=== PATIENT | male | born 1935 | race Caucasian/White ===

== ENCOUNTER 2023-04-12 15:53 | Inpatient (IN) ==
[2023-04-12] MEDS ORDERED: ASPIRIN CHEW 324 MG PO STA (16:15)
[2023-04-12 16:52] LABS: Base Excess VBG -1.4 mEq/L; HCO3 VBG 26 mmol/L; Oxygen Saturation VBG < 60.0 %; PCO2 VBG 54 mmHg (38-50); PO2 VBG < 20 mmHg; pH VBG 7.29 (7.36-7.41)
--- NOTE | 2023-04-12 17:19 | Emergency Department Note ---
History of Present Illness General Chief Complaint: Weakness Time Seen by Provider: 04/12/23 16:04 History of Present Illness Provider Complaint: shortness of breath Onset (ago): day(s) (5) Severity: moderate Consistency/Duration: + progressively worsening Relieved By: + oxygen Exacerbated By: + lying flat Context: + occurred during exertion Associated symptoms: + orthopnea and + chest congestion; no chest pain, no pain with inspiration, no cough, no wheezing, no lower extremity pain, no paresthesias, no hemoptysis or no abdominal pain Treatment prior to arrival: oxygen Home Medications Medication Instructions Recorded Confirmed Type aspirin 325 mg tablet,delayed 325 mg PO DAILY 04/12/23 04/12/23 History release atorvastatin 80 mg tablet 80 mg PO QPM 04/12/23 04/12/23 History metoprolol tartrate 50 mg tablet 50 mg PO BID 04/12/23 04/12/23 History mirtazapine 15 mg tablet 7.5 - 15 mg PO HS 04/12/23 04/12/23 History tamsulosin 0.4 mg capsule 0.8 mg PO HS 04/12/23 04/12/23 History torsemide 20 mg tablet 20 mg PO DIRECTED 04/12/23 04/12/23 History Allergies Allergy/AdvReac Type Severity Reaction Status Date / Time No Known Allergies Allergy Verified 04/12/23 17:03 Past Med/Surg History Medical History No pertinent family history HLD (hyperlipidemia) HTN (hypertension) Surgical History No pertinent past surgical history Social History Smoking Status: Never smoker Preferred Language: Frisian Feels Safe at Home: Yes Physical Exam 2 Vital Signs: Vital Signs - 24 hr 04/12/23 15:38 04/12/23 16:10 04/12/23 16:15 Temperature 36.4 C L Temperature Source Oral Pulse Rate 62 65 Pulse Rate [Apical ] Pulse Rhythm Regular Regular Pulse Strength Normal Respiratory Rate 26 H 22 Respiratory Effort / Characteristics Non-Labored Respiratory Depth Normal Respiratory Patter n Regular Blood Pressure 108/70 Blood Pressure [Ri ght Arm] Blood Pressure Mariajose n 82 Blood Pressure Mariajose n [Right Arm] Blood Pressure Pos ition Lying Blood Pressure Pos ition [Right Arm] Pulse Oximetry 95 95 95 Oxygen Delivery Me thod Nasal Cannula Oxymask Nasal Cannula Oxygen Flow Rate 4 4 4 Sepsis Recent Feve r Within 48 Hours No Sepsis New/Unexpla ined Change in Men cecilia Status No Sepsis Action Take n by Nursing No Action Required 04/12/23 16:20 04/12/23 20:40 Temperature Temperature Source Pulse Rate Pulse Rate [Apical ] 64 Pulse Rhythm Pulse Strength Respiratory Rate 18 Respiratory Effort / Characteristics Accessory Muscle U se Non-Labored Sponta neous Respiratory Depth Normal Normal Respiratory Patter n Regular Regular Blood Pressure Blood Pressure [Ri ght Arm] 115/76 Blood Pressure Mariajose n Blood Pressure Mariajose n [Right Arm] 89 Blood Pressure Pos ition Blood Pressure Pos ition [Right Arm] Lying Pulse Oximetry 97 Oxygen Delivery Me thod Nasal Cannula Room Air Oxygen Flow Rate 4 Sepsis Recent Feve r Within 48 Hours Sepsis New/Unexpla ined Change in Men cecilia Status Sepsis Action Take n by Nursing Physical Exam: Physical Exam GENERAL: oriented to person, place, and time. appears well-developed and well- nourished. HENT: Exam performed. - Head: Normocephalic and atraumatic. EYES: Conjunctivae and EOM are normal. Right eye exhibits no discharge. Left eye exhibits no discharge. No scleral icterus. NECK: Normal range of motion. Neck supple. No JVD present. CV: Normal rate, irregular rhythm, normal heart sounds and intact distal pulses. 2+ pitting edema of the bilateral lower extremities. Palpable radial pulses bue. PULM/CHEST: Rales bilaterally. ABD: The abdomen is soft. There is no tenderness. NEURO: Motor and sensation grossly intact. SKIN: Skin is warm and dry. He is not diaphoretic. PSYCH: normal mood and affect. Behavior is normal. Judgment and thought content normal. Course Course 1604: The patient was evaluated in room A10. A complete history and physical exam was performed Cardiac monitoring: An order was placed for continuous cardiac monitoring. The monitor shows a rate of 70 with atrial fibrilation rhythm interpreted by me patient was found to be hypoxic on room air and placed on supplemental oxygen via nasal cannula which improved his oxygen saturation. Patient and family reported no history of atrial fibrillation. 1732: Vital signs stable on supplemental oxygen. Labs showed a potassium of 6.3 creatinine 1.34 glucose 157 high-sensitivity troponin 24.9 BNP 338. Patient will be treated with calcium gluconate 1 g, 10 units insulin 1 amp D50, and Lasix 40 mg. Chest x-ray does show cardiomegaly with mild cephalization. 2023: Vital signs stable on supplemental oxygen via nasal cannula. D-dimer proBNP and troponin elevated. CT of the chest negative for PE. Discussed case with Dr. Smith [facility] hospitalist will admit the patient. We discussed anticoagulation options and after discussion we both decided start the patient on heparin given his elevated [id number] score and new onset A-fib. Administered Medications Heparin Sodium/Dextrose (Heparin Sodium/Dextrose) 25,000 units in 500 mls @ 19 mls/hr IV .Q24H RICHY; Protocol Stop: 05/12/23 20:44 Last Admin: 04/12/23 20:59 Dose: 950 units/hr, 19 mls/hr Documented By: ED Co-signed By: NRKaylie Discontinued Medications Aspirin (Aspirin Chew 324 Mg) 324 mg PO NOW STA Stop: 04/12/23 16:16 Last Admin: 04/12/23 16:27 Dose: 324 mg Documented By: MICHELLE Dextrose (Dextrose 50% 50 Ml Syringe) 50 ml IV NOW STA Stop: 04/12/23 17:31 Last Admin: 04/12/23 17:55 Dose: 50 ml Documented By: EMPERATRIZ Furosemide (Furosemide 40 Mg/4 Ml Vial) 40 mg IV ONE STA Stop: 04/12/23 17:31 Last Admin: 04/12/23 17:55 Dose: 40 mg Documented By: EMPERATRIZ Heparin Sodium (Porcine) (Heparin Sod (Porcine) 1000 Unit/Ml) 4,000 units IV NOW ONE Stop: 04/12/23 21:01 Last Admin: 04/12/23 20:59 Dose: 4,000 units Documented By: ED Co-signed By: CRISPIN Heparin Sodium/Dextrose (Heparin Iv Adult Wt-Based Low-Dose With Bolus Protocol) 1 each IV NOW STA; Protocol Stop: 04/12/23 20:23 Last Admin: 04/12/23 20:59 Dose: Not Given Documented By: ED Calcium Gluconate 1,000 mg/ (Sodium Chloride) 60 mls @ 240 mls/hr IV NOW ONE Stop: 04/12/23 17:44 Last Infusion: 04/12/23 18:23 Dose: Infused Documented By: Admin: 04/12/23 17:55 Dose: 240 mls/hr Documented By: EMPERATRIZ Insulin Human Regular 10 units (/ Syringe) 9.9 mls @ 3 mls/sec IV ONE STA Stop: 04/12/23 17:31 Last Admin: 04/12/23 17:56 Dose: 3 mls/sec Documented By: EMPERATRIZ Co-signed By: BRIJESH Ioversol (Optiray 320 125ml) 118 ml IV ONCE ONE Stop: 04/12/23 19:29 Last Admin: 04/12/23 19:29 Dose: 118 ml Documented By: MAGDALENE Medical Decision Making Laboratory Data Attestation: I reviewed the patient's lab results. 04/12/23 16:38 04/12/23 16:32 Lab Results 04/12/23 04/12/23 04/12/23 Range/Units 16:32 16:38 16:49 WBC Cancelled 7.49 RBC Cancelled 4.56 L Hgb Cancelled 14.0 Hct Cancelled 43.8 MCV Cancelled 96.1 MCH Cancelled 30.7 MCHC Cancelled 32.0 RDW Std Deviation Cancelled 54.8 H RDW Coeff of Fernando Cancelled 15.6 H Plt Count Cancelled 96 L MPV Cancelled 12.2 Immature Gran % (Auto) Cancelled 0.4 Neut % (Auto) Cancelled 80.8 Lymph % (Auto) Cancelled 10.1 [place] % (Auto) Cancelled 7.1 Eos % (Auto) Cancelled 1.2 Baso % (Auto) Cancelled 0.4 Neut # (Auto) Cancelled 6.05 Lymph # (Auto) Cancelled 0.76 L [place] # (Auto) Cancelled 0.53 Eos # (Auto) Cancelled 0.09 Baso # (Auto) Cancelled 0.03 Immature Gran # (Auto) Cancelled 0.03 Absolute Nucleated RBC Cancelled Nucleated RBC % (auto) Cancelled Neutrophils % (Manual) Cancelled Band Neutrophils % Cancelled Lymphocytes % (Manual) Cancelled Prolymphocyte % Cancelled Reactive Lymphs % (Man) Cancelled Monocytes % (Manual) Cancelled Eosinophils % (Manual) Cancelled Basophils % (Manual) Cancelled Metamyelocytes % (Man) Cancelled Myelocytes % (Man) Cancelled Promyelocytes % (Man) Cancelled Blast Cells % (Manual) Cancelled Plasma Cell % (Manual) Cancelled Other Cells % Cancelled Nucleated RBC % Cancelled Neutrophils # (Manual) Cancelled Band Neutrophils # Cancelled Total Absolute Neuts Cancelled Lymphocytes # (Manual) Cancelled Prolymphocyte # Cancelled Reactive Lymphs # Cancelled Total Abs Lymphocytes Cancelled Monocytes # (Manual) Cancelled Eosinophils # (Manual) Cancelled Basophils # (Manual) Cancelled Metamyelocytes # (Man) Cancelled Myelocytes # (Manual) Cancelled Promyelocytes # (Man) Cancelled Blast Cells # (Man) Cancelled Plasma Cell # (Manual) Cancelled Other Cells # Cancelled Nucleated RBCs # (Man) Cancelled Hypersegmented Neuts Cancelled Hyposegmented Neuts Cancelled Hypogranular Neuts Cancelled Large Granular Lymphs Cancelled # Lrg Granular Lymphs Cancelled Hairy Cells Cancelled Smudge Cells Cancelled Toxic Granulation Cancelled Toxic Vacuolation Cancelled Dohle Bodies Cancelled Ruby Rods Cancelled Platelet Estimate Cancelled Decreased L Hypogranular Platelets Cancelled Giant Platelets Cancelled Platelet Satelliting Cancelled RBC Morphology Cancelled Polychromasia Cancelled Hypochromasia Cancelled Poikilocytosis Cancelled Basophilic Stippling Cancelled Anisocytosis Cancelled Microcytosis Cancelled Macrocytosis Cancelled Spherocytes Cancelled Pappenheimer Bodies Cancelled Sickle Cells Cancelled Target Cells Cancelled Tear Drop Cells Cancelled Ovalocytes Cancelled Stomatocytes Cancelled Oneill-Oil Trough Bodies Cancelled Echinocytes Cancelled Acanthocytes (Spur) Cancelled Rouleaux Cancelled RBC Agglutinates Cancelled Schistocytes Cancelled Sezary Cell Cancelled PT 12.7 H (9.0-12.0) Seconds INR 1.2 H (0.9-1.1) APTT 24.1 (21.0-31.0) Seconds PTT Ratio 0.9 D-Dimer 940 H* (0-500) ug/L FEU VBG pH 7.29 L (7.36-7.41) VBG pCO2 54 H (38-50) mmHg VBG pO2 < 20 mmHg VBG HCO3 26 mmol/L VBG O2 Saturation < 60.0 % VBG Base Excess -1.4 mEq/L Sodium 136 (136-145) mmol/L Potassium 6.3 H* (3.5-5.1) mmol/L Chloride 106 (98-107) mmol/L Carbon Dioxide 25 (21-32) mmol/L Anion Gap 5 (3-11) BUN 26 H (6-23) mg/dl Creatinine 1.34 (0.6-1.4) mg/dl Est Cr Clr Drug Dosing 42.3 ml/min Est GFR ( Amer) 54.1 ml/min Est GFR (Non-Af Amer) 46.6 ml/min BUN/Creatinine Ratio 19.4 (10-20) Glucose 157 H (70-99(Fasting)) mg/dl POC Glucose (70-99) mg/dl Calcium 8.4 L (8.6-10.3) mg/dl Magnesium 2.3 (1.7-2.4) mg/dl Troponin I High Sens 24.9 H (0-20) pg/ml B-Natriuretic Peptide 338 H (0-100) pg/ml Lipase 30 (11-82) U/L SARS-CoV-2 (PCR) NEGATIVE (Negative) Influenza Type A (PCR) Negative (Neg) Influenza Type B (PCR) Negative (Neg) RSV (RT-PCR) Negative (Neg) Blood Parasites ID Cancelled 04/12/23 04/12/23 04/12/23 Range/Units 18:34 18:55 19:37 WBC RBC Hgb Hct MCV MCH MCHC RDW Std Deviation RDW Coeff of Fernando Plt Count MPV Immature Gran % (Auto) Neut % (Auto) Lymph % (Auto) [place] % (Auto) Eos % (Auto) Baso % (Auto) Neut # (Auto) Lymph # (Auto) [place] # (Auto) Eos # (Auto) Baso # (Auto) Immature Gran # (Auto) Absolute Nucleated RBC Nucleated RBC % (auto) Neutrophils % (Manual) Band Neutrophils % Lymphocytes % (Manual) Prolymphocyte % Reactive Lymphs % (Man) Monocytes % (Manual) Eosinophils % (Manual) Basophils % (Manual) Metamyelocytes % (Man) Myelocytes % (Man) Promyelocytes % (Man) Blast Cells % (Manual) Plasma Cell % (Manual) Other Cells % Nucleated RBC % Neutrophils # (Manual) Band Neutrophils # Total Absolute Neuts Lymphocytes # (Manual) Prolymphocyte # Reactive Lymphs # Total Abs Lymphocytes Monocytes # (Manual) Eosinophils # (Manual) Basophils # (Manual) Metamyelocytes # (Man) Myelocytes # (Manual) Promyelocytes # (Man) Blast Cells # (Man) Plasma Cell # (Manual) Other Cells # Nucleated RBCs # (Man) Hypersegmented Neuts Hyposegmented Neuts Hypogranular Neuts Large Granular Lymphs # Lrg Granular Lymphs Hairy Cells Smudge Cells Toxic Granulation Toxic Vacuolation Dohle Bodies Ruby Rods Platelet Estimate Hypogranular Platelets Giant Platelets Platelet Satelliting RBC Morphology Polychromasia Hypochromasia Poikilocytosis Basophilic Stippling Anisocytosis Microcytosis Macrocytosis Spherocytes Pappenheimer Bodies Sickle Cells Target Cells Tear Drop Cells Ovalocytes Stomatocytes Oneill-Oil Trough Bodies Echinocytes Acanthocytes (Spur) Rouleaux RBC Agglutinates Schistocytes Sezary Cell PT (9.0-12.0) Seconds INR (0.9-1.1) APTT (21.0-31.0) Seconds PTT Ratio D-Dimer (0-500) ug/L FEU VBG pH (7.36-7.41) VBG pCO2 (38-50) mmHg VBG pO2 mmHg VBG HCO3 mmol/L VBG O2 Saturation % VBG Base Excess mEq/L Sodium (136-145) mmol/L Potassium (3.5-5.1) mmol/L Chloride (98-107) mmol/L Carbon Dioxide (21-32) mmol/L Anion Gap (3-11) BUN (6-23) mg/dl Creatinine (0.6-1.4) mg/dl Est Cr Clr Drug Dosing ml/min Est GFR ( Amer) ml/min Est GFR (Non-Af Amer) ml/min BUN/Creatinine Ratio (10-20) Glucose (70-99(Fasting)) mg/dl POC Glucose 132 H 91 (70-99) mg/dl Calcium (8.6-10.3) mg/dl Magnesium (1.7-2.4) mg/dl Troponin I High Sens 27.0 H (0-20) pg/ml B-Natriuretic Peptide (0-100) pg/ml Lipase (11-82) U/L SARS-CoV-2 (PCR) (Negative) Influenza Type A (PCR) (Neg) Influenza Type B (PCR) (Neg) RSV (RT-PCR) (Neg) Blood Parasites ID Imaging Data Attestation: I personally reviewed and interpreted this imaging study as follows: My Impression: Chest x-ray: Cardiomegaly with mild cephalization Radiologist's Impression: Chest X-Ray 04/12/23 16:15 SINGLE VIEW CHEST CLINICAL HISTORY: Atypical chest pain FINDINGS: 2 AP, portable, upright chest radiographs are obtained. No prior studies are available for comparison at the time of dictation. The examination is degraded by portable technique and patient rotation. The heart is enlarged noting atherosclerotic calcification of the thoracic aorta. The pulmonary vasculature is noncongested. Nonspecific interstitial thickening is likely chronic. There is mild bibasilar scarring/atelectasis. No airspace consolidation or large pleural effusion is identified. No pneumothorax is seen. The skeletal structures are osteopenic. The bony thorax is grossly intact. Degenerative change is noted in the shoulders and spine. IMPRESSION: Cardiomegaly with no acute cardiopulmonary abnormality identified. ACT 112: Negative or not required by law. Electronically signed by: Toby Vega M.D. 04/12/2023 5:26 PM Chest CTA 04/12/23 17:46 Exam(s): CTA CHEST IV Amt: 118 cc opti 320 EXAM: CT Angiography Chest With Intravenous Contrast CLINICAL HISTORY: Reason for exam: ro PE. TECHNIQUE: Axial computed tomographic angiography images of the chest with intravenous contrast. CTDI is 47.14 mGy and DLP is 963.99 mGy-cm. Automated exposure control was utilized for the study. A dose lowering technique was utilized adhering to the principles of ALARA. MIP reconstructed images were created and reviewed. COMPARISON: No relevant prior studies available. FINDINGS: Pulmonary arteries: Unremarkable. No acute pulmonary embolism. Aorta: Atherosclerotic changes of the aorta. No thoracic aortic aneurysm. Lungs: Unremarkable. No mass. No consolidation. Pleural space: Unremarkable. No focal infiltrate, pleural effusion, or pneumothorax. Heart: Cardiomegaly. No significant pericardial effusion. No evidence of RV dysfunction. Bones/joints: Degenerative changes of the spine. No acute fracture. No dislocation. Soft tissues: Unremarkable. Lymph nodes: Unremarkable. No enlarged lymph nodes. Intraperitoneal space: Hepatic steatosis. Mild perihepatic ascites. IMPRESSION: 1. No acute pulmonary embolism. 2. No focal infiltrate, pleural effusion, or pneumothorax. Electronically signed by: Lance Kaiser MD 04/12/23 19:52 PM ECG Data Attestation: I personally reviewed and interpreted this ECG as follows: Interpretation: Atrial fibrillation with a rate of 68. QRS [address] elevation or ST depression. [facility] Narrative 1604: The patient was evaluated in room A10. A complete history and physical exam was performed Cardiac monitoring: An order was placed for continuous cardiac monitoring. The monitor shows a rate of 70 with atrial fibrilation rhythm interpreted by me patient was found to be hypoxic on room air and placed on supplemental oxygen via nasal cannula which improved his oxygen saturation. Patient and family reported no history of atrial fibrillation. 173: Vital signs stable on supplemental oxygen. Labs showed a potassium of 6.3 creatinine 1.34 glucose 157 high-sensitivity troponin 24.9 BNP 338. Patient will be treated with calcium gluconate 1 g, 10 units insulin 1 amp D50, and Lasix 40 mg. Chest x-ray does show cardiomegaly with mild cephalization. 2023: Vital signs stable on supplemental oxygen via nasal cannula. D-dimer proBNP and troponin elevated. CT of the chest negative for PE. Discussed case with Dr. Smith [facility] hospitalist will admit the patient. We discussed anticoagulation options and after discussion we both decided start the patient on heparin given his elevated [id number] score and new onset A-fib. Impression & Plan Hypoxia, CHF exacerbation, Hyperkalemia, A-fib Critical Care Time Critical Care Time: Yes Total Critical Care Time: 89 I have personally spent greater than 89 minutes of critical care time in the direct management of this patient. This includes bedside care, interpretation of diagnostic studies, and testing, discussion with consultants, patient, and family members, and other required patient management activities. This 89 minutes is in excess of all separately billable procedures. Discharge Plan Visit Data Chief Complaint: Weakness ED Provider: Jovan Herrera Discharge Problem: Hypoxia, CHF exacerbation, Hyperkalemia, A-fib Patient Disposition: Admitted As Inpatient Forms Stand Alone Forms: [facility] Prescriptions Prescriptions: No Action atorvastatin 80 mg tablet 80 mg PO QPM torsemide 20 mg Tablet 20 mg PO DIRECTED Rx Instructions: 40 MG BID FOR 5 DAYS, THEN REDUCE TO [address] COOPER'S OFFICE. aspirin 325 mg Tablet,Delayed Release (Dr/Ec) 325 mg PO DAILY tamsulosin 0.4 mg capsule 0.8 mg PO HS metoprolol tartrate 50 mg tablet 50 mg PO BID mirtazapine 15 mg tablet 7.5 - 15 mg PO HS Referrals Referrals: PCP,NO [Primary Care Provider] - Discharge Problem: CHF exacerbation Qualifiers: Heart failure type: unspecified Qualified Code(s): I50.9 - Heart failure, unspecified A-fib Qualifiers: Atrial fibrillation type: unspecified Qualified Code(s): I48.91 - Unspecified atrial fibrillation
[2023-04-12 17:25] LABS: Troponin I High Sensitivity 24.9 pg/ml (0-20)
--- NOTE | 2023-04-12 17:27 | XRay Report ---
SINGLE VIEW CHEST CLINICAL HISTORY: Atypical chest pain FINDINGS: 2 AP, portable, upright chest radiographs are obtained. No prior studies are available for comparison at the time of dictation. The examination is degraded by portable technique and patient ro tation. The heart is enlarged noting atherosclerotic calcification of the thoracic aorta. The pulmon chu vasculature is noncongested. Nonspecific interstitial thickening is likely chronic. There is mild bibasilar scarring/atelectasis. No airspace consolidation or large pleural effusion is identified. N o pneumothorax is seen. The skeletal structures are osteopenic. The bony thorax is grossly intact. De generative change is noted in the shoulders and spine. IMPRESSION: Cardiomegaly with no acute cardiopulmonary abnormality identified. ACT 112: Negative or not required by law. Electronically signed by: Toby Vega M.D. 04/12/2023 5:26 PM
[2023-04-12 17:29] LABS: BUN Creatinine Ratio 19.4 (10-20); Calcium 8.4 mg/dl (8.6-10.3); Creatinine Clr Calc Pharmacy 42.3 ml/min; Est GFR (African American) 54.1 ml/min; Est GFR (Non-African American) 46.6 ml/min; Magnesium 2.3 mg/dl (1.7-2.4); Potassium 6.3 mmol/L (3.5-5.1)
[2023-04-12] MEDS ORDERED: CALCIUM GLUCONATE 10% 1,000 MG in SODIUM CHLOR 0.9% MINI-B 50 ML IV ONE (17:30)
[2023-04-12] MEDS ORDERED: DEXTROSE 50% 50 ML SYRINGE IV STA (17:30)
[2023-04-12] MEDS ORDERED: STAT IV/IM STA (17:30)
[2023-04-12] MEDS ORDERED: FUROSEMIDE 40 MG/4 ML VIAL IV STA (17:30)
[2023-04-12] MEDS ORDERED: INSULIN HUMAN REGULAR PER UNIT 10 UNITS in SYRINGE 9.9 ML IV STA (17:30)
[2023-04-12 17:32] LABS: INR 1.2 (0.9-1.1); Partial Thromboplastin Ratio 0.9; Partial Thromboplastin Time 24.1 Seconds (21.0-31.0); Prothrombin Time 12.7 Seconds (9.0-12.0)
[2023-04-12 17:48] LABS: D Dimer 940 ug/L FEU (0-500)
[2023-04-12 18:09] LABS: Basophils # (auto) 0.03 K/uL (0.00-0.20); Basophils % (auto) 0.4 %; Eosinophils # (auto) 0.09 K/uL (0.00-0.50); Eosinophils % (auto) 1.2 %; Hematocrit (blood only) 43.8 % (42.0-52.0); Immature Granulocytes # (auto) 0.03 K/uL (0.01-0.20); Immature Granulocytes % (auto) 0.4 %; Lymphocytes # (auto) 0.76 K/uL (1.20-3.40); Lymphocytes % (auto) 10.1 %; Mean Corpuscular Hemoglobin 30.7 pg (25.0-34.0); Mean Corpuscular Volume 96.1 fL (80.0-100.0); Mean Platelet Volume 12.2 fL (9.4-12.4); Monocytes # (auto) 0.53 K/uL (0.11-0.59); Monocytes % (auto) 7.1 %; Neutrophils # (auto) 6.05 K/uL (1.40-6.50); Neutrophils % (auto) 80.8 %; Platelet Count 96 K/uL (130-400); Platelet Estimate Decreased (Normal); RDW Coefficient of Variation 15.6 % (11.5-14.5); RDW Standard Deviation 54.8 fL (36.4-46.3); Red Blood Count 4.56 M/uL (4.70-6.10); White Blood Count 7.49 K/ul (4.8-10.8)
[2023-04-12] MEDS ORDERED: OPTIRAY 320 125ml IV ONE (19:28)
[2023-04-12 19:44] LABS: Influenza A virus by PCR Negative (Neg); Influenza B virus by PCR Negative (Neg); RSV by PCR Negative (Neg); SARS CoV2 RNA(COVID-19) Ceph NEGATIVE (Negative)
--- NOTE | 2023-04-12 19:53 | CT Scan Report ---
Exam(s): CTA CHEST IV Amt: 118 cc opti 320 EXAM: CT Angiography Chest With Intravenous Contrast CLINICAL HISTORY: Reason for exam: ro PE. TECHNIQUE: Axial computed tomographic angiography images of the chest with intravenous contrast. CTDI is 47.14 mGy and DLP is 963.99 mGy-cm. Automated exposure control was utilized for the study. A dose lowering technique was utilized adhering to the principles of ALARA. MIP reconstructed images were created and reviewed. COMPARISON: No relevant prior studies available. FINDINGS: Pulmonary arteries: Unremarkable. No acute pulmonary embolism. Aorta: Atherosclerotic changes of the aorta. No thoracic aortic aneurysm. Lungs: Unremarkable. No mass. No consolidation. Pleural space: Unremarkable. No focal infiltrate, pleural effusion, or pneumothorax. Heart: Cardiomegaly. No significant pericardial effusion. No evidence of RV dysfunction. Bones/joints: Degenerative changes of the spine. No acute fracture. No dislocation. Soft tissues: Unremarkable. Lymph nodes: Unremarkable. No enlarged lymph nodes. Intraperitoneal space: Hepatic steatosis. Mild perihepatic ascites. IMPRESSION: 1. No acute pulmonary embolism. 2. No focal infiltrate, pleural effusion, or pneumothorax. Electronically signed by: Lance Kaiser MD 04/12/23 19:52 PM
[2023-04-12] MEDS ORDERED: Heparin IV Adult Wt-Based Standard w/ INITIAL Bolus Protocol IV STA (20:22)
[2023-04-12] MEDS ORDERED: Heparin IV Adult Wt-Based Low-Dose w/ INITIAL Bolus Protocol IV STA (20:22)
[2023-04-12] MEDS ORDERED: HEPARIN SOD (PORCINE) 1000 UNIT/ML IV ONE ×2 (20:38→21:00)
--- NOTE | 2023-04-12 20:38 | History & Physical Report ---
Date of Service April 12, 2023 Assessment & Plan (1) A-fib: Plan: -Admit to med/tele -Currently rate controlled, hemodynamically stable, stable on RA, and asymptomatic at rest -Noted to be in afib today in the ED, no apparent previous history -Unsure of the exact etiology at this time, patient was hyperkalemic on arrival with mag WNL -He notes multiple episodes of lightheadedness/dizziness over the past 2 months, unsure if this is related to his afib at this time -Will obtain TSH and TTE for further evaluation -BNP is elevated at 338, no previous result to compare to, patient has LE edema but is otherwise euvolemic -Patient's [id number] score is 5, giving him a 7.2% stroke risk per year -HAS-BLED score is 4, making him high risk for bleeding -Discussed the risks and benefits of starting or holding anticoagulation, the patient does not have a frequent fall history and would like to proceed with anticoagulation -Started on a heparin drip in the ED, will continue for now -Heparin drip for DVT PPX -HH diet with 2gm sodium restriction -AM CBC, CMP, Mag, PT/INR/aPTT (2) Hyperkalemia: Plan: -Noted to be 6.3 in the ED -Mag is WNL -Unsure of the exact etiology at this time -Patient is not taking a potassium supplement, he does eat bananas frequently -Unsure of his baseline Cr as we do not have previous labs in our system -I am concerned that his kidneys did not respond to the torsemide he took earlier today, will need to monitor closely for progression to VERONICA or renal failure -S/P calcium gluconate, insulin, and lasix in the ED -Repeat potassium level is in process, will follow -Continue to monitor on tele, monitor am renal function and electrolytes (3) PRINCE (dyspnea on exertion): Plan: -Patient has been experiencing progressive PRINCE with his normal activities over the past few months -No previous hx of cardiac disease but does have concerning family hx -TTE and cardiology consult have been placed, unsure if he would be a good candidate for hearth cath prior to discharge -CXR and CTA of the chest are negative for pulmonary sources, he is not volume overloaded other than his BL LE's -If the patient would need to undergo heart cath would need to ensure his renal function is stable -Currently stable on RA, continue to monitor on tele -Will continue to monitor high sen trop overnight (4) Thrombocytopenia: Plan: -Platelets at 96 today -No signs of active bleeding -Unsure of exact etiology at this time but he has multiple possible etiologies including multiple recent tick bites, hx of hepatitis, alcohol use -Will obtain LFT's, tick borne workup, and US of the liver for further evaluation -Monitor for bleed and am CMP (5) Swelling of both lower extremities: Plan: -Unclear etiology at this time -Patient is not overloaded on the rest of his exam -Differential includes CHF, venous stasis, renal failure, and liver disease -Obtaining LFT's, UA with protein/Cr ratio, TTE (6) TIA (transient ischemic attack): Plan: -Patient reports he is on 325 mg of Aspirin daily for this, seems like an odd dose -We do not have previous records -For now will reduce his dose to 81 mg daily (7) HTN (hypertension): Plan: -Stable -Can continue metoprolol (8) HLD (hyperlipidemia): Plan: -Continue statin Plan The patient was discussed with Dr. Smith at the time of the admission History of Present Illness Chief Complaint: Weakness, SOB Primary Care Provider: NO PCP Stephen is an 88 year old male with a PMH significant for HTN, Hyperlipidemia, TIA in 2019, previous hepatitis infection approximately 50 yrs ago (states he was treated at [facility]) who presented to the [facility] ED on 04/12 with complaints of generalized weakness and SOB. In the ED he was noted to be be h emodynamically stable. It appears that he was placed on 4L NC on arrival but without documented hypoxia. Labs were significant for a platelet count of 96, lymphocyte count of 0.76, INR of 1.2, D-dimer of 940, potassium of 6.3, initial high sen trop of 24 of 2 hour repeat of 27, BNP of 338 (no previous value to compare to), and covid 19/influenza/RSV negative. Chest xray was read as "Cardiomegaly with no acute cardiopulmonary abnormality identified.". CTA of the chest with PE protocol was read as "1. No acute pulmonary embolism. 2. No focal infiltrate, pleural effusion, or pneumothorax.". ECG today shows new onset atrial fibrillation. Prior to admission the patient was given 1gm IV calcium gluconate, 40 mg IV lasix, 10 units IV inuslin, 324 mg Aspirin, and was started on a heparin drip. At the time of the exam the patient was lying in bed in no acute distress, currently stable on RA. He states that he went to see his PCP this am as he has been having progressive PRINCE and LE swelling over the past few months. His PCP prescribed him torsemide at the end of the appointment. He took two tabs, approximately one hour later the patient states he had a dizzy spell where he felt very weak and diaphoretic. He denies the room spinning but states that he felt as though he could have passed out. He denies other neurologic symptoms, chest pain, heart palpitations, or SOB during this episode. He tells me that this is not the first time he has had a "spell" like this. He has had this occur approximately 4 other times over the past 2-3 months. Each episode occurs with activity. When asked if the torsemide made him urinate large amounts he states, "actually, no. I have not been urinating much over the past 2-3 days". He denies a hx of cardiac disease, DM, or CHF. When asked, he states that he has been getting significant SOB/PRINCE with his normal household activities such as going up his basement steps. It is getting to the point where he has to stop and take a rest with even his normal activities. His two uncles of OH's at the ages of 50 and 60, he does not believe that his father had heart disease. He denies a history of tobacco abuse and states that he drinks beer twice a week when he plays pool at the local bar. He currently feels well while resting in his bed. I noticed that he was prescribed a month long course of prednisone last month. He states his PCP put him on it for low energy and arthritis. He denies being told in the past that he has a hx of afib but was told in the past that he did not have a normal heart rhythm. He has had multiple tick bites in the past 2 years and has been treat at local hospitals when one is found. 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 Regarding his elevated potassium today; I asked if he was given a potassium supplement with his new prescription of torsemide. He states that he was not given one but was told by his PCP recently to decrease the number of bananas he eats daily. He was eating approximately 2-3 bananas before cutting back 2 months ago. He states he was hospitalized at [facility] for that episode. We discussed code status, he wishes to be a DNR/DNI and for his children to make medical decisions for him if he cannot make them himself. Please refer to Dr. Smith's attestation for any changes to the treatment plan Allergies Allergy/AdvReac Type Severity Reaction Status Date / Time No Known Allergies Allergy Verified 04/12/23 17:03 Home Medications Medication Instructions Recorded Confirmed Type aspirin 325 mg tablet,delayed 325 mg PO DAILY 04/12/23 04/12/23 History release atorvastatin 80 mg tablet 80 mg PO QPM 04/12/23 04/12/23 History metoprolol tartrate 50 mg tablet 50 mg PO BID 04/12/23 04/12/23 History mirtazapine 15 mg tablet 7.5 - 15 mg PO HS 04/12/23 04/12/23 History tamsulosin 0.4 mg capsule 0.8 mg PO HS 04/12/23 04/12/23 History torsemide 20 mg tablet 20 mg PO DIRECTED 04/12/23 04/12/23 History Past Med/Surg History Medical History No pertinent family history HLD (hyperlipidemia) HTN (hypertension) Surgical History No pertinent past surgical history Social History Smoking Status: Never smoker Preferred Language: Thai Feels Safe at Home: Yes Physical Exam Physical Exam: Physical Exam: General: In no acute distress, stated age, well-nourished, good hygiene HEENT: Normocephalic, atraumatic, no scleral icterus, pupils around round, symmetrical, and reactive to light, moist mucus membranes, trachea midline, no thyromegaly Chest/Pulm: No respiratory distress, symmetrical chest expansion, clear breath sounds throughout Cardiac: irregular rate and rhythm, no murmurs noted Abdomen: Negative for ascites and bruising, normoactive bowel sounds, soft, non-tender to palpation throughout Musculoskeletal: Symmetrical and without signs of acute trauma, upper and lower extremities with full ROM, no atrophy, spasticity, or flaccidity Extremities: Radial, dorsalis pedis, and posterior tibial pulses are intact and symmetrical, 2+ pitting noted in the BL LE's Skin: Warm, dry, no rashes , lesions, or scars noted Neuro: Alert and oriented to person, place, month, year, and president, no focal defects, no tremors noted Psych: No acute distress, calm and cooperative during the exam Results & Data Results & Data Vital Signs (Past 12 Hours) Vital Signs Temp Pulse Resp BP Pulse Ox O2 Del Method O2 Flow Rate 04/12/23 16:20 Nasal Cannula 4 04/12/23 16:15 65 22 95 Nasal Cannula 4 04/12/23 16:10 36.4 C L 62 26 H 108/70 95 Oxymask 4 04/12/23 15:38 95 Nasal Cannula 4 Laboratory Results Abnormal lab results 04/12/23 04/12/23 04/12/23 Range/Units 16:32 16:38 18:34 RBC 4.56 L (4.70-6.10) M/uL RDW Std Deviation 54.8 H (36.4-46.3) fL RDW Coeff of Fernando 15.6 H (11.5-14.5) % Plt Count 96 L (130-400) K/uL Lymph # (Auto) 0.76 L (1.20-3.40) K/uL Platelet Estimate Decreased L (Normal) PT 12.7 H (9.0-12.0) Seconds INR 1.2 H (0.9-1.1) D-Dimer 940 H* (0-500) ug/L FEU VBG pH 7.29 L (7.36-7.41) VBG pCO2 54 H (38-50) mmHg Potassium 6.3 H* (3.5-5.1) mmol/L BUN 26 H (6-23) mg/dl Glucose 157 H (70-99(Fasting)) mg/dl POC Glucose 132 H (70-99) mg/dl Calcium 8.4 L (8.6-10.3) mg/dl Troponin I High Sens 24.9 H (0-20) pg/ml B-Natriuretic Peptide 338 H (0-100) pg/ml 04/12/23 Range/Units 18:55 RBC (4.70-6.10) M/uL RDW Std Deviation (36.4-46.3) fL RDW Coeff of Fernando (11.5-14.5) % Plt Count (130-400) K/uL Lymph # (Auto) (1.20-3.40) K/uL Platelet Estimate (Normal) PT (9.0-12.0) Seconds INR (0.9-1.1) D-Dimer (0-500) ug/L FEU VBG pH (7.36-7.41) VBG pCO2 (38-50) mmHg Potassium (3.5-5.1) mmol/L BUN (6-23) mg/dl Glucose (70-99(Fasting)) mg/dl POC Glucose (70-99) mg/dl Calcium (8.6-10.3) mg/dl Troponin I High Sens 27.0 H (0-20) pg/ml B-Natriuretic Peptide (0-100) pg/ml Diagnostic Findings Chest X-Ray 04/12/23 16:15 SINGLE VIEW CHEST CLINICAL HISTORY: Atypical chest pain FINDINGS: 2 AP, portable, upright chest radiographs are obtained. No prior studies are available for comparison at the time of dictation. The examination is degraded by portable technique and patient rotation. The heart is enlarged noting atherosclerotic calcification of the thoracic aorta. The pulmonary vasculature is noncongested. Nonspecific interstitial thickening is likely chronic. There is mild bibasilar scarring/atelectasis. No airspace consolidation or large pleural effusion is identified. No pneumothorax is seen. The skeletal structures are osteopenic. The bony thorax is grossly intact. Degenerative change is noted in the shoulders and spine. IMPRESSION: Cardiomegaly with no acute cardiopulmonary abnormality identified. ACT 112: Negative or not required by law. Electronically signed by: Toby Vega M.D. 04/12/2023 5:26 PM Chest CTA 04/12/23 17:46 Exam(s): CTA CHEST IV Amt: 118 cc opti 320 EXAM: CT Angiography Chest With Intravenous Contrast CLINICAL HISTORY: Reason for exam: ro PE. TECHNIQUE: Axial computed tomographic angiography images of the chest with intravenous contrast. CTDI is 47.14 mGy and DLP is 963.99 mGy-cm. Automated exposure control was utilized for the study. A dose lowering technique was utilized adhering to the principles of ALARA. MIP reconstructed images were created and reviewed. COMPARISON: No relevant prior studies available. FINDINGS: Pulmonary arteries: Unremarkable. No acute pulmonary embolism. Aorta: Atherosclerotic changes of the aorta. No thoracic aortic aneurysm. Lungs: Unremarkable. No mass. No consolidation. Pleural space: Unremarkable. No focal infiltrate, pleural effusion, or pneumothorax. Heart: Cardiomegaly. No significant pericardial effusion. No evidence of RV dysfunction. Bones/joints: Degenerative changes of the spine. No acute fracture. No dislocation. Soft tissues: Unremarkable. Lymph nodes: Unremarkable. No enlarged lymph nodes. Intraperitoneal space: Hepatic steatosis. Mild perihepatic ascites. IMPRESSION: 1. No acute pulmonary embolism. 2. No focal infiltrate, pleural effusion, or pneumothorax. Electronically signed by: Lance Kaiser MD 04/12/23 19:52 PM ECG Additional Comments: Atrial fibrillation Left axis deviation Low voltage QRS Incomplete right bundle branch block Inferior infarct , age undetermined Cannot rule out Anterior infarct , age undetermined Abnormal ECG When compared with ECG of 29-MAY-1997 09:59, Atrial fibrillation has replaced Sinus rhythm Minimal criteria for Anterior infarct are now Present ... Code Status & VTE Plan Code Status DNR/DNI VTE Prophylaxis Plan VTE Prophylaxis will be ordered: Yes Supervising Physician Co-Signing Physician Notes Patient seen and examined, chart reviewed, case discussed with DARELL Mendiola and I agree with the assessment and plan as above. In brief, patient is an 88yo male presenting with worsening shortness of breath, weakness and edema, episode of dizzy spell/near syncope and diaphoresis prior to arrival. Found to be in AF, no known prior history of such. In the ER he is afebrile, HD stable, saturating 95% on room air currently Skin - intact, no rash HEENT - mild JVD on left, s/p right CEA, MMM, Neck supple Heart - +S1/S2, irregularly irregular, no m/r/g Lungs - faint crackles in bilateral bases, no rhonchi or wheezes Abd - soft, NT?ND Ext - warm, well perfused, 2+ pitting edema to the knees bilaterally, no calf tenderness Labs and images reviewed BUN=26, Cr=1.34 Trop=27, XDD=928 Assessment/Plan Shortness of breath, weakness, fatigue, new atrial fibrillation -Check TSH, electrolytes -Heparin gtt for new onset AF -Check 2D echo -Check UA and quantify protein if present -Remainder as above PG Care Time/CCT Total # of Minutes Spent Total Time Spent with Patient: Total time spent is greater than 50% in coordination of care (as documented) at patient's floor/unit and/or counseling patient: [place] [address] INT INP/OBS CARE 3/75MIN Patient Type New Medical Decision Making High Complexity Diagnoses A-fib I48.91 Atrial fibrillation type: unspecified Hyperkalemia E87.5 PRINCE (dyspnea on exertion) R06.09 Thrombocytopenia D69.6 Swelling of both lower extremities M79.89 TIA (transient ischemic attack) G45.9 HTN (hypertension) I10 HLD (hyperlipidemia) E78.5 (1) A-fib Atrial fibrillation type: unspecified Qualified Code(s): I48.91 - Unspecified atrial fibrillation
[2023-04-12] MEDS: HEPARIN SODIUM/DEXTROSE 25,000 UNITS/500 ML BAG IV SCH (20:59)
[2023-04-12 21:40] LABS: Base Excess VBG -0.7 mEq/L; HCO3 VBG 27 mmol/L; Oxygen Saturation VBG < 60.0 %; PCO2 VBG 56 mmHg (38-50); PO2 VBG < 20 mmHg; pH VBG 7.29 (7.36-7.41)
[2023-04-12 22:14] LABS: Albumin Level 3.9 gm/dl (3.4-5.0); Bilirubin Direct 0.3 mg/dl (0-0.2); Bilirubin,Total 1.1 mg/dl (0.2-1.0); Magnesium 2.3 mg/dl (1.7-2.4); Potassium 5.3 mmol/L (3.5-5.1)
[2023-04-12 22:20] LABS: Phosphorus 5.2 mg/dl (2.5-4.9); Total Protein 6.4 gm/dl (6.0-8.3)
[2023-04-12 22:33] LABS: Thyroid Stimulating Hormone 2.808 uIu/ml (0.300-4.500)
[2023-04-12] MEDS ORDERED: ATORVASTATIN 40 MG TAB PO SCH (22:58)
[2023-04-12 23:03] LABS: Lyme Ab IgG w/WB Rflx Negative (Negative); Lyme Ab IgM w/WB Rflx Negative (Negative)
[2023-04-13] MEDS: METOPROLOL TARTRATE 50 MG TAB PO SCH ×3 (01:15→20:27)
[2023-04-13] MEDS: MIRTAZAPINE TAB 15 MG TAB PO PRN ×2 (01:16→20:28)
[2023-04-13] MEDS: TAMSULOSIN HCL 0.4 MG CAP PO SCH ×2 (01:16→20:28)
[2023-04-13 03:37] LABS: Basophils # (auto) 0.03 K/uL (0.00-0.20); Basophils % (auto) 0.4 %; Eosinophils # (auto) 0.08 K/uL (0.00-0.50); Hematocrit (blood only) 41.4 % (42.0-52.0); Hemoglobin 13.5 g/dl (14.0-18.0); Immature Granulocytes # (auto) 0.04 K/uL (0.01-0.20); Immature Granulocytes % (auto) 0.5 %; Lymphocytes # (auto) 1.38 K/uL (1.20-3.40); Lymphocytes % (auto) 16.5 %; Mean Corpuscular Hemoglobin 30.7 pg (25.0-34.0); Mean Corpuscular Hgb Conc 32.6 g/dL (32.0-36.0); Mean Corpuscular Volume 94.1 fL (80.0-100.0); Mean Platelet Volume 12.1 fL (9.4-12.4); Monocytes # (auto) 0.81 K/uL (0.11-0.59); Monocytes % (auto) 9.7 %; Neutrophils # (auto) 6.02 K/uL (1.40-6.50); Neutrophils % (auto) 71.9 %; Platelet Count 86 K/uL (130-400); RDW Coefficient of Variation 15.5 % (11.5-14.5); RDW Standard Deviation 53.6 fL (36.4-46.3); White Blood Count 8.36 K/ul (4.8-10.8)
[2023-04-13 03:51] LABS: Albumin Globulin Ratio 1.5 (0.9-2); Albumin Level 3.7 gm/dl (3.4-5.0); BUN Creatinine Ratio 22.3 (10-20); Bilirubin,Total 1.2 mg/dl (0.2-1.0); Calcium 8.6 mg/dl (8.6-10.3); Creatinine Clr Calc Pharmacy 38.3 ml/min; Est GFR (African American) 47.9 ml/min; Est GFR (Non-African American) 41.4 ml/min; Globulin 2.4 gm/dl (2.5-4.0); Magnesium 2.2 mg/dl (1.7-2.4); Potassium 5.3 mmol/L (3.5-5.1); Total Protein 6.1 gm/dl (6.0-8.3)
[2023-04-13 04:15] LABS: INR 1.3 (0.9-1.1); Partial Thromboplastin Ratio 2.2; Prothrombin Time 13.7 Seconds (9.0-12.0)
[2023-04-13 04:29] LABS: Partial Thromboplastin Time 61.8 Seconds (21.0-31.0)
--- OUTSIDE RECORDS SUMMARY | 2023-04-13 06:44 | External Medical Summary | Continuity of Care Document ---
Author Name ÁNGELA WARE Address [address] [place] [address] Phone [phone] [facility] Address [address] [place] [address] Phone [phone] Problems Active Problems Provider Date Chest pain Ángela Ware PA-C Onset: 0 09/26/2017 Dyspnea Ángela Ware PA-C Onset: 0 09/26/2017 Generalized abdominal pain DAPHNE Bauer Onset: 09/26/2017 Carotid artery occlusion Ángela Ware PA-C Onset: 09/26/2017 Acute duodenal ulcer without hemorrhage, without perforation AND without obstruction Ángela Ware PA-C Onset: 09/26/2017 Active or passive immunization Ángela Ware PA-C Onset: 10/18/2017 Essential hypertension Ángela Ware PA-C O nset: 12/20/2017 Chronic obstructive lung disease Ángela mckeon PA-C Onset: 12/20/2017 Mixed hyperlipidemia Ángela Ware PA-C Ons et: 12/20/2017 Insomnia Ángela Ware PA-C Onset: 0 12/20/2017 Carotid endarterectomy Onset: Note: Document: 06/28/18 - D ischarge Summary Cellulitis of left lower limb Ángela Ware PA-C Onset: 06/12/2019 Social History Type Date Description Comments Sex Unknown Tobacco Use Reviewed: 10/28/22 Never Smoked Cigarette s Tobacco Use Reviewed: 10/28/22 Never Smoked Cigars Tobacco Use Reviewed: 10/28/22 Never Smoked A Pipe Smoking Status Reviewed: 03/03/23 Never Smoked A Pipe Smokeless Tobacco 10/28/2022 Never Used Smokeless To bacco ETOH Use Denies alcohol use Recreational Drug Use Denies Drug Use Allergies and adverse reactions Description No Known Drug Allergies Medications Active Medications SIG Qnty Indications Order ing Provider Date Duloxetine [id number] Caps DR Part 1 by mouth every day x 30 days then D/C 30caps Merly Waddell MD 03/03/2023 - 04/02/2023 Tdfmihynvf57zs Tablets One tablet daily x 30 days then half tablet daily x 30 days 45tabs Merly Waddell MD 03/03/2023 Sgtmgapuixt78ex Tablets Take 1/2-1 Tablet By Mouth Daily AT Bedtime 90tabs Merly Waddell MD 07/29/2021 Atorvastatin Qroqprp31os Tablets Take 1 Tablet By Mouth Every Evening 90tabs Kavon Landa MD 02/23/2020 Vitamin B-12 5,000 mcg Tab SL Dissolve 1 Tablet Under The Tongue By Mouth Every Day 90units Kavon Landa MD 09/06/2019 Azelastine HCL (Nasal)137mcg/[place] Solution use 2 squirts each nostril twice a day 90ml J30.1 Rene Arredondo JR, MD 06/21/2019 Breo Lrcymmb952-62lyg/Inh Aerosol One inhalation daily J44.9 Rene Arredondo JR, MD 05/31/2018 Tamsulosin HCL0.4mg Capsules Take 2 Capsules By Mouth Daily AT Bedtime 180caps Rene Arredondo JR, MD 07/26/2017 Oajtxgz492ig Tablets 1 by mouth every day 30tabs Rene Arredondo JR, MD Multi For HimTablets one per day, formula does not include vitamin K OTC Rene Arredondo JR, MD Immunizations CPT Code Status Date Vaccine Lot # [id number] Given 03/03/2023 Influenza Vaccine High Do se 0.5ML Age 65 & > [id number] 40397 Given 03/15/2022 Moderna Sars-Co v-2 (Covid-19) Vaccine, BiValent Booster 12y+ [id number] 25184 Given 03/09/2022 Influenza Virus Vaccine, Quadrivalent (Cciiv4), Derived From Cell [id number] 55559 Given 10/26/2021 Moderna Covid-1 9 Vaccine 50mcg Booster-EMR Doc Only [id number] 12622 Given 04/16/2021 Pfizer Sars-Cov -2 (Cov-19) vacc 30mcg/0.3ML 12Y+ EMR Doc Only 55894 Given 03/09/2021 Influenza Vaccine High Do se 0.5ML Age 65 & > [id number] 84103 Given 07/18/2020 Moderna Sars-Co v-2 (Cov-19) vacc,100 mcg/ 0.5 mL 12Y+EMR Doc Only 41973 Given 06/13/2020 Moderna Sars-Co v-2 (Cov-19) vacc,100 mcg/ 0.5 mL 12Y+EMR Doc Only U-FLU Given 02/18/2019 Influenza,Unspecified 31579 Given 02/18/2019 Influenza Virus Vaccine, Quadrivalent (Cciiv4), Derived From 4 Given 10/22/2018 Pneumococcal Vaccine/Pneu movax 23 [id number] 82787 Given 10/18/2017 Pneumococcal Conjugate-Pr evnar 13 [id number] 25869 Given 03/27/2017 Influenza Virus Vaccine, Quadrivalent, Im Use [id number] Refused 05/31/2022 Shingrix 96620 Refused 07/06/2018 Tdap (Tetanus, diphtheria & acel. pertussis) Adacel or Boostrix Vital Signs Date Vital Result Comment 03/03/2023 9:32am BP Systolic 120 mmHg BP Diastolic 70 mmHg Body Temperature 97.3 F Heart Rate 86 /min Weight 205.44 lb Weight 93.186 kg Height 71 inches 5'11" BMI (Body Mass Index) 28.6 kg/m2 O2 % BldC Oximetry 98 % [place] Body Weight 172 lb 10/28/2022 9:22am BP Systolic 122 mmHg BP Diastolic 82 mmHg Body Temperature 97.5 F Heart Rate 92 /min Weight 202.00 lb Weight 91.627 kg Height 71 inches 5'11" BMI (Body Mass Index) 28.2 kg/m2 O2 % BldC Oximetry 99 % [place] Body Weight 172 lb Results Test Acquired Date Facility Test Result H/L Range N [place]te Pathology Report 03/03/[address] [facility] [place] [address] [phone] Report Type DNR Normal Clinical Information D49.2 Normal Pathologist (SEE NOTE) Normal 1 Report Notes DNR Normal A Clinical Impression DNR Normal A Source NOSE A Procedure DNR Normal A Gross Description (SEE NOTE) 2 A Micro Description (SEE NOTE) 3 A Diagnosis (SEE NOTE) 4 A Comment DNR Normal Laboratory test finding 03/03/[address] [place] [address] [phone] Enhanced PDF Report [id number] SEE IMAGE CBC W/Diff 02/24/2023 [facility]. [address] [place] [address] [phone] WBC 5.4 10^3/M3 3.1-9 .2 RBC 4.27 10^6/M3 4.00-5.80 HGB 13.3 GR/DL 12.5-17.5 HCT 39.6 % 37.5-52.5 MCV 92.7 CUMICR 82.6-95.8 MCH 31.1 PICOGR 27.9-32.9 MCHC 33.6 % 32.6-35.4 RDW 15.4 % High 11.4-14.6 PLT 149 10^3/M3 140-350 MPV 9.1 CUMICR 7.0-10.6 %Neut 51.8 % 40.0-75.0 %Lymph 34.4 % 17.0-45.0 %[place] 9.0 % 1.0-11.0 %Eos 4.1 % 0.0-6.0 %Baso 0.7 % 0.0-2.0 #Neut 2.8 10^3/M3 1.5-8.0 #Lymph 1.9 10^3/M3 0.8-3.2 #[place] 0.5 10^3/M3 0.0-0.8 #Eos 0.2 10^3/m3 0.0-0.4 #Baso 0.0 10^3/m3 0.0-0.2 Comp. Met 02/24/2023 [facility]. [address] [place] [address] [phone] Glucose 83 mg/dL 70-110 BUN 15 mg/dL 6-25 Creatinine 1.1 mg/dL 0.7-1.3 Sodium 140 mEq/L 135-145 Potassium 5.0 mEq/L 3.5-5.0 Chloride 103 mEq/L 95-107 Co-2 26 mEq/L 24-31 Alk Phos 183 IU/L High 43-122 Alt(SGPT) 33 IU/L 10-40 Ast(Sgot) 29 IU/L 3-42 T.Bilirubin 1.0 mg/dL 0.1-1.3 Calcium 9.0 mg/dL 8.5-10.6 Tot.Protein 6.5 g/dL 5.8-8.0 Albumin 4.0 g/dL 3.0-5.2 Globulin 2.5 g/dL 2.0-3.4 GFR 67 ML/MIN/1.73SQM >60 Lipid 02/24/2023 [facility]. [address] [place] [address] [phone] Cholesterol 87 mg/dL 0-200 5 Triglyceride 100 mg/dL 0-150 6 HDLD 24 mg/dL See Comment 7 Measured LDL 50 mg/dL 0-130 8 Calc VLDL 20.0 mg/dL See Comment 9 Chol/HDL 3.6 RATIO See Comment 10 Non-HDL 63 mg/dL See Comment 11 Laboratory test finding 02/24/2023 [facility]. [address] [place], [place] [id number] [phone] TSH 3.49 uIU/mL 0.50-6.00 Psa2 4.2 ng/mL Critical high 0.0-4.0 Hba1c 02/24/2023 [facility]. [address] [place], [place] [id number] [phone] A1c 5.80 % 4.70-6.50 12 Laboratory test finding 02/24/2023 [facility]. [address] [place] [address] [phone] Vitd-25Oh 42 ng/mL 30-100 VB12 725 pg/mL 230-1050 Urinalysis,Cult If Indicated 02/24/2023 [facility]. [address] [place], [place] [id number] [phone] RFLX Culture NO Urinalysis 02/24/2023 [facility]. [address] [place], [place] [id number] [phone] Color LIGHT-YEL LOW Appearance CLEAR Clear Spec.Grav. 1.010 1.005-1.025 Leukocytes TRACE Abnormal Negative Nitrite NEGATIVE Negative PH 6.5 6.0-7.5 Protein NEGATIVE Negative Urine Glucose NEGATIVE Negative Ketone NEGATIVE Negative Urobilinogen NORMAL E.U./DL Normal Bilirubin NEGATIVE Negative Blood NEGATIVE Negative WBC-U NONE SEEN /HPF 0-5/HPF RBC-U 0-2 /HPF 0-5/HPF Bacteria TRACE None Seen Squamous NONE SEEN /HPF 0-5/HPF 1 Viral MD Renan, Sue rd Certified in Dermatology and Dermatopathology (electronic signature) 2 Received in 10% buff ered formalin is a shave biopsy of skin measuring 2O0C5xp. The specimen is trisected and entirely submitted in one cassette. Gross exam(s) performed at: [facility] [address] [address] [employer] Spinning [employer] Operator: SAVITA MONTIEL MD 3 There is a neoplasm within the dermis composed of basaloid cells with relatively uniform hyperchromatic nuclei and scanty cytoplasm. The basaloid cells are arranged in lobules with peripheral palisading. 4 BASAL CELL CARCINOMA , NODULAR TYPE Note: The lesion extends to the base of the specimen. 5 CHOLESTEROL Less than 200mg/dl Low risk 201-239 mg/dl Borderline risk Equal to or greater 240mg/dl High risk 6 TRIGLYCERIDES Less than 150mg/dl Normal 150-199mg/dl Borderline 200-499mg/dl High Greater than 500mg/dl Very High 7 HDL <40mg/dl Elevated Risk 41-59mg/dl Risk >=60mg/dl Least Risk 8 LDL <100mg/dl Optimal 100-129mg/dl Near Optimal 130-159mg/dl Borderline High 160-189mg/dl High >=190 Very High 9 VLDL Less than 30mg/dl Normal 10 CHOL/HDL <4.0 Optimal 4.0-5.0 Borderline >6.0 High Risk 11 NON-HDL 30mg/dl higher than LDL Target 12 MEAN GLUCOSE IN mg/d L/A1c% POOR CONTROL FAIR CONTROL GOOD CONTROL EXCELLENT CONTROL 360-14 210-9 180-8 120-6 330-13 150-7 90-5 300-12 270-11 240-10 Procedures Date Code Description Status 03/03/2023 G0008 Influenza Admin Completed 03/03/2023 35510 [facility] Malig Lesion .6-1CM F bette/Ear/Eyelid/Nose/Lip Completed 02/24/2023 26208 Venipuncture Routine Complet ed 10/28/2022 1101F PT SCR Future Fall Risk, No Fall Or 1 W/Out Injury Completed 09/27/2007 [id number] Colonoscopy Completed Medical Devices Description No Information Available Encounters Type Date Location Provider Dx Diagnosis Office Visit 03/03/2023 9:45a Nicole Ware PA-C I10 Essential (primary) hypertension E78.2 Mixed hyperlipidemia J44.9 Chronic obstructive pulmonary disease, unspecified F33.1 Major depressive dis order, recurrent, moderate 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, soft tissue, and skin Z23 Encounter for immuni zation Office Visit 10/28/2022 9:30a Nicole balderrama PA-C Z00.01 Encounter for general adult medical exam w abnormal findings I10 Essential (primary) hypertension E78.2 Mixed hyperlipidemia J44.9 Chronic obstructive pulmonary disease, unspecified F33.1 Major depressive dis order, recurrent, moderate R06.02 Shortness of breath Assessments Date Code Description Provider 03/03/2023 I10 Essential (primary) hypertthomas Ware PA-C 03/03/2023 E78.2 Mixed hyperlipidemia Ángela Ware PA-C 03/03/2023 J44.9 Chronic obstruct magy pulmonary disease, unspecified Ángela Ware PA-C 03/03/2023 F33.1 Major depressive disorder, recurrent, moderate Ángela Ware PA-C 03/03/2023 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, soft tissue, and skin Ángela Ware PA-C 03/03/2023 Z23 Encounter for immunization Arlin Ware PA-C 02/24/2023 I10 Essential (primary) delta Waddell MD 02/24/2023 I10 Essential (primary) hypertthomas Martinez 02/24/2023 E78.2 Mixed hyperlipidemia Merly Waddell MD 02/24/2023 E78.2 Mixed hyperlipidemia Lab - [place] 02/24/2023 N40.1 Benign prostatic hyperplasia with lower urinary tract symptoms Merly Waddell MD 02/24/2023 N40.1 Benign prostatic hyperplasia with lower urinary tract symptoms Lab - [place] 02/24/2023 R73.01 Impaired fasting glucose Xochitl Waddell MD 02/24/2023 R73.01 Impaired fasting glucose Lab - [place] 02/24/2023 E55.9 Vitamin D deficiency, unspec ified Merly Waddell MD 02/24/2023 E55.9 Vitamin D deficiency, unspec ified Lab - [place] 02/24/2023 D51.9 Vitamin B12 deficiency anemi a, unspecified Merly Waddell MD 02/24/2023 D51.9 Vitamin B12 deficiency anemi a, unspecified Lab - [place] 02/24/2023 N39.0 Urinary tract infection, sit e not specified Merly Waddell MD 02/24/2023 N39.0 Urinary tract infection, sit e not specified Lab - [place] 10/28/2022 Z00.01 Encounter for [facility] adult medical examination with abnormal findings Ángela Ware PA-C 10/28/2022 I10 Essential (primary) hyperten darby Ángela Ware PA-C 10/28/2022 E78.2 Mixed hyperlipidemia Ángela Ware PA-C 10/28/2022 J44.9 Chronic obstruct magy pulmonary disease, unspecified Ángela Ware PA-C 10/28/2022 F33.1 Major depressive disorder, recurrent, moderate Ángela Ware PA-C 10/28/2022 R06.02 Shortness of breath Ángela Ware PA-C Plan of Treatment Future Appointment(s):* 06/27/2023 8:30 am - [place] * 07/04/2023 8:15 am - Ángela Ware PA-C at [place] 03/03/2023 - Ángela Ware PA-C* I10 Essential (primary) hypertension* Comments:* Controlling without medication Low sodium diet BP stable * Recommendations:* Low-salt diet. Exercise. * E78.2 Mixed hyperlipidemia* Comments:* Continue current medication. Lab results discussed at length Aware of the improvement ofcholesterol values * Recommendations:* Low-fat, low-cholesterol diet. Exercise. * J44.9 Chronic obstructive pulmonary disease, unspecified* Comments:* Continue current medication. Cough and deep breathe Continue inhaler * F33.1 Major depressive disorder, recurrent, moderate* Comments:* Agreeable to taper off Cymbalta Patient's mood was much better on a lower dose and off of this altogether * D49.2 Neoplasm of unspecified behavior of bone, soft tissue, and skin* Comments:* Keep area clean and dry Further recommendations pending pathology report * Z23 Encounter for immunization * All* New Medication:* Duloxetine HCL 30 mg - 1 by mouth every day x 30 days then D/C * Prednisone 10 mg - One tablet daily x 30 days then half tablet daily x 30 days * Follow up:* Follow up 4 months Labs one week prior Functional Status Description No Information Available Mental Status Description No Information Available Referrals Description No Information Available
--- OUTSIDE RECORDS SUMMARY | 2023-04-13 06:44 | External Medical Summary | Continuity of Care Document ---
Author Name THOMAS WARE Address [address] [place] [address] Phone [phone] [facility] Address [address] [place] [address] Phone [phone] Problems Active Problems Provider Date Chest pain Thomas Ware PA-C Onset: 0 09/26/2017 Dyspnea Thomas Ware PA-C Onset: 0 09/26/2017 Generalized abdominal pain DAPHNE Bauer Onset: 09/26/2017 Carotid artery occlusion Thomas Ware PA-C Onset: 09/26/2017 Acute duodenal ulcer without hemorrhage, without perforation AND without obstruction Thomas Ware PA-C Onset: 09/26/2017 Active or passive immunization Thomas Ware PA-C Onset: 10/18/2017 Essential hypertension Thomas Ware PA-C O nset: 12/20/2017 Chronic obstructive lung disease Thomas mckeon PA-C Onset: 12/20/2017 Mixed hyperlipidemia Thomas Ware PA-C Ons et: 12/20/2017 Insomnia Thomas Ware PA-C Onset: 0 12/20/2017 Carotid endarterectomy Onset: Note: Document: 06/28/18 - D ischarge Summary Cellulitis of left lower limb Thomas Ware PA-C Onset: 06/12/2019 Social History Type [...] Qnty Indications Order ing Provider Date Duloxetine [id number] Caps DR Part 1 by mouth every day x 30 days then D/C 30caps Merly Waddell MD 03/03/2023 - 04/02/2023 Buhwbbphez84nq Tablets One tablet daily x 30 days then half tablet daily x 30 days 45tabs Merly Waddell MD 03/03/2023 Oaidedbjhtb86gu Tablets Take 1/2-1 Tablet By Mouth Daily AT Bedtime 90tabs Merly Waddell MD 07/29/2021 Atorvastatin Kycorpr44sd Tablets Take 1 Tablet By Mouth Every Evening 90tabs Kavon Landa MD 02/23/2020 Vitamin B-12 5,000 mcg Tab SL Dissolve 1 Tablet Under The Tongue By Mouth Every Day 90units Kavon Landa MD 09/06/2019 Azelastine HCL (Nasal)137mcg/[place] Solution use 2 squirts each nostril twice a day 90ml J30.1 Rene Arredondo JR, MD 06/21/2019 Breo Eiekwar102-45bjq/Inh Aerosol One inhalation daily J44.9 Rene Arredondo JR, MD 05/31/2018 Tamsulosin HCL0.4mg Capsules Take 2 Capsules By Mouth Daily AT Bedtime 180caps Rene Arredondo JR, MD 07/26/2017 Kyryfdl213ki Tablets 1 by mouth every day 30tabs Rene Arredondo JR, MD Multi For HimTablets one per day, formula does not include vitamin K OTC Rene Arredondo JR, MD Immunizations CPT Code Status Date Vaccine Lot # [id number] Given 03/03/2023 Influenza Vaccine High Do se 0.5ML Age 65 & > [id number] 53165 Given 03/15/2022 Moderna Sars-Co v-2 (Covid-19) Vaccine, BiValent Booster 12y+ [id number] 65149 Given 03/09/2022 Influenza Virus Vaccine, Quadrivalent (Cciiv4), Derived From Cell [id number] 70617 Given 10/26/2021 Moderna Covid-1 9 Vaccine 50mcg Booster-EMR Doc Only [id number] 96813 Given 04/16/2021 Pfizer Sars-Cov -2 (Cov-19) vacc 30mcg/0.3ML 12Y+ EMR Doc Only 24895 Given 03/09/2021 Influenza Vaccine High Do se 0.5ML Age 65 & > [id number] 22955 Given 07/18/2020 Moderna Sars-Co v-2 (Cov-19) vacc,100 mcg/ 0.5 mL 12Y+EMR Doc Only 31940 Given 06/13/2020 Moderna Sars-Co v-2 (Cov-19) vacc,100 mcg/ 0.5 mL 12Y+EMR Doc Only U-[id number] Given 02/18/2019 Influenza,Unspecified 68844 Given 02/18/2019 Influenza Virus Vaccine, Quadrivalent (Cciiv4), Derived From 7 Given 10/22/2018 Pneumococcal Vaccine/Pneu movax 23 [id number] 92737 Given 10/18/2017 Pneumococcal Conjugate-Pr evnar 13 [id number] 31046 Given 03/27/2017 Influenza Virus Vaccine, Quadrivalent, Im Use 68385 Refused 05/31/2022 Shingrix 02434 Refused 07/06/2018 Tdap (Tetanus, diphtheria & acel. pertussis) Adacel or Boostrix Vital Signs Date Vital Result Comment 03/03/2023 9:32am BP Systolic 120 mmHg BP Diastolic 70 mmHg Body Temperature 97.3 F Heart Rate 86 /min Weight 205.44 lb Weight 93.186 kg Height 71 inches 5'11" BMI (Body Mass Index) 28.6 kg/m2 O2 % BldC Oximetry 98 % [place] Body Weight 172 lb 10/28/2022 9:22am BP Systolic 122 mmHg BP Diastolic 82 mmHg Body Temperature 97.5 F Heart Rate 92 /min Weight 202.00 lb Weight 91.627 kg Height 71 inches 5'11" BMI (Body Mass Index) 28.2 kg/m2 O2 % BldC Oximetry 99 % [place] Body Weight 172 lb Results Test Acquired Date Facility Test Result H/L Range N ote Laboratory test finding 03/03/2023 [facility] [place] [address] Pathology Report <pending> CBC W/Diff 02/24/2023 [facility]. [address] [place], [place] [id number] WBC 5.4 10^3/M3 3.1-9.2 RBC 4.27 10^6/M3 4.00-5.80 HGB 13.3 GR/DL 12.5-17.5 HCT 39.6 % 37.5-52.5 MCV 92.7 CUMICR 82.6-95.8 MCH 31.1 PICOGR 27.9-32.9 MCHC 33.6 % 32.6-35.4 RDW 15.4 % High 11.4-14.6 PLT 149 10^3/M3 140-350 MPV 9.1 CUMICR 7.0-10.6 %Neut 51.8 % 40.0-75.0 %Lymph 34.4 % 17.0-45.0 %[place] 9.0 % 1.0-11.0 %Eos 4.1 % 0.0-6.0 %Baso 0.7 % 0.0-2.0 #Neut 2.8 10^3/M3 1.5-8.0 #Lymph 1.9 10^3/M3 0.8-3.2 #[place] 0.5 10^3/M3 0.0-0.8 #Eos 0.2 10^3/m3 0.0-0.4 #Baso 0.0 10^3/m3 0.0-0.2 Comp. Met 02/24/2023 [facility]. [address] [place], [place] [address] [phone] Glucose 83 mg/dL 70-110 BUN 15 mg/dL [...] 2.0-3.4 GFR 67 ML/MIN/1.73SQM >60 Lipid 02/24/2023 [facility]. [address] [place] [address] [phone] Cholesterol 87 mg/dL 0-200 1 Triglyceride 100 mg/dL 0-150 2 HDLD 24 mg/dL See Comment 3 Measured LDL 50 mg/dL 0-130 4 Calc VLDL 20.0 mg/dL See Comment 5 Chol/HDL 3.6 RATIO See Comment 6 Non-HDL 63 mg/dL See Comment 7 Laboratory test finding 02/24/2023 [facility]. [address] [place] [address] [phone] TSH 3.49 uIU/mL 0.50-6.00 Psa2 4.2 ng/mL Critical high 0.0-4.0 Hba1c 02/24/2023 [facility]. [address] [place], [place] [address] [phone] A1c 5.80 % 4.70-6.50 8 Laboratory test finding 02/24/2023 [facility]. [address] [place], [place] [address] [phone] Vitd-25Oh 42 ng/mL 30-100 VB12 725 pg/mL 230-1050 Urinalysis,Cult If Indicated 02/24/2023 [facility]. [address] [place], [place] [address] [phone] RFLX Culture NO Urinalysis 02/24/2023 [facility]. [address] [place], [place] [address] [phone] Color LIGHT-YEL LOW Appearance CLEAR Clear Spec.Grav. 1.010 1.005-1.025 Leukocytes TRACE Abnormal Negative Nitrite NEGATIVE Negative PH 6.5 6.0-7.5 Protein NEGATIVE Negative Urine Glucose NEGATIVE Negative Ketone NEGATIVE Negative Urobilinogen NORMAL E.U./DL Normal Bilirubin NEGATIVE Negative Blood NEGATIVE Negative WBC-U NONE SEEN /HPF 0-5/HPF RBC-U 0-2 /HPF 0-5/HPF Bacteria TRACE None Seen Squamous NONE SEEN /HPF 0-5/HPF 1 CHOLESTEROL Less than 200mg/dl Low risk 201-239 mg/dl Borderline risk Equal to or greater 240mg/dl High risk 2 TRIGLYCERIDES Less than 150mg/dl Normal 150-199mg/dl Borderline 200-499mg/dl High Greater than 500mg/dl Very High 3 HDL <40mg/dl Elevated Risk 41-59mg/dl Risk >=60mg/dl Least Risk 4 LDL <100mg/dl Optimal 100-129mg/dl Near Optimal 130-159mg/dl Borderline High 160-189mg/dl High >=190 Very High 5 VLDL Less than 30mg/dl Normal 6 CHOL/HDL <4.0 Optimal 4.0-5.0 Borderline >6.0 High Risk 7 NON-HDL 30mg/dl higher than LDL Target 8 MEAN GLUCOSE IN mg/d L/A1c% POOR CONTROL FAIR CONTROL GOOD CONTROL EXCELLENT CONTROL 360-14 210-9 180-8 120-6 330-13 150-7 90-5 300-12 270-11 240-10 Procedures Date Code Description Status 03/03/2023 G0008 Influenza Admin Completed 03/03/2023 47577 Excise Malig Lesion .6-1CM F bette/Ear/Eyelid/Nose/Lip Completed 02/24/2023 55311 Venipuncture Routine Complet ed 10/28/2022 1101F PT SCR Future Fall Risk, No Fall Or 1 W/Out Injury Completed 09/27/2007 [id number] Colonoscopy Completed Medical Devices Description No Information Available Encounters Type Date Location Provider Dx Diagnosis Office Visit 03/03/2023 9:45a Nicole Ware PA-C I10 Essential (primary) hypertension E78.2 Mixed hyperlipidemia J44.9 Chronic obstructive pulmonary disease, unspecified F33.1 Major depressive dis order, recurrent, moderate 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, soft tissue, and skin Office Visit 10/28/2022 9:30a Nicole balderrama PA-C Z00.01 Encounter for general adult medical exam w abnormal findings I10 Essential (primary) hypertension E78.2 Mixed hyperlipidemia J44.9 Chronic obstructive pulmonary disease, unspecified F33.1 Major depressive dis order, recurrent, moderate R06.02 Shortness of breath Assessments Date Code Description Provider 03/03/2023 I10 Essential (primary) hyperten darby Thomas Ware PA-C 03/03/2023 E78.2 Mixed hyperlipidemia Thomas Ware PA-C 03/03/2023 J44.9 Chronic obstruct magy pulmonary disease, unspecified Thomas Ware PA-C 03/03/2023 F33.1 Major depressive disorder, recurrent, moderate Thomas Ware PA-C 03/03/2023 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, soft tissue, and skin Thomas Ware PA-C 02/24/2023 I10 Essential (primary) hyperten darby Merly Waddell MD 02/24/2023 I10 Essential (primary) hyperten darby Lab - [place] 02/24/2023 E78.2 Mixed hyperlipidemia Merly Waddell MD 02/24/2023 E78.2 Mixed hyperlipidemia Lab - [place] 02/24/2023 N40.1 Benign prostatic hyperplasia with lower urinary tract symptoms Merly Waddell MD 02/24/2023 N40.1 Benign prostatic hyperplasia with lower urinary tract symptoms Lab - [place] 02/24/2023 R73.01 Impaired fasting glucose Xochitl Waddell MD 02/24/2023 R73.01 Impaired fasting glucose Lab - [place] 02/24/2023 E55.9 Vitamin D deficiency, unspec ified Merly Waddell MD 02/24/2023 E55.9 Vitamin D deficiency, unspec ified Lab - [place] 02/24/2023 D51.9 Vitamin B12 deficiency anemi a, unspecified Merly Waddell MD 02/24/2023 D51.9 Vitamin B12 deficiency anemi a, unspecified Lab - [place] 02/24/2023 N39.0 Urinary tract infection, sit e not specified Merly Waddell MD 02/24/2023 N39.0 Urinary tract infection, sit e not specified Lab - [place] 10/28/2022 Z00.01 Encounter for [facility] adult medical examination with abnormal findings Thomas Ware PA-C 10/28/2022 I10 Essential (primary) hyperten darby Thomas Ware PA-C 10/28/2022 E78.2 Mixed hyperlipidemia Thomas Ware PA-C 10/28/2022 J44.9 Chronic obstruct magy pulmonary disease, unspecified Thomas Ware PA-C 10/28/2022 F33.1 Major depressive disorder, recurrent, moderate Thomas Ware PA-C 10/28/2022 R06.02 Shortness of breath Thomas Ware PA-C Plan of Treatment Future Appointment(s):* 06/27/2023 8:30 am - [place] * 07/04/2023 8:15 am - Thomas Ware PA-C at [place] 03/03/2023 - Thomas Ware PA-C* I10 Essential (primary) hypertension* Comments:* [...] dry Further recommendations pending pathology report * All* New Medication:* Duloxetine HCL 30 [...]
--- OUTSIDE RECORDS SUMMARY | 2023-04-13 06:44 | External Medical Summary | Continuity of Care Document ---
Author Name THOMAS WARE Address [address] [place] [address] Phone [phone] [facility] Address [address] [place] [address] Phone [phone] Problems Active Problems Provider Date Chest pain [...] SIG Qnty Indications Order ing Provider Date Alqvluslt20zl Tablets 2 by mouth every day for fluid x 5 days then once daily 90tabs Merly Waddell MD 04/12/2023 Metoprolol Wkoentev53qy Tablets 1 by mouth twice a day 180tabs Merly Waddell MD 04/12/2023 Shdqbcjqjcd78pl Tablets Take 1/2-1 Tablet By Mouth Daily AT Bedtime 90tabs Merly Waddell MD 07/29/2021 Atorvastatin Qxpeaxh74bl Tablets Take 1 Tablet By Mouth Every Evening 90tabs Kavon Landa MD 02/23/2020 Vitamin B-12 5,000 mcg Tab SL Dissolve 1 Tablet Under The Tongue By Mouth Every Day 90units Kavon Landa MD 09/06/2019 Azelastine HCL (Nasal)137mcg/[place] Solution use 2 squirts each nostril twice a day 90ml J30.1 Rene Arredondo JR, MD 06/21/2019 Breo Bxlkfcz925-85tbk/Inh Aerosol One inhalation daily J44.9 Rene Arredondo JR, MD 05/31/2018 Tamsulosin HCL0.4mg Capsules Take 2 Capsules By Mouth Daily AT Bedtime 180caps Rene Arredondo JR, MD 07/26/2017 Huwrlrn022yk Tablets 1 by mouth every day 30tabs Rene Arredondo JR, MD Multi For HimTablets one per day, formula does not include vitamin K OTC Rene Arredondo JR, MD History Medications Duloxetine [id number] Caps DR Part 1 by mouth every day x 30 days then D/C 30caps Merly Waddell MD 03/03/2023 - 04/02/2023 Eyohogaxhm24pv Tablets One tablet daily x 30 days then half tablet daily x 30 days 45tabs Merly Waddell MD 03/03/2023 - 04/12/2023 Immunizations CPT Code Status Date Vaccine Lot # [id number] Given 03/03/2023 Influenza Vaccine High Do se 0.5ML Age 65 & > [id number] 95676 Given 03/15/2022 Moderna Sars-Co v-2 (Covid-19) Vaccine, BiValent Booster 12y+ [id number] 25566 Given 03/09/2022 Influenza Virus Vaccine, Quadrivalent (Cciiv4), Derived From Cell [id number] 43125 Given 10/26/2021 Moderna Covid-1 9 Vaccine 50mcg Booster-EMR Doc Only [id number] 49388 Given 04/16/2021 Pfizer Sars-Cov -2 (Cov-19) vacc 30mcg/0.3ML 12Y+ EMR Doc Only 73710 Given 03/09/2021 Influenza Vaccine High Do se 0.5ML Age 65 & > [id number] 10846 Given 07/18/2020 Moderna Sars-Co v-2 (Cov-19) vacc,100 mcg/ 0.5 mL 12Y+EMR Doc Only 55356 Given 06/13/2020 Moderna Sars-Co v-2 (Cov-19) vacc,100 mcg/ 0.5 mL 12Y+EMR Doc Only U-[id number] Given 02/18/2019 Influenza,Unspecified 09406 Given 02/18/2019 Influenza Virus Vaccine, Quadrivalent (Cciiv4), Derived From 9 Given 10/22/2018 Pneumococcal Vaccine/Pneu movax 23 [id number] 64917 Given 10/18/2017 Pneumococcal Conjugate-Pr evnar 13 [id number] 64606 Given 03/27/2017 Influenza Virus Vaccine, Quadrivalent, Im Use 93331 Refused 05/31/2022 Shingrix 60837 Refused 07/06/2018 Tdap (Tetanus, diphtheria & acel. pertussis) Adacel or Boostrix Vital Signs Date Vital Result Comment 04/12/2023 10:34am BP Systolic 134 mmHg BP Diastolic 78 mmHg Body Temperature 97.8 F Heart Rate 102 /min Respiratory Rate 24 /min Weight 216.00 lb Weight 97.978 kg 03/03/2023 9:32am BP Systolic 120 mmHg BP Diastolic 70 mmHg Body Temperature 97.3 F Heart Rate 86 /min Weight 205.44 lb Weight 93.186 kg Height 71 inches 5'11" BMI (Body Mass Index) 28.6 kg/m2 O2 % BldC Oximetry 98 % [place] Body Weight 172 lb Results Test Acquired Date Facility Test Result H/L Range N ote Laboratory test finding 04/12/2023 [facility]. [address] [place] [address] [phone] BNP <pending> Pathology Report 03/03/[address] [place] [id number] [phone] Report Type DNR Normal Clinical Information D49.2 Normal Pathologist (SEE NOTE) Normal 1 Report Notes DNR Normal A Clinical Impression DNR Normal A Source NOSE A Procedure DNR Normal A Gross Description (SEE NOTE) 2 A Micro Description (SEE NOTE) 3 A Diagnosis (SEE NOTE) 4 A Comment DNR Normal Laboratory test finding 03/03/[address] [place] [address] [phone] Enhanced PDF Report [id number] SEE IMAGE CBC W/Diff 02/24/2023 [facility]. [address] [place] [address] [phone] WBC 5.4 10^3/M3 3.1-9 .2 RBC 4.27 10^6/M3 4.00-5.80 HGB 13.3 GR/DL 12.5-17.5 HCT 39.6 % 37.5-52.5 MCV 92.7 CUMICR 82.6-95.8 MCH 31.1 PICOGR 27.9-32.9 MCHC 33.6 % 32.6-35.4 RDW 15.4 % High 11.4-14.6 PLT 149 10^3/M3 140-350 MPV 9.1 CUMICR 7.0-10.6 %Neut 51.8 % 40.0-75.0 %Lymph 34.4 % 17.0-45.0 %Jack 9.0 % 1.0-11.0 %Eos 4.1 % 0.0-6.0 %Baso 0.7 % 0.0-2.0 #Neut 2.8 10^3/M3 1.5-8.0 #Lymph 1.9 10^3/M3 0.8-3.2 #Jack 0.5 10^3/M3 0.0-0.8 #Eos 0.2 10^3/m3 0.0-0.4 #Baso 0.0 10^3/m3 0.0-0.2 Comp. Met 02/24/2023 [facility]. [address] [place] [address] [phone] Glucose 83 mg/dL 70-110 BUN 15 mg/dL [...] 2.0-3.4 GFR 67 ML/MIN/1.73SQM >60 Lipid 02/24/2023 [facility]. [address] [place], [place] [id number] [phone] Cholesterol 87 mg/dL 0-200 5 Triglyceride 100 mg/dL 0-150 6 HDLD 24 mg/dL See Comment 7 Measured LDL 50 mg/dL 0-130 8 Calc VLDL 20.0 mg/dL See Comment 9 Chol/HDL 3.6 RATIO See Comment 10 Non-HDL 63 mg/dL See Comment 11 Laboratory test finding 02/24/2023 [facility] [address] [place] [address] [phone] TSH 3.49 uIU/mL 0.50-6.00 Psa2 4.2 ng/mL Critical high 0.0-4.0 Hba1c 02/24/2023 [facility]. [address] [place] [address] [phone] A1c 5.80 % 4.70-6.50 12 Laboratory test finding 02/24/2023 [facility] [address] [place] [address] [phone] Vitd-25Oh 42 ng/mL 30-100 VB12 725 pg/mL 230-1050 Urinalysis,Cult If Indicated 02/24/2023 [facility]. [address] [place], [place] [id number] [phone] RFLX Culture NO Urinalysis 02/24/2023 [facility]. [address] [place] [address] [phone] Color LIGHT-YEL LOW Appearance CLEAR Clear Spec.Grav. 1.010 1.005-1.025 Leukocytes TRACE Abnormal Negative Nitrite NEGATIVE Negative PH 6.5 6.0-7.5 Protein NEGATIVE Negative Urine Glucose NEGATIVE Negative Ketone NEGATIVE Negative Urobilinogen NORMAL E.U./DL Normal Bilirubin NEGATIVE Negative Blood NEGATIVE Negative WBC-U NONE SEEN /HPF 0-5/HPF RBC-U 0-2 /HPF 0-5/HPF Bacteria TRACE None Seen Squamous NONE SEEN /HPF 0-5/HPF 1 Jed Urrutia MD, Sue rd Certified in Dermatology and Dermatopathology (electronic signature) 2 Received in 10% buff ered formalin is a shave biopsy of skin measuring 5S6C1zv. The specimen is trisected and entirely submitted in one cassette. Gross exam(s) performed at: [facility] [address] [address] Full Stack Java Developer: SAVITA MONTIEL MD 3 There is a [...] 270-11 240-10 Procedures Date Code Description Status 04/12/2023 52369 Electrocardiogram Complete C ompleted 04/12/2023 41052 Venipuncture Routine Complet ed 03/03/2023 G0008 Influenza Admin Completed 03/03/2023 70783 Excise Malig Lesion .6-1CM F bette/Ear/Eyelid/Nose/Lip Completed 02/24/2023 24987 Venipuncture Routine Complet ed 10/28/2022 1101F PT SCR Future Fall Risk, No Fall Or 1 W/Out Injury Completed 09/27/2007 [id number] Colonoscopy Completed Medical Devices Description No Information Available Encounters Type Date Location Provider Dx Diagnosis Office Visit 04/12/2023 10:00a Nicole Ware PA-C I10 Essential (primary) hypertension I50.21 Acute systolic (carola estive) heart failure Office Visit 03/03/2023 9:45a Nicole balderrama PA-C I10 Essential (primary) hypertension E78.2 Mixed [...] of breath Assessments Date Code Description Provider 04/12/2023 I10 Essential (primary) hyperten darby Ware PA-C 04/12/2023 I50.21 Acute systolic (congestive) heart failure Thomas Ware PA-C 03/03/2023 I10 Essential (primary) hyperten darby Ware PA-C 03/03/2023 E78.2 Mixed hyperlipidemia Thomas Ware PA-C 03/03/2023 J44.9 Chronic obstruct magy pulmonary disease, unspecified Thomas Ware PA-C 03/03/2023 F33.1 Major depressive disorder, recurrent, moderate Thomas Ware PA-C 03/03/2023 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, soft tissue, and skin Thomas Ware PA-C 03/03/2023 Z23 Encounter for immunization Arlin Ware PA-C 02/24/2023 I10 Essential (primary) hyperten darby Merly Waddell MD 02/24/2023 I10 Essential (primary) hyperten darby Lab - [place] 02/24/2023 E78.2 Mixed hyperlipidemia Merly Waddell MD 02/24/2023 E78.2 Mixed hyperlipidemia Lab - [place] 02/24/2023 N40.1 Benign prostatic hyperplasia with lower urinary tract symptoms Merly Waddell MD 02/24/2023 N40.1 Benign prostatic hyperplasia with lower urinary tract symptoms Lab - [place] 02/24/2023 R73.01 Impaired fasting glucose Xochitl Waddell MD 02/24/2023 R73.01 Impaired fasting glucose Lab - [place] 02/24/2023 E55.9 Vitamin D deficiency, unspec ified Merly Waddell MD 02/24/2023 E55.9 Vitamin D deficiency, unspec ified Lab - [place] 02/24/2023 D51.9 Vitamin B12 deficiency anemi a, unspecified Merly Waddell MD 02/24/2023 D51.9 Vitamin B12 deficiency anemi a, unspecified Lab - [place] 02/24/2023 N39.0 Urinary tract infection, sit e not specified Merly Waddell MD 02/24/2023 N39.0 Urinary tract infection, sit e not specified Lab - [place] 10/28/2022 Z00.01 Encounter for [facility] adult medical examination with abnormal findings Thomas Ware PA-C 10/28/2022 I10 Essential (primary) hyperten darby Thomas Ware PA-C 10/28/2022 E78.2 Mixed hyperlipidemia Thomas Ware PA-C 10/28/2022 J44.9 Chronic obstruct magy pulmonary disease, unspecified Thomas Ware PA-C 10/28/2022 F33.1 Major depressive disorder, recurrent, moderate Thomas Ware PA-C 10/28/2022 R06.02 Shortness of breath Thomas Ware PA-C Plan of Treatment Future Appointment(s):* 04/18/2023 10:00 am - Thomas Ware PA-C at [place] * 06/27/2023 8:30 am - [facility] [place] * 07/04/2023 8:15 am - Thomas Ware PA-C at [place] 04/12/2023 - Thomas Ware PA-C* I10 Essential (primary) hypertension* Comments:* Add metoprolol on due to concern for congestive heart failure Low- sodium diet Patient verbalizes understanding of care plan / instructions. * I50.21 Acute systolic (congestive) heart failure* Comments:* Start diuretic as advised Refuses any evaluation at the hospital EKG results discussed with patient 45 minutes spent with patient answering questions and agreeable to a plan * All* New Medication:* Torsemide 20 mg - 2 by mouth every day for fluid x 5 days then once daily * Metoprolol Tartrate 50 mg - 1 by mouth twice a day Functional Status Description No Information Available Mental Status Description No Information Available Referrals Description No Information Available
--- OUTSIDE RECORDS SUMMARY | 2023-04-13 06:44 | External Medical Summary | Continuity of Care Document ---
Author Name THOMAS WARE Address [address] [place] [address] Phone [phone] [facility] Address [address] [place] [address] Phone [phone] Problems Active Problems Provider Date Chest pain [...] SIG Qnty Indications Order ing Provider Date Hbxezngny49vz Tablets 2 by mouth every day for fluid x 5 days then once daily 90tabs Merly Waddell MD 04/12/2023 Metoprolol Qjptfnzd94zy Tablets 1 by mouth twice a day 180tabs Merly Waddell MD 04/12/2023 Dbwvvufavgu61aa Tablets Take 1/2-1 Tablet By Mouth Daily AT Bedtime 90tabs Merly Waddell MD 07/29/2021 Atorvastatin Hjhxgto03qr Tablets Take 1 Tablet By Mouth Every Evening 90tabs Kavon Landa MD 02/23/2020 Vitamin B-12 5,000 mcg Tab SL Dissolve 1 Tablet Under The Tongue By Mouth Every Day 90units Kavon Landa MD 09/06/2019 Azelastine HCL (Nasal)137mcg/[place] Solution use 2 squirts each nostril twice a day 90ml J30.1 Rene Arredondo JR, MD 06/21/2019 Breo Goayhti841-80vxu/Inh Aerosol One inhalation daily J44.9 Rene Arredondo JR, MD 05/31/2018 Tamsulosin HCL0.4mg Capsules Take 2 Capsules By Mouth Daily AT Bedtime 180caps Rene Arredondo JR, MD 07/26/2017 Veubgul695ia Tablets 1 by mouth every day 30tabs Rene Arredondo JR, MD Multi For HimTablets one per day, formula does not include vitamin K OTC Rene Arredondo JR, MD History Medications Duloxetine SCQ79wf Caps DR Part 1 by mouth every day x 30 days then D/C 30caps Merly Waddell MD 03/03/2023 - 04/02/2023 Ttkknypnns29sv Tablets One tablet daily x 30 days then half tablet daily x 30 days 45tabs Merly Waddell MD 03/03/2023 - 04/12/2023 Immunizations CPT Code Status Date Vaccine Lot # [id number] Given 03/03/2023 Influenza Vaccine High Do se 0.5ML Age 65 & > [id number] 93599 Given 03/15/2022 Moderna Sars-Co v-2 (Covid-19) Vaccine, BiValent Booster 12y+ [id number] 93153 Given 03/09/2022 Influenza Virus Vaccine, Quadrivalent (Cciiv4), Derived From Cell [id number] 63827 Given 10/26/2021 Moderna Covid-1 9 Vaccine 50mcg Booster-EMR Doc Only [id number] 62784 Given 04/16/2021 Pfizer Sars-Cov -2 (Cov-19) vacc 30mcg/0.3ML 12Y+ EMR Doc Only 67292 Given 03/09/2021 Influenza Vaccine High Do se 0.5ML Age 65 & > [id number] 18551 Given 07/18/2020 Moderna Sars-Co v-2 (Cov-19) vacc,100 mcg/ 0.5 mL 12Y+EMR Doc Only 19269 Given 06/13/2020 Moderna Sars-Co v-2 (Cov-19) vacc,100 mcg/ 0.5 mL 12Y+EMR Doc Only [id number] Given 02/18/2019 Influenza,Unspecified 82694 Given 02/18/2019 Influenza Virus Vaccine, Quadrivalent (Cciiv4), Derived From 3 Given 10/22/2018 Pneumococcal Vaccine/Pneu movax 23 [id number] 29156 Given 10/18/2017 Pneumococcal Conjugate-Pr evnar 13 [id number] 33912 Given 03/27/2017 Influenza Virus Vaccine, Quadrivalent, Im Use 65520 Refused 05/31/2022 Shingrix 03748 Refused 07/06/2018 Tdap (Tetanus, diphtheria & acel. [...] kg/m2 O2 % BldC Oximetry 98 % [place] Body Weight 172 lb Results Test Acquired Date Facility Test Result H/L Range N ote Laboratory test finding 04/12/2023 [facility]. [address] [place] [address] [phone] BNP <pending> Pathology Report 03/03/[address] [employer] [place] [id number] [phone] Report Type DNR Normal Clinical Information D49.2 Normal Pathologist (SEE NOTE) Normal 1 Report Notes DNR Normal A Clinical Impression DNR Normal A Source NOSE A Procedure DNR Normal A Gross Description (SEE NOTE) 2 A Micro Description (SEE NOTE) 3 A Diagnosis (SEE NOTE) 4 A Comment DNR Normal Laboratory test finding 03/03/[address] [employer] [place] [address] [phone] Enhanced PDF Report [id number] SEE IMAGE CBC W/Diff 02/24/2023 [facility]. [address] [place] [address] [phone] WBC 5.4 10^3/M3 3.1-9 .2 RBC 4.27 10^6/M3 4.00-5.80 HGB 13.3 GR/DL 12.5-17.5 HCT 39.6 % 37.5-52.5 MCV 92.7 CUMICR 82.6-95.8 MCH 31.1 PICOGR 27.9-32.9 MCHC 33.6 % 32.6-35.4 RDW 15.4 % High 11.4-14.6 PLT 149 10^3/M3 140-350 MPV 9.1 CUMICR 7.0-10.6 %Neut 51.8 % 40.0-75.0 %Lymph 34.4 % 17.0-45.0 %[place] 9.0 % 1.0-11.0 %Eos 4.1 % 0.0-6.0 %Baso 0.7 % 0.0-2.0 #Neut 2.8 10^3/M3 1.5-8.0 #Lymph 1.9 10^3/M3 0.8-3.2 #[place] 0.5 10^3/M3 0.0-0.8 #Eos 0.2 10^3/m3 0.0-0.4 #Baso 0.0 10^3/m3 0.0-0.2 Comp. Met 02/24/2023 [facility]. [address] [place] [address] [phone] Glucose 83 mg/dL 70-110 BUN 15 mg/dL [...] 2.0-3.4 GFR 67 ML/MIN/1.73SQM >60 Lipid 02/24/2023 [facility]. [address] [place], [place] [id number] [phone] Cholesterol 87 mg/dL 0-200 5 Triglyceride 100 mg/dL 0-150 6 HDLD 24 mg/dL See Comment 7 Measured LDL 50 mg/dL 0-130 8 Calc VLDL 20.0 mg/dL See Comment 9 Chol/HDL 3.6 RATIO See Comment 10 Non-HDL 63 mg/dL See Comment 11 Laboratory test finding 02/24/2023 [facility]. [address] [place] [address] [phone] TSH 3.49 uIU/mL 0.50-6.00 Psa2 4.2 ng/mL Critical high 0.0-4.0 Hba1c 02/24/2023 [facility]. [address] [place] [address] [phone] A1c 5.80 % 4.70-6.50 12 Laboratory test finding 02/24/2023 [facility]. [address] [place] [address] [phone] Vitd-25Oh 42 ng/mL 30-100 VB12 725 pg/mL 230-1050 Urinalysis,Cult If Indicated 02/24/2023 [facility]. [address] [place], [place] [address] [phone] RFLX Culture NO Urinalysis 02/24/2023 [facility]. [address] [place] [address] [phone] Color LIGHT-YEL LOW Appearance CLEAR Clear Spec.Grav. [...] is a shave biopsy of skin measuring 8P0I9ah. The specimen is trisected and entirely submitted in one cassette. Gross exam(s) performed at: [facility] [address] [address] [place]rier Take Off Tender: SAVITA MONTIEL MD 3 There is a [...] 240-10 Procedures Date Code Description Status 04/12/2023 11369 Electrocardiogram Complete C ompleted 04/12/2023 45866 Venipuncture Routine Complet ed 03/03/2023 G0008 Influenza Admin Completed 03/03/2023 54612 Excise Malig Lesion .6-1CM F bette/Ear/Eyelid/Nose/Lip Completed 02/24/2023 27008 Venipuncture Routine Complet ed 10/28/2022 1101F PT SCR Future Fall Risk, No Fall Or 1 W/Out Injury Completed 09/27/2007 [id number] Colonoscopy Completed Medical Devices Description No Information [...] I10 Essential (primary) hyperten darby Lab - [place] 02/24/2023 E78.2 Mixed hyperlipidemia Merly Waddell MD 02/24/2023 E78.2 Mixed hyperlipidemia Lab - [place] 02/24/2023 N40.1 Benign prostatic hyperplasia with lower urinary tract symptoms Merly Waddell MD 02/24/2023 N40.1 Benign prostatic hyperplasia with lower urinary tract symptoms Lab - [place] 02/24/2023 R73.01 Impaired fasting glucose Xochitl Waddell MD 02/24/2023 R73.01 Impaired fasting glucose Lab - [place] 02/24/2023 E55.9 Vitamin D deficiency, unspec ified Merly Waddell MD 02/24/2023 E55.9 Vitamin D deficiency, unspec ified Lab - [place] 02/24/2023 D51.9 Vitamin B12 deficiency anemi a, unspecified Merly Waddell MD 02/24/2023 D51.9 Vitamin B12 deficiency anemi a, unspecified Lab - [place] 02/24/2023 N39.0 Urinary tract infection, sit e not specified Merly Waddell MD 02/24/2023 N39.0 Urinary tract infection, sit e not specified Lab - [place] 10/28/2022 Z00.01 Encounter for [facility] adult medical examination with abnormal findings [...] 10:00 am - Thomas Ware PA-C at [place] * 06/27/2023 8:30 am - [facility] - [place] [facility] [place] * 07/04/2023 8:15 am - Thomas Ware PA-C at [place] 04/12/2023 - Thomas Ware PA-C* I10 Essential [...]
--- OUTSIDE RECORDS SUMMARY | 2023-04-13 06:44 | External Medical Summary | Continuity of Care Document ---
Author Name THOMAS WARE Address [address] [place] [address] Phone [phone] [facility] Address [address] [place] [address] Phone [phone] Problems Active Problems Provider Date Chest pain [...] SIG Qnty Indications Order ing Provider Date Xkemwnkfd96bp Tablets 2 by mouth every day for fluid x 5 days then once daily 90tabs Merly Waddell MD 04/12/2023 Metoprolol Egbcfpbr23jp Tablets 1 by mouth twice a day 180tabs Merly Waddell MD 04/12/2023 Cktbaneigde45ah Tablets Take 1/2-1 Tablet By Mouth Daily AT Bedtime 90tabs Merly Waddell MD 07/29/2021 Atorvastatin Tvmccrh48zl Tablets Take 1 Tablet By Mouth Every Evening 90tabs Kavon Landa MD 02/23/2020 Vitamin B-12 5,000 mcg Tab SL Dissolve 1 Tablet Under The Tongue By Mouth Every Day 90units Kavon Landa MD 09/06/2019 Azelastine HCL (Nasal)137mcg/[place] Solution use 2 squirts each nostril twice a day 90ml J30.1 Rene Arredondo JR, MD 06/21/2019 Breo Ibjszhl690-58hpc/Inh Aerosol One inhalation daily J44.9 Rene Arredondo JR, MD 05/31/2018 Tamsulosin HCL0.4mg Capsules Take 2 Capsules By Mouth Daily AT Bedtime 180caps Rene Arredondo JR, MD 07/26/2017 Ajvzvum538gy Tablets 1 by mouth every day 30tabs Rene Arredondo JR, MD Multi For HimTablets one per day, formula does not include vitamin K OTC Rene Arredondo JR, MD History Medications Duloxetine SXD11vr Caps DR Part 1 by mouth every day x 30 days then D/C 30caps Merly Waddell MD 03/03/2023 - 04/02/2023 Vvsjdnsnsh17my Tablets One tablet daily x 30 days then half tablet daily x 30 days 45tabs Merly Waddell MD 03/03/2023 - 04/12/2023 Immunizations CPT Code Status Date Vaccine Lot # [id number] Given 03/03/2023 Influenza Vaccine High Do se 0.5ML Age 65 & > [id number] 50032 Given 03/15/2022 Moderna Sars-Co v-2 (Covid-19) Vaccine, BiValent Booster 12y+ [id number] 87788 Given 03/09/2022 Influenza Virus Vaccine, Quadrivalent (Cciiv4), Derived From Cell [id number] 06213 Given 10/26/2021 Moderna Covid-1 9 Vaccine 50mcg Booster-EMR Doc Only [id number] 73033 Given 04/16/2021 Pfizer Sars-Cov -2 (Cov-19) vacc 30mcg/0.3ML 12Y+ EMR Doc Only 46878 Given 03/09/2021 Influenza Vaccine High Do se 0.5ML Age 65 & > [id number] 89621 Given 07/18/2020 Moderna Sars-Co v-2 (Cov-19) vacc,100 mcg/ 0.5 mL 12Y+EMR Doc Only 07637 Given 06/13/2020 Moderna Sars-Co v-2 (Cov-19) vacc,100 mcg/ 0.5 mL 12Y+EMR Doc Only U-FLU Given 02/18/2019 Influenza,Unspecified 92297 Given 02/18/2019 Influenza Virus Vaccine, Quadrivalent (Cciiv4), Derived From 9 Given 10/22/2018 Pneumococcal Vaccine/Pneu movax 23 [id number] 49007 Given 10/18/2017 Pneumococcal Conjugate-Pr evnar 13 [id number] 79283 Given 03/27/2017 Influenza Virus Vaccine, Quadrivalent, Im Use 19267 Refused 05/31/2022 Shingrix 03729 Refused 07/06/2018 Tdap (Tetanus, diphtheria & acel. [...] kg/m2 O2 % BldC Oximetry 98 % [place] Body Weight 172 lb Results Test Acquired Date Facility Test Result H/L Range N ote Laboratory test finding 04/12/2023 [facility] [address] [place] [address] [phone] BNP <pending> Pathology Report 03/03/[address] [facility] [place] [id number] [phone] Report Type DNR Normal Clinical Information D49.2 Normal Pathologist (SEE NOTE) Normal 1 Report Notes DNR Normal A Clinical Impression DNR Normal A Source NOSE A Procedure DNR Normal A Gross Description (SEE NOTE) 2 A Micro Description (SEE NOTE) 3 A Diagnosis (SEE NOTE) 4 A Comment DNR Normal Laboratory test finding 03/03/[address] [facility] [place] [address] [phone] Enhanced PDF Report [id number] SEE IMAGE CBC W/Diff 02/24/2023 [facility] [address] [place] [address] [phone] WBC 5.4 10^3/M3 3.1-9 .2 RBC 4.27 10^6/M3 4.00-5.80 HGB 13.3 GR/DL 12.5-17.5 HCT 39.6 % 37.5-52.5 MCV 92.7 CUMICR 82.6-95.8 MCH 31.1 PICOGR 27.9-32.9 MCHC 33.6 % 32.6-35.4 RDW 15.4 % High 11.4-14.6 PLT 149 10^3/M3 140-350 MPV 9.1 CUMICR 7.0-10.6 %Neut 51.8 % 40.0-75.0 %Lymph 34.4 % 17.0-45.0 %[place] 9.0 % 1.0-11.0 %Eos 4.1 % 0.0-6.0 %Baso 0.7 % 0.0-2.0 #Neut 2.8 10^3/M3 1.5-8.0 #Lymph 1.9 10^3/M3 0.8-3.2 #[place] 0.5 10^3/M3 0.0-0.8 #Eos 0.2 10^3/m3 0.0-0.4 #Baso 0.0 10^3/m3 0.0-0.2 Comp. Met 02/24/2023 [facility] [address] [place] [address] [phone] Glucose 83 mg/dL 70-110 BUN 15 mg/dL [...] 2.0-3.4 GFR 67 ML/MIN/1.73SQM >60 Lipid 02/24/2023 [facility] [address] [place], [place] [address] [phone] Cholesterol 87 mg/dL 0-200 5 Triglyceride 100 mg/dL 0-150 6 HDLD 24 mg/dL See Comment 7 Measured LDL 50 mg/dL 0-130 8 Calc VLDL 20.0 mg/dL See Comment 9 Chol/HDL 3.6 RATIO See Comment 10 Non-HDL 63 mg/dL See Comment 11 Laboratory test finding 02/24/2023 [facility] [address] [place] [address] [phone] TSH 3.49 uIU/mL 0.50-6.00 Psa2 4.2 ng/mL Critical high 0.0-4.0 Hba1c 02/24/2023 [facility] [address] [place] [address] [phone] A1c 5.80 % 4.70-6.50 12 Laboratory test finding 02/24/2023 [facility] [address] [place] [address] [phone] Vitd-25Oh 42 ng/mL 30-100 VB12 725 pg/mL 230-1050 Urinalysis,Cult If Indicated 02/24/2023 [facility] [address] [place], [place] [id number] [phone] RFLX Culture NO Urinalysis 02/24/2023 [facility] [address] [place] [address] [phone] Color LIGHT-YEL LOW Appearance CLEAR Clear Spec.Grav. [...] is a shave biopsy of skin measuring [id number]. The specimen is trisected and entirely submitted in one cassette. Gross exam(s) performed at: [facility] [address] [address] Adult Literacy Teacher: SAVITA MONTIEL MD 3 There is a [...] 240-10 Procedures Date Code Description Status 04/12/2023 75155 Electrocardiogram Complete C ompleted 04/12/2023 84626 Venipuncture Routine Complet ed 03/03/2023 G0008 Influenza Admin Completed 03/03/2023 30546 Excise Malig Lesion .6-1CM F bette/Ear/Eyelid/Nose/Lip Completed 02/24/2023 37593 Venipuncture Routine Complet ed 10/28/2022 1101F PT SCR Future Fall Risk, No Fall Or 1 W/Out Injury Completed 09/27/2007 [id number] Colonoscopy Completed Medical Devices Description No Information [...] I10 Essential (primary) hyperten darby [facility] - [place] 02/24/2023 E78.2 Mixed hyperlipidemia Merly Waddell MD 02/24/2023 E78.2 Mixed hyperlipidemia Lab - [place] 02/24/2023 N40.1 Benign prostatic hyperplasia with lower urinary tract symptoms Merly Waddell MD 02/24/2023 N40.1 Benign prostatic hyperplasia with lower urinary tract symptoms Lab - [place] 02/24/2023 R73.01 Impaired fasting glucose Xochitl Waddell MD 02/24/2023 R73.01 Impaired fasting glucose Lab - [place] 02/24/2023 E55.9 Vitamin D deficiency, unspec ified Merly Waddell MD 02/24/2023 E55.9 Vitamin D deficiency, unspec ified Lab - [place] 02/24/2023 D51.9 Vitamin B12 deficiency anemi a, unspecified Merly Waddell MD 02/24/2023 D51.9 Vitamin B12 deficiency anemi a, unspecified Lab - [place] 02/24/2023 N39.0 Urinary tract infection, sit e not specified Merly Waddell MD 02/24/2023 N39.0 Urinary tract infection, sit e not specified Lab - [place] 10/28/2022 Z00.01 Encounter for [facility] adult medical examination with abnormal findings [...] 10:00 am - Thomas Ware PA-C at [place] * 06/27/2023 8:30 am - [facility] - [place] [facility] [place] * 07/04/2023 8:15 am - Thomas Ware PA-C at [place] 04/12/2023 - Thomas Ware PA-C* I10 Essential [...]
--- OUTSIDE RECORDS SUMMARY | 2023-04-13 06:44 | External Medical Summary | Continuity of Care Document ---
Author Name THOMAS WARE Address [address] [place] [address] Phone [phone] [facility] Address [address] [place] [address] Phone [phone] Problems Active Problems Provider Date Chest pain [...] SIG Qnty Indications Order ing Provider Date Zwbognysu23ui Tablets 2 by mouth every day for fluid x 5 days then once daily 90tabs Merly Wadedll MD 04/12/2023 Metoprolol Gotexkwo38ct Tablets 1 by mouth twice a day 180tabs Merly Waddell MD 04/12/2023 Qlszhfrhdba61ja Tablets Take 1/2-1 Tablet By Mouth Daily AT Bedtime 90tabs Merly Waddell MD 07/29/2021 Atorvastatin Irqmsiu56sp Tablets Take 1 Tablet By Mouth Every Evening 90tabs Kavon Landa MD 02/23/2020 Vitamin B-12 5,000 mcg Tab SL Dissolve 1 Tablet Under The Tongue By Mouth Every Day 90units Kavon Landa MD 09/06/2019 Azelastine HCL (Nasal)137mcg/[place] Solution use 2 squirts each nostril twice a day 90ml J30.1 Rnee Arredondo JR, MD 06/21/2019 Breo Xvblxns533-17nyt/Inh Aerosol One inhalation daily J44.9 Rene Arredondo JR, MD 05/31/2018 Tamsulosin HCL0.4mg Capsules Take 2 Capsules By Mouth Daily AT Bedtime 180caps Rene Arredondo JR, MD 07/26/2017 Ilbfbhq049jl Tablets 1 by mouth every day 30tabs Rene Arredondo JR, MD Multi For HimTablets one per day, formula does not include vitamin K OTC Rene Arredondo JR, MD History Medications Duloxetine CZF28bq Caps DR Part 1 by mouth every day x 30 days then D/C 30caps Merly Waddell MD 03/03/2023 - 04/02/2023 Gijngiptmx61tw Tablets One tablet daily x 30 days then half tablet daily x 30 days 45tabs Merly Waddell MD 03/03/2023 - 04/12/2023 Immunizations CPT Code Status Date Vaccine Lot # [id number] Given 03/03/2023 Influenza Vaccine High Do se 0.5ML Age 65 & > [id number] 49519 Given 03/15/2022 Moderna Sars-Co v-2 (Covid-19) Vaccine, BiValent Booster 12y+ [id number] 65002 Given 03/09/2022 Influenza Virus Vaccine, Quadrivalent (Cciiv4), Derived From Cell [id number] 07866 Given 10/26/2021 Moderna Covid-1 9 Vaccine 50mcg Booster-EMR Doc Only [id number] 88543 Given 04/16/2021 Pfizer Sars-Cov -2 (Cov-19) vacc 30mcg/0.3ML 12Y+ EMR Doc Only 55324 Given 03/09/2021 Influenza Vaccine High Do se 0.5ML Age 65 & > [id number] 93143 Given 07/18/2020 Moderna Sars-Co v-2 (Cov-19) vacc,100 mcg/ 0.5 mL 12Y+EMR Doc Only 53728 Given 06/13/2020 Moderna Sars-Co v-2 (Cov-19) vacc,100 mcg/ 0.5 mL 12Y+EMR Doc Only U-FLU Given 02/18/2019 Influenza,Unspecified 07356 Given 02/18/2019 Influenza Virus Vaccine, Quadrivalent (Cciiv4), Derived From 8 Given 10/22/2018 Pneumococcal Vaccine/Pneu movax 23 [id number] 66882 Given 10/18/2017 Pneumococcal Conjugate-Pr evnar 13 [id number] 50238 Given 03/27/2017 Influenza Virus Vaccine, Quadrivalent, [place] Use 38171 Refused 05/31/2022 Shingrix 48479 Refused 07/06/2018 Tdap (Tetanus, diphtheria & acel. [...] kg/m2 O2 % BldC Oximetry 98 % [place] Weight 172 lb Results Test Acquired Date Facility Test Result H/L Range N ote Laboratory test finding 04/12/2023 [facility]. [address] [place] [address] [phone] BNP <pending> Pathology Report 03/03/[address] [place] [id number] [phone] Report Type DNR Normal Clinical Information D49.2 Normal Pathologist (SEE NOTE) Normal 1 Report Notes DNR Normal A Clinical Impression DNR Normal A Source NOSE A Procedure DNR Normal A Gross Description (SEE NOTE) 2 A Micro Description (SEE NOTE) 3 A Diagnosis (SEE NOTE) 4 A Comment DNR Normal Laboratory test finding 03/03/[address] [place] [address] [phone] Enhanced PDF Report [id number] SEE IMAGE CBC W/Diff 02/24/2023 [facility]. [address] [place] [address] [phone] WBC 5.4 10^3/M3 3.1-9 .2 RBC 4.27 10^6/M3 4.00-5.80 HGB 13.3 GR/DL 12.5-17.5 HCT 39.6 % 37.5-52.5 MCV 92.7 CUMICR 82.6-95.8 MCH 31.1 PICOGR 27.9-32.9 MCHC 33.6 % 32.6-35.4 RDW 15.4 % High 11.4-14.6 PLT 149 10^3/M3 140-350 MPV 9.1 CUMICR 7.0-10.6 %Neut 51.8 % 40.0-75.0 %Lymph 34.4 % 17.0-45.0 %[place] 9.0 % 1.0-11.0 %Eos 4.1 % 0.0-6.0 %Baso 0.7 % 0.0-2.0 #Neut 2.8 10^3/M3 1.5-8.0 #Lymph 1.9 10^3/M3 0.8-3.2 #[place] 0.5 10^3/M3 0.0-0.8 #Eos 0.2 10^3/m3 0.0-0.4 #Baso 0.0 10^3/m3 0.0-0.2 Comp. Met 02/24/2023 [facility]. [address] [place] [address] [phone] Glucose 83 mg/dL 70-110 BUN 15 mg/dL [...] 2.0-3.4 GFR 67 ML/MIN/1.73SQM >60 Lipid 02/24/2023 [facility]. [address] [place], [place] [address]89 [phone] Cholesterol 87 mg/dL 0-200 5 Triglyceride 100 mg/dL 0-150 6 HDLD 24 mg/dL See Comment 7 Measured LDL 50 mg/dL 0-130 8 Calc VLDL 20.0 mg/dL See Comment 9 Chol/HDL 3.6 RATIO See Comment 10 Non-HDL 63 mg/dL See Comment 11 Laboratory test finding 02/24/2023 [facility] [address] [place] [address] [phone] TSH 3.49 uIU/mL 0.50-6.00 Psa2 4.2 ng/mL Critical high 0.0-4.0 Hba1c 02/24/2023 [facility]. [address] [place] [address] [phone] A1c 5.80 % 4.70-6.50 12 Laboratory test finding 02/24/2023 [facility] [address] [place] [address] [phone] Vitd-25Oh 42 ng/mL 30-100 VB12 725 pg/mL 230-1050 Urinalysis,Cult If Indicated 02/24/2023 [facility]. [address] [place], [place] [address] [phone] RFLX Culture NO Urinalysis 02/24/2023 [facility]. [address] [place] [address] [phone] Color LIGHT-YEL LOW Appearance CLEAR Clear Spec.Grav. [...] is a shave biopsy of skin measuring [id number]. The specimen is trisected and entirely submitted in one cassette. Gross exam(s) performed at: [facility] [address] [address] [place] Measurer: SAVITA MONTIEL MD 3 There is a [...] 240-10 Procedures Date Code Description Status 04/12/2023 91483 Electrocardiogram Complete C ompleted 04/12/2023 38458 Venipuncture Routine Complet ed 03/03/2023 G0008 Influenza Admin Completed 03/03/2023 06485 Excise Malig Lesion .6-1CM F bette/Ear/Eyelid/Nose/Lip Completed 02/24/2023 64184 Venipuncture Routine Complet ed 10/28/2022 1101F PT SCR Future Fall Risk, No Fall Or 1 W/Out Injury Completed 09/27/2007 [id number] Colonoscopy Completed Medical Devices Description No Information [...] I10 Essential (primary) hyperten darby [facility] - [place] 02/24/2023 E78.2 Mixed hyperlipidemia Merly Waddell MD 02/24/2023 E78.2 Mixed hyperlipidemia Lab - [place] 02/24/2023 N40.1 Benign prostatic hyperplasia with lower urinary tract symptoms Merly Waddell MD 02/24/2023 N40.1 Benign prostatic hyperplasia with lower urinary tract symptoms Lab - [place] 02/24/2023 R73.01 Impaired fasting glucose Xochitl Waddell MD 02/24/2023 R73.01 Impaired fasting glucose Lab - [place] 02/24/2023 E55.9 Vitamin D deficiency, unspec ified Merly Waddell MD 02/24/2023 E55.9 Vitamin D deficiency, unspec ified Lab - [place] 02/24/2023 D51.9 Vitamin B12 deficiency anemi a, unspecified Merly Waddell MD 02/24/2023 D51.9 Vitamin B12 deficiency anemi a, unspecified Lab - [place] 02/24/2023 N39.0 Urinary tract infection, sit e not specified Merly Waddell MD 02/24/2023 N39.0 Urinary tract infection, sit e not specified Lab - [place] 10/28/[address]00[address] [facility] adult medical examination with abnormal findings Thomas Ware PA-C 10/28/2022 I10 Essential (primary) hyperten darby Thomas Ware PA-C 10/28/2022 E78.2 Mixed hyperlipidemia Thomas Ware PA-C 10/28/2022 J44.9 Chronic obstruct magy pulmonary disease, unspecified Thomas Ware PA-C 10/28/2022 F33.1 Major depressive disorder, recurrent, moderate Thomas Ware PA-C 10/28/2022 R06.02 Shortness of breath Thomsa Ware PA-C Plan of Treatment Future Appointment(s):* 04/18/2023 10:00 am - Thomas Ware PA-C at [place] * 06/27/2023 8:30 am - [facility] [place] [facility] [place] * 07/04/2023 8:15 am - Thomas Ware PA-C at [place] 04/12/2023 - Thomas Ware PA-C* I10 Essential [...]
--- OUTSIDE RECORDS SUMMARY | 2023-04-13 06:44 | External Medical Summary | Continuity of Care Document ---
Author Name THOMAS WARE Address [address] [place] [address] Phone [phone] [facility] Address [address] [place] [address] Phone [phone] Problems Active Problems Provider Date Chest pain [...] Qnty Indications Order ing Provider Date Duloxetine JHR38vk Caps DR Part 1 by mouth every day x 30 days then D/C 30caps Merly Waddell MD 03/03/2023 - 04/02/2023 Qbyltbkuia83th Tablets One tablet daily x 30 days then half tablet daily x 30 days 45tabs Merly Waddell MD 03/03/2023 Wngkszuzgid90lo Tablets Take 1/2-1 Tablet By Mouth Daily AT Bedtime 90tabs Merly Waddell MD 07/29/2021 Atorvastatin Aockjzn71hj Tablets Take 1 Tablet By Mouth Every Evening 90tabs Kavon Landa MD 02/23/2020 Vitamin B-12 5,000 mcg Tab SL Dissolve 1 Tablet Under The Tongue By Mouth Every Day 90units Kavon Landa MD 09/06/2019 Azelastine HCL (Nasal)137mcg/[place] Solution use 2 squirts each nostril twice a day 90ml J30.1 Rene Arredondo JR, MD 06/21/2019 Breo Rfdrzfm334-10css/Inh Aerosol One inhalation daily J44.9 Rene Arredondo JR, MD 05/31/2018 Tamsulosin HCL0.4mg Capsules Take 2 Capsules By Mouth Daily AT Bedtime 180caps Rene Arredondo JR, MD 07/26/2017 Vmhkoid860za Tablets 1 by mouth every day 30tabs Rene Arredondo JR, MD Multi For HimTablets one per day, formula does not include vitamin K OTC Rene Arredondo JR, MD Immunizations CPT Code Status Date Vaccine Lot # [id number] Given 03/03/2023 Influenza Vaccine High Do se 0.5ML Age 65 & > [id number] 35520 Given 03/15/2022 Moderna Sars-Co v-2 (Covid-19) Vaccine, BiValent Booster 12y+ [id number] 71986 Given 03/09/2022 Influenza Virus Vaccine, Quadrivalent (Cciiv4), Derived From Cell [id number] 07918 Given 10/26/2021 Moderna Covid-1 9 Vaccine 50mcg Booster-EMR Doc Only [id number] 24006 Given 04/16/2021 Pfizer Sars-Cov -2 (Cov-19) vacc 30mcg/0.3ML 12Y+ EMR Doc Only 85251 Given 03/09/2021 Influenza Vaccine High Do se 0.5ML Age 65 & > [id number] 46286 Given 07/18/2020 Moderna Sars-Co v-2 (Cov-19) vacc,100 mcg/ 0.5 mL 12Y+EMR Doc Only 88607 Given 06/13/2020 Moderna Sars-Co v-2 (Cov-19) vacc,100 mcg/ 0.5 mL 12Y+EMR Doc Only U-FLU Given 02/18/2019 Influenza,Unspecified 36084 Given 02/18/2019 Influenza Virus Vaccine, Quadrivalent (Cciiv4), Derived From 7 Given 10/22/2018 Pneumococcal Vaccine/Pneu movax 23 [id number] 98503 Given 10/18/2017 Pneumococcal Conjugate-Pr evnar 13 [id number] 90967 Given 03/27/2017 Influenza Virus Vaccine, Quadrivalent, Im Use 60209 Refused 05/31/2022 Shingrix 06810 Refused 07/06/2018 Tdap (Tetanus, diphtheria & acel. pertussis) Adacel or Boostrix Vital Signs Date Vital Result Comment 03/03/2023 9:32am BP Systolic 120 mmHg BP Diastolic 70 mmHg Body Temperature 97.3 F Heart Rate 86 /min Weight 205.44 lb Weight 93.186 kg Height 71 inches 5'11" BMI (Body Mass Index) 28.6 kg/m2 O2 % BldC Oximetry 98 % [place] Body Weight 172 lb 10/28/2022 9:22am BP Systolic 122 mmHg BP Diastolic 82 mmHg Body Temperature 97.5 F Heart Rate 92 /min Weight 202.00 lb Weight 91.627 kg Height 71 inches 5'11" BMI (Body Mass Index) 28.2 kg/m2 O2 % BldC Oximetry 99 % [place] Body Weight 172 lb Results Test Acquired Date Facility Test Result H/L Range N ote Laboratory test finding 03/03/2023 [facility] [place] [address] [phone] Pathology Report <pending> CBC W/Diff 02/24/2023 [facility]. [address] [place], [place] [address] WBC 5.4 10^3/M3 3.1-9.2 RBC 4.27 10^6/M3 4.00-5.80 HGB 13.3 GR/DL 12.5-17.5 HCT 39.6 % 37.5-52.5 MCV 92.7 CUMICR 82.6-95.8 MCH 31.1 PICOGR 27.9-32.9 MCHC 33.6 % 32.6-35.4 RDW 15.4 % High 11.4-14.6 PLT 149 10^3/M3 140-350 MPV 9.1 CUMICR 7.0-10.6 %Neut 51.8 % 40.0-75.0 %Lymph 34.4 % 17.0-45.0 %[place] 9.0 % 1.0-11.0 %Eos 4.1 % 0.0-6.0 %Baso 0.7 % 0.0-2.0 #Neut 2.8 10^3/M3 1.5-8.0 #Lymph 1.9 10^3/M3 0.8-3.2 #[place] 0.5 10^3/M3 0.0-0.8 #Eos 0.2 10^3/m3 0.0-0.4 #Baso 0.0 10^3/m3 0.0-0.2 Comp. Met 02/24/2023 [facility]. [address] [place], [place] 1[address] [phone] Glucose 83 mg/dL 70-110 BUN 15 mg/dL [...] 2.0-3.4 GFR 67 ML/MIN/1.73SQM >60 Lipid 02/24/2023 [facility] [address] [place] [address] [phone] Cholesterol 87 mg/dL 0-200 1 Triglyceride 100 mg/dL 0-150 2 HDLD 24 mg/dL See Comment 3 Measured LDL 50 mg/dL 0-130 4 Calc VLDL 20.0 mg/dL See Comment 5 Chol/HDL 3.6 RATIO See Comment 6 Non-HDL 63 mg/dL See Comment 7 Laboratory test finding 02/24/2023 [facility] [address] [place] [address] [phone] TSH 3.49 uIU/mL 0.50-6.00 Psa2 4.2 ng/mL Critical high 0.0-4.0 Hba1c 02/24/2023 [facility] [address] [place], [place] [address] [phone] A1c 5.80 % 4.70-6.50 8 Laboratory test finding 02/24/2023 [facility] [address] [place], [place] [address] [phone] Vitd-25Oh 42 ng/mL 30-100 VB12 725 pg/mL 230-1050 Urinalysis,Cult If Indicated 02/24/2023 [facility]. [address] [place], [place] 49[address] [phone] RFLX Culture NO Urinalysis 02/24/2023 [facility]. [address] [place], [place] 19636[address] [phone] Color LIGHT-YEL LOW Appearance CLEAR Clear Spec.Grav. [...] Status 03/03/2023 G0008 Influenza Admin Completed 03/03/2023 60381 Excise Malig Lesion .6-1CM F bette/Ear/Eyelid/Nose/Lip Completed 02/24/2023 26693 Venipuncture Routine Complet ed 10/28/2022 1101F PT SCR Future Fall Risk, No Fall Or 1 W/Out Injury Completed 09/27/2007 [id number] Colonoscopy Completed Medical Devices Description No Information [...] Arlin Ware PA-C 02/24/2023 I10 Essential (primary) hypertthomas Waddell MD 02/24/2023 I10 Essential (primary) hyperten [facility]by [facility] - [place] 02/24/2023 E78.2 Mixed hyperlipidemia Merly Waddell MD 02/24/2023 E78.2 Mixed hyperlipidemia Lab - [place] 02/24/2023 N40.1 Benign prostatic hyperplasia with lower urinary tract symptoms Merly Waddell MD 02/24/2023 N40.1 Benign prostatic hyperplasia with lower urinary tract symptoms Lab - [place] 02/24/2023 R73.01 Impaired fasting glucose Xochitl Waddell MD 02/24/2023 R73.01 Impaired fasting glucose Lab - [place] 02/24/2023 E55.9 Vitamin D deficiency, unspec ified Merly Waddell MD 02/24/2023 E55.9 Vitamin D deficiency, unspec ified Lab - [place] 02/24/2023 D51.9 Vitamin B12 deficiency anemi a, unspecified Merly Waddell MD 02/24/2023 D51.9 Vitamin B12 deficiency anemi a, unspecified Lab - [place] 02/24/2023 N39.0 Urinary tract infection, sit e not specified Merly Waddell MD 02/24/2023 N39.0 Urinary tract infection, sit e not specified Lab - [place] 10/28/2022 Z00.01 [facility] Thomas [...] Appointment(s):* 06/27/2023 8:30 am - [facility] [place] [facility] [place] * 07/04/2023 8:15 am - Thomas Ware PA-C at [place] 03/03/2023 - Thomas Ware PA-C* I10 Essential [...]
--- OUTSIDE RECORDS SUMMARY | 2023-04-13 06:45 | External Medical Summary | Continuity of Care Document ---
Author Name THOMAS WARE Address [address] [place] [address] Phone [phone] [facility] Address [address] [place] [address] Phone [phone] Problems Active Problems Provider Date Chest pain [...] Never Smoked A Pipe Smoking Status Reviewed: 10/28/22 Never Smoked A Pipe Smokeless Tobacco 10/28/2022 Never Used Smokeless To bacco ETOH Use Denies alcohol use Recreational Drug Use Denies Drug Use Allergies and adverse reactions Description No Known Drug Allergies Medications Active Medications SIG Qnty Indications Order ing Provider Date Cbsvxenzeoh31ob Tablets Take 1/2-1 Tablet By Mouth Daily AT Bedtime 90tabs Merly Waddell MD 07/29/[id number] Part Take 1 Capsule By Mouth Every Day 90caps Kavon Landa MD 11/03/2020 Atorvastatin Uvssqrc57fo Tablets Take 1 Tablet By Mouth Every Evening 90tabs Kavon Landa MD 02/23/2020 Vitamin B-12 5,000 mcg Tab SL Dissolve 1 Tablet Under The Tongue By Mouth Every Day 90units Kavon Landa MD 09/06/2019 Azelastine HCL (Nasal)137mcg/Canjilon Solution use 2 squirts each nostril twice a day 90ml J30.1 Rene Arredondo JR, MD 06/21/2019 Breo Xamaigw701-86ojm/Inh Aerosol One inhalation daily J44.9 Rene Arredondo JR, MD 05/31/2018 Tamsulosin HCL0.4mg Capsules Take 2 Capsules By Mouth Daily AT Bedtime 180caps Rene Arredondo JR, MD 07/26/2017 Kpliwiv314uq Tablets 1 by mouth every day 30tabs Rene Arredondo JR, MD Multi For HimTablets one per day, formula does not include vitamin K OTC Rene Arredondo JR, MD History Medications Qxygjgxwgx07pn Tablets two tablets x 10 days then one tablet daily x 10 days 30tabs J44.9 Merly Waddell MD 08/30/2022 - 10/28/2022 Immunizations CPT Code Status Date Vaccine Lot # [id number] Given 03/15/2022 Moderna Sars-Co v-2 (Covid-19) Vaccine, BiValent Booster [id number] 09684 Given 03/09/2022 Influenza Virus Vaccine, Quadrivalent (Cciiv4), Derived From Cell [id number] 90334 Given 10/26/2021 Moderna Covid-19 Vaccine 50mcg Booster [id number] 85759 Given 04/16/2021 Pfizer Sars-Cov -2 (Covid-19) vaccine, 30mcg/0.3ML 12Y+ 07178 Given 03/09/2021 Influenza Vaccine High Do se 0.5ML [id number] 87654 Given 07/18/2020 Moderna Sars-Co v-2 (Covid-19) vaccine, 100 mcg/ 0.5 mL 12Y+ 93128 Given 06/13/2020 Moderna Sars-Co v-2 (Covid-19) vaccine, 100 mcg/ 0.5 mL 12Y+ U-FLU Given 02/18/2019 Influenza,Unspecified 86909 Given 02/18/2019 Influenza Virus Vaccine, Quadrivalent (Cciiv4), Derived From 2 Given 10/22/2018 Pneumococcal Vaccine/Pneu movax 23 [id number] 33080 Given 10/18/2017 Pneumococcal Conjugate-Pr evnar 13 [id number] 94905 Given 03/27/2017 Influenza Virus Vaccine, Quadrivalent, Im Use [id number] Refused 05/31/2022 Shingrix [id number] Refused 07/06/2018 Tdap (Tetanus, diphtheria & acel. pertussis) Adacel or Boostrix Vital Signs Date Vital Result Comment 10/28/2022 9:22am BP Systolic 122 mmHg BP Diastolic 82 mmHg Body Temperature 97.5 F Heart Rate 92 /min Weight 202.00 lb Weight 91.627 kg Height 71 inches 5'11" BMI (Body Mass Index) 28.2 kg/m2 O2 % BldC Oximetry 99 % [place] Body Weight 172 lb 08/30/2022 9:15am BP Systolic 110 mmHg BP Diastolic 60 mmHg Body Temperature 97.6 F Heart Rate 85 /min Respiratory Rate 16 /min Weight 206.25 lb Weight 93.555 kg Height 71 inches 5'11" BMI (Body Mass Index) 28.8 kg/m2 [place] Body Weight 172 lb Results Test Acquired Date Facility Test Result H/L Range N ote CBC W/Diff 08/23/2022 [facility] [address] [place] [address] [phone] WBC 5.9 10 3.1-9.2 RBC 4.41 10 4.00-5.80 HGB 13.6 GR/DL 12.5-17.5 HCT 41.9 % 37.5-52.5 MCV 94.8 CUMICR 82.6-95.8 MCH 30.8 PICOGR 27.9-32.9 MCHC 32.5 % Low 32.6-35.4 RDW 14.5 % 11.4-14.6 PLT 187 10 140-350 MPV 8.8 CUMICR 7.0-10.6 %Neut 52.2 % 40.0-75.0 %Lymph 33.7 % 17.0-45.0 %[place] 10.5 % 1.0-11.0 %Eos 3.0 % 0.0-6.0 %Baso 0.6 % 0.0-2.0 #Neut 3.1 10 1.5-8.0 #Lymph 2.0 10 0.8-3.2 #[place] 0.6 10 0.0-0.8 #Eos 0.2 10 0.0-0.4 #Baso 0.0 10 0.0-0.2 Comp. Met 08/23/2022 [facility] [address] [place] [address] [phone] Glucose 82 mg/dL 70-110 BUN 21 mg/dL 6-25 Creatinine 1.1 mg/dL 0.7-1.3 Sodium 142 mEq/L 135-145 Potassium 5.9 mEq/L High 3.5-5.0 Chloride 105 mEq/L 95-107 Co-2 29 mEq/L 24-31 Alk Phos 132 IU/L High 43-122 Alt(SGPT) 33 IU/L 10-40 Ast(Sgot) 30 IU/L 3-42 T.Bilirubin 0.9 mg/dL 0.1-1.3 Calcium 9.1 mg/dL 8.5-10.6 Tot.Protein 6.7 g/dL 5.8-8.0 Albumin 3.8 g/dL 3.0-5.2 Globulin 2.9 g/dL 2.0-3.4 GFR 67 >60 Lipid 08/23/2022 [facility] [address] [place] [address] [phone] Cholesterol 95 mg/dL 0-200 1 Triglyceride 106 mg/dL 0-150 2 HDLD 27 mg/dL See Comment 3 Measured LDL 60 mg/dL 0-130 4 Calc VLDL 21.2 mg/dL See Comment 5 Chol/HDL 3.5 RATIO See Comment 6 Non-HDL 68 mg/dL See Comment 7 Laboratory test finding 08/23/2022 [facility] [address] [place] [address] [phone] TSH 1.76 uIU/mL 0.50-6.00 Psa2 3.1 ng/mL 0.0-4.0 Hba1c 08/23/2022 [facility] [address] [place], [place] [id number] [phone] A1c 5.70 % 4.70-6.50 8 Laboratory test finding 08/23/2022 [facility] [address] [place] [address] [phone] Vitd-25Oh 24 ng/mL Low 30-100 VB12 >1500 pg/mL High 230-1050 9 Urinalysis,Cult If Indicated 08/23/2022 [facility] [address] [place], [place] [id number] [phone] RFLX Culture NO Urinalysis 08/23/2022 [facility] [address] [place] [address] [phone] Color LIGHT-YEL LOW Appearance CLEAR Clear Spec.Grav. 1.017 1.005-1.025 Leukocytes NEGATIVE Negative Nitrite NEGATIVE Negative PH 7.0 6.0-7.5 Protein NEGATIVE Negative Urine Glucose NEGATIVE Negative Ketone NEGATIVE Negative Urobilinogen 2.0 E.U./DL Abnormal Normal Bilirubin NEGATIVE Negative Blood NEGATIVE Negative WBC-U 3-5 /HPF 0-5/HPF RBC-U 3-5 /HPF 0-5/HPF Bacteria NONE SEEN None Seen Squamous 0-2 /HPF 0-5/HPF 1 CHOLESTEROL Less than 200mg/dl [...] 120-6 330-13 150-7 90-5 300-12 270-11 240-10 9 B12 COMMENT SERUM B12 LEVELS >1500 MG/DL ARE NOT DILUTED AND REANALYZED. ELEVATED B12 LEVELS ARE NOT CONSIDERED TOXIC. Procedures Date Code Description Status 10/28/2022 1101F PT SCR Future Fall Risk, No Fall Or 1 W/Out Injury Completed 08/23/2022 07458 Venipuncture Routine Complet ed 09/27/2007 [id number] Colonoscopy Completed Medical Devices Description No Information Available Encounters Type Date Location Provider Dx Diagnosis Office Visit 10/28/2022 9:30a Nicole Ware PA-C Z00.01 Encounter for general adult medical exam w abnormal findings I10 Essential (primary) hypertension E78.2 Mixed hyperlipidemia J44.9 Chronic obstructive pulmonary disease, unspecified F33.1 Major depressive dis order, recurrent, moderate R06.02 Shortness of breath Office Visit 08/30/2022 9:15a Nicole balderrama PA-C I10 Essential (primary) hypertension E78.2 Mixed hyperlipidemia J44.9 Chronic obstructive pulmonary disease, unspecified F33.1 Major depressive dis order, recurrent, moderate Office Visit 05/31/2022 9:00a Nicole balderrama PA-C I10 Essential (primary) hypertension E78.2 Mixed hyperlipidemia J44.9 Chronic obstructive pulmonary disease, unspecified F33.1 Major depressive dis order, recurrent, moderate Assessments Date Code Description Provider 10/28/2022 Z00.01 Encounter for ge neral adult medical examination with abnormal findings Thomas Ware PA-C 10/28/2022 I10 Essential (primary) hyperten darby Thomas Ware PA-C 10/28/2022 E78.2 Mixed hyperlipidemia Thomas Ware PA-C 10/28/2022 J44.9 Chronic obstruct magy pulmonary disease, unspecified Thomas Del Real Chaz, PA-C 10/28/2022 F33.1 Major depressive disorder, recurrent, moderate Thomas Del Real Chaz, PA-C 10/28/2022 R06.02 Shortness of breath Thomas Reed Chaz, PA-C 08/30/2022 I10 Essential (primary) hyperten darby Del Real Chaz, PA-C 08/30/2022 E78.2 Mixed hyperlipidemia Thomas Del Real Chaz, PA-C 08/30/2022 J44.9 Chronic obstruct magy pulmonary disease, unspecified Thomas Del Real Chaz, PA-C 08/30/2022 F33.1 Major depressive disorder, recurrent, moderate Thomas Del Real Chaz, PA-C 08/23/2022 I10 Essential (primary) hyperten darby Merly Waddell MD 08/23/2022 I10 Essential (primary) hyperten darby [facility] [place] 08/23/2022 E78.2 Mixed hyperlipidemia Merly Waddell MD 08/23/2022 E78.2 Mixed hyperlipidemia Lab [place] 08/23/2022 N40.1 Benign prostatic hyperplasia with lower urinary tract symptoms Merly Waddell MD 08/23/2022 N40.1 Benign prostatic hyperplasia with lower urinary tract symptoms Lab - [place] 08/23/2022 R73.01 Impaired fasting glucose Xochitl Waddell MD 08/23/2022 R73.01 Impaired fasting glucose Lab - [place] 08/23/2022 E55.9 Vitamin D deficiency, unspec ified Merly Waddell MD 08/23/2022 E55.9 Vitamin D deficiency, unspec ified Lab - [place] 08/23/2022 D51.9 Vitamin B12 deficiency anemi a, unspecified Merly Waddell MD 08/23/2022 D51.9 Vitamin B12 deficiency anemi a, unspecified Lab - [place] 08/23/2022 N39.0 Urinary tract infection, sit e not specified Merly Waddell MD 08/23/2022 N39.0 Urinary tract infection, sit e not specified Lab - [place] 05/31/2022 I10 Essential (primary) hyperten darby Thomas Ware PA-C 05/31/2022 E78.2 Mixed hyperlipidemia Thomas Ware PA-C 05/31/2022 J44.9 Chronic obstruct magy pulmonary disease, unspecified Thomas Ware PA-C 05/31/2022 F33.1 Major depressive disorder, recurrent, moderate Thomas Ware PA-C Plan of Treatment Future Appointment(s):* 02/24/2023 9:00 am - [facility] [place] * 03/03/2023 9:30 am - Thomas Ware PA-C at [place] 10/28/2022 - Thomas Ware PA-C* Z00.01 Encounter for general adult medical examination with abnormal findings* Comments:* Up-to-date with screening recommendations Up-to-date with vaccinations Patient verbalizesunderstanding of care plan / instructions. * I10 Essential (primary) hypertension* New Labs:* CBC W/Diff, Scheduled: 02/10/23 * Comp. Met, Scheduled: 02/10/23 * Lipid, Scheduled: 02/10/23 * TSH, Scheduled: 02/10/23 * Psa2, Scheduled: 02/10/23 * Comments:* Continue current medication. Low sodium diet BP stable * Recommendations:* Low-salt diet. Exercise. Continue medication as directed. * E78.2 Mixed hyperlipidemia* New Labs:* CBC W/Diff, Scheduled: 02/10/23 * Comp. Met, Scheduled: 02/10/23 * Lipid, Scheduled: 02/10/23 * TSH, Scheduled: 02/10/23 * Psa2, Scheduled: 02/10/23 * Comments:* Continue current medication. Further recommendations pending Lexiscan Repeat lab work prior to next office visit * J44.9 Chronic obstructive pulmonary disease, unspecified* Comments:* Continue current medication. Cough and deep breathe Continue inhaler * F33.1 Major depressive disorder, recurrent, moderate* Comments:* Continue current medication. Stress relieving exercises Symptoms stable at the present time * R06.02 Shortness of breath* New Orders:* Lexiscan Stress Test, Ordered: 10/28/22 * Comments:* Limit Activity and exertion until test completed Avoid eating within 2 hours of bedtime * Follow up:* Follow up 4 months Labs one week prior Please schedule Lexiscan JS as soon as possible Functional Status Description No Information Available Mental Status Description No Information Available Referrals Description No Information Available
--- OUTSIDE RECORDS SUMMARY | 2023-04-13 06:45 | External Medical Summary | Continuity of Care Document ---
Author Name THOMAS WARE Address [address] [place] [address] Phone [phone] [facility] Address [address] [place] [address] Phone [phone] Problems Active Problems Provider Date Chest pain [...] SIG Qnty Indications Order ing Provider Date Czylhxtuzjv93bm Tablets Take 1/2-1 Tablet By Mouth Daily AT Bedtime 90tabs Merly Waddell MD 07/29/[address] Part Take 1 Capsule By Mouth Every Day 90caps Kavon Landa MD 11/03/2020 Atorvastatin Gaivoqo49ce Tablets Take 1 Tablet By Mouth Every Evening 90tabs Kavon Landa MD 02/23/2020 Vitamin B-12 5,000 mcg Tab SL Dissolve 1 Tablet Under The Tongue By Mouth Every Day 90units Kavon Landa MD 09/06/2019 Azelastine HCL (Nasal)137mcg/[place] Solution use 2 squirts each nostril twice a day 90ml J30.1 Rene Arredondo JR, MD 06/21/2019 Breo Gozurea658-28fzt/Inh Aerosol One inhalation daily J44.9 Rene Arredondo JR, MD 05/31/2018 Tamsulosin HCL0.4mg Capsules Take 2 Capsules By Mouth Daily AT Bedtime 180caps Rene Arredondo JR, MD 07/26/2017 Moiluvp243yz Tablets 1 by mouth every day 30tabs Rene Arredondo JR, MD Multi For HimTablets one per day, formula does not include vitamin K OTC Rene Arredondo JR, MD History Medications Txgfkokvus36kh Tablets two tablets x 10 days then one tablet daily x 10 days 30tabs J44.9 Merly Waddell MD 08/30/2022 - 10/28/2022 Immunizations CPT Code Status Date Vaccine Lot # [id number] Given 03/15/2022 Moderna Sars-Co v-2 (Covid-19) Vaccine, BiValent Booster 12y+ [id number] 09581 Given 03/09/2022 Influenza Virus Vaccine, Quadrivalent (Cciiv4), Derived From Cell [id number] 17215 Given 10/26/2021 Moderna Covid-19 Vaccine 50mcg Booster [id number] 95824 Given 04/16/2021 Pfizer Sars-Cov -2 (Covid-19) vaccine, 30mcg/0.3ML 12Y+ 81423 Given 03/09/2021 Influenza Vaccine High Do se 0.5ML [id number] 27632 Given 07/18/2020 Moderna Sars-Co v-2 (Covid-19) vaccine, 100 mcg/ 0.5 mL 12Y+ 42556 Given 06/13/2020 Moderna Sars-Co v-2 (Covid-19) vaccine, 100 mcg/ 0.5 mL 12Y+ U-FLU Given 02/18/2019 Influenza,Unspecified 49389 Given 02/18/2019 Influenza Virus Vaccine, Quadrivalent (Cciiv4), Derived From 0 Given 10/22/2018 Pneumococcal Vaccine/Pneu movax 23 [id number] 01557 Given 10/18/2017 Pneumococcal Conjugate-Pr evnar 13 [id number] 89767 Given 03/27/2017 Influenza Virus Vaccine, Quadrivalent, Im Use [id number] Refused 05/31/2022 Shingrix [id number] Refused 07/06/2018 Tdap (Tetanus, diphtheria & acel. pertussis) Adacel or Boostrix Vital Signs Date Vital Result Comment 10/28/2022 9:22am BP Systolic 122 mmHg BP Diastolic 82 mmHg Body Temperature 97.5 F Heart Rate 92 /min Weight 202.00 lb Weight 91.627 kg Height 71 inches 5'11" BMI (Body Mass Index) 28.2 kg/m2 O2 % BldC Oximetry 99 % [place] Body Weight 172 lb 08/30/2022 9:15am BP Systolic 110 mmHg BP Diastolic 60 mmHg Body Temperature 97.6 F Heart Rate 85 /min Respiratory Rate 16 /min Weight 206.25 lb Weight 93.555 kg Height 71 inches 5'11" BMI (Body Mass Index) 28.8 kg/m2 [place] Body Weight 172 lb Results Test Acquired Date Facility Test Result H/L Range N ote CBC W/Diff 08/23/2022 [facility] [address] [place] [address] [phone] WBC 5.9 10 3.1-9.2 RBC 4.41 10 4.00-5.80 HGB 13.6 GR/DL 12.5-17.5 HCT 41.9 % 37.5-52.5 MCV 94.8 CUMICR 82.6-95.8 MCH 30.8 PICOGR 27.9-32.9 MCHC 32.5 % Low 32.6-35.4 RDW 14.5 % 11.4-14.6 PLT 187 10 140-350 MPV 8.8 CUMICR 7.0-10.6 %Neut 52.2 % 40.0-75.0 %Lymph 33.7 % 17.0-45.0 %[place] 10.5 % 1.0-11.0 %Eos 3.0 % 0.0-6.0 %Baso 0.6 % 0.0-2.0 #Neut 3.1 10 1.5-8.0 #Lymph 2.0 10 0.8-3.2 #[place] 0.6 10 0.0-0.8 #Eos 0.2 10 0.0-0.4 #Baso 0.0 10 0.0-0.2 Comp. Met 08/23/2022 [facility] [address] [place] [address] [phone] Glucose 82 mg/dL 70-110 BUN 21 mg/dL [...] g/dL 2.0-3.4 GFR 67 >60 Lipid 08/23/2022 [facility] [address] [place] [address] [phone] Cholesterol 95 mg/dL 0-200 1 Triglyceride 106 mg/dL 0-150 2 HDLD 27 mg/dL See Comment 3 Measured LDL 60 mg/dL 0-130 4 Calc VLDL 21.2 mg/dL See Comment 5 Chol/HDL 3.5 RATIO See Comment 6 Non-HDL 68 mg/dL See Comment 7 Laboratory test finding 08/23/2022 [facility] [address] [place] [address] [phone] TSH 1.76 uIU/mL 0.50-6.00 Psa2 3.1 ng/mL 0.0-4.0 Hba1c 08/23/2022 [facility] [address] [place], [place] [address] [phone] A1c 5.70 % 4.70-6.50 8 Laboratory test finding 08/23/2022 [facility] [address] [place] [address] [phone] Vitd-25Oh 24 ng/mL Low 30-100 VB12 >1500 pg/mL High 230-1050 9 Urinalysis,Cult If Indicated 08/23/2022 [facility] [address] [place], [place] [address] [phone] RFLX Culture NO Urinalysis 08/23/2022 [facility] [address] [place] [address] [phone] Color LIGHT-YEL LOW Appearance CLEAR Clear Spec.Grav. [...] Fall Or 1 W/Out Injury Completed 08/23/2022 33763 Venipuncture Routine Complet ed 09/27/2007 [id number] Colonoscopy Completed Medical Devices Description No Information [...] I10 Essential (primary) hyperten darby Lab - [place] 08/23/2022 E78.2 Mixed hyperlipidemia Merly Waddell MD 08/23/2022 E78.2 Mixed hyperlipidemia Lab - [place] 08/23/2022 N40.1 Benign prostatic hyperplasia with lower urinary tract symptoms Merly Waddell MD 08/23/2022 N40.1 Benign prostatic hyperplasia with lower urinary tract symptoms Lab - [place] 08/23/2022 R73.01 Impaired fasting glucose Xochilt Waddell MD 08/23/2022 R73.01 Impaired fasting glucose Lab - [place] 08/23/2022 E55.9 Vitamin D deficiency, unspec ified Merly Waddell MD 08/23/2022 E55.9 Vitamin D deficiency, unspec ified Lab - [place] 08/23/2022 D51.9 Vitamin B12 deficiency anemi a, unspecified Merly Waddell MD 08/23/2022 D51.9 Vitamin B12 deficiency anemi a, unspecified Lab - [place] 08/23/2022 N39.0 Urinary tract infection, sit e not specified Merly Waddell MD 08/23/2022 N39.0 Urinary tract infection, sit e not specified Lab - [place] 05/31/2022 I10 Essential (primary) hyperten darby Thomas Ware PA-C 05/31/2022 E78.2 Mixed hyperlipidemia Thomas Ware PA-C 05/31/2022 J44.9 Chronic obstruct magy pulmonary disease, unspecified Thomas Ware PA-C 05/31/2022 F33.1 Major depressive disorder, recurrent, moderate Thomas Ware PA-C Plan of Treatment Future Appointment(s):* 02/24/2023 9:00 am - [facility] [place] * 03/03/2023 9:30 am - Thomas Ware PA-C at [place] 10/28/2022 - Thomas Ware PA-C* Z00.01 Encounter [...]
--- OUTSIDE RECORDS SUMMARY | 2023-04-13 06:45 | External Medical Summary | Continuity of Care Document ---
Author Name Lab - [place] Address [address] [place] [address] Phone [phone] [facility] er, Address [address] [place] [address] Phone [phone] Problems Active Problems Provider Date Chest pain [...] SIG Qnty Indications Order ing Provider Date Alxwgvxcwnh10au Tablets Take 1/2-1 Tablet By Mouth Daily AT Bedtime 90tabs Merly Waddell MD 07/29/[address] Part Take 1 Capsule By Mouth Every Day 90caps Kavon Landa MD 11/03/2020 Atorvastatin Dapkotv31ms Tablets Take 1 Tablet By Mouth Every Evening 90tabs Kavon Landa MD 02/23/2020 Vitamin B-12 5,000 mcg Tab SL Dissolve 1 Tablet Under The Tongue By Mouth Every Day 90units Kavon Landa MD 09/06/2019 Azelastine HCL (Nasal)137mcg/[place] Solution use 2 squirts each nostril twice a day 90ml J30.1 Rene Arredondo JR, MD 06/21/2019 Breo Arwsfyl216-00lqj/Inh Aerosol One inhalation daily J44.9 Rene Arredondo JR, MD 05/31/2018 Tamsulosin HCL0.4mg Capsules Take 2 Capsules By Mouth Daily AT Bedtime 180caps Rene Arredondo JR, MD 07/26/2017 Dxrvojh040vz Tablets 1 by mouth every day 30tabs Rene Arredondo JR, MD Multi For HimTablets one per day, formula does not include vitamin K OTC Rene Arredondo JR, MD History Medications Hxkhpxmqsw39pu Tablets two tablets x 10 days then one tablet daily x 10 days 30tabs J44.9 Merly Waddell MD 08/30/2022 - 10/28/2022 Immunizations CPT Code Status Date Vaccine Lot # [id number] Given 03/15/2022 Moderna Sars-Co v-2 (Covid-19) Vaccine, BiValent Booster 12y+ [id number] 85256 Given 03/09/2022 Influenza Virus Vaccine, Quadrivalent (Cciiv4), Derived From Cell [id number] 17342 Given 10/26/2021 Moderna Covid-1 9 Vaccine 50mcg Booster-EMR Doc Only [id number] 39586 Given 04/16/2021 Pfizer Sars-Cov -2 (Cov-19) vacc 30mcg/0.3ML 12Y+ EMR Doc Only 95122 Given 03/09/2021 Influenza Vaccine High Do se 0.5ML Age 65 & > [id number] 67307 Given 07/18/2020 Moderna Sars-Co v-2 (Cov-19) vacc,100 mcg/ 0.5 mL 12Y+EMR Doc Only 80646 Given 06/13/2020 Moderna Sars-Co v-2 (Cov-19) vacc,100 mcg/ 0.5 mL 12Y+EMR Doc Only U-FLU Given 02/18/2019 Influenza,Unspecified 73238 Given 02/18/2019 Influenza Virus Vaccine, Quadrivalent (Cciiv4), Derived From 8 Given 10/22/2018 Pneumococcal Vaccine/Pneu movax 23 [id number] 27722 Given 10/18/2017 Pneumococcal Conjugate-Pr evnar 13 [id number] 83062 Given 03/27/2017 Influenza Virus Vaccine, Quadrivalent, Im Use 72429 Refused 05/31/2022 Shingrix [id number] Refused 07/06/2018 Tdap (Tetanus, diphtheria & acel. pertussis) Adacel or Boostrix Vital Signs Date Vital Result Comment 10/28/2022 9:22am BP Systolic 122 mmHg BP Diastolic 82 mmHg Body Temperature 97.5 F Heart Rate 92 /min Weight 202.00 lb Weight 91.627 kg Height 71 inches 5'11" BMI (Body Mass Index) 28.2 kg/m2 O2 % BldC Oximetry 99 % [place] Body Weight 172 lb 08/30/2022 9:15am BP Systolic 110 mmHg BP Diastolic 60 mmHg Body Temperature 97.6 F Heart Rate 85 /min Respiratory Rate 16 /min Weight 206.25 lb Weight 93.555 kg Height 71 inches 5'11" BMI (Body Mass Index) 28.8 kg/m2 [place] Body Weight 172 lb Results Test Acquired Date Facility Test Result H/L Range N ote CBC W/Diff 02/24/2023 [facility] [place] [address] [phone] WBC 5.4 10^3/M3 3.1-9.2 RBC 4.27 10^6/M3 4.00-5.80 HGB 13.3 GR/DL 12.5-17.5 HCT 39.6 % 37.5-52.5 MCV 92.7 CUMICR 82.6-95.8 MCH 31.1 PICOGR 27.9-32.9 MCHC 33.6 % 32.6-35.4 RDW 15.4 % High 11.4-14.6 PLT 149 10^3/M3 140-350 MPV 9.1 CUMICR 7.0-10.6 %Neut 51.8 % 40.0-75.0 %Lymph 34.4 % 17.0-45.0 %[place] 9.0 % 1.0-11.0 %Eos 4.1 % 0.0-6.0 %Baso 0.7 % 0.0-2.0 #Neut 2.8 10^3/M3 1.5-8.0 #Lymph 1.9 10^3/M3 0.8-3.2 #[place] 0.5 10^3/M3 0.0-0.8 #Eos 0.2 10^3/m3 0.0-0.4 #[place] 0.0 10^3/m3 0.0-0.2 Comp. Met 02/24/2023 [facility] [place] [address] [phone] Glucose 83 mg/dL 70-110 BUN 15 mg/dL [...] 2.0-3.4 GFR 67 ML/MIN/1.73SQM >60 Lipid 02/24/2023 [facility] [address] [place] [address] [phone] Cholesterol 87 mg/dL 0-200 1 Triglyceride 100 mg/dL 0-150 2 HDLD 24 mg/dL See Comment 3 Measured LDL 50 mg/dL 0-130 4 Calc VLDL 20.0 mg/dL See Comment 5 Chol/HDL 3.6 RATIO See Comment 6 Non-HDL 63 mg/dL See Comment 7 Laboratory test finding 02/24/2023 [facility] [address] [place] [address] [phone] TSH 3.49 uIU/mL 0.50-6.00 Psa2 4.2 ng/mL Critical high 0.0-4.0 Hba1c 02/24/2023 [facility] [address] [place] [address] [phone] A1c 5.80 % 4.70-6.50 8 Laboratory test finding 02/24/2023 [facility] [address] [place] [address] [phone] Vitd-25Oh 42 ng/mL 30-100 VB12 725 pg/mL 230-1050 Urinalysis,Cult If Indicated 02/24/2023 [facility] [address] [place], [place] [address] [phone] RFLX Culture NO Urinalysis 02/24/2023 [facility] [address] [place], [place] [id number] [phone] Color LIGHT-YEL LOW Appearance CLEAR Clear Spec.Grav. [...] 270-11 240-10 Procedures Date Code Description Status 02/24/2023 28578 Venipuncture Routine Complet ed 10/28/2022 1101F PT SCR Future Fall Risk, No Fall Or 1 W/Out Injury Completed 09/27/2007 [id number] Colonoscopy Completed Medical Devices Description No Information [...] recurrent, moderate Assessments Date Code Description Provider 02/24/2023 I10 Essential (primary) hyperten darby [facility] - [place] 02/24/2023 E78.2 Mixed hyperlipidemia Lab [place] 02/24/2023 N40.1 Benign prostatic hyperplasia with lower urinary tract symptoms [facility] - [place] 02/24/2023 R73.01 Impaired fasting glucose [facility] - [place] 02/24/2023 E55.9 Vitamin D deficiency, unspec ified [facility] - [place] 02/24/2023 D51.9 Vitamin B12 deficiency anemi a, unspecified [facility] - [place] 02/24/2023 N39.0 Urinary tract infection, sit e not specified [facility] [place] 10/28/2022 Z00.01 [facility] findings Thomas Ware PA-C 10/28/2022 I10 Essential (primary) hyperten dar[place] Thomas JUANI WrightC 10/28/2022 E78.2 Mixed hyperlipidemia JUANI BauerC 10/28/2022 J44.9 Chronic obstruct magy pulmonary disease, unspecified JUANI BauerC 10/28/2022 F33.1 Major depressive disorder, recurrent, moderate JUANI BauerC 10/28/2022 R06.02 Shortness of breath JUANI BarnesC 08/30/2022 I10 Essential (primary) hyperten darby JUANI BauerC 08/30/2022 E78.2 Mixed hyperlipidemia JUANI BauerC 08/30/2022 J44.9 Chronic obstruct magy pulmonary disease, unspecified JUANI BauerC 08/30/2022 F33.1 Major depressive disorder, recurrent, moderate Thomas Ware PA-C Plan of Treatment Future Appointment(s):* 03/03/2023 9:45 am - Thomas Ware PA-C at [place] 10/28/2022 - Thomas Ware PA-C* Z00.01 Encounter for general adult medical examination with abnormal findings* Comments:* Up-to-date with screening recommendations Up-to-date with vaccinations Patient verbalizesunderstanding of care plan / instructions. * I10 Essential (primary) hypertension* Comments:* Continue current medication. Low sodium diet BP stable * Recommendations:* Low-salt diet. Exercise. Continue medication as directed. * E78.2 Mixed hyperlipidemia* Comments:* Continue current medication. Further recommendations pending Lexiscan Repeat lab work prior to next office visit * J44.9 Chronic obstructive pulmonary disease, unspecified* Comments:* Continue current medication. Cough and deep breathe Continue inhaler * F33.1 Major depressive disorder, recurrent, moderate* Comments:* Continue current medication. Stress relieving exercises Symptoms stable at the present time * R06.02 Shortness of breath* Comments:* Limit Activity and exertion until test completed Avoid eating within 2 hours of bedtime * Follow up:* Follow up 4 months Labs one week prior Please schedule Lexiscan [facility] as soon as possible Functional Status Description No Information Available Mental Status Description No Information Available Referrals Description No Information Available
--- OUTSIDE RECORDS SUMMARY | 2023-04-13 06:45 | External Medical Summary | Continuity of Care Document ---
Author Name Lab - [place] Address [address] [place] [address] Phone [phone] [facility] er, Address [address] [place] [address] Phone [phone] Problems Active Problems Provider Date Chest pain Thomas Ware PA-C Onset: 0 09/26/2017 Dyspnea Thomas aWre PA-C Onset: 0 09/26/2017 Generalized abdominal pain [...] SIG Qnty Indications Order ing Provider Date Bfztqzyekrp47tj Tablets Take 1/2-1 Tablet By Mouth Daily AT Bedtime 90tabs Merly Waddell MD 07/29/[address] Part Take 1 Capsule By Mouth Every Day 90caps Kavon Landa MD 11/03/2020 Atorvastatin Ipytaaj32zy Tablets Take 1 Tablet By Mouth Every Evening 90tabs Kavon Landa MD 02/23/2020 Vitamin B-12 5,000 mcg Tab SL Dissolve 1 Tablet Under The Tongue By Mouth Every Day 90units Kavon Landa MD 09/06/2019 Azelastine HCL (Nasal)137mcg/[place] Solution use 2 squirts each nostril twice a day 90ml J30.1 Rene Arredondo JR, MD 06/21/2019 Breo Bblqpxh261-91pff/Inh Aerosol One inhalation daily J44.9 Rene Arredondo JR, MD 05/31/2018 Tamsulosin HCL0.4mg Capsules Take 2 Capsules By Mouth Daily AT Bedtime 180caps Rene Arredondo JR, MD 07/26/2017 Swiklfo385kp Tablets 1 by mouth every day 30tabs Rene Arredondo JR, MD Multi For HimTablets one per day, formula does not include vitamin K OTC Rene Arredondo JR, MD History Medications Jqjjzkrvav74se Tablets two tablets x 10 days then one tablet daily x 10 days 30tabs J44.9 Merly Waddell MD 08/30/2022 - 10/28/2022 Immunizations CPT Code Status Date Vaccine Lot # 77567 Given 03/15/2022 Moderna Sars-Co v-2 (Covid-19) Vaccine, BiValent Booster 12y+ [id number] 13005 Given 03/09/2022 Influenza Virus Vaccine, Quadrivalent (Cciiv4), Derived From Cell [id number] 92201 Given 10/26/2021 Moderna Covid-1 9 Vaccine 50mcg Booster-EMR Doc Only [id number] 12265 Given 04/16/2021 Pfizer Sars-Cov -2 (Cov-19) vacc 30mcg/0.3ML 12Y+ EMR Doc Only 79641 Given 03/09/2021 Influenza Vaccine High Do se 0.5ML Age 65 & > [id number] 26725 Given 07/18/2020 Moderna Sars-Co v-2 (Cov-19) vacc,100 mcg/ 0.5 mL 12Y+EMR Doc Only 75364 Given 06/13/2020 Moderna Sars-Co v-2 (Cov-19) vacc,100 mcg/ 0.5 mL 12Y+EMR Doc Only U-FLU Given 02/18/2019 Influenza,Unspecified 52014 Given 02/18/2019 Influenza Virus Vaccine, Quadrivalent (Cciiv4), Derived From 9 Given 10/22/2018 Pneumococcal Vaccine/Pneu movax 23 [id number] 51001 Given 10/18/2017 Pneumococcal Conjugate-Pr evnar 13 [id number] 95945 Given 03/27/2017 Influenza Virus Vaccine, Quadrivalent, Im Use 06286 Refused 05/31/2022 Shingrix 44920 Refused 07/06/2018 Tdap (Tetanus, diphtheria & acel. pertussis) Adacel or Boostrix Vital Signs Date Vital Result Comment 10/28/2022 9:22am BP Systolic 122 mmHg BP Diastolic 82 mmHg Body Temperature 97.5 F Heart Rate 92 /min Weight 202.00 lb Weight 91.627 kg Height 71 inches 5'11" BMI (Body Mass Index) 28.2 kg/m2 O2 % BldC Oximetry 99 % [place] Body Weight 172 lb 08/30/2022 9:15am BP Systolic 110 mmHg BP Diastolic 60 mmHg Body Temperature 97.6 F Heart Rate 85 /min Respiratory Rate 16 /min Weight 206.25 lb Weight 93.555 kg Height 71 inches 5'11" BMI (Body Mass Index) 28.8 kg/m2 [place] Body Weight 172 lb Results Test Acquired Date Facility Test Result H/L Range N ote CBC W/Diff 02/24/2023 [facility] Lab. [address] [place] [address] [phone] WBC 5.4 10^3/M3 3.1-9.2 RBC 4.27 10^6/M3 4.00-5.80 HGB 13.3 GR/DL 12.5-17.5 HCT 39.6 % 37.5-52.5 MCV 92.7 CUMICR 82.6-95.8 MCH 31.1 PICOGR 27.9-32.9 MCHC 33.6 % 32.6-35.4 RDW 15.4 % High 11.4-14.6 PLT 149 10^3/M3 140-350 MPV 9.1 CUMICR 7.0-10.6 %Neut 51.8 % 40.0-75.0 %Lymph 34.4 % 17.0-45.0 %[place] 9.0 % 1.0-11.0 %Eos 4.1 % 0.0-6.0 %Baso 0.7 % 0.0-2.0 #Neut 2.8 10^3/M3 1.5-8.0 #Lymph 1.9 10^3/M3 0.8-3.2 #[place] 0.5 10^3/M3 0.0-0.8 #Eos 0.2 10^3/m3 0.0-0.4 #[place]o 0.0 10^3/m3 0.0-0.2 Comp. Met 02/24/2023 [facility] Lab. [address] [place] [address] [phone] Glucose 83 mg/dL 70-110 BUN 15 mg/dL [...] 2.0-3.4 GFR 67 ML/MIN/1.73SQM >60 Lipid 02/24/2023 [facility]. [address] [place] [address] [phone] Cholesterol 87 mg/dL 0-200 1 Triglyceride 100 mg/dL 0-150 2 HDLD 24 mg/dL See Comment 3 Measured LDL 50 mg/dL 0-130 4 Calc VLDL 20.0 mg/dL See Comment 5 Chol/HDL 3.6 RATIO See Comment 6 Non-HDL 63 mg/dL See Comment 7 Laboratory test finding 02/24/2023 [facility]. [address] [place] [address] [phone] TSH 3.49 uIU/mL 0.50-6.00 Psa2 4.2 ng/mL Critical high 0.0-4.0 Hba1c 02/24/2023 [facility] Lab. [address] [place] [address] [phone] A1c 5.80 % 4.70-6.50 8 Laboratory test finding 02/24/2023 [facility] Lab. [address] [place] [address] [phone] Vitd-25Oh 42 ng/mL 30-100 VB12 725 pg/mL 230-1050 Urinalysis,Cult If Indicated 02/24/2023 [facility] Lab. [address] [place], [place] [address] [phone] RFLX Culture NO Urinalysis 02/24/2023 [facility] Lab. [address] [place], [place] [address] [phone] Color LIGHT-YEL LOW Appearance CLEAR Clear Spec.Grav. [...] 240-10 Procedures Date Code Description Status 02/24/2023 43975 Venipuncture Routine Complet ed 10/28/2022 1101F PT SCR Future Fall Risk, No Fall Or 1 W/Out Injury Completed 09/27/2007 [id number] Colonoscopy Completed Medical Devices Description No Information [...] Provider 02/24/2023 I10 Essential (primary) hyperten darby Merly Waddell MD 02/24/2023 I10 Essential (primary) hyperten darby Lab - [place] 02/24/2023 E78.2 Mixed hyperlipidemia Merly Waddell MD 02/24/2023 E78.2 Mixed hyperlipidemia Lab - [place] 02/24/2023 N40.1 Benign prostatic hyperplasia with lower urinary tract symptoms Merly Waddell MD 02/24/2023 N40.1 Benign prostatic hyperplasia with lower urinary tract symptoms Lab - [place] 02/24/2023 R73.01 Impaired fasting glucose Xochitl Waddell MD 02/24/2023 R73.01 Impaired fasting glucose Lab - [place] 02/24/2023 E55.9 Vitamin D deficiency, unspec ified Merly Waddell MD 02/24/2023 E55.9 Vitamin D deficiency, unspec ified Lab - [place] 02/24/2023 D51.9 Vitamin B12 deficiency anemi a, unspecified Merly Waddell MD 02/24/2023 D51.9 Vitamin B12 deficiency anemi a, unspecified Lab - [place] 02/24/2023 N39.0 Urinary tract infection, sit e not specified Merly Waddell MD 02/24/2023 N39.0 Urinary tract infection, sit e not specified Lab - [place] 10/28/2022 Z00.[address] [facility] adult medical examination with abnormal findings Thomas Ware PA-C 10/28/2022 I10 Essential (primary) hyperten [place] Thomas Ware PA-C 10/28/2022 E78.2 Mixed hyperlipidemia Thomas Ware PA-C 10/28/2022 J44.9 Chronic obstruct magy pulmonary disease, unspecified Thomas Ware PA-C 10/28/2022 F33.1 Major depressive disorder, recurrent, moderate Thomas Ware PA-C 10/28/2022 R06.02 Shortness of breath Thomas Ware PA-C 08/30/2022 I10 Essential (primary) hyperten darby Thomas Ware PA-C 08/30/2022 E78.2 Mixed hyperlipidemia Thomas Ware PA-C 08/30/2022 J44.9 Chronic obstruct magy pulmonary disease, unspecified Thomas Ware PA-C 08/30/2022 F33.1 Major depressive disorder, recurrent, moderate Thomas Ware PA-C Plan of Treatment Future Appointment(s):* 03/03/2023 9:45 am - Thomas Ware PA-C at [place] 10/28/2022 - Thomas Ware PA-C* Z00.01 Encounter [...]
--- OUTSIDE RECORDS SUMMARY | 2023-04-13 06:45 | External Medical Summary | Continuity of Care Document ---
Author Name [place] Address [address] [place] [address] Phone [phone] [facility] Address [address] [place] [address] Phone [phone] Problems Active Problems Provider Date Chest pain [...] Qnty Indications Order ing Provider Date Duloxetine UKX34yt Caps DR Part 1 by mouth every day x 30 days then D/C 30caps Merly Waddell MD 03/03/2023 - 04/02/2023 Lqbbkholaf68it Tablets One tablet daily x 30 days then half tablet daily x 30 days 45tabs Merly Waddell MD 03/03/2023 Ecwskggwvsk69iu Tablets Take 1/2-1 Tablet By Mouth Daily AT Bedtime 90tabs Merly Waddell MD 07/29/2021 Atorvastatin Nxcanxi21fl Tablets Take 1 Tablet By Mouth Every Evening 90tabs Kavon Landa MD 02/23/2020 Vitamin B-12 5,000 mcg Tab SL Dissolve 1 Tablet Under The Tongue By Mouth Every Day 90units Kavon Landa MD 09/06/2019 Azelastine HCL (Nasal)137mcg/[place] Solution use 2 squirts each nostril twice a day 90ml J30.1 Rene Arredondo JR, MD 06/21/2019 Breo Slkmdje226-93tdt/Inh Aerosol One inhalation daily J44.9 Rene Arredondo JR, MD 05/31/2018 Tamsulosin HCL0.4mg Capsules Take 2 Capsules By Mouth Daily AT Bedtime 180caps Rene Arredondo JR, MD 07/26/2017 Zvftimd685ck Tablets 1 by mouth every day 30tabs Rene Arredondo JR, MD Multi For HimTablets one per day, formula does not include vitamin K OTC Rene Arredondo JR, MD Immunizations CPT Code Status Date Vaccine Lot # [id number] Given 03/15/2022 Moderna Sars-Co v-2 (Covid-19) Vaccine, BiValent Booster 12y+ [id number] 98300 Given 03/09/2022 Influenza Virus Vaccine, Quadrivalent (Cciiv4), Derived From Cell [id number] 57416 Given 10/26/2021 Moderna Covid-1 9 Vaccine 50mcg Booster-EMR Doc Only [id number] 17036 Given 04/16/2021 Pfizer Sars-Cov -2 (Cov-19) vacc 30mcg/0.3ML 12Y+ EMR Doc Only 83722 Given 03/09/2021 Influenza Vaccine High Do se 0.5ML Age 65 & > [id number] 88092 Given 07/18/2020 Moderna Sars-Co v-2 (Cov-19) vacc,100 mcg/ 0.5 mL 12Y+EMR Doc Only 85221 Given 06/13/2020 Moderna Sars-Co v-2 (Cov-19) vacc,100 mcg/ 0.5 mL 12Y+EMR Doc Only U-FLU Given 02/18/2019 Influenza,Unspecified 69179 Given 02/18/2019 Influenza Virus Vaccine, Quadrivalent (Cciiv4), Derived From 3 Given 10/22/2018 Pneumococcal Vaccine/Pneu movax 23 [id number] 44638 Given 10/18/2017 Pneumococcal Conjugate-Pr evnar 13 [id number] 09505 Given 03/27/2017 Influenza Virus Vaccine, Quadrivalent, Im Use 47501 Refused 05/31/2022 Shingrix [id number] Refused 07/06/2018 Tdap (Tetanus, diphtheria & acel. pertussis) Adacel or Boostrix Vital Signs Date Vital Result Comment 03/03/2023 9:32am BP Systolic 120 mmHg BP Diastolic 70 mmHg Body Temperature 97.3 F Heart Rate 86 /min Weight 205.44 lb Weight 93.186 kg Height 71 inches 5'11" BMI (Body Mass Index) 28.6 kg/m2 O2 % BldC Oximetry 98 % [place] Body Weight 172 lb 10/28/2022 9:22am BP Systolic 122 mmHg BP Diastolic 82 mmHg Body Temperature 97.5 F Heart Rate 92 /min Weight 202.00 lb Weight 91.627 kg Height 71 inches 5'11" BMI (Body Mass Index) 28.2 kg/m2 O2 % BldC Oximetry 99 % [place] Body Weight 172 lb Results Test Acquired Date Facility Test Result H/L Range N ote Laboratory test finding 03/03/2023 [facility] [place] [address] Pathology Report <pending> CBC W/Diff 02/24/2023 [facility] Lab. [address] [place] [address] WBC 5.4 10^3/M3 3.1-9.2 RBC 4.27 10^6/M3 4.00-5.80 HGB 13.3 GR/DL 12.5-17.5 HCT 39.6 % 37.5-52.5 MCV 92.7 CUMICR 82.6-95.8 MCH 31.1 PICOGR 27.9-32.9 MCHC 33.6 % 32.6-35.4 RDW 15.4 % High 11.4-14.6 PLT 149 10^3/M3 140-350 MPV 9.1 CUMICR 7.0-10.6 %Neut 51.8 % 40.0-75.0 %Lymph 34.4 % 17.0-45.0 %[place] 9.0 % 1.0-11.0 %Eos 4.1 % 0.0-6.0 %Bas[place] 0.7 % 0.0-2.0 #Neut 2.8 10^3/M3 1.5-8.0 #Lymph 1.9 10^3/M3 0.8-3.2 #[place] 0.5 10^3/M3 0.0-0.8 #Eos 0.2 10^3/m3 0.0-0.4 #[place] 0.0 10^3/m3 0.0-0.2 Comp. Met 02/24/2023 [facility]. [address] [place], [place] [address] [phone] Glucose 83 mg/dL 70-110 BUN 15 mg/dL [...] 2.0-3.4 GFR 67 ML/MIN/1.73SQM >60 Lipid 02/24/2023 [facility]. [address] [place] [address] [phone] Cholesterol 87 mg/dL 0-200 1 Triglyceride 100 mg/dL 0-150 2 HDLD 24 mg/dL See Comment 3 Measured LDL 50 mg/dL 0-130 4 Calc VLDL 20.0 mg/dL See Comment 5 Chol/HDL 3.6 RATIO See Comment 6 Non-HDL 63 mg/dL See Comment 7 Laboratory test finding 02/24/2023 [facility]. [address] [place] [address] [phone] TSH 3.49 uIU/mL 0.50-6.00 Psa2 4.2 ng/mL Critical high 0.0-4.0 Hba1c 02/24/2023 [facility]. [address] [place] [address] [phone] A1c 5.80 % 4.70-6.50 8 Laboratory test finding 02/24/2023 [facility]. [address] [place] [address] [phone] Vitd-25Oh 42 ng/mL 30-100 VB12 725 pg/mL 230-1050 Urinalysis,Cult If Indicated 02/24/2023 [facility]. [address] [place], [place] [address] [phone] RFLX Culture NO Urinalysis 02/24/2023 [facility]. [address] [place], [place] [address] [phone] Color LIGHT-YEL LOW Appearance CLEAR Clear Spec.Grav. [...] 240-10 Procedures Date Code Description Status 03/03/2023 61000 [facility] Malig Lesion .6-1CM F bette/Ear/Eyelid/Nose/Lip Completed 02/24/2023 13601 Venipuncture Routine Complet ed 10/28/2022 1101F PT SCR Future Fall Risk, No Fall Or 1 W/Out Injury Completed 09/27/2007 [id number] Colonoscopy Completed Medical Devices Description No Information [...] I10 Essential (primary) hyperten darby Lab - [place] 02/24/2023 E78.2 Mixed hyperlipidemia Merly Waddell MD 02/24/2023 E78.2 Mixed hyperlipidemia Lab - [place] 02/24/2023 N40.1 Benign prostatic hyperplasia with lower urinary tract symptoms Merly Waddell MD 02/24/2023 N40.1 Benign prostatic hyperplasia with lower urinary tract symptoms Lab - [place] 02/24/2023 R73.01 Impaired fasting glucose Xochitl Waddell MD 02/24/2023 R73.01 Impaired fasting glucose Lab - [place] 02/24/2023 E55.9 Vitamin D deficiency, unspec ified Merly Waddell MD 02/24/2023 E55.9 Vitamin D deficiency, unspec ified Lab - [place] 02/24/2023 D51.9 Vitamin B12 deficiency anemi a, unspecified Merly Waddell MD 02/24/2023 D51.9 Vitamin B12 deficiency anemi a, unspecified Lab - [place] 02/24/2023 N39.0 Urinary tract infection, sit e not specified Merly Waddell MD 02/24/2023 N39.0 Urinary tract infection, sit e not specified Lab - [place] 10/28/2022 Z00.01 Encounter for [facility] adult medical examination with abnormal findings Thomas [...] Appointment(s):* 06/27/2023 8:30 am - [facility] [place] * 07/04/2023 8:15 am - Thomas Ware PA-C at [place] 03/03/2023 - Thomas Ware PA-C* I10 Essential [...]
--- OUTSIDE RECORDS SUMMARY | 2023-04-13 06:45 | External Medical Summary | Continuity of Care Document ---
Author Name THOMAS WARE Address [address] [place] [address] Phone [phone] [facility] Address [address] [place] [address] Phone [phone] Problems Active Problems Provider Date Chest pain [...] SIG Qnty Indications Order ing Provider Date Frpeqywylfo52nj Tablets Take 1/2-1 Tablet By Mouth Daily AT Bedtime 90tabs Merly Waddell MD 07/29/[id number] Part Take 1 Capsule By Mouth Every Day 90caps Kavon Landa MD 11/03/2020 Atorvastatin Xacvydh66dz Tablets Take 1 Tablet By Mouth Every Evening 90tabs Kavon Landa MD 02/23/2020 Vitamin B-12 5,000 mcg Tab SL Dissolve 1 Tablet Under The Tongue By Mouth Every Day 90units Kavon Landa MD 09/06/2019 Azelastine HCL (Nasal)137mcg/[place] Solution use 2 squirts each nostril twice a day 90ml J30.1 Rene Arredondo JR, MD 06/21/2019 Breo Blfhiln739-03pvy/Inh Aerosol One inhalation daily J44.9 Rene Arredondo JR, MD 05/31/2018 Tamsulosin HCL0.4mg Capsules Take 2 Capsules By Mouth Daily AT Bedtime 180caps Rene Arredondo JR, MD 07/26/2017 Ntgsrnv427ig Tablets 1 by mouth every day 30tabs Rene Arredondo JR, MD Multi For HimTablets one per day, formula does not include vitamin K OTC Rene Arredondo JR, MD History Medications Yamjyasnga38az Tablets two tablets x 10 days then one tablet daily x 10 days 30tabs J44.9 Merly Waddell MD 08/30/2022 - 10/28/2022 Immunizations CPT Code Status Date Vaccine Lot # [id number] Given 03/15/2022 Moderna Sars-Co v-2 (Covid-19) Vaccine, BiValent Booster 12y+ [id number] 86621 Given 03/09/2022 Influenza Virus Vaccine, Quadrivalent (Cciiv4), Derived From Cell [id number] 88145 Given 10/26/2021 Moderna Covid-19 Vaccine 50mcg Booster [id number] 68210 Given 04/16/2021 Pfizer Sars-Cov -2 (Covid-19) vaccine, 30mcg/0.3ML 12Y+ 88639 Given 03/09/2021 Influenza Vaccine High Do se 0.5ML [id number] 79674 Given 07/18/2020 Moderna Sars-Co v-2 (Covid-19) vaccine, 100 mcg/ 0.5 mL 12Y+ 40557 Given 06/13/2020 Moderna Sars-Co v-2 (Covid-19) vaccine, 100 mcg/ 0.5 mL 12Y+ U-FLU Given 02/18/2019 Influenza,Unspecified 65300 Given 02/18/2019 Influenza Virus Vaccine, Quadrivalent (Cciiv4), Derived From 0 Given 10/22/2018 Pneumococcal Vaccine/Pneu movax 23 [id number] 38892 Given 10/18/2017 Pneumococcal Conjugate-Pr evnar 13 [id number] 62051 Given 03/27/2017 Influenza Virus Vaccine, Quadrivalent, Im Use 15826 Refused 05/31/2022 Shingrix 57675 Refused 07/06/2018 Tdap (Tetanus, diphtheria & acel. pertussis) Adacel or Boostrix Vital Signs Date Vital Result Comment 10/28/2022 9:22am BP Systolic 122 mmHg BP Diastolic 82 mmHg Body Temperature 97.5 F Heart Rate 92 /min Weight 202.00 lb Weight 91.627 kg Height 71 inches 5'11" BMI (Body Mass Index) 28.2 kg/m2 O2 % BldC Oximetry 99 % [place] Body Weight 172 lb 08/30/2022 9:15am BP Systolic 110 mmHg BP Diastolic 60 mmHg Body Temperature 97.6 F Heart Rate 85 /min Respiratory Rate 16 /min Weight 206.25 lb Weight 93.555 kg Height 71 inches 5'11" BMI (Body Mass Index) 28.8 kg/m2 [place] Body Weight 172 lb Results Test Acquired Date Facility Test Result H/L Range N ote CBC W/Diff 08/23/2022 [facility] [address] [place] [address] [phone] WBC 5.9 10 3.1-9.2 RBC 4.41 10 4.00-5.80 HGB 13.6 GR/DL 12.5-17.5 HCT 41.9 % 37.5-52.5 MCV 94.8 CUMICR 82.6-95.8 MCH 30.8 PICOGR 27.9-32.9 MCHC 32.5 % Low 32.6-35.4 RDW 14.5 % 11.4-14.6 PLT 187 10 140-350 MPV 8.8 CUMICR 7.0-10.6 %Neut 52.2 % 40.0-75.0 %Lymph 33.7 % 17.0-45.0 %[place] 10.5 % 1.0-11.0 %Eos 3.0 % 0.0-6.0 %Baso 0.6 % 0.0-2.0 #Neut 3.1 10 1.5-8.0 #Lymph 2.0 10 0.8-3.2 #[place] 0.6 10 0.0-0.8 #Eos 0.2 10 0.0-0.4 #Baso 0.0 10 0.0-0.2 Comp. Met 08/23/2022 [facility] [address] [place] [address] [phone] Glucose 82 mg/dL 70-110 BUN 21 mg/dL [...] g/dL 2.0-3.4 GFR 67 >60 Lipid 08/23/2022 [facility] [address] [place] [address] [phone] Cholesterol 95 mg/dL 0-200 1 Triglyceride 106 mg/dL 0-150 2 HDLD 27 mg/dL See Comment 3 Measured LDL 60 mg/dL 0-130 4 Calc VLDL 21.2 mg/dL See Comment 5 Chol/HDL 3.5 RATIO See Comment 6 Non-HDL 68 mg/dL See Comment 7 Laboratory test finding 08/23/2022 [facility] [address] [place] [address] [phone] TSH 1.76 uIU/mL 0.50-6.00 Psa2 3.1 ng/mL 0.0-4.0 Hba1c 08/23/2022 [facility] [address] [place], [place] [address] [phone] A1c 5.70 % 4.70-6.50 8 Laboratory test finding 08/23/2022 [facility] [address] [place] [address] [phone] Vitd-25Oh 24 ng/mL Low 30-100 VB12 >1500 pg/mL High 230-1050 9 Urinalysis,Cult If Indicated 08/23/2022 [facility] [address] [place], [place] [id number] [phone] RFLX Culture NO Urinalysis 08/23/2022 [facility] [address] [place] [address] [phone] Color LIGHT-YEL LOW Appearance CLEAR Clear Spec.Grav. [...] Fall Or 1 W/Out Injury Completed 08/23/2022 62610 Venipuncture Routine Complet ed 09/27/2007 [id number] Colonoscopy Completed Medical Devices Description No Information [...] I10 Essential (primary) hyperten darby Lab - [place] 08/23/2022 E78.2 Mixed hyperlipidemia Merly Waddell MD 08/23/2022 E78.2 Mixed hyperlipidemia Lab - [place] 08/23/2022 N40.1 Benign prostatic hyperplasia with lower urinary tract symptoms Merly Waddell MD 08/23/2022 N40.1 Benign prostatic hyperplasia with lower urinary tract symptoms Lab - [place] 08/23/2022 R73.01 Impaired fasting glucose Xochitl Waddell MD 08/23/2022 R73.01 Impaired fasting glucose Lab - [place] 08/23/2022 E55.9 Vitamin D deficiency, unspec ified Merly Waddell MD 08/23/2022 E55.9 Vitamin D deficiency, unspec ified Lab - [place] 08/23/2022 D51.9 Vitamin B12 deficiency anemi a, unspecified Merly Waddell MD 08/23/2022 D51.9 Vitamin B12 deficiency anemi a, unspecified Lab - [place] 08/23/2022 N39.0 Urinary tract infection, sit e not specified Merly Waddell MD 08/23/2022 N39.0 Urinary tract infection, sit e not specified Lab - [place] 05/31/2022 I10 Essential (primary) hyperten darby Thomas Ware PA-C 05/31/2022 E78.2 Mixed hyperlipidemia Thomas Ware PA-C 05/31/2022 J44.9 Chronic obstruct magy pulmonary disease, unspecified Thomas Ware PA-C 05/31/2022 F33.1 Major depressive disorder, recurrent, moderate Thomas Ware PA-C Plan of Treatment Future Appointment(s):* 02/24/2023 9:00 am - [facility] [place] * 03/03/2023 9:30 am - Thomas Ware PA-C at [place] 10/28/2022 - Thomas Ware PA-C* Z00.01 Encounter [...]
--- OUTSIDE RECORDS SUMMARY | 2023-04-13 06:45 | External Medical Summary | Continuity of Care Document ---
Author Name [facility] [place] Address [address] [place] [address] Phone [phone] [facility] er, Address [address] [place] [address] Phone [phone] Problems Active Problems Provider Date Chest pain [...] SIG Qnty Indications Order ing Provider Date Fuqagududtb41rl Tablets Take 1/2-1 Tablet By Mouth Daily AT Bedtime 90tabs Merly Waddell MD 07/29/[address] Part Take 1 Capsule By Mouth Every Day 90caps Kavon Landa MD 11/03/2020 Atorvastatin Haovaln61em Tablets Take 1 Tablet By Mouth Every Evening 90tabs Kavon Landa MD 02/23/2020 Vitamin B-12 5,000 mcg Tab SL Dissolve 1 Tablet Under The Tongue By Mouth Every Day 90units Kavon Landa MD 09/06/2019 Azelastine HCL (Nasal)137mcg/[place] Solution use 2 squirts each nostril twice a day 90ml J30.1 Rene Arredondo JR, MD 06/21/2019 Breo Nzvmvbw805-78mbs/Inh Aerosol One inhalation daily J44.9 Rene Arredondo JR, MD 05/31/2018 Tamsulosin HCL0.4mg Capsules Take 2 Capsules By Mouth Daily AT Bedtime 180caps Rene Arredondo JR, MD 07/26/2017 Umoqwmp548rz Tablets 1 by mouth every day 30tabs Rene Arredondo JR, MD Multi For HimTablets one per day, formula does not include vitamin K OTC Rene Arredondo JR, MD History Medications Ntwhadatfj99at Tablets two tablets x 10 days then one tablet daily x 10 days 30tabs J44.9 Merly Waddell MD 08/30/2022 - 10/28/2022 Immunizations CPT Code Status Date Vaccine Lot # [id number] Given 03/15/2022 Moderna Sars-Co v-2 (Covid-19) Vaccine, BiValent Booster 12y+ [id number] 67732 Given 03/09/2022 Influenza Virus Vaccine, Quadrivalent (Cciiv4), Derived From Cell [id number] 92704 Given 10/26/2021 Moderna Covid-1 9 Vaccine 50mcg Booster-EMR Doc Only [id number] 08953 Given 04/16/2021 Pfizer Sars-Cov -2 (Cov-19) vacc 30mcg/0.3ML 12Y+ EMR Doc Only 87132 Given 03/09/2021 Influenza Vaccine High Do se 0.5ML Age 65 & > [id number] 95881 Given 07/18/2020 Moderna Sars-Co v-2 (Cov-19) vacc,100 mcg/ 0.5 mL 12Y+EMR Doc Only 94901 Given 06/13/2020 Moderna Sars-Co v-2 (Cov-19) vacc,100 mcg/ 0.5 mL 12Y+EMR Doc Only U-FLU Given 02/18/2019 Influenza,Unspecified 03599 Given 02/18/2019 Influenza Virus Vaccine, Quadrivalent (Cciiv4), Derived From 1 Given 10/22/2018 Pneumococcal Vaccine/Pneu movax 23 [id number] 38272 Given 10/18/2017 Pneumococcal Conjugate-Pr evnar 13 [id number] 58745 Given 03/27/2017 Influenza Virus Vaccine, Quadrivalent, Im Use 42953 Refused 05/31/2022 Shingrix 81182 Refused 07/06/2018 Tdap (Tetanus, diphtheria & acel. pertussis) Adacel or Boostrix Vital Signs Date Vital Result Comment 10/28/2022 9:22am BP Systolic 122 mmHg BP Diastolic 82 mmHg Body Temperature 97.5 F Heart Rate 92 /min Weight 202.00 lb Weight 91.627 kg Height 71 inches 5'11" BMI (Body Mass Index) 28.2 kg/m2 O2 % BldC Oximetry 99 % [place] Body Weight 172 lb 08/30/2022 9:15am BP Systolic 110 mmHg BP Diastolic 60 mmHg Body Temperature 97.6 F Heart Rate 85 /min Respiratory Rate 16 /min Weight 206.25 lb Weight 93.555 kg Height 71 inches 5'11" BMI (Body Mass Index) 28.8 kg/m2 [place] Body Weight 172 lb Results Test Acquired Date Facility Test Result H/L Range N ote Laboratory test finding 02/24/2023 [facility]. [address] [place] [address] [phone] TSH <pending> Psa2 <pending> Laboratory test finding 02/24/2023 [facility]. [address] [place] [address] [phone] Vitd-25Oh <pending> VB12 <pending> Procedures Date Code Description Status 02/24/2023 76870 Venipuncture Routine Complet ed 10/28/2022 1101F PT SCR Future Fall Risk, No Fall Or 1 W/Out Injury Completed 09/27/2007 [id number] Colonoscopy Completed Medical Devices Description No Information [...] I10 Essential (primary) hyperten darby Lab - [place] 02/24/2023 E78.2 Mixed hyperlipidemia Lab - [place] 02/24/2023 N40.1 Benign prostatic hyperplasia with lower urinary tract symptoms Lab - [place] 02/24/2023 R73.01 Impaired fasting glucose Lab - [place] 02/24/2023 E55.9 Vitamin D deficiency, unspec ified Lab - [place] 02/24/2023 D51.9 Vitamin B12 deficiency anemi a, unspecified Lab - [place] 02/24/2023 N39.0 Urinary tract infection, sit e not specified Lab - [place] 10/28/2022 Z00.01 Encounter for ge neral adult [...] 9:45 am - Thomas Ware PA-C at [place] 10/28/2022 - Thomas Ware PA-C* Z00.01 Encounter [...]
--- OUTSIDE RECORDS SUMMARY | 2023-04-13 06:45 | External Medical Summary | Continuity of Care Document ---
Author Name Lab - [place] Address [address] [place] [address] Phone [phone] [facility] er, Address [address] [place] [address] Phone [phone] Problems Active Problems Provider Date Chest pain [...] SIG Qnty Indications Order ing Provider Date Cbvijkchgdu43nc Tablets Take 1/2-1 Tablet By Mouth Daily AT Bedtime 90tabs Merly Waddell MD 07/29/[address] Part Take 1 Capsule By Mouth Every Day 90caps Kavon Landa MD 11/03/2020 Atorvastatin Zfuowcl81eq Tablets Take 1 Tablet By Mouth Every Evening 90tabs Kavon Landa MD 02/23/2020 Vitamin B-12 5,000 mcg Tab SL Dissolve 1 Tablet Under The Tongue By Mouth Every Day 90units Kavon Landa MD 09/06/2019 Azelastine HCL (Nasal)137mcg/[place] Solution use 2 squirts each nostril twice a day 90ml J30.1 Rene Arredondo JR, MD 06/21/2019 Breo Timugse142-64rvd/Inh Aerosol One inhalation daily J44.9 Rene Arredondo JR, MD 05/31/2018 Tamsulosin HCL0.4mg Capsules Take 2 Capsules By Mouth Daily AT Bedtime 180caps Rene Arredondo JR, MD 07/26/2017 Fdavsqj708xw Tablets 1 by mouth every day 30tabs Rene Arredondo JR, MD Multi For HimTablets one per day, formula does not include vitamin K OTC Rene Arredondo JR, MD History Medications Xyvsrhswva92mf Tablets two tablets x 10 days then one tablet daily x 10 days 30tabs J44.9 Merly Waddell MD 08/30/2022 - 10/28/2022 Immunizations CPT Code Status Date Vaccine Lot # 62746 Given 03/15/2022 Moderna Sars-Co v-2 (Covid-19) Vaccine, BiValent Booster 12y+ [id number] 09980 Given 03/09/2022 Influenza Virus Vaccine, Quadrivalent (Cciiv4), Derived From Cell [id number] 77875 Given 10/26/2021 Moderna Covid-1 9 Vaccine 50mcg Booster-EMR Doc Only [id number] 48499 Given 04/16/2021 Pfizer Sars-Cov -2 (Cov-19) vacc 30mcg/0.3ML 12Y+ EMR Doc Only 81764 Given 03/09/2021 Influenza Vaccine High Do se 0.5ML Age 65 & > [id number] 25671 Given 07/18/2020 Moderna Sars-Co v-2 (Cov-19) vacc,100 mcg/ 0.5 mL 12Y+EMR Doc Only 38790 Given 06/13/2020 Moderna Sars-Co v-2 (Cov-19) vacc,100 mcg/ 0.5 mL 12Y+EMR Doc Only U-FLU Given 02/18/2019 Influenza,Unspecified 55559 Given 02/18/2019 Influenza Virus Vaccine, Quadrivalent (Cciiv4), Derived From 4 Given 10/22/2018 Pneumococcal Vaccine/Pneu movax 23 [id number] 73266 Given 10/18/2017 Pneumococcal Conjugate-Pr evnar 13 [id number] 28430 Given 03/27/2017 Influenza Virus Vaccine, Quadrivalent, [place] Use 46318 Refused 05/31/2022 Shingrix 80051 Refused 07/06/2018 Tdap (Tetanus, diphtheria & acel. pertussis) Adacel or Boostrix Vital Signs Date Vital Result Comment 10/28/2022 9:22am BP Systolic 122 mmHg BP Diastolic 82 mmHg Body Temperature 97.5 F Heart Rate 92 /min Weight 202.00 lb Weight 91.627 kg Height 71 inches 5'11" BMI (Body Mass Index) 28.2 kg/m2 O2 % BldC Oximetry 99 % [place] Body Weight 172 lb 08/30/2022 9:15am BP Systolic 110 mmHg BP Diastolic 60 mmHg Body Temperature 97.6 F Heart Rate 85 /min Respiratory Rate 16 /min Weight 206.25 lb Weight 93.555 kg Height 71 inches 5'11" BMI (Body Mass Index) 28.8 kg/m2 [place] Body Weight 172 lb Results Test Acquired Date Facility Test Result H/L Range N ote Laboratory test finding 02/24/2023 [facility]. [address] [place] [address] [phone] TSH <pending> Psa2 <pending> Laboratory test finding 02/24/2023 [facility]. [address] [place] [address] [phone] Vitd-25Oh <pending> VB12 <pending> Procedures Date Code Description Status 02/24/2023 23460 Venipuncture Routine Complet ed 10/28/2022 1101F PT SCR Future Fall Risk, No Fall Or 1 W/Out Injury Completed 09/27/2007 [id number] Colonoscopy Completed Medical Devices Description No Information [...] I10 Essential (primary) hyperten darby Lab - [place] 02/24/2023 E78.2 Mixed hyperlipidemia Lab - [place] 02/24/2023 N40.1 Benign prostatic hyperplasia with lower urinary tract symptoms Lab - [place] 02/24/2023 R73.01 Impaired fasting glucose Lab - [place] 02/24/2023 E55.9 Vitamin D deficiency, unspec ified Lab - [place] 02/24/2023 D51.9 Vitamin B12 deficiency anemi a, unspecified Lab - [place] 02/24/2023 N39.0 Urinary tract infection, sit e not specified Lab - [place] 10/28/2022 Z00.01 Encounter for ge neral adult [...] 9:45 am - Thomas Ware PA-C at [place] 10/28/2022 - Thomas Ware PA-C* Z00.01 Encounter [...]
--- OUTSIDE RECORDS SUMMARY | 2023-04-13 06:45 | External Medical Summary | Continuity of Care Document ---
Author Name Lab - [place] Address [address] [place] [address] Phone [phone] [facility] er, Address [address] [place] [address] Phone [phone] Problems Active Problems Provider Date Chest pain [...] SIG Qnty Indications Order ing Provider Date Vlgvchvhded83ki Tablets Take 1/2-1 Tablet By Mouth Daily AT Bedtime 90tabs Merly Waddell MD 07/29/[address] Part Take 1 Capsule By Mouth Every Day 90caps Kavon Landa MD 11/03/2020 Atorvastatin Aijzvlh25lr Tablets Take 1 Tablet By Mouth Every Evening 90tabs Kavon Landa MD 02/23/2020 Vitamin B-12 5,000 mcg Tab SL Dissolve 1 Tablet Under The Tongue By Mouth Every Day 90units Kavon Landa MD 09/06/2019 Azelastine HCL (Nasal)137mcg/[place] Solution use 2 squirts each nostril twice a day 90ml J30.1 Rene Arredondo JR, MD 06/21/2019 Breo Kpkkiny520-90nkx/Inh Aerosol One inhalation daily J44.9 Rene Arredondo JR, MD 05/31/2018 Tamsulosin HCL0.4mg Capsules Take 2 Capsules By Mouth Daily AT Bedtime 180caps Rene Arredondo JR, MD 07/26/2017 Abqfhvx761cp Tablets 1 by mouth every day 30tabs Rene Arredondo JR, MD Multi For HimTablets one per day, formula does not include vitamin K OTC Rene Arredondo JR, MD History Medications Tbwswddnst10ls Tablets two tablets x 10 days then one tablet daily x 10 days 30tabs J44.9 Merly Waddell MD 08/30/2022 - 10/28/2022 Immunizations CPT Code Status Date Vaccine Lot # [id number] Given 03/15/2022 Moderna Sars-Co v-2 (Covid-19) Vaccine, BiValent Booster 12y+ [id number] 01092 Given 03/09/2022 Influenza Virus Vaccine, Quadrivalent (Cciiv4), Derived From Cell [id number] 95885 Given 10/26/2021 Moderna Covid-1 9 Vaccine 50mcg Booster-EMR Doc Only [id number] 82161 Given 04/16/2021 Pfizer Sars-Cov -2 (Cov-19) vacc 30mcg/0.3ML 12Y+ EMR Doc Only 36413 Given 03/09/2021 Influenza Vaccine High Do se 0.5ML Age 65 & > [id number] 88993 Given 07/18/2020 Moderna Sars-Co v-2 (Cov-19) vacc,100 mcg/ 0.5 mL 12Y+EMR Doc Only 58099 Given 06/13/2020 Moderna Sars-Co v-2 (Cov-19) vacc,100 mcg/ 0.5 mL 12Y+EMR Doc Only U-FLU Given 02/18/2019 Influenza,Unspecified 83835 Given 02/18/2019 Influenza Virus Vaccine, Quadrivalent (Cciiv4), Derived From 6 Given 10/22/2018 Pneumococcal Vaccine/Pneu movax 23 [id number] 09850 Given 10/18/2017 Pneumococcal Conjugate-Pr evnar 13 [id number] 11581 Given 03/27/2017 Influenza Virus Vaccine, Quadrivalent, [place] Use 48223 Refused 05/31/2022 Shingrix 43653 Refused 07/06/2018 Tdap (Tetanus, diphtheria & acel. pertussis) Adacel or Boostrix Vital Signs Date Vital Result Comment 10/28/2022 9:22am BP Systolic 122 mmHg BP Diastolic 82 mmHg Body Temperature 97.5 F Heart Rate 92 /min Weight 202.00 lb Weight 91.627 kg Height 71 inches 5'11" BMI (Body Mass Index) 28.2 kg/m2 O2 % BldC Oximetry 99 % [place] Body Weight 172 lb 08/30/2022 9:15am BP Systolic 110 mmHg BP Diastolic 60 mmHg Body Temperature 97.6 F Heart Rate 85 /min Respiratory Rate 16 /min Weight 206.25 lb Weight 93.555 kg Height 71 inches 5'11" BMI (Body Mass Index) 28.8 kg/m2 [place] Body Weight 172 lb Results Test Acquired Date Facility Test Result H/L Range N ote Laboratory test finding 02/24/2023 [facility]. [address] [place] [address] [phone] TSH <pending> Psa2 <pending> Laboratory test finding 02/24/2023 [facility]. [address] [place] [address] [phone] Vitd-25Oh <pending> VB12 <pending> Procedures Date Code Description Status 02/24/2023 34996 Venipuncture Routine Complet ed 10/28/2022 1101F PT SCR Future Fall Risk, No Fall Or 1 W/Out Injury Completed 09/27/2007 [id number] Colonoscopy Completed Medical Devices Description No Information [...] I10 Essential (primary) hyperten darby Lab - [place] 02/24/2023 E78.2 Mixed hyperlipidemia Lab - [place] 02/24/2023 N40.1 Benign prostatic hyperplasia with lower urinary tract symptoms Lab - [place] 02/24/2023 R73.01 Impaired fasting glucose Lab - [place] 02/24/2023 E55.9 Vitamin D deficiency, unspec ified Lab - [place] 02/24/2023 D51.9 Vitamin B12 deficiency anemi a, unspecified Lab - [place] 02/24/2023 N39.0 Urinary tract infection, sit e not specified Lab - [place] 10/28/2022 Z00.01 Encounter for ge neral adult [...] 9:45 am - Thomas Ware PA-C at [place] 10/28/2022 - Thomas Ware PA-C* Z00.01 Encounter [...]
--- OUTSIDE RECORDS SUMMARY | 2023-04-13 06:45 | External Medical Summary ---
Author Name Unknown Address Unknown Organization K1C:[facility] [address] [place] [address] Laboratory Report Ordering Provider Test Date Status CM MOTTA 02/24/2023 08:51 Final Observation Date Value Abnormality Reference (Units ) Status HbA1C 02/24/2023 15:42 5.80 4.70-6.50 (%) Final MEAN GLUCOSE IN mg/dL/A1c%<b r/> POOR CONTROL FAIR CONTROL GOOD CONTROL EXCELLENT CONTROL
360-14 210-9 180-8 120-6
330-13 150-7 90-5
300-12
270-11
240-10 Performing Location [facility] [address] [place] [address]
[2023-04-13 08:29] LABS: Echinocytes 2+
--- NOTE | 2023-04-13 08:47 | Ultrasound Report ---
ULTRASOUND RIGHT UPPER QUADRANT ABDOMEN CLINICAL HISTORY: Thrombocytopenia. History of hepatitis. COMPARISON STUDY: Abdominal ultrasound dated 09/21/2007 TECHNIQUE: Real-time, grayscale, and color flow sonography of the right upper quadrant of the abdomen was performed. Images are reviewed in the transverse and longitudinal planes. FINDINGS: Liver: The liver is cirrhotic in morphology and heterogeneous in echotexture. There is nodularity of the hepatic surface contour. There is no intrahepatic biliary ductal dilatation. The main portal vein is patent. There is no sonographic evidence of hepatic mass lesion. Gallbladder: There is nonspecific bladder wall thickening. The gallbladder wall measures up to 4 mm. No shadow gallstones are identified. No pericholecystic fluid is identified. A sonographic Aleman's s ign is reportedly absent. The common bile duct measures up to 0.4 cm in diameter. Pancreas: Visualized portions of the pancreatic head and body are normal in appearance. The splenic v ein is patent. Right kidney: Survey images of the right kidney demonstrate cortical atrophy. Echotexture is normal. There is no hydronephrosis. Ascites: There is trace perihepatic ascites. IMPRESSION: 1. The liver is cirrhotic in morphology and heterogeneous in echotexture. 2. Trace perihepatic ascites. 3. Gallbladder wall thickening is nonspecific and likely related to adjacent hepatocellular disease. Correlate clinically. 4. No gallstones are identified. ACT 112: Negative or not required by law. Electronically signed by: Toby Vega M.D. 04/13/2023 8:45 AM
[2023-04-13] MEDS ORDERED: ASPIRIN 81 MG ECTAB PO SCH (09:00)
[2023-04-13] MEDS ORDERED: TORSEMIDE 20 MG TAB PO SCH (09:00)
--- NOTE | 2023-04-13 09:29 | Cardiology Consultation ---
Date of Consultation April 13, 2023 Assessment & Plan (1) A-fib: (2) Swelling of both lower extremities: (3) HTN (hypertension): (4) HLD (hyperlipidemia): Plan Pt is a 88 yo male with a past med hx of HTN, HLD, TIA who presents to the hospital on 04/12/23 for lower extremity swelling, and episodes of SOB. Atrial fibrillation - new diagnosis but per pt seems to have been happening for years - pt currently in rate controlled a fib, HR 60-70s - pt currently on heparin, can be transitioned to oral anticoag such as eliquis - can stop aspirin, as anticoag will be via eliquis or another agent for afib as dual anticoag not indicated in this patient - episodes may or may not be due to his a fib, will need few weeks of anticoagulation before cardioversion can be done if this is believed to be contributing to his episodes Lower extremity edema - echo from today showed fair EF function but grossly dilated R atria and ventricle, report pending - chest xray and CTA noted to have no significant pulm congestion or edema - pt had elevated BNP but also elevated potassium on admission with baseline kidney function unknown and rising Cr, recommend trending kidney function daily - given no pulm congestion or edema and edema only in LE, CHF exac less likely - suspect secondary to renal insufficiency vs hepatic disease vs uncontrolled sleep apnea HTN - continue home metoprolol HLD - continue home atorvastatin 80 Valvular heart disease: He has an element of significant mitral regurgitation. Will follow this over time to determine if this is causing symptoms. Current overall LV systolic function reasonable. Supervising Physician Co-Signing Physician Notes I saw and examined the patient with Dr. Garibay and agree with the documentation above. Briefly, the patient presented to his primary care physician for evaluation of lower extremity edema. He took some diuretic at home and had what sounds like his typical episode involving nausea diaphoresis, weakness and dizziness. He presented to the emergency room for evaluation was discovered to have atrial fibrillation. His echocardiogram demonstrates enlarged right-sided chambers consistent with his history of untreated obstructive sleep apnea. Unclear if he also has an element of obstructive lung disease. Atrial fibrillation could be causing some exertional intolerance. Overall rate control is adequate on his current dose of metoprolol. He would benefit from systemic anticoagulation. Would be a reasonable option. I think if he starts systemic anticoagulation he could stop daily aspirin. His edema is likely related to his right heart failure and possibly cirrhosis noted on his hepatic ultrasound. It seems reasonable to continue a low-dose diuretic primarily for symptom relief. Final recommendations As noted above, initiate systemic anticoagulation Continue metoprolol Diuresis p.r.n. for symptom control Treatment of obstructive sleep apnea and nocturnal hypoxia Follow-up in the cardiology clinic to determine if cardioversion is warranted in a few weeks History of Present Illness Reason for Consultation: jez PRINCE fib Requesting Physician: Amauri Mendiola PA-C Attending Physician: Glenn Downing MD History of Present Illness Pt is a 88 yo male with a past med hx of HTN, HLD, TIA who presents to the hospital on 04/12/23 for lower extremity swelling, and episodes of SOB. Pt states that he saw his PCP in [facility] yesterday for lower extremity swelling. He states that he noticed lower extremity swelling for the last 3-4 days. No hx of swelling in the past. He states his physician started him on torsemide yesterday and had him take 2 pills when he got home. He states that a short while after, he started to feel sweaty, short of breath, nauseated, and weak. He did not pass out. He states he has had these episodes intermittently maybe once a month for maybe the past 10 years. He states his dad had similar episodes and when he would get them he would have some cookies and then feel better after about 15 minutes. He states that sometimes he does the same. He states his episodes last less than an hour and during them he tends to sit and eat something, then will feel better in about 15 minutes or so. No chest pain during these episodes or otherwise. No shortness of breath when walking around outside of these episodes. He states he does have a history of anxiety and depression and he gets significant anxiety with these episodes. He states he can feel these episodes coming on. He states these episodes happen at random with no relation to activity that he knows of. He states he has also noticed that his pulse seems irregular when he feels it, but he has never brought it up to his PCP. He states he recently talked to his doctor about having a CPAP at night. He also notes that he had carotid surgery for a significant block on his R side years ago at [facility]. He states they monitor his carotids via ultrasound frequently. No further questions or complaints at this time. Currently he states he feels totally fine with no symptoms at all. Allergies Allergy/AdvReac Type Severity Reaction Status Date / Time No Known Allergies Allergy Verified 04/12/23 17:03 Home Medications Medication Instructions Recorded Confirmed Type aspirin 325 mg tablet,delayed 325 mg PO DAILY 04/12/23 04/12/23 History release atorvastatin 80 mg tablet 80 mg PO QPM 04/12/23 04/12/23 History metoprolol tartrate 50 mg tablet 50 mg PO BID 04/12/23 04/12/23 History mirtazapine 15 mg tablet 7.5 - 15 mg PO HS 04/12/23 04/12/23 History tamsulosin 0.4 mg capsule 0.8 mg PO HS 04/12/23 04/12/23 History torsemide 20 mg tablet 20 mg PO DIRECTED 04/12/23 04/12/23 History Patient History Medical History No pertinent family history HLD (hyperlipidemia) HTN (hypertension) Surgical History No pertinent past surgical history Social History Smoking Status: Never smoker Hx Alcohol Use: Yes Alcohol type: beer Hx Substance Use: No Preferred Language: Latvian Communication Ability: Effective Consulting Sales 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 Physical Exam Physical Exam: General:Alert and oriented, no acute distress, HEENT: Normocephalic, moist oral mucosa, Cardio: Regular rate, irregular rhythm Resp:Lungs clear to auscultation b/l, no wheezes or rhonchi, Skin: Warm, pink, dry, Ext: bilateral pitting edema noted to mid read Psych: Mood-affect congruence. Results & Data Vital Signs (Past 12 Hours) Vital Signs Pulse Pulse Resp BP Pulse Ox Pulse Ox O2 Del Method 04/13/23 07:25 73 20 127/90 92 Room Air 04/13/23 06:58 66 04/13/23 06:32 77 15 127/90 97 Room Air 04/13/23 03:20 69 16 92/52 L 96 Room Air 04/13/23 01:35 95 04/13/23 00:08 73 04/12/23 22:36 65 18 122/79 95 Room Air O2 Del Method 04/13/23 07:25 04/13/23 06:58 04/13/23 06:32 04/13/23 03:20 04/13/23 01:35 Room Air 04/13/23 00:08 04/12/23 22:36 PG Care Time/CCT Total # of Minutes Spent Total Time Spent with Patient: Total time spent is greater than 50% in coordination of care (as documented) at patient's floor/unit and/or counseling patient: Coding Level of Care Code 89140 INT INP/OBS CARE 3/75MIN Diagnoses A-fib I48.91 Atrial fibrillation type: unspecified Swelling of both lower extremities M79.89 HTN (hypertension) I10 HLD (hyperlipidemia) E78.5 Resident Activity Tracking Resident Involvement: Resident Care Provided Care Provided: Adult Hospital Medicine (1) A-fib Atrial fibrillation type: unspecified Qualified Code(s): I48.91 - Unspecified atrial fibrillation
--- NOTE | 2023-04-13 11:18 | XCELERA ---
[id number] [id number]
--- NOTE | 2023-04-13 13:56 | Electrocardiogram Report ---
Test Reason : Blood Pressure : / mmHG Vent. Rate : 068 BPM Atrial Rate : 000 BPM P-R Int : 000 ms QRS Dur : 092 ms QT Int : 414 ms P-R-T Axes : 000 -41 017 degrees QTc Int : 440 ms Atrial fibrillation Left axis deviation Low voltage QRS Abnormal ECG When compared with ECG of 29-MAY-1997 09:59, Atrial fibrillation has replaced Sinus rhythm Confirmed by Alber Young ([id number]) on 04/13/2023 1:56:10 PM Referred By: REFERRED SELF Confirmed By:Simon Young
[2023-04-13 14:04] LABS: Protein Creatinine Ratio Urine 0.3 (0-0.2); Total Protein Urine Random 31.3 mg/dl (0-11.9)
[2023-04-13 14:18] LABS: Appearance Urine Clear (Clear); Bacteria Urine Automated Negative (Negative); Bilirubin Urine Negative (Negative); Blood Urine Negative (Negative); Color Urine Dark Yellow; Epithelial Cell Urine Auto 20-30 /lpf (0-5); Glucose Urine UA Negative (Negative); Ketones Urine Trace (Negative); Leukocyte Esterase Urine Trace (Negative); Nitrite Urine Negative (Negative); Protein Urine Trace (Negative); RBC Urine Automated 0-4 /hpf (0-4); Specific Gravity Urine 1.043 (1.000-1.030); Urobilinogen Urine Negative (Negative)
[2023-04-13 14:28] LABS: Sperm Urine Present (None Prsent)
--- NOTE | 2023-04-13 16:57 | Hospitalist Progress Note ---
Date of Service April 13, 2023 Assessment & Plan (1) A-fib: Plan: -Currently rate controlled, hemodynamically stable, stable on RA, and asymptomatic at rest -Noted to be in afib in the ED, no apparent previous history [id number] score 5 Now on a heparin drip Will switch to oral anticoagulation when closer to discharge Cardiology recommended stopping aspirin (2) Hyperkalemia: Plan: -Noted to be 6.3 in the ED -Mag is WNL -Unsure of the exact etiology at this time -Patient is not taking a potassium supplement, he does eat bananas frequently -Unsure of his baseline Cr as we do not have previous labs in our system -I am concerned that his kidneys did not respond to the torsemide he took earlier today, will need to monitor closely for progression to VERONICA or renal failure -S/P calcium gluconate, insulin, and lasix in the ED -Repeat potassium level is in process, will follow -Continue to monitor on tele, monitor am renal function and electrolytes (3) PRINCE (dyspnea on exertion): Plan: -Patient has been experiencing progressive PRINCE with his normal activities over the past few months -No previous hx of cardiac disease but does have concerning family hx -TTE reviewed Cardiology is not convinced that he has CHF and does not recommend cardiac catheterization Cardiology recommends outpatient follow-up CTA chest negative for PE. Could be secondary to deconditioning versus underlying cirrhosis (4) Thrombocytopenia: Plan: Ultrasound of the liver showed cirrhosis This most likely explains his thrombocytopenia and leg swelling He will need outpatient GI follow-up (5) Swelling of both lower extremities: Plan: -Unclear etiology at this time -Patient is not overloaded on the rest of his exam Echo showed normal EF. Patient may have right heart failure due to obstructive sleep apnea Patient also has cirrhosis which could lead to swelling of his legs. (6) TIA (transient ischemic attack): Plan: -Patient reports he is on 325 mg of Aspirin daily for this, seems like an odd dose -We do not have previous records -For now will reduce his dose to 81 mg daily (7) HTN (hypertension): Plan: -Stable -Can continue metoprolol (8) HLD (hyperlipidemia): Plan: -Continue statin (9) Acute kidney injury: Plan: unknown baseline creatinine Creatinine is higher today at 1.48 from 1.34 on admission This could be secondary to aggressive diuresis We will hold off on further diuretics including p.o. torsemide Monitor BMP closely Admission and Anticipated Discharge Date Admission Date: April 12, 2023 Subjective patient does not complain of shortness of breath anymore. Says that he had good urine output and his leg swelling has improved. Review of Systems Review of Systems: All systems reviewed & are unremarkable except as noted in Subjective Physical Exam Physical Exam: General: Awake, conversant Heart: S1, S2/regular rate and rhythm, no murmur rubs or gallops Lungs: Clear to auscultation bilaterally. Normal effort Abdomen: Soft/nontender/nondistended. No hepatosplenomegaly Extremities: No clubbing/cyanosis. 1-2+ bilateral pitting edema Behavior: Appropriate, cooperative Results & Data Results & Data Vital Signs (Past 12 Hours) Vital Signs Temp Pulse Pulse Resp BP BP Pulse Ox 04/13/23 15:40 54 L 04/13/23 14:57 36.3 C L 63 16 116/96 97 04/13/23 13:00 67 20 115/72 99 04/13/23 12:00 68 18 104/76 96 04/13/23 11:02 65 16 101/31 L 93 04/13/23 07:25 73 20 127/90 92 04/13/23 06:58 66 04/13/23 06:32 77 15 127/90 97 O2 Del Method O2 Flow Rate 04/13/23 15:40 04/13/23 14:57 Room Air 04/13/23 13:00 Nasal Cannula 2 04/13/23 12:00 Room Air 04/13/23 11:02 Room Air 04/13/23 07:25 Room Air 04/13/23 06:58 04/13/23 06:32 Room Air Laboratory Results Abnormal lab results 04/12/23 04/12/23 04/12/23 Range/Units 16:32 16:38 18:34 RBC 4.56 L (4.70-6.10) M/uL Hgb (14.0-18.0) g/dl Hct (42.0-52.0) % RDW Std Deviation 54.8 H (36.4-46.3) fL RDW Coeff of Fernando 15.6 H (11.5-14.5) % Plt Count 96 L (130-400) K/uL Lymph # (Auto) 0.76 L (1.20-3.40) K/uL Knott # (Auto) (0.11-0.59) K/uL Platelet Estimate Decreased L (Normal) PT 12.7 H (9.0-12.0) Seconds INR 1.2 H (0.9-1.1) APTT (21.0-31.0) Seconds D-Dimer 940 H* (0-500) ug/L FEU VBG pH 7.29 L (7.36-7.41) VBG pCO2 54 H (38-50) mmHg Sodium (136-145) mmol/L Potassium 6.3 H* (3.5-5.1) mmol/L BUN 26 H (6-23) mg/dl Creatinine (0.6-1.4) mg/dl BUN/Creatinine Ratio (10-20) Glucose 157 H (70-99(Fasting)) mg/dl POC Glucose 132 H (70-99) mg/dl Calcium 8.4 L (8.6-10.3) mg/dl Phosphorus (2.5-4.9) mg/dl Total Bilirubin (0.2-1.0) mg/dl Direct Bilirubin (0-0.2) mg/dl AST (13-39) U/L ALT (7-52) U/L Alkaline Phosphatase (34-104) U/L Troponin I High Sens 24.9 H (0-20) pg/ml B-Natriuretic Peptide 338 H (0-100) pg/ml Globulin (2.5-4.0) gm/dl Ur Specific [place] (1.000-1.030) Urine Protein (Negative) Urine Ketones (Negative) Ur Leukocyte Esterase (Negative) Urine WBC (Auto) (0-5) /hpf U Hyaline Cast (Auto) (0-5) /lpf U Epithel Cells (Auto) (0-5) /lpf Urine Sperm (None Prsent) U Random Total Protein (0-11.9) mg/dl Protein/Creatinin Ratio (0-0.2) 04/12/23 04/12/23 04/13/23 Range/Units 18:55 21:12 03:05 RBC 4.40 L (4.70-6.10) M/uL Hgb 13.5 L (14.0-18.0) g/dl Hct 41.4 L (42.0-52.0) % RDW Std Deviation 53.6 H (36.4-46.3) fL RDW Coeff of Fernando 15.5 H (11.5-14.5) % Plt Count 86 L (130-400) K/uL Lymph # (Auto) (1.20-3.40) K/uL Knott # (Auto) 0.81 H (0.11-0.59) K/uL Platelet Estimate (Normal) PT 13.7 H (9.0-12.0) Seconds INR 1.3 H (0.9-1.1) APTT 61.8 H* (21.0-31.0) Seconds D-Dimer (0-500) ug/L FEU VBG pH 7.29 L (7.36-7.41) VBG pCO2 56 H (38-50) mmHg Sodium 135 L (136-145) mmol/L Potassium 5.3 H 5.3 H (3.5-5.1) mmol/L BUN 33 H (6-23) mg/dl Creatinine 1.48 H (0.6-1.4) mg/dl BUN/Creatinine Ratio 22.3 H (10-20) Glucose (70-99(Fasting)) mg/dl POC Glucose (70-99) mg/dl Calcium (8.6-10.3) mg/dl Phosphorus 5.2 H (2.5-4.9) mg/dl Total Bilirubin 1.1 H 1.2 H (0.2-1.0) mg/dl Direct Bilirubin 0.3 H (0-0.2) mg/dl AST 132 H 109 H (13-39) U/L ALT 130 H 126 H (7-52) U/L Alkaline Phosphatase 242 H 221 H (34-104) U/L Troponin I High Sens 27.0 H 27.0 H (0-20) pg/ml B-Natriuretic Peptide (0-100) pg/ml Globulin 2.4 L (2.5-4.0) gm/dl Ur Specific [place] (1.000-1.030) Urine Protein (Negative) Urine Ketones (Negative) Ur Leukocyte Esterase (Negative) Urine WBC (Auto) (0-5) /hpf U Hyaline Cast (Auto) (0-5) /lpf U Epithel Cells (Auto) (0-5) /lpf Urine Sperm (None Prsent) U Random Total Protein (0-11.9) mg/dl Protein/Creatinin Ratio (0-0.2) 04/13/ Range/Units 13:30 RBC (4.70-6.10) M/uL Hgb (14.0-18.0) g/dl Hct (42.0-52.0) % RDW Std Deviation (36.4-46.3) fL RDW Coeff of Fernando (11.5-14.5) % Plt Count (130-400) K/uL Lymph # (Auto) (1.20-3.40) K/uL Knott # (Auto) (0.11-0.59) K/uL Platelet Estimate (Normal) PT (9.0-12.0) Seconds INR (0.9-1.1) APTT (21.0-31.0) Seconds D-Dimer (0-500) ug/L FEU VBG pH (7.36-7.41) VBG pCO2 (38-50) mmHg Sodium (136-145) mmol/L Potassium (3.5-5.1) mmol/L BUN (6-23) mg/dl Creatinine (0.6-1.4) mg/dl BUN/Creatinine Ratio (10-20) Glucose (70-99(Fasting)) mg/dl POC Glucose (70-99) mg/dl Calcium (8.6-10.3) mg/dl Phosphorus (2.5-4.9) mg/dl Total Bilirubin (0.2-1.0) mg/dl Direct Bilirubin (0-0.2) mg/dl AST (13-39) U/L ALT (7-52) U/L Alkaline Phosphatase (34-104) U/L Troponin I High Sens (0-20) pg/ml B-Natriuretic Peptide (0-100) pg/ml Globulin (2.5-4.0) gm/dl Ur Specific [place] 1.043 H (1.000-1.030) Urine Protein Trace H (Negative) Urine Ketones Trace H (Negative) Ur Leukocyte Esterase Trace H (Negative) Urine WBC (Auto) 10-30 H (0-5) /hpf U Hyaline Cast (Auto) 5-10 H (0-5) /lpf U Epithel Cells (Auto) 20-30 H (0-5) /lpf Urine Sperm Present A (None Prsent) U Random Total Protein 31.3 H (0-11.9) mg/dl Protein/Creatinin Ratio 0.3 H (0-0.2) PG Care Time/CCT Total # of Minutes Spent Total Time Spent with Patient: Total time spent is greater than 50% in coordination of care (as documented) at patient's floor/unit and/or counseling patient: Coding Level of Care Code 76979 SUB INP/OBS CARE 2/35MIN Diagnoses A-fib I48.91 Atrial fibrillation type: unspecified Hyperkalemia E87.5 PRINCE (dyspnea on exertion) R06.09 Thrombocytopenia D69.6 Swelling of both lower extremities M79.89 TIA (transient ischemic attack) G45.9 HTN (hypertension) I10 HLD (hyperlipidemia) E78.5 Acute kidney injury N17.9 (1) A-fib Atrial fibrillation type: unspecified Qualified Code(s): I48.91 - Unspecified atrial fibrillation
[2023-04-13] MEDS: HEPARIN SODIUM/DEXTROSE 25,000 UNITS/500 ML BAG IV SCH (23:50)
[2023-04-14 06:10] LABS: Basophils # (auto) 0.04 K/uL (0.00-0.20); Basophils % (auto) 0.5 %; Eosinophils # (auto) 0.11 K/uL (0.00-0.50); Eosinophils % (auto) 1.3 %; Hematocrit (blood only) 39.4 % (42.0-52.0); Hemoglobin 13.4 g/dl (14.0-18.0); Immature Granulocytes # (auto) 0.05 K/uL (0.01-0.20); Immature Granulocytes % (auto) 0.6 %; Lymphocytes # (auto) 1.85 K/uL (1.20-3.40); Lymphocytes % (auto) 21.3 %; Mean Corpuscular Hemoglobin 31.2 pg (25.0-34.0); Mean Corpuscular Volume 91.8 fL (80.0-100.0); Mean Platelet Volume 12.6 fL (9.4-12.4); Monocytes # (auto) 0.97 K/uL (0.11-0.59); Monocytes % (auto) 11.1 %; Neutrophils # (auto) 5.68 K/uL (1.40-6.50); Neutrophils % (auto) 65.2 %; Platelet Count 91 K/uL (130-400); RDW Coefficient of Variation 15.4 % (11.5-14.5); RDW Standard Deviation 51.9 fL (36.4-46.3); Red Blood Count 4.29 M/uL (4.70-6.10)
[2023-04-14 06:31] LABS: Albumin Globulin Ratio 1.6 (0.9-2); Albumin Level 3.5 gm/dl (3.4-5.0); BUN Creatinine Ratio 26.5 (10-20); Calcium 8.5 mg/dl (8.6-10.3); Creatinine Clr Calc Pharmacy 28.9 ml/min; Est GFR (African American) 34.1 ml/min; Est GFR (Non-African American) 29.4 ml/min; Globulin 2.2 gm/dl (2.5-4.0); Magnesium 2.3 mg/dl (1.7-2.4); Potassium 5.4 mmol/L (3.5-5.1); Total Protein 5.7 gm/dl (6.0-8.3)
[2023-04-14 06:54] LABS: INR 1.4 (0.9-1.1); Partial Thromboplastin Ratio 2.3; Prothrombin Time 14.9 Seconds (9.0-12.0)
[2023-04-14 06:57] LABS: Partial Thromboplastin Time 66.1 Seconds (21.0-31.0)
[2023-04-14] MEDS: METOPROLOL TARTRATE 50 MG TAB PO SCH ×2 (08:19→21:31)
--- NOTE | 2023-04-14 08:53 | Nephrology Consultation ---
Date of Consultation April 14, 2023 Assessment & Plan (1) Acute kidney injury: (2) Chronic kidney disease, stage III (moderate): (3) A-fib: (4) Dyspnea: Plan Hyperkalemia resolving with medical management. Will provide Lokelma 10 g po TID x3 doses. Monitor PRP. Low potassium diet ordered. VERONICA/CKD due to ANGEL. Rise in creatinine correlates with time course of IV contrast administration. Urine sediment is negative for cellular elements/casts. Will order renal US. V olume status is acceptable. No acute indication for HOSPITAL DIRECTOR at this time. Weakness and dyspnea likely related to new onset atrial fibrillation and valvular heart disease. Will order CPK due to h/o statin therapy. History of Present Illness Reason for Consultation: VERONICA/CKD, hyperkalemia Attending Physician: Glenn Downing MD History of Present Illness Mr. Franks is an 88 year old white male who is seen at the request of the [facility] for evaluation of VERONICA/CKD, hyperkalemia. Information for the HPI is obtained from direct patient interview and review of the EMR. HPI is summarized as follows: Mr. Franks has CKD w/ baseline Cr 1.3 and EGFR 47 cc/min. His medical history has been significant for HTN, TIA, BPH, hyperlipidemia. Mr. Franks developed LE swelling and took a dose of diuretic at home. He subsequently developed nausea, weakness and dizziness. He presented to [facility] EMD 04/12/23 with c/o weakness and dyspnea. Evaluation revealed mild hypothermia, WBC 7.4, Cr 1.3, K 6.3, RA SaO2 95%. Medical management of hyperkalemia was provided. O2 was applied for comfort. CXR was negative for infiltrate. CT angiogram of the chest was negative for PE. ECG revealed new onset atrial fibrillation and echocardiogram revealed LVEF 40-50%, severe dilation of both atria, moderate to severe mitral regurgitation. Echocardiogram is felt to be c/w untreated DENZEL. Since admission potassium has improved to 5.4 with medical management but creatinine has progressively risen to 1.96. Urinalysis is negative for blood or cellular casts. UPCR 0.3. Renal imaging has not yet been completed. Allergies Allergy/AdvReac Type Severity Reaction Status Date / Time No Known Allergies Allergy Verified 04/12/23 17:03 Home Medications Medication Instructions Recorded Confirmed Type aspirin 325 mg tablet,delayed 325 mg PO DAILY 04/12/23 04/12/23 History release atorvastatin 80 mg tablet 80 mg PO QPM 04/12/23 04/12/23 History metoprolol tartrate 50 mg tablet 50 mg PO BID 04/12/23 04/12/23 History mirtazapine 15 mg tablet 7.5 - 15 mg PO HS 04/12/23 04/12/23 History tamsulosin 0.4 mg capsule 0.8 mg PO HS 04/12/23 04/12/23 History torsemide 20 mg tablet 20 mg PO DIRECTED 04/12/23 04/12/23 History Patient History Medical History No pertinent family history HLD (hyperlipidemia) HTN (hypertension) Surgical History No pertinent past surgical history Social History Smoking Status: Never smoker Hx Alcohol Use: Yes Alcohol type: beer Hx Substance Use: No Preferred Language: Frisian Communication Ability: Effective Graphic Engineer Required: No Beliefs That Will Affect Care: None Current Living Situation: Alone Feels Safe at Home: Yes Assistive Devices: Cane Review of Systems Constitutional: no fever Eyes: no worsening vision Ear, Nose, Mouth, Throat: no problem reported Respiratory: + dyspnea Cardiovascular: no chest pain Gastrointestinal: no abdominal pain, no nausea, no vomiting and no diarrhea/loose stools Genitourinary: no dysuria or no urinary hesitancy Integumentary: no rash Neurologic: no syncope Physical Exam Constitutional: not in distress Eyes: PERRL, conjunctivae normal, anicteric sclerae ENMT: external ear and nose normal, oropharynx normal Neck: trachea midline, no thyromegaly Respiratory: normal respiratory effort, lungs clear to auscultation Cardiovascular: Rate/Rhythm: regular rate and regular rhythm Extremities: + edema (trace) Gastrointestinal (Abdomen): normal bowel sounds, soft, nontender, no hepatosplenomegaly Skin: no rashes, warm and dry Neurologic: Speech / Cognition: normal speech and normal cognition Results & Data Vital Signs (Past 12 Hours) Vital Signs Temp Pulse Pulse Resp BP Pulse Ox O2 Del Method 04/14/23 08:00 Nasal Cannula 04/14/23 07:53 36.6 C 81 16 125/80 Nasal Cannula 04/14/23 07:00 54 L 04/14/23 04:14 36.8 C 58 L 18 101/64 98 Nasal Cannula 04/14/23 00:16 36.6 C 57 L 18 112/75 100 Nasal Cannula O2 Flow Rate 04/14/23 08:00 2 04/14/23 07:53 2 04/14/23 07:00 04/14/23 04:14 2 04/14/23 00:16 2 Laboratory Results Laboratory Results WBC 8.70 K/ul (4.8-10.8) 04/14/23 05:32 RBC 4.29 M/uL (4.70-6.10) L 04/14/23 05:32 Hgb 13.4 g/dl (14.0-18.0) L 04/14/23 05:32 Hct 39.4 % (42.0-52.0) L 04/14/23 05:32 MCV 91.8 fL (80.0-100.0) 04/14/23 05:32 MCH 31.2 pg (25.0-34.0) 04/14/23 05:32 MCHC 34.0 g/dL (32.0-36.0) 04/14/23 05:32 RDW Std Deviation 51.9 fL (36.4-46.3) H 04/14/23 05:32 RDW Coeff of Fernando 15.4 % (11.5-14.5) H 04/14/23 05:32 Plt Count 91 K/uL (130-400) L 04/14/23 05:32 MPV 12.6 fL (9.4-12.4) H 04/14/23 05:32 Immature Gran % (Auto) 0.6 % 04/14/23 05:32 Neut % (Auto) 65.2 % 04/14/23 05:32 Lymph % (Auto) 21.3 % 04/14/23 05:32 Harnett % (Auto) 11.1 % 04/14/23 05:32 Eos % (Auto) 1.3 % 04/14/23 05:32 Baso % (Auto) 0.5 % 04/14/23 05:32 Neut # (Auto) 5.68 K/uL (1.40-6.50) 04/14/23 05:32 Lymph # (Auto) 1.85 K/uL (1.20-3.40) 04/14/23 05:32 Harnett # (Auto) 0.97 K/uL (0.11-0.59) H 04/14/23 05:32 Eos # (Auto) 0.11 K/uL (0.00-0.50) 04/14/23 05:32 Baso # (Auto) 0.04 K/uL (0.00-0.20) 04/14/23 05:32 Immature Gran # (Auto) 0.05 K/uL (0.01-0.20) 04/14/23 05:32 Absolute Nucleated RBC Cancelled 04/12/23 16:32 Nucleated RBC % (auto) Cancelled 04/12/23 16:32 Neutrophils % (Manual) Cancelled 04/12/23 16:32 Band Neutrophils % Cancelled 04/12/23 16:32 Lymphocytes % (Manual) Cancelled 04/12/23 16:32 Prolymphocyte % Cancelled 04/12/23 16:32 Reactive Lymphs % (Man) Cancelled 04/12/23 16:32 Monocytes % (Manual) Cancelled 04/12/23 16:32 Eosinophils % (Manual) Cancelled 04/12/23 16:32 Basophils % (Manual) Cancelled 04/12/23 16:32 Metamyelocytes % (Man) Cancelled 04/12/23 16:32 Myelocytes % (Man) Cancelled 04/12/23 16:32 Promyelocytes % (Man) Cancelled 04/12/23 16:32 Blast Cells % (Manual) Cancelled 04/12/23 16:32 Plasma Cell % (Manual) Cancelled 04/12/23 16:32 Other Cells % Cancelled 04/12/23 16:32 Nucleated RBC % Cancelled 04/12/23 16:32 Neutrophils # (Manual) Cancelled 04/12/23 16:32 Band Neutrophils # Cancelled 04/12/23 16:32 Total Absolute Neuts Cancelled 04/12/23 16:32 Lymphocytes # (Manual) Cancelled 04/12/23 16:32 Prolymphocyte # Cancelled 04/12/23 16:32 Reactive Lymphs # Cancelled 04/12/23 16:32 Total Abs Lymphocytes Cancelled 04/12/23 16:32 Monocytes # (Manual) Cancelled 04/12/23 16:32 Eosinophils # (Manual) Cancelled 04/12/23 16:32 Basophils # (Manual) Cancelled 04/12/23 16:32 Metamyelocytes # (Man) Cancelled 04/12/23 16:32 Myelocytes # (Manual) Cancelled 04/12/23 16:32 Promyelocytes # (Man) Cancelled 04/12/23 16:32 Blast Cells # (Man) Cancelled 04/12/23 16:32 Plasma Cell # (Manual) Cancelled 04/12/23 16:32 Other Cells # Cancelled 04/12/23 16:32 Nucleated RBCs # (Man) Cancelled 04/12/23 16:32 Hypersegmented Neuts Cancelled 04/12/23 16:32 Hyposegmented Neuts Cancelled 04/12/23 16:32 Hypogranular Neuts Cancelled 04/12/23 16:32 Large Granular Lymphs Cancelled 04/12/23 16:32 # Lrg Granular Lymphs Cancelled 04/12/23 16:32 Hairy Cells Cancelled 04/12/23 16:32 Smudge Cells Cancelled 04/12/23 16:32 Toxic Granulation Cancelled 04/12/23 16:32 Toxic Vacuolation Cancelled 04/12/23 16:32 Dohle Bodies Cancelled 04/12/23 16:32 Ruby Rods Cancelled 04/12/23 16:32 Platelet Estimate Decreased (Normal) L 04/12/23 16:38 Hypogranular Platelets Cancelled 04/12/23 16:32 Giant Platelets Cancelled 04/12/23 16:32 Platelet Satelliting Cancelled 04/12/23 16:32 RBC Morphology Cancelled 04/12/23 16:32 Polychromasia Cancelled 04/12/23 16:32 Hypochromasia Cancelled 04/12/23 16:32 Poikilocytosis Cancelled 04/12/23 16:32 Basophilic Stippling Cancelled 04/12/23 16:32 Anisocytosis Cancelled 04/12/23 16:32 Microcytosis Cancelled 04/12/23 16:32 Macrocytosis Cancelled 04/12/23 16:32 Spherocytes Cancelled 04/12/23 16:32 Pappenheimer Bodies Cancelled 04/12/23 16:32 Sickle Cells Cancelled 04/12/23 16:32 Target Cells Cancelled 04/12/23 16:32 Tear Drop Cells Cancelled 04/12/23 16:32 Ovalocytes Cancelled 04/12/23 16:32 Stomatocytes Cancelled 04/12/23 16:32 Oneill-Benbow Bodies Cancelled 04/12/23 16:32 Echinocytes 2+ 04/12/23 16:38 Acanthocytes (Spur) Cancelled 04/12/23 16:32 Rouleaux Cancelled 04/12/23 16:32 RBC Agglutinates Cancelled 04/12/23 16:32 Schistocytes Cancelled 04/12/23 16:32 Sezary Cell Cancelled 04/12/23 16:32 PT 14.9 Seconds (9.0-12.0) H 04/14/23 05:32 INR 1.4 (0.9-1.1) H 04/14/23 05:32 APTT 66.1 Seconds (21.0-31.0) H* 04/14/23 05:32 PTT Ratio 2.3 04/14/23 05:32 D-Dimer 940 ug/L FEU (0-500) H* 04/12/23 16:32 VBG pH 7.29 (7.36-7.41) L 04/12/23 21:12 VBG pCO2 56 mmHg (38-50) H 04/12/23 21:12 VBG pO2 < 20 mmHg 04/12/23 21:12 VBG HCO3 27 mmol/L 04/12/23 21:12 VBG O2 Saturation < 60.0 % 04/12/23 21:12 VBG Base Excess -0.7 mEq/L 04/12/23 21:12 Sodium 133 mmol/L (136-145) L 04/14/23 05:32 Potassium 5.4 mmol/L (3.5-5.1) H 04/14/23 05:32 Chloride 100 mmol/L (98-107) 04/14/23 05:32 Carbon Dioxide 25 mmol/L (21-32) 04/14/23 05:32 Anion Gap 8 (3-11) 04/14/23 05:32 BUN 52 mg/dl (6-23) H 04/14/23 05:32 Creatinine 1.96 mg/dl (0.6-1.4) H D 04/14/23 05:32 Est Cr Clr Drug Dosing 28.9 ml/min 04/14/23 05:32 Est GFR ( Amer) 34.1 ml/min 04/14/23 05:32 Est GFR (Non-Af Amer) 29.4 ml/min 04/14/23 05:32 BUN/Creatinine Ratio 26.5 (10-20) H 04/14/23 05:32 Glucose 113 mg/dl (70-99(Fasting)) H 04/14/23 05:32 POC Glucose 91 mg/dl (70-99) 04/12/23 19:37 Calcium 8.5 mg/dl (8.6-10.3) L 04/14/23 05:32 Phosphorus 5.2 mg/dl (2.5-4.9) H 04/12/23 21:12 Magnesium 2.3 mg/dl (1.7-2.4) 04/14/23 05:32 Total Bilirubin 1.0 mg/dl (0.2-1.0) 04/14/23 05:32 Direct Bilirubin 0.3 mg/dl (0-0.2) H 04/12/23 21:12 AST 95 U/L (13-39) H 04/14/23 05:32 ALT 124 U/L (7-52) H 04/14/23 05:32 Alkaline Phosphatase 181 U/L (34-104) H 04/14/23 05:32 Troponin I High Sens 27.0 pg/ml (0-20) H 04/12/23 21:12 B-Natriuretic Peptide 338 pg/ml (0-100) H 04/12/23 16:32 Total Protein 5.7 gm/dl (6.0-8.3) L 04/14/23 05:32 Albumin 3.5 gm/dl (3.4-5.0) 04/14/23 05:32 Globulin 2.2 gm/dl (2.5-4.0) L 04/14/23 05:32 Albumin/Globulin Ratio 1.6 (0.9-2) 04/14/23 05:32 Lipase 30 U/L (11-82) 04/12/23 16:32 TSH 2.808 uIu/ml (0.300-4.500) 04/12/23 21:12 Urine Color Dark Yellow 04/13/23 13:30 Urine Appearance Clear (Clear) 04/13/23 13:30 Urine pH 5.0 (4.5-7.5) 04/13/23 13:30 Ur Specific Dexter 1.043 (1.000-1.030) H 04/13/23 13:30 Urine Protein Trace (Negative) H 04/13/23 13:30 Urine Glucose (UA) Negative (Negative) 04/13/23 13:30 Urine Ketones Trace (Negative) H 04/13/23 13:30 Urine Blood Negative (Negative) 04/13/23 13:30 Urine Nitrite Negative (Negative) 04/13/23 13:30 Urine Bilirubin Negative (Negative) 04/13/23 13:30 Urine Urobilinogen Negative (Negative) 04/13/23 13:30 Ur Leukocyte Esterase Trace (Negative) H 04/13/23 13:30 Urine WBC (Auto) 10-30 /hpf (0-5) H 04/13/23 13:30 Urine RBC (Auto) 0-4 /hpf (0-4) 04/13/23 13:30 U Hyaline Cast (Auto) 5-10 /lpf (0-5) H 04/13/23 13:30 U Epithel Cells (Auto) 20-30 /lpf (0-5) H 04/13/23 13:30 Urine Bacteria (Auto) Negative (Negative) 04/13/23 13:30 Urine Sperm Present (None Prsent) A 04/13/23 13:30 Ur Random Creatinine 119.0 mg/dl 04/13/23 13:30 U Random Total Protein 31.3 mg/dl (0-11.9) H 04/13/23 13:30 Protein/Creatinin Ratio 0.3 (0-0.2) H 04/13/23 13:30 Anaplasma Smear See Comment 04/12/23 16:38 Babesia Smear See Comment 04/12/23 16:38 Lyme Disease IgG Ab Negative (Negative) 04/12/23 16:38 Lyme Disease IgM Ab Negative (Negative) 04/12/23 16:38 SARS-CoV-2 (PCR) NEGATIVE (Negative) 04/12/23 16:49 Influenza Type A (PCR) Negative (Neg) 04/12/23 16:49 Influenza Type B (PCR) Negative (Neg) 04/12/23 16:49 RSV (RT-PCR) Negative (Neg) 04/12/23 16:49 Blood Parasites ID Cancelled 04/12/23 16:32 Impressions Chest X-Ray 04/12/23 16:15 SINGLE VIEW CHEST CLINICAL HISTORY: Atypical chest pain FINDINGS: 2 AP, portable, upright chest radiographs are obtained. No prior studies are available for comparison at the time of dictation. The examination is degraded by portable technique and patient rotation. The heart is enlarged noting atherosclerotic calcification of the thoracic aorta. The pulmonary vasculature is noncongested. Nonspecific interstitial thickening is likely chronic. There is mild bibasilar scarring/atelectasis. No airspace consolidation or large pleural effusion is identified. No pneumothorax is seen. The skeletal structures are osteopenic. The bony thorax is grossly intact. Degenerative change is noted in the shoulders and spine. IMPRESSION: Cardiomegaly with no acute cardiopulmonary abnormality identified. ACT 112: Negative or not required by law. Electronically signed by: Toby Vega M.D. 04/12/2023 5:26 PM Chest CTA 04/12/23 17:46 Exam(s): CTA CHEST IV Amt: 118 cc opti 320 EXAM: CT Angiography Chest With Intravenous Contrast CLINICAL HISTORY: Reason for exam: ro PE. TECHNIQUE: Axial computed tomographic angiography images of the chest with intravenous contrast. CTDI is 47.14 mGy and DLP is 963.99 mGy-cm. Automated exposure control was utilized for the study. A dose lowering technique was utilized adhering to the principles of ALARA. MIP reconstructed images were created and reviewed. COMPARISON: No relevant prior studies available. FINDINGS: Pulmonary arteries: Unremarkable. No acute pulmonary embolism. Aorta: Atherosclerotic changes of the aorta. No thoracic aortic aneurysm. Lungs: Unremarkable. No mass. No consolidation. Pleural space: Unremarkable. No focal infiltrate, pleural effusion, or pneumothorax. Heart: Cardiomegaly. No significant pericardial effusion. No evidence of RV dysfunction. Bones/joints: Degenerative changes of the spine. No acute fracture. No dislocation. Soft tissues: Unremarkable. Lymph nodes: Unremarkable. No enlarged lymph nodes. Intraperitoneal space: Hepatic steatosis. Mild perihepatic ascites. IMPRESSION: 1. No acute pulmonary embolism. 2. No focal infiltrate, pleural effusion, or pneumothorax. Electronically signed by: Lance Kaiser MD 04/12/23 19:52 PM Liver Ultrasound 04/13/23 00:00 ULTRASOUND RIGHT UPPER QUADRANT ABDOMEN CLINICAL HISTORY: Thrombocytopenia. History of hepatitis. COMPARISON STUDY: Abdominal ultrasound dated 09/21/2007 TECHNIQUE: Real-time, grayscale, and color flow sonography of the right upper quadrant of the abdomen was performed. Images are reviewed in the transverse and longitudinal planes. FINDINGS: Liver: The liver is cirrhotic in morphology and heterogeneous in echotexture. There is nodularity of the hepatic surface contour. There is no intrahepatic biliary ductal dilatation. The main portal vein is patent. There is no sonographic evidence of hepatic mass lesion. Gallbladder: There is nonspecific bladder wall thickening. The gallbladder wall measures up to 4 mm. No shadow gallstones are identified. No pericholecystic fluid is identified. A sonographic Aleman's sign is reportedly absent. The common bile duct measures up to 0.4 cm in diameter. Pancreas: Visualized portions of the pancreatic head and body are normal in appearance. The splenic vein is patent. Right kidney: Survey images of the right kidney demonstrate cortical atrophy. Echotexture is normal. There is no hydronephrosis. Ascites: There is trace perihepatic ascites. IMPRESSION: 1. The liver is cirrhotic in morphology and heterogeneous in echotexture. 2. Trace perihepatic ascites. 3. Gallbladder wall thickening is nonspecific and likely related to adjacent hepatocellular disease. Correlate clinically. 4. No gallstones are identified. ACT 112: Negative or not required by law. Electronically signed by: Toby Vega M.D. 04/13/2023 8:45 AM PG Care Time/CCT Total # of Minutes Spent Total Time Spent with Patient: Total time spent is greater than 50% in coordination of care (as documented) at patient's floor/unit and/or counseling patient: Coding Level of Care Code 49675 IN/OBS CONSULT LVL 5,80M Diagnoses Acute kidney injury N17.9 Chronic kidney disease, stage III (moderate) N18.30 A-fib I48.91 Atrial fibrillation type: unspecified Dyspnea R06.00 (3) A-fib Atrial fibrillation type: unspecified Qualified Code(s): I48.91 - Unspecified atrial fibrillation
[2023-04-14] MEDS: SODIUM ZIRCONIUM CYCLOSILICATE 10 GM PACKET PO SCH ×3 (09:58→21:32)
--- NOTE | 2023-04-14 17:06 | Hospitalist Progress Note ---
Date of Service April 14, 2023 Assessment & Plan (1) A-fib: Plan: -Currently rate controlled, hemodynamically stable, stable on RA, and asymptomatic at rest -Noted to be in afib in the ED, no apparent previous history [id number] score 5 Now on a heparin drip Will switch to oral anticoagulation when closer to discharge Cardiology recommended stopping aspirin (2) Hyperkalemia: Plan: -Noted to be 6.3 in the ED Now improved to 5.4 -Mag is WNL -Unsure of the exact etiology at this time -Unsure of his baseline Cr as we do not have previous labs in our system -S/P calcium gluconate, insulin, and lasix in the ED (3) PRINCE (dyspnea on exertion): Plan: -Patient has been experiencing progressive PRINCE with his normal activities over the past few months -No previous hx of cardiac disease but does have concerning family hx -TTE reviewed Cardiology is not convinced that he has CHF and does not recommend cardiac c atheterization Cardiology recommends outpatient follow-up CTA chest negative for PE. Could be secondary to deconditioning versus underlying cirrhosis (4) Thrombocytopenia: Plan: Ultrasound of the liver showed cirrhosis This most likely explains his thrombocytopenia and leg swelling He will need outpatient GI follow-up Hepatitis panel ordered (5) Swelling of both lower extremities: Plan: -Unclear etiology at this time -Patient is not overloaded on the rest of his exam Echo showed normal EF. Patient may have right heart failure due to obstructive sleep apnea Patient also has cirrhosis which could lead to swelling of his legs. (6) TIA (transient ischemic attack): Plan: -Patient reports he is on 325 mg of Aspirin daily for this, seems like an odd dose -We do not have previous records -For now will reduce his dose to 81 mg daily (7) HTN (hypertension): Plan: -Stable -Can continue metoprolol (8) HLD (hyperlipidemia): Plan: -Continue statin (9) Acute kidney injury: Plan: unknown baseline creatinine creatinine increased to 1.9 Nephrology consulted Could be contrast-induced Volume status seems to be acceptable today We will hold off on further diuretics including p.o. torsemide Monitor BMP closely Admission and Anticipated Discharge Date Admission Date: April 12, 2023 Subjective patient has a subjective feeling of shortness of breath, especially on exertion. No orthopnea or PND. Not hypoxic. Denies chest pain. Review of Systems Review of Systems: All systems reviewed & are unremarkable except as noted in Subjective Physical Exam Physical Exam: General: Awake, conversant Heart: S1, S2/regular rate and rhythm, no murmur rubs or gallops Lungs: Clear to auscultation bilaterally. Normal effort Abdomen: Soft/nontender/nondistended. No hepatosplenomegaly Extremities: No clubbing/cyanosis. 1-2+ bilateral pitting edema Behavior: Appropriate, cooperative Results & Data Results & Data Vital Signs (Past 12 Hours) Vital Signs Temp Pulse Pulse Resp BP O2 Del Method O2 Flow Rate 04/14/23 14:00 70 04/14/23 11:47 36.6 C 67 14 132/70 Nasal Cannula 2 04/14/23 08:00 Nasal Cannula 2 04/14/23 07:53 36.6 C 81 16 125/80 Nasal Cannula 2 04/14/23 07:00 54 L Laboratory Results Abnormal lab results 04/14/23 Range/Units 05:32 RBC 4.29 L (4.70-6.10) M/uL Hgb 13.4 L (14.0-18.0) g/dl Hct 39.4 L (42.0-52.0) % RDW Std Deviation 51.9 H (36.4-46.3) fL RDW Coeff of Fernando 15.4 H (11.5-14.5) % Plt Count 91 L (130-400) K/uL MPV 12.6 H (9.4-12.4) fL Glascock # (Auto) 0.97 H (0.11-0.59) K/uL PT 14.9 H (9.0-12.0) Seconds INR 1.4 H (0.9-1.1) APTT 66.1 H* (21.0-31.0) Seconds Sodium 133 L (136-145) mmol/L Potassium 5.4 H (3.5-5.1) mmol/L BUN 52 H (6-23) mg/dl Creatinine 1.96 H D (0.6-1.4) mg/dl BUN/Creatinine Ratio 26.5 H (10-20) Glucose 113 H (70-99(Fasting)) mg/dl Calcium 8.5 L (8.6-10.3) mg/dl AST 95 H (13-39) U/L ALT 124 H (7-52) U/L Alkaline Phosphatase 181 H (34-104) U/L Total Protein 5.7 L (6.0-8.3) gm/dl Globulin 2.2 L (2.5-4.0) gm/dl PG Care Time/CCT Total # of Minutes Spent Total Time Spent with Patient: Total time spent is greater than 50% in coordination of care (as documented) at patient's floor/unit and/or counseling patient: Coding Level of Care Code 13278 SUB INP/OBS CARE 2/35MIN Diagnoses A-fib I48.91 Atrial fibrillation type: unspecified Hyperkalemia E87.5 PRINCE (dyspnea on exertion) R06.09 Thrombocytopenia D69.6 Swelling of both lower extremities M79.89 TIA (transient ischemic attack) G45.9 HTN (hypertension) I10 HLD (hyperlipidemia) E78.5 Acute kidney injury N17.9 (1) A-fib Atrial fibrillation type: unspecified Qualified Code(s): I48.91 - Unspecified atrial fibrillation
[2023-04-14 17:53] LABS: BUN Creatinine Ratio 29.2 (10-20); Calcium 8.9 mg/dl (8.6-10.3); Creatinine Clr Calc Pharmacy 29.1 ml/min; Est GFR (African American) 34.3 ml/min; Est GFR (Non-African American) 29.6 ml/min; Potassium 4.8 mmol/L (3.5-5.1)
[2023-04-14] MEDS: TAMSULOSIN HCL 0.4 MG CAP PO SCH (21:31)
[2023-04-14] MEDS: MIRTAZAPINE TAB 15 MG TAB PO PRN (21:31)
[2023-04-15] MEDS: HEPARIN SODIUM/DEXTROSE 25,000 UNITS/500 ML BAG IV SCH (02:42)
[2023-04-15 06:26] LABS: Basophils # (auto) 0.04 K/uL (0.00-0.20); Basophils % (auto) 0.4 %; Eosinophils # (auto) 0.14 K/uL (0.00-0.50); Eosinophils % (auto) 1.5 %; Hematocrit (blood only) 39.2 % (42.0-52.0); Hemoglobin 13.2 g/dl (14.0-18.0); Immature Granulocytes # (auto) 0.09 K/uL (0.01-0.20); Lymphocytes # (auto) 1.75 K/uL (1.20-3.40); Lymphocytes % (auto) 19.4 %; Mean Corpuscular Hemoglobin 30.6 pg (25.0-34.0); Mean Corpuscular Hgb Conc 33.7 g/dL (32.0-36.0); Mean Platelet Volume 12.3 fL (9.4-12.4); Monocytes # (auto) 0.94 K/uL (0.11-0.59); Monocytes % (auto) 10.4 %; Neutrophils # (auto) 6.08 K/uL (1.40-6.50); Neutrophils % (auto) 67.3 %; Platelet Count 88 K/uL (130-400); Red Blood Count 4.31 M/uL (4.70-6.10); White Blood Count 9.04 K/ul (4.8-10.8)
[2023-04-15 06:27] LABS: Albumin Globulin Ratio 1.5 (0.9-2); Albumin Level 3.4 gm/dl (3.4-5.0); BUN Creatinine Ratio 34.8 (10-20); Calcium 8.3 mg/dl (8.6-10.3); Creatinine Clr Calc Pharmacy 34.7 ml/min; Est GFR (African American) 42.3 ml/min; Est GFR (Non-African American) 36.5 ml/min; Globulin 2.3 gm/dl (2.5-4.0); Magnesium 2.2 mg/dl (1.7-2.4); Potassium 4.2 mmol/L (3.5-5.1); Total Protein 5.7 gm/dl (6.0-8.3)
[2023-04-15 06:44] LABS: INR 1.3 (0.9-1.1)
[2023-04-15 07:59] LABS: Partial Thromboplastin Ratio 2.1
[2023-04-15 08:12] LABS: Partial Thromboplastin Time 59.3 Seconds (21.0-31.0)
--- NOTE | 2023-04-15 08:58 | Ultrasound Report ---
RENAL ULTRASOUND CLINICAL HISTORY: Acute kidney injury. COMPARISON STUDY: Right upper quadrant ultrasound April 13, 2023. TECHNIQUE: Sonography of the kidneys and the urinary bladder was performed. FINDINGS: The right kidney measures 11.2 x 5.1 x 4.6 cm and the left kidney measures 11.7 x 6.2 x 4.9 cm. There is no hydronephrosis. There is mild bilateral renal cortical thinning. No renal mass or ca lculus is identified. Small amount of ascites is incidentally noted. IMPRESSION: 1. No hydronephrosis. 2. Mild bilateral renal cortical thinning. 3. Small amount of ascites. ACT 112: Negative or not required by law. Electronically signed by: Garland Chi M.D. 04/15/2023 8:57 AM
[2023-04-15] MEDS: METOPROLOL TARTRATE 50 MG TAB PO SCH ×2 (09:08→20:07)
[2023-04-15 11:03] LABS: HBSAG NON-REACTIVE (NON-REACTIVE); Hepatitis A Antibody IgM NON-REACTIVE (NON-REACTIVE); Hepatitis B Core Antibody IgM NON-REACTIVE (NON-REACTIVE)
--- NOTE | 2023-04-15 11:51 | Hospitalist Progress Note ---
Date of Service April 15, 2023 Assessment & Plan (1) A-fib: Plan: -Currently rate controlled, hemodynamically stable, stable on RA, and asymptomatic at rest -Noted to be in afib in the ED, no apparent previous history [id number] score 5 Now on a heparin drip Will switch to oral anticoagulation when closer to discharge Per cardiology recommendation, stopped aspirin (2) Hyperkalemia: Plan: -Noted to be 6.3 in the ED Now improved to 4.2 -Mag is WNL -Unsure of the exact etiology at this time -Unsure of his baseline Cr as we do not have previous labs in our system -S/P calcium gluconate, insulin, and lasix in the ED (3) PRINCE (dyspnea on exertion): Plan: -Patient has been experiencing progressive PRINCE with his normal activities over the past few months -No previous hx of cardiac disease but does have concerning family hx -TTE reviewed Cardiology is not convinced that he has CHF and does not recommend cardiac catheterization Cardiology recommends outpatient follow-up CTA chest negative for PE. Could be secondary to deconditioning versus underlying cirrhosis. Anxiety could be playing a role as well, per daughter. No orthopnea or PND. No hypoxia. (4) Thrombocytopenia: Plan: Ultrasound of the liver showed cirrhosis This most likely explains his thrombocytopenia and leg swelling He will need outpatient GI follow-up Hepatitis panel Negative (5) Swelling of both lower extremities: Plan: -Unclear etiology at this time -Patient is not overloaded on the rest of his exam Echo showed normal EF. Patient may have right heart failure due to obstructive sleep apnea Patient also has cirrhosis which could lead to swelling of his legs. (6) TIA (transient ischemic attack): Plan: -Patient reports he is on 325 mg of Aspirin daily for this, seems like an odd dose -We do not have previous records Per cardiology recommendation, discontinued aspirin since the patient is now anticoagulation for atrial fibrillation (7) HTN (hypertension): Plan: -Stable -Can continue metoprolol (8) HLD (hyperlipidemia): Plan: -Continue statin (9) Acute kidney injury: Plan: unknown baseline creatinine creatinine increased to 1.9. Now coming down to 1.6 today. Nephrology consulted Could be contrast-induced Volume status seems to be acceptable today We will hold off on further diuretics including p.o. torsemide Home dose. Monitor BMP closely Admission and Anticipated Discharge Date Admission Date: April 12, 2023 Subjective patient has a subjective feeling of shortness of breath, especially on exertion. per daughter, he has issues with anxiety. No orthopnea or PND. Not hypoxic. Denies chest pain. Review of Systems Review of Systems: All systems reviewed & are unremarkable except as noted in Subjective Physical Exam Physical Exam: General: Awake, conversant Heart: S1, S2/regular rate and rhythm, no murmur rubs or gallops Lungs: Clear to auscultation bilaterally. Normal effort Abdomen: Soft/nontender/nondistended. No hepatosplenomegaly Extremities: No clubbing/cyanosis. 1+ bilateral pitting edema Behavior: Appropriate, cooperative Results & Data Results & Data Vital Signs (Past 12 Hours) Vital Signs Temp Pulse Pulse Resp BP Pulse Ox O2 Del Method 04/15/23 10:24 58 L 04/15/23 07:39 36.8 C 71 14 135/84 97 Room Air 04/15/23 03:38 36.3 C L 62 18 114/77 97 Nasal Cannula 04/15/23 00:19 37.0 C 60 18 111/65 98 Nasal Cannula O2 Flow Rate 04/15/23 10:24 04/15/23 07:39 04/15/23 03:38 2 04/15/23 00:19 Laboratory Results Abnormal lab results 04/14/23 04/15/23 Range/Units 17:12 05:37 RBC 4.31 L (4.70-6.10) M/uL Hgb 13.2 L (14.0-18.0) g/dl Hct 39.2 L (42.0-52.0) % RDW Std Deviation 50.0 H (36.4-46.3) fL RDW Coeff of Fernando 15.0 H (11.5-14.5) % Plt Count 88 L (130-400) K/uL [place] # (Auto) 0.94 H (0.11-0.59) K/uL PT 14.0 H (9.0-12.0) Seconds INR 1.3 H (0.9-1.1) APTT 59.3 H* (21.0-31.0) Seconds Sodium 130 L 130 L (136-145) mmol/L Chloride 97 L (98-107) mmol/L BUN 57 H 57 H (6-23) mg/dl Creatinine 1.95 H 1.64 H D (0.6-1.4) mg/dl BUN/Creatinine Ratio 29.2 H 34.8 H (10-20) Glucose 116 H (70-99(Fasting)) mg/dl Calcium 8.3 L (8.6-10.3) mg/dl AST 89 H (13-39) U/L ALT 128 H (7-52) U/L Alkaline Phosphatase 175 H (34-104) U/L Total Protein 5.7 L (6.0-8.3) gm/dl Globulin 2.3 L (2.5-4.0) gm/dl PG Care Time/CCT Total # of Minutes Spent Total Time Spent with Patient: Total time spent is greater than 50% in coordination of care (as documented) at patient's floor/unit and/or counseling patient: Coding Level of Care Code 40217 SUB INP/OBS CARE 2/35MIN Diagnoses A-fib I48.91 Atrial fibrillation type: unspecified Hyperkalemia E87.5 PRINCE (dyspnea on exertion) R06.09 Thrombocytopenia D69.6 Swelling of both lower extremities M79.89 TIA (transient ischemic attack) G45.9 HTN (hypertension) I10 HLD (hyperlipidemia) E78.5 Acute kidney injury N17.9 (1) A-fib Atrial fibrillation type: unspecified Qualified Code(s): I48.91 - Unspecified atrial fibrillation
--- NOTE | 2023-04-15 12:33 | Nephrology Progress Note ---
Date of Service April 15, 2023 Assessment & Plan (1) Acute kidney injury: (2) Hyperkalemia: (3) HTN (hypertension): (4) Swelling of both lower extremities: Plan 88 y o M with unknown baseline renal function, admitted to the hospital on 04/12/23 with c/o weakness and dyspnea. Noted to have hyperkalemia, potassium was 6.3 but creatinine was 1.3. He reports taking Aleve at home for right hip pain urinalysis and renal ultrasound was otherwise unremarkable. CXR was negat magy for infiltrate. CT angiogram of the chest was negative for PE. ECG revealed new onset atrial fibrillation and echocardiogram revealed LVEF 40-50%, severe dilation of both atria, moderate to severe mitral regurgitation. He received 40 of IV Lasix on admission. Recently he was seen by his PCP for progressive lower extremity edema and received 2 dose of torsemide which made him feel dizzy and lightheaded and he stopped taking those. Renal function progressively worsened over 2 days with creatinine up to 2.0, VERONICA most likely hemodynamically mediated with NSAID use, IV contrast exposure. C reatinine started to improve, down to 1.6 this morning. Has been off of diuretics. Breathing comfortably, no LE edema or pulmonary congestion. -- Continue to monitor renal function, keep well-hydrated, avoid all NSAIDs. -- Continue to hold diuretics for now, if urine output low or weight gain suggest to start on Lasix 20 mg and increase dose as needed Admission and Anticipated Discharge Date Admission Date: April 12, 2023 Padma Mcdaniel was seen and evaluated with his daughter Gerri at bedside. He reports overall feeling slightly better today. Has been voiding normally. Denies shortness of breath or chest pain. Blood pressure stable. Renal function slightly improved, creatinine down to 1.6, potassium normalized. Review of Systems Review of Systems: Detailed review of system was done and pertinent positives and negatives were mentioned above. Physical Exam Constitutional: WD/WN, vitals as above no acute distress Eyes: + anicteric sclerae Neck: normal visual inspection Respiratory: no respiratory distress Auscultation: lungs clear to auscultation bilaterally Cardiovascular: RRR, no murmur, no edema Skin: no rashes, warm and dry Neurologic: no focal motor deficits Psychiatric: Orientation: alert and oriented x 3 Results & Data Vital Signs (Past 12 Hours) Vital Signs Temp Pulse Pulse Resp BP Pulse Ox O2 Del Method 04/15/23 12:11 36.3 C L 67 14 104/69 97 Nasal Cannula 04/15/23 10:24 58 L 04/15/23 07:39 36.8 C 71 14 135/84 97 Room Air 04/15/23 03:38 36.3 C L 62 18 114/77 97 Nasal Cannula O2 Flow Rate 04/15/23 12:11 2 04/15/23 10:24 04/15/23 07:39 04/15/23 03:38 2 PG Care Time/CCT Total # of Minutes Spent Total Time Spent with Patient: Total time spent is greater than 50% in coordination of care (as documented) at patient's floor/unit and/or counseling patient: Coding Level of Care Code 77252 SUB INP/OBS CARE 2/35MIN Diagnoses Acute kidney injury N17.9 Hyperkalemia E87.5 HTN (hypertension) I10 Swelling of both lower extremities M79.89
[2023-04-15] MEDS: MIRTAZAPINE TAB 15 MG TAB PO PRN (20:07)
[2023-04-15] MEDS: TAMSULOSIN HCL 0.4 MG CAP PO SCH (20:07)
[2023-04-16] MEDS: HEPARIN SODIUM/DEXTROSE 25,000 UNITS/500 ML BAG IV SCH (06:11)
[2023-04-16 07:35] LABS: Partial Thromboplastin Ratio 1.9
[2023-04-16 07:41] LABS: Partial Thromboplastin Time 54.3 Seconds (21.0-31.0)
[2023-04-16 08:46] LABS: BUN Creatinine Ratio 32.1 (10-20); Calcium 8.2 mg/dl (8.6-10.3); Creatinine Clr Calc Pharmacy 35.2 ml/min; Est GFR (Non-African American) 37.1 ml/min; Hemoglobin 13.3 g/dl (14.0-18.0); Mean Corpuscular Hemoglobin 30.6 pg (25.0-34.0); Mean Corpuscular Hgb Conc 33.3 g/dL (32.0-36.0); Nucleated RBC # (auto) 0.03 K/uL (0.00-0.12); Nucleated RBC % (auto) 0.3 %; Platelet Count 91 K/uL (130-400); Potassium 4.2 mmol/L (3.5-5.1); RDW Standard Deviation 50.3 fL (36.4-46.3); Red Blood Count 4.35 M/uL (4.70-6.10); White Blood Count 9.48 K/ul (4.8-10.8)
[2023-04-16] MEDS: METOPROLOL TARTRATE 50 MG TAB PO SCH ×2 (08:53→20:09)
--- NOTE | 2023-04-16 12:11 | Nephrology Progress Note ---
Date of Service April 16, 2023 Assessment & Plan (1) Acute kidney injury: (2) Hyperkalemia: (3) HTN (hypertension): (4) Swelling of both lower extremities: Plan 88 y o M with unknown baseline renal function, admitted to the hospital on 04/12/23 with c/o weakness and dyspnea. Noted to have hyperkalemia, potassium was 6.3 but creatinine was 1.3. He reports taking Aleve at home for right hip pain urinalysis and renal ultrasound was otherwise unremarkable. CXR was negat magy for infiltrate. CT angiogram of the chest was negative for PE. ECG revealed new onset atrial fibrillation and echocardiogram revealed LVEF 40-50%, severe dilation of both atria, moderate to severe mitral regurgitation. He received 40 of IV Lasix on admission. Recently he was seen by his PCP for progressive lower extremity edema and received 2 dose of torsemide which made him feel dizzy and lightheaded and he stopped taking those. Renal function progressively worsened over 2 days with creatinine up to 2.0, VERONICA most likely hemodynamically mediated with NSAID use, IV contrast exposure. C reatinine started to improve, down to 1.6 this morning. Has been off of diuretics. Breathing comfortably, no LE edema or pulmonary congestion. Renal function staying somewhat stable, creatinine 1.6 mg/dl, sodium slightly improved to 131 -- Continue to monitor renal function and electrolyte, keep well-hydrated, avoid all NSAIDs. -- Continue to hold diuretics for now, if urine output low or weight gain suggest to start on Lasix 20 mg and increase dose as needed Admission and Anticipated Discharge Date Admission Date: April 12, 2023 Padma Mcdaniel was seen and evaluated with his family at bedside. Clinically relatively stable, no overnight events however generally not feeling that well today but denies shortness of breath or chest pain. Blood pressure stable. Renal function relatively stable, creatinine 1.6 mg/dl, potassium normalized. Review of Systems Review of Systems: Detailed review of system was done and pertinent positives and negatives were mentioned above. Physical Exam Constitutional: WD/WN, vitals as above no acute distress Eyes: + anicteric sclerae Neck: normal visual inspection Respiratory: no respiratory distress Auscultation: lungs clear to auscultation bilaterally Cardiovascular: RRR, no murmur, no edema Skin: no rashes, warm and dry Neurologic: no focal motor deficits Psychiatric: Orientation: alert and oriented x 3 Results & Data Vital Signs (Past 12 Hours) Vital Signs Temp Pulse Resp BP Pulse Ox O2 Del Method O2 Flow Rate 04/16/23 12:05 36.9 C 70 18 117/73 96 Room Air 04/16/23 08:00 Nasal Cannula 2 04/16/23 07:41 36.8 C 70 16 120/75 98 Nasal Cannula 2 04/16/23 03:57 36.8 C 49 L 18 144/84 H 98 Nasal Cannula PG Care Time/CCT Total # of Minutes Spent Total Time Spent with Patient: Total time spent is greater than 50% in coordination of care (as documented) at patient's floor/unit and/or counseling patient: Coding Level of Care Code 24786 SUB INP/OBS CARE 2/35MIN Diagnoses Acute kidney injury N17.9 Hyperkalemia E87.5 HTN (hypertension) I10 Swelling of both lower extremities M79.89
--- NOTE | 2023-04-16 12:45 | Hospitalist Progress Note ---
Date of Service April 16, 2023 Assessment & Plan (1) A-fib: Plan: -Currently rate controlled, hemodynamically stable, stable on RA, and asymptomatic at rest -Noted to be in afib in the ED, no apparent previous history [id number] score 5 On heparin drip, will switch to oral anticoagulation 2.5 mg p.o. twice daily (lower dose given age and renal failure ( Per cardiology recommendation, stopped aspirin (2) Hyperkalemia: Plan: -Noted to be 6.3 in the ED Now improved to 4.2 -Unsure of the exact etiology at this time -Unsure of his baseline Cr as we do not have previous labs in our system -S/P calcium gluconate, insulin, and lasix in the ED Could have been related to NSAID exposure at home (3) PRINCE (dyspnea on exertion): Plan: -Patient has been experiencing progressive PRINCE with his normal activities over the past few months -No previous hx of cardiac disease but does have concerning family hx -TTE reviewed Cardiology is not convinced that he has CHF and does not recommend cardiac catheterization Cardiology recommends outpatient follow-up CTA chest negative for PE. Could be secondary to deconditioning versus underlying cirrhosis. Anxiety could be playing a role as well, per daughter. No orthopnea or PND. No hypoxia. (4) Thrombocytopenia: Plan: Ultrasound of the liver showed cirrhosis This most likely explains his thrombocytopenia and leg swelling He will need outpatient GI referral Hepatitis panel Negative (5) Swelling of both lower extremities: Plan: -Unclear etiology at this time -Patient is not overloaded on the rest of his exam Echo showed normal EF. Patient may have right heart failure due to obstructive sleep apnea Patient also has cirrhosis which could lead to swelling of his legs. (6) TIA (transient ischemic attack): Plan: -Patient reports he is on 325 mg of Aspirin daily for this, seems like an odd dose -We do not have previous records Per cardiology recommendation, discontinued aspirin since the patient is now anticoagulation for atrial fibrillation (7) HTN (hypertension): Plan: -Stable -Can continue metoprolol (8) HLD (hyperlipidemia): Plan: -Continue statin (9) Acute kidney injury: Plan: unknown baseline creatinine creatinine increased to 2. Now coming down and seems to have stabilized at 1.6 today. Nephrology consulted Could be contrast-induced versus NSAID related Volume status seems to be acceptable today We will hold off on further diuretics including p.o. torsemide home dose. Monitor BMP closely Plan deconditioning: Consult PT/OT Admission and Anticipated Discharge Date Admission Date: April 12, 2023 Subjective Patient still complains of shortness of breath on exertion. He says that he is very weak in general. Review of Systems Review of Systems: All systems reviewed & are unremarkable except as noted in Subjective Physical Exam Physical Exam: General: Awake, conversant Heart: S1, S2/regular rate and rhythm, no murmur rubs or gallops Lungs: Clear to auscultation bilaterally. Normal effort Abdomen: Soft/nontender/nondistended. No hepatosplenomegaly Extremities: No clubbing/cyanosis. 1+ bilateral pitting edema Behavior: Appropriate, cooperative Results & Data Results & Data Vital Signs (Past 12 Hours) Vital Signs Temp Pulse Resp BP Pulse Ox O2 Del Method O2 Flow Rate 04/16/23 12:05 36.9 C 70 18 117/73 96 Room Air 04/16/23 08:00 Nasal Cannula 2 04/16/23 07:41 36.8 C 70 16 120/75 98 Nasal Cannula 2 04/16/23 03:57 36.8 C 49 L 18 144/84 H 98 Nasal Cannula Laboratory Results Abnormal lab results 04/16/23 04/16/23 Range/Units 05:26 08:01 RBC 4.35 L (4.70-6.10) M/uL Hgb 13.3 L (14.0-18.0) g/dl Hct 40.0 L (42.0-52.0) % RDW Std Deviation 50.3 H (36.4-46.3) fL RDW Coeff of Fernando 15.0 H (11.5-14.5) % Plt Count 91 L (130-400) K/uL MPV 13.0 H (9.4-12.4) fL APTT 54.3 H* (21.0-31.0) Seconds Sodium 131 L (136-145) mmol/L Chloride 97 L (98-107) mmol/L BUN 52 H (6-23) mg/dl Creatinine 1.62 H (0.6-1.4) mg/dl BUN/Creatinine Ratio 32.1 H (10-20) Calcium 8.2 L (8.6-10.3) mg/dl PG Care Time/CCT Total # of Minutes Spent Total Time Spent with Patient: Total time spent is greater than 50% in coordination of care (as documented) at patient's floor/unit and/or counseling patient: Coding Level of Care Code 85016 SUB INP/OBS CARE 2/35MIN Diagnoses A-fib I48.91 Atrial fibrillation type: unspecified Hyperkalemia E87.5 PRINCE (dyspnea on exertion) R06.09 Thrombocytopenia D69.6 Swelling of both lower extremities M79.89 TIA (transient ischemic attack) G45.9 HTN (hypertension) I10 HLD (hyperlipidemia) E78.5 Acute kidney injury N17.9 (1) A-fib Atrial fibrillation type: unspecified Qualified Code(s): I48.91 - Unspecified atrial fibrillation
[2023-04-16] MEDS: TAMSULOSIN HCL 0.4 MG CAP PO SCH (20:08)
[2023-04-16] MEDS: MIRTAZAPINE TAB 15 MG TAB PO PRN (20:09)
[2023-04-16] MEDS: APIXABAN 2.5 MG TAB PO SCH (20:09)
[2023-04-16 23:17] LABS: Babesia microti DNA Not Detected (Not Detected)
[2023-04-17] MEDS: HEPARIN SODIUM/DEXTROSE 25,000 UNITS/500 ML BAG IV SCH (06:03)
[2023-04-17 07:29] LABS: Creatinine Clr Calc Pharmacy 42.7 ml/min; Est GFR (African American) 51.7 ml/min; Est GFR (Non-African American) 44.6 ml/min
[2023-04-17] MEDS: APIXABAN 2.5 MG TAB PO SCH (08:50)
[2023-04-17] MEDS: METOPROLOL TARTRATE 50 MG TAB PO SCH ×2 (08:51→20:30)
[2023-04-17 09:43] LABS: BUN Creatinine Ratio 31.7 (10-20); Calcium 8.3 mg/dl (8.6-10.3); Potassium 4.2 mmol/L (3.5-5.1)
--- NOTE | 2023-04-17 10:37 | Nephrology Progress Note ---
Date of Service April 17, 2023 Assessment & Plan (1) Acute kidney injury: (2) Hyperkalemia: (3) HTN (hypertension): (4) Swelling of both lower extremities: Plan 88 y o M with unknown baseline renal function, admitted to the hospital on 04/12/23 with c/o weakness and dyspnea. Noted to have hyperkalemia, potassium was 6.3 but creatinine was 1.3. He reports taking Aleve at home for right hip pain urinalysis and renal ultrasound was otherwise unremarkable. CXR was negat magy for infiltrate. CT angiogram of the chest was negative for PE. ECG revealed new onset atrial fibrillation and echocardiogram revealed LVEF 40-50%, severe dilation of both atria, moderate to severe mitral regurgitation. He received 40 of IV Lasix on admission. Recently he was seen by his PCP for progressive lower extremity edema and received 2 dose of torsemide which made him feel dizzy and lightheaded and he stopped taking those. Renal function progressively worsened over 2 days with creatinine up to 2.0, VERONICA most likely hemodynamically mediated with NSAID use, IV contrast exposure. C reatinine started to improve, down to 1.6 this morning. Has been off of diuretics. Breathing comfortably, no LE edema or pulmonary congestion. Renal function improved, creatinine 1.4 mg/dl, sodium around 130 to 131 -- Continue to monitor renal function and electrolyte, keep well-hydrated, avoid all NSAIDs. -- Continue to hold diuretics for now, if urine output low or weight gain suggest to start on Lasix 20 mg and increase dose as needed Will sign off. Thanks for the consult, please contact if further assistance needed. Admission and Anticipated Discharge Date Admission Date: April 12, 2023 Padma Mcdaniel was seen and evaluated with his family at bedside. Overall doing better, participated with physical therapy this morning, walked around the room without using a walker, no overnight events, denies shortness of breath or chest pain. Blood pressure stable. Renal function improevd, cr 1.4 mg/dl, close to baseline, potassium normalized. Review of Systems Review of Systems: Detailed review of system was done and pertinent positives and negatives were mentioned above. Physical Exam Constitutional: WD/WN, vitals as above no acute distress Eyes: + anicteric sclerae Neck: normal visual inspection Respiratory: no respiratory distress Auscultation: lungs clear to auscultation bilaterally Cardiovascular: RRR, no murmur, no edema Skin: no rashes, warm and dry Neurologic: no focal motor deficits Psychiatric: Orientation: alert and oriented x 3 Results & Data Vital Signs (Past 12 Hours) Vital Signs Temp Pulse Pulse Resp BP Pulse Ox O2 Del Method 04/17/23 08:55 36.4 C L 70 18 125/73 97 Nasal Cannula 04/17/23 04:00 36.6 C 68 18 121/71 99 Nasal Cannula 04/17/23 00:00 36.5 C 74 18 120/71 99 Nasal Cannula 04/16/23 23:53 76 O2 Flow Rate 04/17/23 08:55 3 04/17/23 04:00 3 04/17/23 00:00 3 04/16/23 23:53 PG Care Time/CCT Total # of Minutes Spent Total Time Spent with Patient: Total time spent is greater than 50% in coordination of care (as documented) at patient's floor/unit and/or counseling patient: Coding Level of Care Code 45945 SUB INP/OBS CARE 2/35MIN Diagnoses Acute kidney injury N17.9 Hyperkalemia E87.5 HTN (hypertension) I10 Swelling of both lower extremities M79.89
--- NOTE | 2023-04-17 16:20 | Hospitalist Progress Note ---
Date of Service April 17, 2023 Assessment & Plan (1) A-fib: Plan: Noted to be in afib in the ED, no apparent previous history [id number] score 5 Could be causing his subjective PRINCE despite no hypoxia, remains rate controlled Started ELiquis and increase to 5mg po bid for improved renal function Per cardiology recommendation, stopped aspirin although I believe he was on this for a h/o TIA? 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 torsemide home dose.Nephro recs lasix prn weight gain. peripheral edema improving today Monitor BMP closely (4) PRINCE (dyspnea on exertion): Plan: -Patient has been experiencing progressive PRINCE with his normal activities over the past few months -No previous hx of cardiac disease but does have concerning family hx -TTE with right sided HF and mod-severe MR, EF 40-45% CTA chest negative for PE Could be secondary to deconditioning versus underlying cirrhosis. Anxiety could be playing a role as well, per daughter. No orthopnea or PND. No hypoxia. -add on overnight pOx as has a h/o DENZEL but could not tolerate CPAP -continue to rate control Afib and consider DCCV in a few weeks, f/u with Cardiology (5) Thrombocytopenia: Plan: WIth Ultrasound of the liver showing cirrhosis This most likely explains his thrombocytopenia and leg swelling, elevated LFTs, INR He will need outpatient GI referral Hepatitis panel negative but reports a h/o Hepatitis Has some EtOH use but not heavy-counseled on cessation COuld be from [facility] Follow CBC closely while on ELiquis (plts 90s) (6) Swelling of both lower extremities: Plan: Likely from right sided heart failure, MR, and cirrhosis Patient may have right heart failure due to obstructive sleep apnea untreated Diuretics low dose prn (7) TIA (transient ischemic attack): Plan: -Patient reports he is on 325 mg of Aspirin daily for this -We do not have previous records Per cardiology recommendation, discontinued aspirin since the patient is now anticoagulation for atrial fibrillation (8) HTN (hypertension): Plan: -Stable -Can continue metoprolol (9) HLD (hyperlipidemia): Plan: -Continue statin (10) Paronychia of finger: Plan: start warm water soaks and AUgmentin, may need to be drained (11) Cirrhosis: Plan: as noted above, new dx, needs outpt GI follow up avoid spironolactone for now given hyperkalemia Plan DVT proph-ELiquis Dispo-continued stay, awaiting possible rehab placement Admission and Anticipated Discharge Date Admission Date: April 12, 2023 Subjective Pt still feeling SOB with any exertion but is a little better today. Had 2 step walk test which showed he does not require supplemental O2 but he feels better with it on. Reports his leg swelling is much improved. Has left middle finger swelling and redness x 1 week Tele with Afib, rates controlled in 60-70s Physical Exam Constitutional: WD/WN, vitals as above Respiratory: normal respiratory effort, lungs clear to auscultation Cardiovascular: Rate/Rhythm: regular rate and + irregularly irregular Heart Sounds: + murmur (2/6 systolic murmur at apex) Extremities: + edema (1+ pitting edema legs bilat to knees) Gastrointestinal (Abdomen): normal bowel sounds, soft, nontender, no hepatosplenomegaly Skin: multiple small scabs on legs Left middle finger with paronychia, erythema, fluctuance next to fingernail Psychiatric: A+Ox3, euthymic affect Results & Data Results & Data Vital Signs (Past 12 Hours) Vital Signs Temp Pulse Pulse Pulse Resp Resp Resp 04/17/23 14:56 04/17/23 14:00 04/17/23 12:19 75 68 22 18 04/17/23 08:55 36.4 C L 70 18 04/17/23 08:00 BP Pulse Ox Pulse Ox Pulse Ox Pulse Ox Pulse Ox O2 Del Method 04/17/23 14:56 97 04/17/23 14:00 94 04/17/23 12:19 95 97 04/17/23 08:55 125/73 97 Nasal Cannula 04/17/23 08:00 Nasal Cannula O2 Del Method O2 Flow Rate O2 Flow Rate O2 Flow Rate 04/17/23 14:56 3 04/17/23 14:00 Nasal Cannula 1.5 04/17/23 12:19 04/17/23 08:55 3 04/17/23 08:00 3 Laboratory Results CBC, CMP, CK, TSH reviewed PG Care Time/CCT Total # of Minutes Spent Total Time Spent with Patient: Total time spent is greater than 50% in coordination of care (as documented) at patient's floor/unit and/or counseling patient: Coding Level of Care Code 58564 SUB INP/OBS CARE 350MIN Diagnoses A-fib I48.91 Atrial fibrillation type: unspecified Hyperkalemia E87.5 Acute kidney injury N17.9 PRINCE (dyspnea on exertion) R06.09 Thrombocytopenia D69.6 Swelling of both lower extremities M79.89 TIA (transient ischemic attack) G45.9 HTN (hypertension) I10 HLD (hyperlipidemia) E78.5 Paronychia of finger L03.019 Cirrhosis K74.60 (1) A-fib Atrial fibrillation type: unspecified Qualified Code(s): I48.91 - Unspecified atrial fibrillation
[2023-04-17] MEDS: AMOXICILLIN/CLAVULANATE 875 MG TAB PO SCH (18:26)
[2023-04-17] MEDS: MAGNESIUM SULFATE CRYSTALS 227 GM CRT EXT SCH (20:29)
[2023-04-17] MEDS: APIXABAN 5 MG TABLET PO SCH (20:31)
[2023-04-17] MEDS: TAMSULOSIN HCL 0.4 MG CAP PO SCH (20:31)
[2023-04-18] MEDS: AMOXICILLIN/CLAVULANATE 875 MG TAB PO SCH ×2 (09:01→17:03)
[2023-04-18] MEDS: APIXABAN 5 MG TABLET PO SCH ×2 (09:01→19:51)
[2023-04-18] MEDS: METOPROLOL TARTRATE 50 MG TAB PO SCH ×2 (09:02→19:50)
[2023-04-18 10:35] LABS: Albumin Globulin Ratio 1.5 (0.9-2); Albumin Level 3.9 gm/dl (3.4-5.0); BUN Creatinine Ratio 30.2 (10-20); Bilirubin,Total 1.6 mg/dl (0.2-1.0); Calcium 8.7 mg/dl (8.6-10.3); Creatinine Clr Calc Pharmacy 47.1 ml/min; Est GFR (African American) 58.2 ml/min; Est GFR (Non-African American) 50.2 ml/min; Globulin 2.6 gm/dl (2.5-4.0); Magnesium 2.2 mg/dl (1.7-2.4); Potassium 4.4 mmol/L (3.5-5.1); Total Protein 6.5 gm/dl (6.0-8.3)
[2023-04-18] MEDS: FUROSEMIDE 20 MG TAB PO SCH (14:29)
[2023-04-18] MEDS: MAGNESIUM SULFATE CRYSTALS 227 GM CRT EXT SCH (15:48)
--- NOTE | 2023-04-18 18:18 | Hospitalist Progress Note ---
Date of Service April 18, 2023 Assessment & Plan (1) A-fib: Plan: Noted to be in afib in the ED, no apparent previous history [id number] score 5 Could be causing his subjective PRINCE despite no hypoxia, remains rate controlled Started ELiquis 5mg po bid Per cardiology recommendation, stopped aspirin although I believe he was on this for a h/o TIA? 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 now continues to improve down to 1.2 -also with worsening hyponatremia down to 129 Nephrology consulted Could be contrast-induced versus NSAID related -Nephro recs lasix prn weight gain but with worsening hyponatremia likely from some volume overload from cirrhosis, right sided HF--> start lasix 20mg po daily Monitor BMP closely (4) PRINCE (dyspnea on exertion): Plan: -Patient has been experiencing progressive PRINCE with his normal activities over the past few months -No previous hx of cardiac disease but does have concerning family hx -TTE with right sided HF and mod-severe MR, EF 40-45% CTA chest negative for PE -COVID/Flu/RSV negative on admission Could be secondary to deconditioning versus underlying cirrhosis vs afib. Anxiety could be playing a role as well, per daughter. No orthopnea or PND. No hypoxia with 2 step walk test -overnight pOx did show hypoxia<88% for 29 min through the night--> he does have a h/o DENZEL but could not tolerate CPAP--> should have 2LNC O2 hs -continue to rate control Afib and consider DCCV in a few weeks, f/u with Cardiology (5) Thrombocytopenia: Plan: WIth Ultrasound of the liver showing cirrhosis This most likely explains his thrombocytopenia and leg swelling, elevated LFTs, INR He will need outpatient GI referral Hepatitis panel negative but reports a h/o Hepatitis Has some EtOH use but not heavy-counseled on cessation COuld be from [facility] Follow CBC closely while on ELiquis (plts 90s) (6) Swelling of both lower extremities: Plan: Likely from right sided heart failure, MR, and cirrhosis Patient may have right heart failure due to obstructive sleep apnea untreated Diuretics low dose (7) TIA (transient ischemic attack): Plan: -Patient reports he is on 325 mg of Aspirin daily for this -We do not have previous records Per cardiology recommendation, discontinued aspirin since the patient is now anticoagulation for atrial fibrillation (8) HTN (hypertension): Plan: -Stable -Can continue metoprolol (9) HLD (hyperlipidemia): Plan: -Continue statin (10) Paronychia of finger: Plan: improving but fluctuance remains -continue warm water soaks and AUgmentin, may need to be drained (11) Cirrhosis: Plan: as noted on liver US, new dx, needs outpt GI follow up avoid spironolactone for now given hyperkalemia starting lasix as above LFTs elevated but no abd pain, GB no cholecystitis noted Plan DVT proph-ELiquis Dispo-medically stable for discharge, awaiting rehab placement Admission and Anticipated Discharge Date Admission Date: April 12, 2023 Subjective Still feels very fatigued, low appetite, some PRINCE. Moving bowels, no abd pains, no nausea. Tele with Afib, rates 60-70s Physical Exam Constitutional: WD/WN, vitals as above Respiratory: normal respiratory effort, lungs clear to auscultation Cardiovascular: Rate/Rhythm: regular rate and + irregularly irregular Heart Sounds: + murmur (2/6 systolic murmur at apex) Extremities: no edema (resolved) Gastrointestinal (Abdomen): normal bowel sounds, soft, nontender, no hepatosplenomegaly Skin: left middle finger with less erythema and swelling medial side of distal phalanx Psychiatric: A+Ox3, euthymic affect Results & Data Results & Data Vital Signs (Past 12 Hours) Vital Signs Temp Pulse Pulse Resp BP Pulse Ox Pulse Ox 04/18/23 16:29 69 04/18/23 15:18 36.3 C L 66 18 106/66 93 04/18/23 14:00 92 04/18/23 11:15 36.4 C L 68 18 116/70 97 04/18/23 07:43 36.5 C 72 18 132/89 92 O2 Del Method O2 Del Method 04/18/23 16:29 04/18/23 15:18 Room Air 04/18/23 14:00 Room Air 04/18/23 11:15 Room Air 04/18/23 07:43 Room Air Laboratory Results CMP, magnesium reviewed PG Care Time/CCT Total # of Minutes Spent Total Time Spent with Patient: Total time spent is greater than 50% in coordination of care (as documented) at patient's floor/unit and/or counseling patient: Coding Level of Care Code 09003 SUB INP/OBS CARE 2/35MIN Diagnoses A-fib I48.91 Atrial fibrillation type: unspecified Hyperkalemia E87.5 Acute kidney injury N17.9 PRINCE (dyspnea on exertion) R06.09 Thrombocytopenia D69.6 Swelling of both lower extremities M79.89 TIA (transient ischemic attack) G45.9 HTN (hypertension) I10 HLD (hyperlipidemia) E78.5 Paronychia of finger L03.019 Cirrhosis K74.60 (1) A-fib Atrial fibrillation type: unspecified Qualified Code(s): I48.91 - Unspecified atrial fibrillation
[2023-04-18] MEDS: TAMSULOSIN HCL 0.4 MG CAP PO SCH (19:51)
[2023-04-18] MEDS: MIRTAZAPINE TAB 15 MG TAB PO PRN (19:51)
[2023-04-18] MEDS ORDERED: ONDANSETRON INJ 2 MG/ML 2 ML VIAL IV PRN (22:59)
[2023-04-19 05:00] VITALS: RESP 18
[2023-04-19 06:57] LABS: Basophils # (auto) 0.03 K/uL (0.00-0.20); Basophils % (auto) 0.3 %; Eosinophils # (auto) 0.15 K/uL (0.00-0.50); Eosinophils % (auto) 1.7 %; Hematocrit (blood only) 40.1 % (42.0-52.0); Hemoglobin 13.4 g/dl (14.0-18.0); Immature Granulocytes # (auto) 0.09 K/uL (0.01-0.20); Lymphocytes # (auto) 1.67 K/uL (1.20-3.40); Lymphocytes % (auto) 19.2 %; Mean Corpuscular Hemoglobin 30.5 pg (25.0-34.0); Mean Corpuscular Hgb Conc 33.4 g/dL (32.0-36.0); Mean Corpuscular Volume 91.3 fL (80.0-100.0); Mean Platelet Volume 11.9 fL (9.4-12.4); Monocytes # (auto) 0.82 K/uL (0.11-0.59); Monocytes % (auto) 9.4 %; Neutrophils # (auto) 5.92 K/uL (1.40-6.50); Neutrophils % (auto) 68.4 %; Platelet Count 95 K/uL (130-400); RDW Coefficient of Variation 15.6 % (11.5-14.5); RDW Standard Deviation 50.7 fL (36.4-46.3); Red Blood Count 4.39 M/uL (4.70-6.10); White Blood Count 8.68 K/ul (4.8-10.8)
[2023-04-19 07:17] LABS: Albumin Level 3.5 gm/dl (3.4-5.0); BUN Creatinine Ratio 27.2 (10-20); Bilirubin Direct 0.5 mg/dl (0-0.2); Bilirubin,Total 1.6 mg/dl (0.2-1.0); Calcium 8.4 mg/dl (8.6-10.3); Creatinine Clr Calc Pharmacy 46.8 ml/min; Est GFR (African American) 58.8 ml/min; Est GFR (Non-African American) 50.7 ml/min; Magnesium 2.2 mg/dl (1.7-2.4); Potassium 4.6 mmol/L (3.5-5.1); Total Protein 5.8 gm/dl (6.0-8.3)
[2023-04-19] MEDS: AMOXICILLIN/CLAVULANATE 875 MG TAB PO SCH (07:54)
[2023-04-19] MEDS: APIXABAN 5 MG TABLET PO SCH (07:55)
[2023-04-19] MEDS: FUROSEMIDE 20 MG TAB PO SCH (07:55)
[2023-04-19] MEDS: METOPROLOL TARTRATE 50 MG TAB PO SCH (07:55)
[2023-04-19 11:00] VITALS: PULSE 64; TEMP 97.7; O2SAT 96
--- NOTE | 2023-04-19 12:10 | Discharge Summary ---
Discharge Summary Date of Service April 19, 2023 Notes For Next Care Provider Needs Cardiology f/u for possible cardioversion in 2-3 weeks Needs nocturnal O2 at 2LNC Medication Changes From Visit Started Eliquis 5mg po bid Started lasix 20mg po daily and STOPPED home torsemide Stopped ASA 325mg daily Started Augmentin 875mg po bid x 5 more days Admission HPI Per Admitting Provider Stephen is an 88 year old male with a PMH significant for HTN, Hyperlipidemia, TIA in 2019, previous hepatitis infection approximately 50 yrs ago (states he was treated at [facility]) who presented to the [facility] ED on 04/12 with complaints of generalized weakness and SOB. In the ED he was noted to be be hemodynamically stable. It appears that he was placed on 4L NC on arrival but without documented hypoxia. Labs were significant for a platelet count of 96, lymphocyte count of 0.76, INR of 1.2, D-dimer of 940, potassium of 6.3, initial high sen trop of 24 of 2 hour repeat of 27, BNP of 338 (no previous value to compare to), and covid 19/influenza/RSV negative. Chest xray was read as "Cardiomegaly with no acute cardiopulmonary abnormality identified.". CTA of the chest with PE protocol was read as "1. No acute pulmonary embolism. 2. No focal infiltrate, pleural effusion, or pneumothorax.". ECG today shows new onset atrial fibrillation. Prior to admission the patient was given 1gm IV calcium gluconate, 40 mg IV lasix, 10 units IV inuslin, 324 mg Aspirin, and was started on a heparin drip. At the time of the exam the patient was lying in bed in no acute distress, currently stable on RA. He states that he went to see his PCP this am as he has been having progressive PRINCE and LE swelling over the past few months. His PCP prescribed him torsemide at the end of the appointment. He took two tabs, approximately one hour later the patient states he had a dizzy spell where he felt very weak and diaphoretic. He denies the room spinning but states that he felt as though he could have passed out. He denies other neurologic symptoms, chest pain, heart palpitations, or SOB during this episode. He tells me that this is not the first time he has had a "spell" like this. He has had this occur approximately 4 other times over the past 2-3 months. Each episode occurs with activity. When asked if the torsemide made him urinate large amounts he states, "actually, no. I have not been urinating much over the past 2-3 days". He denies a hx of cardiac disease, DM, or CHF. When asked, he states that he has been getting significant SOB/PRINCE with his normal household activities such as going up his basement steps. It is getting to the point where he has to stop and take a rest with even his normal activities. His two uncles of HI's at the ages of 50 and 60, he does not believe that his father had heart disease. He denies a history of tobacco abuse and states that he drinks beer twice a week when he plays pool at the local bar. He currently feels well while resting in his bed. I noticed that he was prescribed a month long course of prednisone last month. He states his PCP put him on it for low energy and arthritis. He denies being told in the past that he has a hx of afib but was told in the past that he did not have a normal heart rhythm. He has had multiple tick bites in the past 2 years and has been treat at local hospitals when one is found. 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 Regarding his elevated potassium today; I asked if he was given a potassium supplement with his new prescription of torsemide. He states that he was not given one but was told by his PCP recently to decrease the number of bananas he eats daily. He was eating approximately 2-3 bananas before cutting back 2 months ago. He states he was hospitalized at [facility] for that episode. We discussed code status, he wishes to be a DNR/DNI and for his children to make medical decisions for him if he cannot make them himself. Please refer to Dr. Smith's attestation for any changes to the treatment plan Principal Dx & Hospital Course #1 = Principal Diagnosis (1) A-fib: Noted to be in afib in the ED, no apparent previous history [id number] score 5 Could be causing his subjective PRINCE despite no hypoxia, remains rate controlled on his home metoprolol Started ELiquis 5mg po bid Per cardiology recommendation, stopped aspirin -he was on this for a h/o TIA? Plan for f/u with Cardiology in 3-4 weeks and then possible cardioversion if remains in Afib (2) Hyperkalemia: -K+ Noted to be 6.3 in the ED, now resolved S/P calcium gluconate, insulin, and lasix -backer up normal at presentation but then did worsen after lasix, but K+ improved -Unsure of his baseline Cr as we do not have previous labs in our system -not on meds at home that would cause this -follow BMP in 3-5 days after discharge is now on lasix (3) Acute kidney injury: unknown baseline creatinine, creatinine increased to 2 after receiving IV lasix in ER, received torsemide x 1 dose as outpt--> backer up now continues to improve down to 1.2 and remains stable after starting lasix -also with worsening hyponatremia down to 129 and stable Nephrology consulted Could be contrast-induced versus NSAID related -Nephro recs lasix prn weight gain but with worsening hyponatremia likely from some volume overload from cirrhosis, right sided HF--> started lasix 20mg po daily and watch renal function, lytes no further peripheral edema Monitor BMP closely as outpt (4) PRINCE (dyspnea on exertion): -Patient has been experiencing progressive PRINCE with his normal activities over the past few months -No previous hx of cardiac disease -TTE with right sided HF and mod-severe MR, EF 40-45% CTA chest negative for PE -COVID/Flu/RSV negative on admission Could be secondary to deconditioning versus underlying cirrhosis vs afib and right sided HF. Anxiety could be playing a role as well, per daughter. No orthopnea or PND. No hypoxia with 2 step walk test -overnight pOx did show hypoxia<88% for 29 min through the night--> he does have a h/o DENZEL but could not tolerate CPAP--> should have 2LNC O2 hs -continue to rate control Afib and consider DCCV in a few weeks, f/u with Cardiology (5) Thrombocytopenia: WIth Ultrasound of the liver showing cirrhosis This most likely explains his thrombocytopenia and leg swelling, elevated LFTs, INR He will need outpatient GI referral Hepatitis panel negative but reports a h/o Hepatitis Has some EtOH use but not heavy-counseled on cessation COuld be from [facility] Follow CBC closely while on ELiquis (plts 90s) (6) Swelling of both lower extremities: Likely from right sided heart failure, MR, and cirrhosis-now resolved Patient may have right heart failure due to obstructive sleep apnea untreated Diuretics low dose (7) TIA (transient ischemic attack): -Patient reports he is on 325 mg of Aspirin daily for this -We do not have previous records Per cardiology recommendation, discontinued aspirin since the patient is now anticoagulation for atrial fibrillation (8) HTN (hypertension): -Stable -Can continue metoprolol (9) HLD (hyperlipidemia): -Continue statin (10) Paronychia of finger: improving but small amount residual fluctuance remains, skin open and draining now -continue warm salt water soaks and AUgmentin to finish ot 7 day course (11) Cirrhosis: as noted on liver US, new dx, needs outpt GI follow up avoid spironolactone for now given hyperkalemia on admission started lasix as above LFTs elevated but no abd pain, GB no cholecystitis noted Plan DVT proph-ELiquis Dispo-medically stable for discharge, for rehab placement Discharge Exam Constitutional WD/WN, vitals as above Respiratory normal respiratory effort, lungs clear to auscultation Cardiovascular Rate/Rhythm: regular rate and + irregularly irregular Heart Sounds: + murmur (2/6 systolic murmur at apex) Extremities: no edema (resolved) Gastrointestinal (Abdomen) normal bowel sounds, soft, nontender, no hepatosplenomegaly Skin left middle finger with small amount erythema and purulent drainage Psychiatric A+Ox3, euthymic affect Updated Medication List Medication Instructions Recorded Confirmed Type atorvastatin 80 mg tablet 80 mg PO QPM 04/12/23 04/12/23 History metoprolol tartrate 50 mg tablet 50 mg PO BID 04/12/23 04/12/23 History tamsulosin 0.4 mg capsule 0.8 mg PO HS 04/12/23 04/12/23 History amoxicillin 875 mg-potassium 1 tab PO BIDM #10 tabs 04/19/23 Rx clavulanate 125 mg tablet apixaban 5 mg tablet (Eliquis) 5 mg PO BID #60 tabs 04/19/23 Rx furosemide 20 mg tablet 20 mg PO QAM #30 tabs 04/19/23 Rx mirtazapine 15 mg tablet 15 mg PO HS #30 tabs 04/19/23 04/12/23 Rx Hospital Stay Data Consultations 04/12/23 20:18 ED Decision to Admit Stat 04/12/23 21:10 Consult Cardiology Routine 04/14/23 07:11 Consult Nephrology Routine Diagnostic Imagining Performed 04/12/23 17:46 CT angio chest PE protocol Stat 04/13/23 US liver Routine 04/14/23 16:17 US renal/blad retro comp Routine ECHO Pending Results Patient Have Any Pending Studies at Discharge: No Discharge Instructions Given to Patient (Per Discharging Provider) You were admitted with shortness of breath and had a number of tests to look for a cause. You were found to have atrial fibrillation which is an irregular rhythm of the heart. It is possible that the atrial fibrillation is what is causing you to feel short of breath even though your oxygen levels are normal. You do however need to wear oxygen at nighttime for your untreated sleep apnea which has led to some right sided congestive heart failure. You should wear 2L via the nasal cannula when you sleep. This will help to take some strain off of your heart. Please follow up with the [facility] in 2-3 weeks to discuss if you will need a cardioversion to shock your heart back to a normal rhythm to see if this improves your shortness of breath. Please remain on the blood thinner indefinitely to reduce your risk of stroke from atrial fibrillation. If you have any trouble with bleeding from anywhere, please call your doctor right away or return to the hospital. You were started on a low dose of a water pill called furosemide to reduce the swelling in your legs. Please have a CMP checked in 3-5 days at the rehab to check your sodium, potassium levels and your kidney function. You were found to have elevated liver blood tests and found to have cirrhosis of the liver on an ultrasound. This could be caused by your previous history of hepatitis. It is recommended that you get a GI referral to be seen in follow up as an outpatient and avoid all alcohol. For the infection of your finger, continue warm (salt water) soaks three times a day and finish out a course of the antibiotics. Call your Primary Care doctor if any of the following symptoms or problems start or get worse: * Shortness of breath or difficulty breathing * Wake up at night short of breath * Chest pain * Cough * Swelling of your hands, feet, or legs * More fatigued or tired with your normal activity * Palpitations - sudden fast heart beats WEIGHT * Weigh yourself every morning after using the bathroom. * Use the same scale. * Wear the same amount of clothing. * Write your weight down on a chart. * Call your Primary Care doctor if you gain more than 2-3 pounds in 1-2 days. MEDICATIONS * Use this discharge instruction sheet for medication instructions. * Take your medications at the time your doctor ordered. * Do not skip a dose of your medicines. * If you miss a dose of medicine, take it as soon as possible, but DO NOT DOUBLE A DOSE. * Read your medicine information when you get home. * Know all of the side effects of your medicine. If in doubt, ask your pharmacist * Call your Primary Care doctor's office if you have any side effects. * Be sure all of your doctors know what medicine and herbs you take (including cold, flu, and herbal medicine). Take the following with you to your follow-up doctor appointments: * Weight Chart * Medication List * List of questions Do not drink excessive alcohol, beer or wine. Total Time Total Time Spent Total Time Spent (In Minutes): 40 min Coding Level of Care Code 90000 INP/OBS DISCH >30 MIN Diagnoses A-fib I48.91 Atrial fibrillation type: unspecified Hyperkalemia E87.5 Acute kidney injury N17.9 PRINCE (dyspnea on exertion) R06.09 Thrombocytopenia D69.6 Swelling of both lower extremities M79.89 TIA (transient ischemic attack) G45.9 HTN (hypertension) I10 HLD (hyperlipidemia) E78.5 Paronychia of finger L03.019 Cirrhosis K74.60
[2023-04-19 12:20] VITALS: BP 104/69
== END 2023-04-19 12:19 | DRG 309 ==
LOC: ED 15:53 → EDINP 20:38 → SUATTDRO 20:38 → 2N 22:58

== ENCOUNTER 2023-04-24 14:07 | Inpatient (IN) ==
--- NOTE | 2023-04-24 14:20 | Emergency Department Note ---
Impression & Plan Acute dyspnea, Acute exacerbation of CHF (congestive heart failure), Non-ST elevation NV (NSTEMI) ED Provider Note HISTORY OF PRESENT ILLNESS: Patient is a 88-year-old male presenting with shortness of breath. Patient reports that he had sudden onset of shortness of breath earlier today. He reports that he has felt like he is progressively been filling up with fluid over the last few days. He has a history of A-fib and is on Eliquis. Denies any chest pain with the shortness of breath. He does not wear any oxygen at baseline. Denies any nausea or vomiting. Reports that with the shortness of breath he felt lightheaded like he was going to pass out. 911 was called. He was given 4 sublingual nitro with EMS and route. No arrival to the ER, he reports that shortness of breath has slightly improved. Denies any recent cough or fevers. ROS: as above PHYSICAL EXAM: Constitutional: Patient appears in no acute distress. HENT: Head: Normocephalic and atraumatic. Eyes: EOMI, PERRL Mouth/Throat: Mucous membranes moist. Neck: Trachea midline. Neck supple. Cardiovascular: Regular rate but irregular rhythm. No murmurs, rubs or gallops. Intact distal pulses. Pulmonary/Chest: No respiratory distress. Breath sounds clear and equal bilaterally. No wheezes or rales. Abdominal: Abdomen soft, no tenderness, rebound or guarding. Musculoskeletal: No tenderness or deformity noted. Trace edema of bilateral ankles. Skin: Warm and dry. No rash, erythema, pallor or cyanosis Psychiatric: Appropriate mood and affect for situation. Neurological: Alert and keenly responsive. CN II-XII grossly intact, moving all extremities equally and fully. MDM: - Vitals signs stable. - History obtained via patient. Patient presents with shortness of breath. Patient reports he had acute onset of shortness of breath earlier today. He states that he has felt like he is progressively been swelling up with food over the last few days. He has a history of A-fib and is on Eliquis. Denies any DVT or PE history. He does not wear oxygen at baseline. Denies any nausea or vomiting. Reports he felt lightheaded with the shortness of breath. - Chronic conditions affecting care: HTN; HLD; TIA; CKD stage 3; cirrhosis - Differential diagnoses include, but are not limited to: Congestive heart failure; acute coronary syndrome; COPD/asthma exacerbation; pulmonary edema; pulmonary embolism; pneumonia; pneumothorax; viral syndrome - Order placed for continuous cardiac monitoring. At this time, monitor showed rate of 75 bpm with irregular rhythm, per my interpretation. - External medical records reviewed. EMS run sheet from today was reviewed. Patient was given 4 sublingual nitro and route. - EKG reviewed by myself showed atrial fibrillation. Rate 70 bpm. QTc 427. No acute ischemic changes - Laboratory workup interpreted by myself showed normal WBC; slight hyponatremia (Na 131); elevated troponin (38.9); elevated BNP (420) - COVID/flu/RSV negative - CXR negative for pneumonia, per my interpretation - 40 mg IV lasix ordered - Repeat troponin slightly down trending (37). - Discussion was had with women's health care nurse practitioner about patient's case and need for admission - Hospitalist consulted for admission - Patient admitted to [facility]ist service for further evaluation and management. 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 Beliefs That Will Affect Care: None Current Living Situation: Alone Feels Safe at Home: Yes Assistive Devices: Cane Allergies Allergies Allergy/AdvReac Type Severity Reaction Status Date / Time No Known Allergies Allergy Verified 04/12/23 17:03 Home Meds Home Medications Medication Instructions Recorded Confirmed atorvastatin 80 mg tablet 80 mg PO QPM 04/12/23 04/12/23 metoprolol tartrate 50 mg tablet 50 mg PO BID 04/12/23 04/12/23 tamsulosin 0.4 mg capsule 0.8 mg PO HS 04/12/23 04/12/23 Previous Rx's Medication Instructions Recorded amoxicillin 875 mg-potassium 1 tab PO BIDM #10 tabs 04/19/23 clavulanate 125 mg tablet apixaban 5 mg tablet (Eliquis) 5 mg PO BID #60 tabs 04/19/23 furosemide 20 mg tablet 20 mg PO QAM #30 tabs 04/19/23 mirtazapine 15 mg tablet 15 mg PO HS #30 tabs 04/19/23 Results & Data (ED) Vital Signs Vital Signs - 24 hr 04/24/23 14:14 04/24/23 14:14 04/24/23 14:28 Temperature 36.4 C Temperature Source Axillary Pulse Rate 82 76 Pulse Rate [Apical] Respiratory Rate 14 Respiratory Effort / Characteristics Spontaneous Labored Labored Respiratory Depth Normal Normal Respiratory Pattern Regular Regular Blood Pressure 119/69 Blood Pressure [Left Arm] Blood Pressure Mean 85 Blood Pressure Mean [Left Arm] Pulse Oximetry 97 Oxygen Delivery Method Room Air Room Air Oxygen Flow Rate Sepsis Recent Fever Within 48 Hours No Sepsis New/Unexplained Change in Mental Status No Sepsis Action Taken by Nursing No Action Required 04/24/23 14:31 04/24/23 14:31 04/24/23 14:32 Temperature Temperature Source Pulse Rate Pulse Rate [Apical] 75 Respiratory Rate 24 Respiratory Effort / Characteristics Respiratory Depth Respiratory Pattern Blood Pressure Blood Pressure [Left Arm] 119/69 Blood Pressure Mean Blood Pressure Mean [Left Arm] 85 Pulse Oximetry 97 96 96 Oxygen Delivery Method Room Air Oxygen Flow Rate 0 Sepsis Recent Fever Within 48 Hours Sepsis New/Unexplained Change in Mental Status Sepsis Action Taken by Nursing Laboratory Data 04/24/23 14:27 04/24/23 14:27 Lab Results 04/24/23 04/24/23 04/24/23 Range/Units 14:27 14:28 16:22 WBC 8.48 (4.8-10.8) K/ul RBC 4.19 L (4.70-6.10) M/uL Hgb 12.7 L (14.0-18.0) g/dl Hct 39.0 L (42.0-52.0) % MCV 93.1 (80.0-100.0) fL MCH 30.3 (25.0-34.0) pg MCHC 32.6 (32.0-36.0) g/dL RDW Std Deviation 54.2 H (36.4-46.3) fL RDW Coeff of Fernando 16.0 H (11.5-14.5) % Plt Count 102 L (130-400) K/uL MPV 11.8 (9.4-12.4) fL Immature Gran % (Auto) 0.6 % Neut % (Auto) 67.1 % Lymph % (Auto) 18.3 % Thomas % (Auto) 9.8 % Eos % (Auto) 3.5 % Baso % (Auto) 0.7 % Neut # (Auto) 5.69 (1.40-6.50) K/uL Lymph # (Auto) 1.55 (1.20-3.40) K/uL Thomas # (Auto) 0.83 H (0.11-0.59) K/uL Eos # (Auto) 0.30 (0.00-0.50) K/uL Baso # (Auto) 0.06 (0.00-0.20) K/uL Immature Gran # (Auto) 0.05 (0.01-0.20) K/uL PT 14.6 H (9.0-12.0) Seconds INR 1.4 H (0.9-1.1) Sodium 131 L (136-145) mmol/L Potassium 4.5 (3.5-5.1) mmol/L Chloride 99 (98-107) mmol/L Carbon Dioxide 25 (21-32) mmol/L Anion Gap 7 (3-11) BUN 33 H (6-23) mg/dl Creatinine 1.18 (0.6-1.4) mg/dl Est Cr Clr Drug Dosing 43.8 ml/min Est GFR ( Amer) 63.0 ml/min Est GFR (Non-Af Amer) 54.4 ml/min BUN/Creatinine Ratio 28.0 H (10-20) Glucose 100 H (70-99(Fasting)) mg/dl Calcium 8.2 L (8.6-10.3) mg/dl Magnesium 2.2 (1.7-2.4) mg/dl Total Bilirubin 1.1 H (0.2-1.0) mg/dl AST 53 H (13-39) U/L ALT 51 (7-52) U/L Alkaline Phosphatase 181 H (34-104) U/L Troponin I High Sens 38.9 H 37.0 H (0-20) pg/ml B-Natriuretic Peptide 420 H (0-100) pg/ml Total Protein 5.8 L (6.0-8.3) gm/dl Albumin 3.5 (3.4-5.0) gm/dl Globulin 2.3 L (2.5-4.0) gm/dl Albumin/Globulin Ratio 1.5 (0.9-2) SARS-CoV-2 (PCR) NEGATIVE (Negative) Imaging Data Radiologist's Impression: Chest X-Ray 04/24/23 14:18 XR chest 1V portable CLINICAL HISTORY: Dyspnea. COMPARISON STUDY: Chest radiograph and chest CT April 12, 2023. FINDINGS: No pneumothorax or pleural effusion is identified. Cardiomegaly is again noted. There is no evidence for pulmonary edema. No consolidation to suggest pneumonia. Opacity at the medial right lung base is likely artifactual related to a rotated study IMPRESSION: No acute cardiopulmonary findings. No significant change in appearance of the chest. ACT 112: Negative or not required by law. Electronically signed by: Garland Chi M.D. 04/24/2023 2:42 PM Discharge Plan Visit Data Chief Complaint: Shortness of Breath/Dyspnea ED Provider: Krista Krueger Discharge Problem: Acute dyspnea, Acute exacerbation of CHF (congestive heart failure), Non-ST elevation NV (NSTEMI) Forms Stand Alone Forms: [facility] Prescriptions Prescriptions: No Action atorvastatin 80 mg tablet 80 mg PO QPM tamsulosin 0.4 mg capsule 0.8 mg PO HS metoprolol tartrate 50 mg tablet 50 mg PO BID amoxicillin-pot clavulanate 875-125 mg Tablet 1 tab PO BIDM Qty: 10 0RF Eliquis 5 mg Tablet 5 mg PO BID Qty: 60 0RF furosemide 20 mg Tablet 20 mg PO QAM Qty: 30 0RF mirtazapine 15 mg tablet 15 mg PO HS Qty: 30 0RF Referrals Referrals: PCP,NO [Physician] -
--- NOTE | 2023-04-24 14:43 | XRay Report ---
XR chest 1V portable CLINICAL HISTORY: Dyspnea. COMPARISON STUDY: Chest radiograph and chest CT April 12, 2023. FINDINGS: No pneumothorax or pleural effusion is identified. Cardiomegaly is again noted. There is no evidence for pulmonary edema. No consolidation to suggest pneumonia. Opacity at the medial right carole g base is likely artifactual related to a rotated study IMPRESSION: No acute cardiopulmonary findings. No significant change in appearance of the chest. ACT 112: Negative or not required by law. Electronically signed by: Garland Chi M.D. 04/24/2023 2:42 PM
[2023-04-24 14:54] LABS: Basophils # (auto) 0.06 K/uL (0.00-0.20); Basophils % (auto) 0.7 %; Eosinophils % (auto) 3.5 %; Hemoglobin 12.7 g/dl (14.0-18.0); Immature Granulocytes # (auto) 0.05 K/uL (0.01-0.20); Immature Granulocytes % (auto) 0.6 %; Lymphocytes # (auto) 1.55 K/uL (1.20-3.40); Lymphocytes % (auto) 18.3 %; Mean Corpuscular Hemoglobin 30.3 pg (25.0-34.0); Mean Corpuscular Hgb Conc 32.6 g/dL (32.0-36.0); Mean Corpuscular Volume 93.1 fL (80.0-100.0); Mean Platelet Volume 11.8 fL (9.4-12.4); Monocytes # (auto) 0.83 K/uL (0.11-0.59); Monocytes % (auto) 9.8 %; Neutrophils # (auto) 5.69 K/uL (1.40-6.50); Neutrophils % (auto) 67.1 %; Platelet Count 102 K/uL (130-400); RDW Standard Deviation 54.2 fL (36.4-46.3); Red Blood Count 4.19 M/uL (4.70-6.10); White Blood Count 8.48 K/ul (4.8-10.8)
[2023-04-24 15:05] LABS: Albumin Globulin Ratio 1.5 (0.9-2); Albumin Level 3.5 gm/dl (3.4-5.0); Bilirubin,Total 1.1 mg/dl (0.2-1.0); Calcium 8.2 mg/dl (8.6-10.3); Creatinine Clr Calc Pharmacy 43.8 ml/min; Est GFR (Non-African American) 54.4 ml/min; Globulin 2.3 gm/dl (2.5-4.0); Magnesium 2.2 mg/dl (1.7-2.4); Potassium 4.5 mmol/L (3.5-5.1); Total Protein 5.8 gm/dl (6.0-8.3)
[2023-04-24 15:12] LABS: Troponin I High Sensitivity 38.9 pg/ml (0-20)
[2023-04-24 15:15] LABS: INR 1.4 (0.9-1.1); Prothrombin Time 14.6 Seconds (9.0-12.0)
[2023-04-24] MEDS ORDERED: FUROSEMIDE 40 MG/4 ML VIAL IV ONE (16:52)
--- NOTE | 2023-04-24 17:33 | History & Physical Report ---
Date of Service April 24, 2023 Assessment & Plan (1) Shortness of breath: Plan: -Admit to med/tele on pulse oximetry -Currently stable on RA with symptoms currently under control -Was sent to the ED from [facility] this afternoon after staff found him in respiratory distress, sitting on the edge of the bed -He was never hypoxic per staff at [facility] and ED staff, but oxygen had been placed by [facility] for comfort -CXR today is clear and without volume overload, no sign of consolidation to suggest pneumonia -Low suspicion for PE at this time as he has been on Eliquis, has been hemodynamically stable, and stable on RA -His BNP is elevated at 420 today, increased from 338 as of last admission on 04/12 -Weight today is 103 Kg, up from 97 Kg as of day of DC on 04/19 -His abdomen is distended, likely due to his known cirrhosis with ascites, could be contributing to small breaths and low lung volume -Patient was unable to be started on Spironolactone on DC last admission due to hyperkalemia on initial presentation -Was discharged on 20mg PO lasix daily, which he has been complaint with -Patient has been without chest discomfort, with downtrending high sen trops, and no acute ST segment or T-wave changes to suggest ACS as the cause at this time -Is still in afib today, unsure if this is contributing, if rest of workup is unimpressive could consider holter monitor on discharge in case further episodes occur -S/P 40 mg IV lasix in the ED, will continue with 40 mg IV BID at this time -Will obtain US of the abdomen to evaluate his amount of ascites for possible paracentesis while admitted if needed -BL ELIUD's and home Eliquis for DVT PPX -HH diet with 2gm sodium restriction -AM CBC, CMP, mag, PT/INR (2) Cirrhosis: Plan: -Newly diagnosed last admission earlier this month -Had been started on 20 mg PO lasix, spironolactone was not started due to hyperkalemia on presentation -LFT's are improving compared to last admission, not currently decompensated -Will obtain abdominal US/ascites check to see if he could have a therapeutic paracentesis if needed -Continue IV lasix for now -If potassium continues to remain stable could consider starting spironolactone prior to discharge -Monitor daily LFT's and daily weight (3) Elevated troponin: Plan: -Initial high sen trop elevated at 38 ---> 37 on 2 hour repeat -Patient denies chest discomfort, no significant ST segment or T-wave changes on ECG today -Likely due to demand -Will continue to trend overnight to ensure they continue to decline -Continue diuresis, monitor on tele (4) Hyponatremia: Plan: -Sodium at 131 today -Improved compared to 129 on 04/19 -Likely multifactorial including his known cirrhosis and recent poor oral intake -Continue to monitor daily sodium level with increased doses of IV lasix (5) A-fib: Plan: -Currently in rate controlled afib -Continue Eliquis at this time as he is still in afib today -Continue metoprolol -Continue to monitor on tele -Should FU with Cardiology outpatient for possible cardioversion per the last DC summary (6) Chronic kidney disease, stage III (moderate): Plan: -Continues to improve from last admission -Monitor daily renal function and electrolytes (7) (HFpEF) heart failure with preserved ejection fraction: Plan: -Weight and BNP elevated compared to last admission -No significant fluid on CXR today -Continue IV lasix for now -Monitor daily weight (8) HTN (hypertension): Plan: -Stable -Continue diuresis and metoprolol (9) DENZEL (obstructive sleep apnea): Plan: -Non-complaint with HS CPAP as he cannot tolerate mask -Was started on 2L HS NC last admission -Will order HS O2 Plan The patient was discussed with Dr. Luciano at the time of the admission History of Present Illness Chief Complaint: SOB, lightheadedness Primary Care Provider: Thomas Olsonshahnaz Mitchell is an 88 year old male with a PMH significant for newly diagnosed afib (Now on Elqiuis), newly diagnosed Cirrhosis, hyperkalemia, thrombocytopenia, previous TIA, HTN, HLD, who presented to the [facility] ED via EMS from [facility] due to an acute episode of SOB and lightheadedness while eating lunch today. Per the ED staff, the patient was noted to be initially placed on 3L NC by staff and was found to be stable on RA on arrival. He was otherwise stable. Labs were significant for a sodium of 131 (up from 129 as of 04/19), total bili of 1.1 (down from 1.6 as of 04/19), stable ALT, AST of 53, alk phos of 181, initial high sen trop of 38 with 2 hour repeat of 37, BNP of 420 (up from 338 as of 04/12), and covid 19 negative. Chest xray was read as "No acute cardiopulmonary findings. No significant change in appearance of the chest.". ECG showed afib without acute ST segment or T-wave changes compared to previous. Prior to admission he was given 40 mg IV lasix. At the time of the exam the patient was sitting in bed in no acute distress with two friends sitting bedside, history was obtained from all. He states that he has been having ongoing issues with intermittent SOB, increased PRINCE, and generalized weakness since his admission earlier this month. He states that he is still getting SOB with exertion, but slightly improved compared to last admission. He states he had another "spell" of increased SOB with some lightheadedness this afternoon, which is why EMS was called. He states that he is currently feeling improved compared to ED arrival but still generally weak. He denies recent fever, chills, cough, chest pain/palpitations, abd pain, nausea, vomiting, diarrhea, dysuria, hematuria, melena, and recent trauma. He fells his LE's are getting more swollen than when he was discharged. He is still a DNR/DNI and would want his children to make medical decisions for him if he cannot make them himself. I called and spoke with nursing staff at [facility] to obtain further history. They state that over the weekend the patient has been having progressive PRINCE, LE swelling, and generalized weakness. They confirm that he has been taking his 20 mg PO lasix daily and is currently on a low sodium diet. Please refer to Dr. Luciano's attestation for any changes to the treatment plan Allergies Allergy/AdvReac Type Severity Reaction Status Date / Time No Known Allergies Allergy Verified 04/24/23 17:30 Home Medications Medication Instructions Recorded Confirmed Type atorvastatin 80 mg tablet 80 mg PO QPM 04/12/23 04/24/23 History metoprolol tartrate 50 mg tablet 50 mg PO BID 04/12/23 04/24/23 History tamsulosin 0.4 mg capsule 0.8 mg PO HS 04/12/23 04/24/23 History apixaban 5 mg tablet (Eliquis) 5 mg PO BID #60 tabs 04/19/23 04/24/23 Rx furosemide 20 mg tablet 20 mg PO QAM #30 tabs 04/19/23 04/24/23 Rx mirtazapine 15 mg tablet 15 mg PO HS #30 tabs 04/19/23 04/24/23 Rx acetaminophen 325 mg tablet 650 mg PO Q6 PRN Fever Or Pain 04/24/23 04/24/23 History (Tylenol) bisacodyl 10 mg rectal suppository 0 mg NH DIRECTED PRN 04/24/23 04/24/23 History (Dulcolax (bisacodyl)) Constipation loperamide 2 mg tablet (Imodium 2 mg PO .Q2HRS PRN Diarrhea 04/24/23 04/24/23 History A-D) Past Med/Surg History Medical History (Updated 04/24/23 @ 18:40 by Amauri Mendiola PA-C) Cirrhosis Chronic kidney disease, stage III (moderate) TIA (transient ischemic attack) No pertinent family history HLD (hyperlipidemia) HTN (hypertension) Surgical History No pertinent past surgical history Social History Smoking Status: Never smoker Second Hand Exposure: No; Do You Dip or Chew Tobacco: No; Hx Alcohol Use: Yes Alcohol type: beer Hx Substance Use: No Preferred Language: Maori Communication Ability: Effective 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 Beliefs That Will Affect Care: None Current Living Situation: Alone Feels Safe at Home: Yes Assistive Devices: Cane and Walker Physical Exam Physical Exam: Physical Exam: General: In no acute distress, stated age, chronically ill appearing but non- toxic HEENT: Normocephalic, atraumatic, no scleral icterus, pupils around round, symmetrical, and reactive to light, moist mucus membranes, + JVD, trachea midline, no thyromegaly Chest/Pulm: No respiratory distress, symmetrical chest expansion, clear breath sounds throughout Cardiac: irregular rate and rhythm, no murmurs noted Abdomen: Distended abdomen, normoactive bowel sounds, soft, non-tender to palpation throughout Musculoskeletal: Symmetrical and without signs of acute trauma, upper and lower extremities with full ROM, no atrophy, spasticity, or flaccidity Extremities: Radial, dorsalis pedis, and posterior tibial pulses are intact and symmetrical, 2+ pitting edema noted in the BL LE's Skin: Warm, dry, no rashes , lesions, or scars noted Neuro: Alert and oriented to person, place, month, year, and president, no focal defects, no tremors noted Psych: No acute distress, calm and cooperative during the exam Results & Data Results & Data Vital Signs (Past 12 Hours) Vital Signs Temp Pulse Pulse Resp BP BP Pulse Ox 04/24/23 14:32 96 04/24/23 14:31 75 24 119/69 96 04/24/23 14:31 97 04/24/23 14:28 76 04/24/23 14:14 36.4 C 82 14 119/69 97 04/24/23 14:14 O2 Del Method O2 Flow Rate 04/24/23 14:32 04/24/23 14:31 04/24/23 14:31 Room Air 0 04/24/23 14:28 04/24/23 14:14 Room Air 04/24/23 14:14 Room Air Laboratory Results Abnormal lab results 04/24/23 04/24/23 Range/Units 14:27 16:22 RBC 4.19 L (4.70-6.10) M/uL Hgb 12.7 L (14.0-18.0) g/dl Hct 39.0 L (42.0-52.0) % RDW Std Deviation 54.2 H (36.4-46.3) fL RDW Coeff of Fernando 16.0 H (11.5-14.5) % Plt Count 102 L (130-400) K/uL [place] # (Auto) 0.83 H (0.11-0.59) K/uL PT 14.6 H (9.0-12.0) Seconds INR 1.4 H (0.9-1.1) Sodium 131 L (136-145) mmol/L BUN 33 H (6-23) mg/dl BUN/Creatinine Ratio 28.0 H (10-20) Glucose 100 H (70-99(Fasting)) mg/dl Calcium 8.2 L (8.6-10.3) mg/dl Total Bilirubin 1.1 H (0.2-1.0) mg/dl AST 53 H (13-39) U/L Alkaline Phosphatase 181 H (34-104) U/L Troponin I High Sens 38.9 H 37.0 H (0-20) pg/ml B-Natriuretic Peptide 420 H (0-100) pg/ml Total Protein 5.8 L (6.0-8.3) gm/dl Globulin 2.3 L (2.5-4.0) gm/dl Diagnostic Findings Chest X-Ray 04/24/23 14:18 XR chest 1V portable CLINICAL HISTORY: Dyspnea. COMPARISON STUDY: Chest radiograph and chest CT April 12, 2023. FINDINGS: No pneumothorax or pleural effusion is identified. Cardiomegaly is again noted. There is no evidence for pulmonary edema. No consolidation to suggest pneumonia. Opacity at the medial right lung base is likely artifactual related to a rotated study IMPRESSION: No acute cardiopulmonary findings. No significant change in appearance of the chest. ACT 112: Negative or not required by law. Electronically signed by: Garland Chi M.D. 04/24/2023 2:42 PM ECG Additional Comments: Atrial fibrillation with premature ventricular or aberrantly conducted complexes Left axis deviation Low voltage QRS Inferior infarct (cited on or before 24-APR-2023) Abnormal ECG When compared with ECG of 12-APR-2023 16:02, Nonspecific T wave abnormality now evident in Anterolateral leads Code Status & VTE Plan Code Status DNR/DNI VTE Prophylaxis Plan VTE Prophylaxis will be ordered: Yes Supervising Physician Co-Signing Physician Notes Patient seen and examined, chart reviewed, case discussed with Amauri Mendiola PA-C and I agree with the assessment and plan as above except as otherwise noted Labs and images reviewed Stephen is an 88-year-old male with a past medical history of A-fib on Eliquis, cirrhosis, hyperkalemia, thrombocytopenia, TIA, hypertension, hyperlipidemia presents with shortness of breath and lightheadedness and required 3 L of nasal cannula. Patient is mildly hyponatremic with an elevated BNP, chest x-ray does not show acute pulmonary edema and EKG is without acute ischemic change. Patient reports that he has had progressive weakness, shortness of breath, dyspnea on exertion in addition to leg swelling despite being compliant with his medications. Lungs are with bibasilar crackles which clear on deep inspiration, otherwise clear, and diffuse lower extremity pitting edema is present. Last echo with EF 45-50%.. Will continue Lasix IV with potassium repletion at this time, CHF +/- venous stasis, leg elevation to mobilize lower extremity edema. Potassium 4.4, spironolactone ordered, ideally titrate to 40/100 ratio. If tolerated and potassium stays within goal. After assessment and management above PG Care Time/CCT Total # of Minutes Spent Total Time Spent with Patient: Total time spent is greater than 50% in coordination of care (as documented) at patient's floor/unit and/or counseling patient: Coding [place] [address] INT INP/OBS CARE 2/55MIN Patient Type Established Medical Decision Making Moderate Complexity Diagnoses Shortness of breath R06.02 Cirrhosis K74.60 Elevated troponin R79.89 Hyponatremia E87.1 A-fib I48.91 Atrial fibrillation type: unspecified Chronic kidney disease, stage III (moderate) N18.30 (HFpEF) heart failure with preserved ejection fraction I50.30 HTN (hypertension) I10 DENZEL (obstructive sleep apnea) G47.33 (5) A-fib Atrial fibrillation type: unspecified Qualified Code(s): I48.91 - Unspecified atrial fibrillation
[2023-04-24 18:35] LABS: Appearance Urine Clear (Clear); Bacteria Urine Automated Negative (Negative); Bilirubin Urine Negative (Negative); Blood Urine Negative (Negative); Color Urine Dark Yellow; Glucose Urine UA Negative (Negative); Ketones Urine Negative (Negative); Leukocyte Esterase Urine 1+ (Negative); Nitrite Urine Negative (Negative); Protein Urine Trace (Negative); RBC Urine Automated 0-4 /hpf (0-4); Urobilinogen Urine Negative (Negative); pH Urine 5.5 (4.5-7.5)
--- NOTE | 2023-04-24 19:17 | Electrocardiogram Report ---
Test Reason : Blood Pressure : / mmHG Vent. Rate : 070 BPM Atrial Rate : 000 BPM P-R Int : 000 ms QRS Dur : 088 ms QT Int : 396 ms P-R-T Axes : 000 -41 052 degrees QTc Int : 427 ms Atrial fibrillation with premature ventricular or aberrantly conducted complexes Left axis deviation Low voltage QRS Inferior infarct (cited on or before 24-APR-2023) Abnormal ECG When compared with ECG of 12-APR-2023 16:02, Premature ventricular complexes are now Present Confirmed by Gregg Brady ([id number]) on 04/24/2023 7:17:04 PM Referred By: Confirmed By:Gregg Brady
[2023-04-24] MEDS ORDERED: ACETAMINOPHEN 325 MG TAB PO PRN (20:08)
[2023-04-24] MEDS: TAMSULOSIN HCL 0.4 MG CAP PO SCH (22:01)
[2023-04-24] MEDS: METOPROLOL TARTRATE 50 MG TAB PO SCH (22:01)
[2023-04-24] MEDS: MIRTAZAPINE TAB 15 MG TAB PO SCH (22:02)
[2023-04-24] MEDS: ATORVASTATIN 40 MG TAB PO SCH (22:03)
[2023-04-24] MEDS: APIXABAN 5 MG TABLET PO SCH (22:03)
--- OUTSIDE RECORDS SUMMARY | 2023-04-25 00:54 | External Medical Summary | Continuity of Care Document ---
Author Name Unknown Organization [place] Address [address] [place] [address] Phone [phone] Problems Active Problems Provider Date Chest pain [...] SIG Qnty Indications Order ing Provider Date Jwhakhlzi88js Tablets 2 by mouth every day for fluid x 5 days then once daily 90tabs Merly Waddell MD 04/12/2023 Metoprolol Qhokukqo94kb Tablets 1 by mouth twice a day 180tabs Merly Waddell MD 04/12/2023 Qzwvqolwzuf83sy Tablets Take 1/2-1 Tablet By Mouth Daily AT Bedtime 90tabs Merly Waddell MD 07/29/2021 Atorvastatin Zwtkzcb58gu Tablets Take 1 Tablet By Mouth Every Evening 90tabs Kavon Landa MD 02/23/2020 Vitamin B-12 5,000 mcg Tab SL Dissolve 1 Tablet Under The Tongue By Mouth Every Day 90units Kavon Landa MD 09/06/2019 Azelastine HCL (Nasal)137mcg/[place] Solution use 2 squirts each nostril twice a day 90ml J30.1 Rene Arredondo JR, MD 06/21/2019 Breo Tkhzfjg064-84fmm/Inh Aerosol One inhalation daily J44.9 Rene Arredondo JR, MD 05/31/2018 Tamsulosin HCL0.4mg Capsules Take 2 Capsules By Mouth Daily AT Bedtime 180caps Rene Arredondo JR, MD 07/26/2017 Wpjmhtt259ut Tablets 1 by mouth every day 30tabs Rene Arredondo JR, MD Multi For HimTablets one per day, formula does not include vitamin K OTC Rene Arredondo JR, MD History Medications Duloxetine [id number] Caps DR Wiggins 1 by mouth every day x 30 days then D/C 30caps Merly Waddell MD 03/03/2023 - 04/02/2023 Xxfhtfvbeh63yg Tablets One tablet daily x 30 days then half tablet daily x 30 days 45tabs Merly Waddell MD 03/03/2023 - 04/12/2023 Immunizations CPT Code Status Date Vaccine Lot # [id number] Given 03/03/2023 Influenza Vaccine High Do se 0.5ML Age 65 & > [id number] 25089 Given 03/15/2022 Moderna Sars-Co v-2 (Covid-19) Vaccine, BiValent Booster 12y+ [id number] 15225 Given 03/09/2022 Influenza Virus Vaccine, Quadrivalent (Cciiv4), Derived From Cell [id number] 31675 Given 10/26/2021 Moderna Covid-1 9 Vaccine 50mcg Booster-EMR Doc Only [id number] 28403 Given 04/16/2021 Pfizer Sars-Cov -2 (Cov-19) vacc 30mcg/0.3ML 12Y+ EMR Doc Only 65153 Given 03/09/2021 Influenza Vaccine High Do se 0.5ML Age 65 & > [id number] 16097 Given 07/18/2020 Moderna Sars-Co v-2 (Cov-19) vacc,100 mcg/ 0.5 mL 12Y+EMR Doc Only 21902 Given 06/13/2020 Moderna Sars-Co v-2 (Cov-19) vacc,100 mcg/ 0.5 mL 12Y+EMR Doc Only U-FLU Given 02/18/2019 Influenza,Unspecified 89415 Given 02/18/2019 Influenza Virus Vaccine, Quadrivalent (Cciiv4), Derived From 0 Given 10/22/2018 Pneumococcal Vaccine/Pneu movax 23 [id number] 61094 Given 10/18/2017 Pneumococcal Conjugate-Pr evnar 13 [id number] 16758 Given 03/27/2017 Influenza Virus Vaccine, Quadrivalent, Im Use 04495 Refused 05/31/2022 Shingrix 67348 Refused 07/06/2018 Tdap (Tetanus, diphtheria & acel. [...] kg/m2 O2 % BldC Oximetry 98 % [place] Body Weight 172 lb Results Test Acquired Date Facility Test Result H/L Range N ote Comp. Met 04/12/2023 [facility]. [address] [place] [address] [phone] Glucose 162 mg/dL High 70-110 BUN 22 mg/dL 6-25 Creatinine 1.1 mg/dL 0.7-1.3 Sodium 139 mEq/L 135-145 Potassium 4.8 mEq/L 3.5-5.0 Chloride 103 mEq/L 95-107 Co-2 26 mEq/L 24-31 Alk Phos 192 IU/L High 43-122 Alt(SGPT) 64 IU/L High 10-40 Ast(Sgot) 41 IU/L 3-42 T.Bilirubin 1.0 mg/dL 0.1-1.3 Calcium 8.6 mg/dL 8.5-10.6 Tot.Protein 6.3 g/dL 5.8-8.0 Albumin 3.9 g/dL 3.0-5.2 Globulin 2.4 g/dL 2.0-3.4 GFR 67 ML/MIN/1.73SQM >60 Urine Culture 04/12/2023 [facility]. [address] [place], [place] [id number] [phone] Urine Source URINE Urc Comment INSIGNIFICANT GR <SEE NOTE> 1 Urinalysis 04/12/2023 [facility]. [address] [place] [address] [phone] Color YELLOW Appearance CLEAR Clear Spec.Grav. 1.011 1.005-1.025 Leukocytes TRACE Abnormal Negative Nitrite NEGATIVE Negative PH 5.5 Low 6.0-7.5 Protein TRACE Abnormal Negative Urine Glucose NEGATIVE Negative Ketone NEGATIVE Negative Urobilinogen NORMAL E.U./DL Normal Bilirubin NEGATIVE Negative Blood NEGATIVE Negative WBC-U 3-5 /HPF 0-5/HPF RBC-U 3-5 /HPF 0-5/HPF Bacteria NONE SEEN None Seen Hyaline Casts 0-5 /LPF Abnormal None Seen Squamous 0-2 /HPF 0-5/HPF Urinalysis,Cult If Indicated 04/12/2023 [facility]. [address] [place] [address] [phone] RFLX Culture YES Laboratory test finding 04/12/2023 [facility]. [address] [place], [place] [address] [phone] BNP 294.0 pg/mL Critical high 0.0 -10 0.0 2 CBC W/Diff 04/12/2023 [facility]. [address] [place], [place] [address] [phone] WBC 5.8 10^3/M3 3.1 -9. 2 RBC 4.28 10^6/M3 4.00-5.80 HGB 13.5 GR/DL 12.5-17.5 HCT 40.8 % 37.5-52.5 MCV 95.3 CUMICR 82.6-95.8 MCH 31.6 PICOGR 27.9-32.9 MCHC 33.2 % 32.6-35.4 RDW 16.4 % High 11.4-14.6 PLT 97 10^3/M3 Low 140-350 MPV 9.8 CUMICR 7.0-10.6 %Neut 68.6 % 40.0-75.0 %Lymph 20.4 % 17.0-45.0 %Stephens 7.5 % 1.0-11.0 %Eos 2.6 % 0.0-6.0 %Baso 0.9 % 0.0-2.0 #Neut 4.0 10^3/M3 1.5-8.0 #Lymph 1.2 10^3/M3 0.8-3.2 #Stephens 0.4 10^3/M3 0.0-0.8 #Eos 0.2 10^3/m3 0.0-0.4 #Baso 0.1 10^3/m3 0.0-0.2 Pathology Report 03/03/2023 [place] [facility] [address] [place] [address] [phone] Report Type DNR Normal Clinical Information D49.2 Normal Pathologist (SEE NOTE) Normal 3 Report Notes DNR Normal A Clinical Impression DNR Normal A Source NOSE A Procedure DNR Normal A Gross Description (SEE NOTE) 4 A Micro Description (SEE NOTE) 5 A Diagnosis (SEE NOTE) 6 A Comment DNR Normal Laboratory test finding 03/03/[address] [place] [address] [phone] Enhanced PDF Report [id number] SEE IMAGE CBC W/Diff 02/24/2023 [facility]. [address] [place], [place] [address] [phone] WBC 5.4 10^3/M3 3.1-9 .2 RBC 4.27 10^6/M3 4.00-5.80 HGB 13.3 GR/DL 12.5-17.5 HCT 39.6 % 37.5-52.5 MCV 92.7 CUMICR 82.6-95.8 MCH 31.1 PICOGR 27.9-32.9 MCHC 33.6 % 32.6-35.4 RDW 15.4 % High 11.4-14.6 PLT 149 10^3/M3 140-350 MPV 9.1 CUMICR 7.0-10.6 %Neut 51.8 % 40.0-75.0 %Lymph 34.4 % 17.0-45.0 %Stephens 9.0 % 1.0-11.0 %Eos 4.1 % 0.0-6.0 %Baso 0.7 % 0.0-2.0 #Neut 2.8 10^3/M3 1.5-8.0 #Lymph 1.9 10^3/M3 0.8-3.2 #Stephens 0.5 10^3/M3 0.0-0.8 #Eos 0.2 10^3/m3 0.0-0.4 #Baso 0.0 10^3/m3 0.0-0.2 Comp. Met 02/24/2023 [facility]. [address] [place] [address] [phone] Glucose 83 mg/dL 70-110 BUN 15 mg/dL [...] 2.0-3.4 GFR 67 ML/MIN/1.73SQM >60 Lipid 02/24/2023 [facility] [address] [place] [address] [phone] Cholesterol 87 mg/dL 0-200 7 Triglyceride 100 mg/dL 0-150 8 HDLD 24 mg/dL See Comment 9 Measured LDL 50 mg/dL 0-130 10 Calc VLDL 20.0 mg/dL See Comment 11 Chol/HDL 3.6 RATIO See Comment 12 Non-HDL 63 mg/dL See Comment 13 Laboratory test finding 02/24/2023 [facility] [address] [place] [address] [phone] TSH 3.49 uIU/mL 0.50-6.00 Psa2 4.2 ng/mL Critical high 0.0-4.0 Hba1c 02/24/2023 [facility]. [address] [place] [address] [phone] A1c 5.80 % 4.70-6.50 14 Laboratory test finding 02/24/2023 [facility] [address] [place] [address] [phone] Vitd-25Oh 42 ng/mL 30-100 VB12 725 pg/mL 230-1050 Urinalysis,Cult If Indicated 02/24/2023 [facility]. [address] [place], [place] [address] [phone] RFLX Culture NO Urinalysis 02/24/2023 [facility]. [address] [place], [place] [address] [phone] Color LIGHT-YEL LOW Appearance CLEAR Clear Spec.Grav. 1.010 1.005-1.025 Leukocytes TRACE Abnormal Negative Nitrite NEGATIVE Negative PH 6.5 6.0-7.5 Protein NEGATIVE Negative Urine Glucose NEGATIVE Negative Ketone NEGATIVE Negative Urobilinogen NORMAL E.U./DL Normal Bilirubin NEGATIVE Negative Blood NEGATIVE Negative WBC-U NONE SEEN /HPF 0-5/HPF RBC-U 0-2 /HPF 0-5/HPF Bacteria TRACE None Seen Squamous NONE SEEN /HPF 0-5/HPF 1 INSIGNIFICANT GROWTH 2 CRITICAL RESULTS FAX ED, AND CALLED TO KWADWO Maier AT 10:55 ON 04/13/23 WK 3 Jed Urrutia MD, Sue rd Certified in Dermatology and Dermatopathology (electronic signature) 4 Received in 10% buff ered formalin is a shave biopsy of skin measuring [id number]. The specimen is trisected and entirely submitted in one cassette. Gross exam(s) performed at: [facility] [address] [address] Manager English: SAVITA MONTIEL MD 5 There is a neoplasm within the dermis composed of basaloid cells with relatively uniform hyperchromatic nuclei and scanty cytoplasm. The basaloid cells are arranged in lobules with peripheral palisading. 6 BASAL CELL CARCINOMA , NODULAR TYPE Note: The lesion extends to the base of the specimen. 7 CHOLESTEROL Less than 200mg/dl Low risk 201-239 mg/dl Borderline risk Equal to or greater 240mg/dl High risk 8 TRIGLYCERIDES Less than 150mg/dl Normal 150-199mg/dl Borderline 200-499mg/dl High Greater than 500mg/dl Very High 9 HDL <40mg/dl Elevated Risk 41-59mg/dl Risk >=60mg/dl Least Risk 10 LDL <100mg/dl Optimal 100-129mg/dl Near Optimal 130-159mg/dl Borderline High 160-189mg/dl High >=190 Very High 11 VLDL Less than 30mg/dl Normal 12 CHOL/HDL <4.0 Optimal 4.0-5.0 Borderline >6.0 High Risk 13 NON-HDL 30mg/dl higher than LDL Target 14 MEAN GLUCOSE IN mg/d L/A1c% POOR CONTROL FAIR CONTROL GOOD CONTROL EXCELLENT CONTROL 360-14 210-9 180-8 120-6 330-13 150-7 90-5 300-12 270-11 240-10 Procedures Date Code Description Status 04/12/2023 98762 Electrocardiogram Complete C ompleted 04/12/2023 35754 Venipuncture Routine Complet ed 03/03/2023 G0008 Influenza Admin Completed 03/03/2023 30585 Excise Malig Lesion .6-1CM F bette/Ear/Eyelid/Nose/Lip Completed 02/24/2023 89580 Venipuncture Routine Complet ed 10/28/2022 1101F PT SCR Future Fall Risk, No Fall Or 1 W/Out Injury Completed 09/27/2007 65118621 Colonoscopy Completed Medical Devices Description No Information Available Encounters Type Date Location Provider Dx Diagnosis Office Visit 04/12/2023 10:00a Nicole Ware PA-C I50.21 Acute systolic (congestive) heart failure I11.0 Hypertensive heart d isease with heart failure I10 Essential (primary) hypertension Office Visit 03/03/2023 9:45a Nicole balderrama PA-C [...] breath Assessments Date Code Description Provider 04/12/2023 I50.21 Acute systolic (congestive) heart failure Thomas Ware PA-C 04/12/2023 I11.0 Hypertensive hea rt disease with heart failure Thomas Ware PA-C 04/12/2023 I10 Essential (primary) hyperten darby Ware PA-C 03/03/2023 I10 Essential (primary) hyperten [...] I10 Essential (primary) hyperten darby Lab - [place] 02/24/2023 E78.2 Mixed hyperlipidemia Merly Waddell MD 02/24/2023 E78.2 Mixed hyperlipidemia Lab - [place] 02/24/2023 N40.1 Benign prostatic hyperplasia with lower urinary tract symptoms Merly Waddell MD 02/24/2023 N40.1 Benign prostatic hyperplasia with lower urinary tract symptoms Lab - [place] 02/24/2023 R73.01 Impaired fasting glucose Xochitl Waddell MD 02/24/2023 R73.01 Impaired fasting glucose Lab - [place] 02/24/2023 E55.9 Vitamin D deficiency, unspec ified Merly Waddell MD 02/24/2023 E55.9 Vitamin D deficiency, unspec ified Lab - [place] 02/24/2023 D51.9 Vitamin B12 deficiency anemi a, unspecified Merly Waddell MD 02/24/2023 D51.9 Vitamin B12 deficiency anemi a, unspecified Lab - [place] 02/24/2023 N39.0 Urinary tract infection, sit e not specified Merly Waddell MD 02/24/2023 N39.0 Urinary tract infection, sit e not specified Lab - [place] 10/28/2022 Z00.01 Encounter for [facility] adult medical examination with abnormal findings [...] 10:00 am - Thomas Ware PA-C at [place] * 06/27/2023 8:30 am - [facility] - [place] [facility] [place] * 07/04/2023 8:15 am - Thomas Ware PA-C at [place] 04/12/2023 - Thomas Ware PA-C* I50.21 Acute systolic (congestive) heart failure* Comments:* Start diuretic as advised Refuses any evaluation at the hospital EKG results discussed with patient 45 minutes spent with patient answering questions and agreeable to a plan * I11.0 Hypertensive heart disease with heart failure * I10 Essential (primary) hypertension* Comments:* Add metoprolol on due to concern for congestive heart failure Low-sodium diet Patient verbalizes understanding of care plan / instructions. * All* New Medication:* Torsemide 20 mg - 2 by mouth every day for fluid x 5 days then once daily * Metoprolol Tartrate 50 mg - 1 by mouth twice a day Functional Status Description No Information Available Mental Status Description No Information Available Referrals Description No Information Available
--- OUTSIDE RECORDS SUMMARY | 2023-04-25 00:54 | External Medical Summary | Continuity of Care Document ---
Author Name Unknown Organization [place] Address [address] [place] [address] Phone [phone] Problems Active Problems Provider Date Chest pain [...] SIG Qnty Indications Order ing Provider Date Jfyttvxfj10xp Tablets 2 by mouth every day for fluid x 5 days then once daily 90tabs Merly Waddell MD 04/12/2023 Metoprolol Pwrgypdn40uz Tablets 1 by mouth twice a day 180tabs Merly Waddell MD 04/12/2023 Tgfuufdfctk23vt Tablets Take 1/2-1 Tablet By Mouth Daily AT Bedtime 90tabs Merly Waddell MD 07/29/2021 Atorvastatin Ynmuurb30wn Tablets Take 1 Tablet By Mouth Every Evening 90tabs Kavon Landa MD 02/23/2020 Vitamin B-12 5,000 mcg Tab SL Dissolve 1 Tablet Under The Tongue By Mouth Every Day 90units Kavon Landa MD 09/06/2019 Azelastine HCL (Nasal)137mcg/[place] Solution use 2 squirts each nostril twice a day 90ml J30.1 Rene Arredondo JR, MD 06/21/2019 Breo Pjrdktf540-98ruv/Inh Aerosol One inhalation daily J44.9 Rene Arredondo JR, MD 05/31/2018 Tamsulosin HCL0.4mg Capsules Take 2 Capsules By Mouth Daily AT Bedtime 180caps Rene Arredondo JR, MD 07/26/2017 Qtmdupx516ra Tablets 1 by mouth every day 30tabs Rene Arredondo JR, MD Multi For HimTablets one per day, formula does not include vitamin K OTC Rene Arredondo JR, MD History Medications Duloxetine HKL64uq Caps DR Wiggins 1 by mouth every day x 30 days then D/C 30caps Merly Waddell MD 03/03/2023 - 04/02/2023 Qtoeqcrfih39dj Tablets One tablet daily x 30 days then half tablet daily x 30 days 45tabs Merly Waddell MD 03/03/2023 - 04/12/2023 Immunizations CPT Code Status Date Vaccine Lot # [id number] Given 03/03/2023 Influenza Vaccine High Do se 0.5ML Age 65 & > [id number] 66158 Given 03/15/2022 Moderna Sars-Co v-2 (Covid-19) Vaccine, BiValent Booster 12y+ [id number] 95070 Given 03/09/2022 Influenza Virus Vaccine, Quadrivalent (Cciiv4), Derived From Cell [id number] 94200 Given 10/26/2021 Moderna Covid-1 9 Vaccine 50mcg Booster-EMR Doc Only [id number] 54118 Given 04/16/2021 Pfizer Sars-Cov -2 (Cov-19) vacc 30mcg/0.3ML 12Y+ EMR Doc Only 37845 Given 03/09/2021 Influenza Vaccine High Do se 0.5ML Age 65 & > [id number] 47759 Given 07/18/2020 Moderna Sars-Co v-2 (Cov-19) vacc,100 mcg/ 0.5 mL 12Y+EMR Doc Only 99943 Given 06/13/2020 Moderna Sars-Co v-2 (Cov-19) vacc,100 mcg/ 0.5 mL 12Y+EMR Doc Only U-FLU Given 02/18/2019 Influenza,Unspecified 31274 Given 02/18/2019 Influenza Virus Vaccine, Quadrivalent (Cciiv4), Derived From 6 Given 10/22/2018 Pneumococcal Vaccine/Pneu movax 23 [id number] 41350 Given 10/18/2017 Pneumococcal Conjugate-Pr evnar 13 [id number] 32890 Given 03/27/2017 Influenza Virus Vaccine, Quadrivalent, Im Use 29585 Refused 05/31/2022 Shingrix 78595 Refused 07/06/2018 Tdap (Tetanus, diphtheria & acel. [...] kg/m2 O2 % BldC Oximetry 98 % [place] Body Weight 172 lb Results Test Acquired Date Facility Test Result H/L Range N ote Comp. Met 04/12/2023 [facility]. [address] [place] [address] [phone] Glucose 162 mg/dL High 70-110 BUN 22 [...] GFR 67 ML/MIN/1.73SQM >60 Urine Culture 04/12/2023 [facility]. [address] [place], [place] [address] [phone] Urine Source URINE Urc Comment INSIGNIFICANT GR <SEE NOTE> 1 Urinalysis 04/12/2023 [facility]. [address] [place] [address] [phone] Color YELLOW Appearance CLEAR Clear Spec.Grav. 1.011 [...] 0-2 /HPF 0-5/HPF Urinalysis,Cult If Indicated 04/12/2023 [facility]. [address] [place] [address] [phone] RFLX Culture YES Laboratory test finding 04/12/2023 [facility]. [address] [place], [place] [address]35[address] [phone] BNP 294.0 pg/mL Critical high 0.0 -10 0.0 2 CBC W/Diff 04/12/2023 [facility]. [address] [place], [place] [address] [phone] WBC 5.8 10^3/M3 3.1 -9. 2 RBC 4.28 10^6/M3 4.00-5.80 HGB 13.5 GR/DL 12.5-17.5 HCT 40.8 % 37.5-52.5 MCV 95.3 CUMICR 82.6-95.8 MCH 31.6 PICOGR 27.9-32.9 MCHC 33.2 % 32.6-35.4 RDW 16.4 % High 11.4-14.6 PLT 97 10^3/M3 Low 140-350 MPV 9.8 CUMICR 7.0-10.6 %Neut 68.6 % 40.0-75.0 %Lymph 20.4 % 17.0-45.0 %Dickson 7.5 % 1.0-11.0 %Eos 2.6 % 0.0-6.0 %Baso 0.9 % 0.0-2.0 #Neut 4.0 10^3/M3 1.5-8.0 #Lymph 1.2 10^3/M3 0.8-3.2 #Dickson 0.4 10^3/M3 0.0-0.8 #Eos 0.2 10^3/m3 0.0-0.4 #Baso 0.1 10^3/m3 0.0-0.2 Pathology Report 03/03/[address] [facility] [address] [place] [address] [phone] Report Type DNR Normal Clinical Information D49.2 Normal Pathologist (SEE NOTE) Normal 3 Report Notes DNR Normal A Clinical Impression DNR Normal A Source NOSE A Procedure DNR Normal A Gross Description (SEE NOTE) 4 A Micro Description (SEE NOTE) 5 A Diagnosis (SEE NOTE) 6 A Comment DNR Normal Laboratory test finding 03/03/2023 [facility] [address] [place] [address] [phone] Enhanced PDF Report [id number] SEE IMAGE CBC W/Diff 02/24/2023 [facility]. [address] [place], [place] [address] [phone] WBC 5.4 10^3/M3 3.1-9 .2 RBC 4.27 10^6/M3 4.00-5.80 HGB 13.3 GR/DL 12.5-17.5 HCT 39.6 % 37.5-52.5 MCV 92.7 CUMICR 82.6-95.8 MCH 31.1 PICOGR 27.9-32.9 MCHC 33.6 % 32.6-35.4 RDW 15.4 % High 11.4-14.6 PLT 149 10^3/M3 140-350 MPV 9.1 CUMICR 7.0-10.6 %Neut 51.8 % 40.0-75.0 %Lymph 34.4 % 17.0-45.0 %Dickson 9.0 % 1.0-11.0 %Eos 4.1 % 0.0-6.0 %Baso 0.7 % 0.0-2.0 #Neut 2.8 10^3/M3 1.5-8.0 #Lymph 1.9 10^3/M3 0.8-3.2 #Dickson 0.5 10^3/M3 0.0-0.8 #Eos 0.2 10^3/m3 0.0-0.4 #Baso 0.0 10^3/m3 0.0-0.2 Comp. Met 02/24/2023 [facility]. [address] [place] [address] [phone] Glucose 83 mg/dL 70-110 BUN 15 mg/dL [...] 2.0-3.4 GFR 67 ML/MIN/1.73SQM >60 Lipid 02/24/2023 [facility]. [address] [place] [address] [phone] Cholesterol 87 mg/dL 0-200 7 Triglyceride 100 mg/dL 0-150 8 HDLD 24 mg/dL See Comment 9 Measured LDL 50 mg/dL 0-130 10 Calc VLDL 20.0 mg/dL See Comment 11 Chol/HDL 3.6 RATIO See Comment 12 Non-HDL 63 mg/dL See Comment 13 Laboratory test finding 02/24/2023 [facility] [address] [place] [address] [phone] TSH 3.49 uIU/mL 0.50-6.00 Psa2 4.2 ng/mL Critical high 0.0-4.0 Hba1c 02/24/2023 [facility] [address] [place] [address] [phone] A1c 5.80 % 4.70-6.50 14 Laboratory test finding 02/24/2023 [facility] [address] [place] [address] [phone] Vitd-25Oh 42 ng/mL 30-100 VB12 725 pg/mL 230-1050 Urinalysis,Cult If Indicated 02/24/2023 [facility] [address] [place], [place] [address] [phone] RFLX Culture NO Urinalysis 02/24/2023 [facility]. [address] [place], [place] [address] [phone] Color LIGHT-YEL LOW Appearance CLEAR Clear Spec.Grav. [...] is a shave biopsy of skin measuring [id number]. The specimen is trisected and entirely submitted in one cassette. Gross exam(s) performed at: [facility] [address] [address] Cloth Classer: SAVITA MONTIEL MD 5 There is a [...] 240-10 Procedures Date Code Description Status 04/12/2023 60674 Electrocardiogram Complete C ompleted 04/12/2023 91312 Venipuncture Routine Complet ed 03/03/2023 G0008 Influenza Admin Completed 03/03/2023 95698 Excise Malig Lesion .6-1CM F bette/Ear/Eyelid/Nose/Lip Completed 02/24/2023 03431 Venipuncture Routine Complet ed 10/28/2022 1101F PT SCR Future Fall Risk, No Fall Or 1 W/Out Injury Completed 09/27/2007 [id number] Colonoscopy Completed Medical Devices Description No Information [...] I10 Essential (primary) hyperten darby Lab - [place] 02/24/2023 E78.2 Mixed hyperlipidemia Merly Waddell MD 02/24/2023 E78.2 Mixed hyperlipidemia Lab - [place] 02/24/2023 N40.1 Benign prostatic hyperplasia with lower urinary tract symptoms Merly Waddell MD 02/24/2023 N40.1 Benign prostatic hyperplasia with lower urinary tract symptoms Lab - [place] 02/24/2023 R73.01 Impaired fasting glucose Xochitl Waddell MD 02/24/2023 R73.01 Impaired fasting glucose Lab - [place] 02/24/2023 E55.9 Vitamin D deficiency, unspec ified Merly Waddell MD 02/24/2023 E55.9 Vitamin D deficiency, unspec ified Lab - [place] 02/24/2023 D51.9 Vitamin B12 deficiency anemi a, unspecified Merly Waddell MD 02/24/2023 D51.9 Vitamin B12 deficiency anemi a, unspecified Lab - [place] 02/24/2023 N39.0 Urinary tract infection, sit e not specified Merly Waddell MD 02/24/2023 N39.0 Urinary tract infection, sit e not specified Lab - [place] 10/28/2022 Z00.01 Encounter for [facility] adult medical examination with abnormal findings [...] 10:00 am - Thomas Ware PA-C at [facility] * 06/27/2023 8:30 am - [facility] - [place] [facility] [place] * 07/04/2023 8:15 am - Thomas Ware PA-C at [facility] 04/12/2023 - Thomas Ware PA-C* I50.21 Acute [...]
[2023-04-25 04:18] LABS: Basophils # (auto) 0.04 K/uL (0.00-0.20); Basophils % (auto) 0.5 %; Eosinophils # (auto) 0.29 K/uL (0.00-0.50); Eosinophils % (auto) 3.3 %; Hematocrit (blood only) 39.8 % (42.0-52.0); Hemoglobin 13.1 g/dl (14.0-18.0); Immature Granulocytes # (auto) 0.03 K/uL (0.01-0.20); Immature Granulocytes % (auto) 0.3 %; Lymphocytes # (auto) 1.33 K/uL (1.20-3.40); Lymphocytes % (auto) 15.2 %; Mean Corpuscular Hemoglobin 30.6 pg (25.0-34.0); Mean Corpuscular Hgb Conc 32.9 g/dL (32.0-36.0); Monocytes # (auto) 0.92 K/uL (0.11-0.59); Monocytes % (auto) 10.5 %; Neutrophils # (auto) 6.14 K/uL (1.40-6.50); Neutrophils % (auto) 70.2 %; Platelet Count 100 K/uL (130-400); RDW Coefficient of Variation 15.9 % (11.5-14.5); RDW Standard Deviation 53.6 fL (36.4-46.3); Red Blood Count 4.28 M/uL (4.70-6.10); White Blood Count 8.75 K/ul (4.8-10.8)
[2023-04-25 04:30] LABS: Albumin Globulin Ratio 1.5 (0.9-2); Albumin Level 3.4 gm/dl (3.4-5.0); BUN Creatinine Ratio 23.9 (10-20); Bilirubin,Total 1.3 mg/dl (0.2-1.0); Calcium 8.3 mg/dl (8.6-10.3); Creatinine Clr Calc Pharmacy 45.7 ml/min; Est GFR (African American) 54.1 ml/min; Est GFR (Non-African American) 46.6 ml/min; Globulin 2.3 gm/dl (2.5-4.0); Potassium 4.4 mmol/L (3.5-5.1); Total Protein 5.7 gm/dl (6.0-8.3)
[2023-04-25 04:41] LABS: INR 1.4 (0.9-1.1); Prothrombin Time 14.6 Seconds (9.0-12.0)
--- NOTE | 2023-04-25 07:20 | Ultrasound Report ---
US abdomen ltd ascites HISTORY: 88 years-old Male Cirrhosis, abdominal distention acute generalized abdominal pain with dis tention COMPARISON: Ultrasound 04/13/2023 TECHNIQUE: Multiple real-time sonographic images of the abdomen were obtained assessing grayscale farzana earance FINDINGS: Cirrhotic liver. Trace ascites noted within all 4 quadrants of the abdomen. IMPRESSION: Trace abdominal ascites. ACT 112: Negative or not required by law. The above report was generated using voice recognition software. It may contain grammatical, syntax o r spelling errors. Electronically signed by: Jose Muñoz M.D. 04/25/2023 7:19 AM
[2023-04-25] MEDS: FUROSEMIDE 40 MG/4 ML VIAL IV SCH ×2 (11:05→18:03)
[2023-04-25] MEDS: APIXABAN 5 MG TABLET PO SCH ×2 (11:05→21:18)
[2023-04-25] MEDS: SPIRONOLACTONE 25 MG TAB PO SCH (11:05)
[2023-04-25] MEDS: METOPROLOL TARTRATE 50 MG TAB PO SCH ×2 (11:05→21:17)
--- NOTE | 2023-04-25 11:59 | Hospitalist Progress Note ---
Date of Service April 25, 2023 Assessment & Plan (1) Shortness of breath: Plan: Appears to be due to acute asthmatic bronchitis. No significant abdominal ascites seen on abdominal ultrasound. This appears to be acute asthmatic bronchitis. He will be treated with parenteral steroid therapy and scheduled DuoNebs. He is currently stable on room air (2) Cirrhosis: Plan: Newly diagnosed last admission earlier this month . Will take this opportunity to start spironolactone therapy. Serial labs. (3) Elevated troponin: Plan: Mild elevation. No chest pain. No acute EKG changes. Probably supply/demand mismatch. (4) Hyponatremia: Plan: Mild. No symptoms. No intervention necessary at this time (5) A-fib: Plan: Chronic. Currently rate controlled. Continue metoprolol and Eliquis. Telemetry. (6) Chronic kidney disease, stage III (moderate): Plan: Stable. Monitor intake and output. Serial labs (7) (HFpEF) heart failure with preserved ejection fraction: Plan: Stable. No exacerbation. Monitor intake and output. (8) HTN (hypertension): Plan: Stable . Continue metoprolol Plan Hopeful discharge to home tomorrow, April 26 Admission and Anticipated Discharge Date Admission Date: April 24, 2023 Subjective Alert and oriented. No distress. He states he has had a cough occasionally productive of clear phlegm associated with wheezing. This caused the shortness of breath episode this morning. Abdominal ultrasound reveals only trace ascites. Chest x-ray is clear. Appears to have asthmatic bronchitis and will be treated with parenteral Solu-Medrol and DuoNebs. Will take this opportunity while he is here to start spironolactone. Hopefully he can go home tomorrow, April 26 Review of Systems 2 Review of Systems: Constitutional-no fever or chills ENT-no blurred vision, no double vision, no epistaxis, no sore throat Respiratory-occasionally productive cough of clear phlegm. Wheezing. Shortness of breath. Cardiac-no palpitations, no chest pain, no syncope GI-no nausea, vomiting, diarrhea, melena, hematochezia -no urinary retention, no urinary incontinence, no dysuria, no hematuria Musculoskeletal-no joint pain, no muscle tenderness Skin-no bruising, no rashes, no pruritus Neuro-no isolated weakness, no paresthesia, no weakness Psych-no depression, no anxiety Physical Exam 2 Physical Exam: General-alert and oriented x3, no fevers, no chills HEENT-head atraumatic and normocephalic, pupils equal and reactive to light, extraocular muscles intact Neck-no lymphadenopathy or thyromegaly, trachea midline Chest-midline rhonchi audible with forced cough only. Bilateral end expiratory wheezes. No inspiratory rales. Cardiac-regular rate and rhythm, normal S1 and S2 Abdomen-normal bowel sounds, nontender, no hepatosplenomegaly. Distended but no fluid wave Extremities-no cyanosis, clubbing, or edema Neuro-cranial nerves II through XII intact, motor and sensory function within normal limits, strength symmetrical, no focal deficits Psych-normal affect, normal mood Results & Data Results & Data Vital Signs (Past 12 Hours) Vital Signs Pulse Pulse Resp BP BP Pulse Ox O2 Del Method 04/25/23 11:09 80 20 137/87 98 Room Air 04/25/23 06:00 98 04/25/23 05:25 122/78 04/25/23 05:25 78 14 94 04/25/23 05:00 94 04/25/23 04:00 72 16 93 04/25/23 03:00 79 16 97 04/25/23 02:00 69 16 97 04/25/23 01:00 69 16 98 04/25/23 00:00 70 18 98 Laboratory Results 04/25/23 03:56 04/25/23 03:56 PG Care Time/CCT Total # of Minutes Spent Total Time Spent with Patient: Total time spent is greater than 50% in coordination of care (as documented) at patient's floor/unit and/or counseling patient: Coding Level of Care Code 44346 SUB INP/OBS CARE 3/50MIN Diagnoses Shortness of breath R06.02 Cirrhosis K74.60 Elevated troponin R79.89 Hyponatremia E87.1 A-fib I48.91 Atrial fibrillation type: unspecified Chronic kidney disease, stage III (moderate) N18.30 (HFpEF) heart failure with preserved ejection fraction I50.30 HTN (hypertension) I10 (5) A-fib Atrial fibrillation type: unspecified Qualified Code(s): I48.91 - Unspecified atrial fibrillation
[2023-04-25] MEDS: methylPREDNISolone 40 MG in SYRINGE 0 ML IV SCH ×2 (15:09→21:17)
[2023-04-25] MEDS: ALBUT/IPRATROP 3MG/0.5MG NEB 3 ML VIAL NEB SCH ×2 (15:12→20:39)
[2023-04-25] MEDS: TAMSULOSIN HCL 0.4 MG CAP PO SCH (21:17)
[2023-04-25] MEDS: ATORVASTATIN 40 MG TAB PO SCH (21:17)
[2023-04-25] MEDS: MIRTAZAPINE TAB 15 MG TAB PO SCH (21:18)
[2023-04-26] MEDS: methylPREDNISolone 40 MG in SYRINGE 0 ML IV SCH ×3 (06:13→21:08)
[2023-04-26 07:04] LABS: Basophils # (auto) 0.01 K/uL (0.00-0.20); Basophils % (auto) 0.2 %; Hematocrit (blood only) 36.9 % (42.0-52.0); Hemoglobin 12.5 g/dl (14.0-18.0); Immature Granulocytes # (auto) 0.02 K/uL (0.01-0.20); Immature Granulocytes % (auto) 0.4 %; Lymphocytes % (auto) 12.2 %; Mean Corpuscular Hemoglobin 30.6 pg (25.0-34.0); Mean Corpuscular Hgb Conc 33.9 g/dL (32.0-36.0); Mean Corpuscular Volume 90.4 fL (80.0-100.0); Mean Platelet Volume 11.7 fL (9.4-12.4); Monocytes # (auto) 0.19 K/uL (0.11-0.59); Monocytes % (auto) 3.9 %; Neutrophils # (auto) 4.09 K/uL (1.40-6.50); Neutrophils % (auto) 83.3 %; Platelet Count 101 K/uL (130-400); RDW Coefficient of Variation 15.8 % (11.5-14.5); RDW Standard Deviation 51.5 fL (36.4-46.3); Red Blood Count 4.08 M/uL (4.70-6.10); White Blood Count 4.91 K/ul (4.8-10.8)
[2023-04-26] MEDS: ALBUT/IPRATROP 3MG/0.5MG NEB 3 ML VIAL NEB SCH (07:12)
[2023-04-26 07:27] LABS: Albumin Globulin Ratio 1.5 (0.9-2); Albumin Level 3.4 gm/dl (3.4-5.0); BUN Creatinine Ratio 24.8 (10-20); Bilirubin,Total 1.3 mg/dl (0.2-1.0); Calcium 8.2 mg/dl (8.6-10.3); Creatinine Clr Calc Pharmacy 43.5 ml/min; Est GFR (African American) 52.6 ml/min; Est GFR (Non-African American) 45.4 ml/min; Globulin 2.3 gm/dl (2.5-4.0); Potassium 4.3 mmol/L (3.5-5.1); Total Protein 5.7 gm/dl (6.0-8.3)
[2023-04-26 07:30] LABS: INR 1.4 (0.9-1.1); Prothrombin Time 15.1 Seconds (9.0-12.0)
[2023-04-26] MEDS: METOPROLOL TARTRATE 50 MG TAB PO SCH ×2 (08:24→21:07)
[2023-04-26] MEDS: SPIRONOLACTONE 25 MG TAB PO SCH (08:24)
[2023-04-26] MEDS: APIXABAN 5 MG TABLET PO SCH ×2 (08:24→21:07)
[2023-04-26] MEDS: FUROSEMIDE 40 MG/4 ML VIAL IV SCH (08:27)
--- NOTE | 2023-04-26 10:13 | Hospitalist Progress Note ---
Date of Service April 26, 2023 Assessment & Plan (1) Shortness of breath: Plan: Appeared to be due to acute asthmatic bronchitis on admission. Now resolved. No significant abdominal ascites seen on abdominal ultrasound. Continue parenteral steroid therapy and scheduled DuoNebs. He is currently stable on room air (2) Cirrhosis: Plan: Newly diagnosed last admission earlier this month . He is tolerating spironolactone thus far. Potassium level is stable. Serial labs. (3) Elevated troponin: Plan: Mild elevation. No chest pain. No acute EKG changes. Probably supply/demand mismatch. (4) Hyponatremia: Plan: Mild. No symptoms. No intervention necessary at this time (5) A-fib: Plan: Chronic. Currently rate controlled. Continue metoprolol and Eliquis. Telemetry. (6) Chronic kidney disease, stage III (moderate): Plan: Stable. Monitor intake and output. Serial labs (7) (HFpEF) heart failure with preserved ejection fraction: Plan: Stable. No exacerbation. Monitor intake and output. (8) HTN (hypertension): Plan: Stable . Continue metoprolol Plan Hopeful discharge to home tomorrow, April 27 Admission and Anticipated Discharge Date Admission Date: April 24, 2023 Subjective Alert and oriented. He states he is feeling better. Potassium remains stable on new addition of spironolactone. Wheezing has resolved. We discussed probable discharge to home tomorrow, April 27 Review of Systems 2 Review of Systems: Constitutional-no fever or chills ENT-no blurred vision, no double vision, no epistaxis, no sore throat Respiratory-occasionally productive cough of clear phlegm. Wheezing has resolved. No shortness of breath at rest Cardiac-no palpitations, no chest pain, no syncope GI-no nausea, vomiting, diarrhea, melena, hematochezia -no urinary retention, no urinary incontinence, no dysuria, no hematuria Musculoskeletal-no joint pain, no muscle tenderness Skin-no bruising, no rashes, no pruritus Neuro-no isolated weakness, no paresthesia, no weakness Psych-no depression, no anxiety Physical Exam 2 Physical Exam: General-alert and oriented x3, no fevers, no chills HEENT-head atraumatic and normocephalic, pupils equal and reactive to light, extraocular muscles intact Neck-no lymphadenopathy or thyromegaly, trachea midline Chest-midline rhonchi audible with forced cough only. Bilateral end expiratory wheezes have resolved. No inspiratory rales. Cardiac-regular rate and rhythm, normal S1 and S2 Abdomen-normal bowel sounds, nontender, no hepatosplenomegaly. Distended but no fluid wave Extremities-no cyanosis, clubbing, or edema Neuro-cranial nerves II through XII intact, motor and sensory function within normal limits, strength symmetrical, no focal deficits Psych-normal affect, normal mood Results & Data Results & Data Vital Signs (Past 12 Hours) Vital Signs Temp Pulse Pulse Resp BP BP Pulse Ox 04/26/23 08:43 82 04/26/23 08:43 04/26/23 07:19 36.4 C L 75 18 139/75 97 04/26/23 07:12 76 18 97 04/26/23 03:46 36.3 C L 70 20 135/80 93 04/25/23 23:45 36.3 C L 71 20 119/73 96 O2 Del Method O2 Flow Rate 04/26/23 08:43 04/26/23 08:43 Nasal Cannula 2 04/26/23 07:19 Nasal Cannula 2 04/26/23 07:12 Nasal Cannula 2 04/26/23 03:46 Room Air 04/25/23 23:45 Room Air Laboratory Results 04/26/23 06:38 04/26/23 06:38 PG Care Time/CCT Total # of Minutes Spent Total Time Spent with Patient: Total time spent is greater than 50% in coordination of care (as documented) at patient's floor/unit and/or counseling patient: Coding Level of Care Code 15503 SUB INP/OBS CARE 3/50MIN Diagnoses Shortness of breath R06.02 Cirrhosis K74.60 Elevated troponin R79.89 Hyponatremia E87.1 A-fib I48.91 Atrial fibrillation type: unspecified Chronic kidney disease, stage III (moderate) N18.30 (HFpEF) heart failure with preserved ejection fraction I50.30 HTN (hypertension) I10 (5) A-fib Atrial fibrillation type: unspecified Qualified Code(s): I48.91 - Unspecified atrial fibrillation
[2023-04-26] MEDS ORDERED: ALBUT/IPRATROP 3MG/0.5MG NEB 3 ML VIAL NEB PRN (10:28)
[2023-04-26] MEDS: ATORVASTATIN 40 MG TAB PO SCH (21:07)
[2023-04-26] MEDS: MIRTAZAPINE TAB 15 MG TAB PO SCH (21:07)
[2023-04-26] MEDS: TAMSULOSIN HCL 0.4 MG CAP PO SCH (21:08)
[2023-04-27] MEDS: methylPREDNISolone 40 MG in SYRINGE 0 ML IV SCH (05:10)
[2023-04-27 08:03] LABS: Basophils # (auto) 0.01 K/uL (0.00-0.20); Basophils % (auto) 0.1 %; Hematocrit (blood only) 38.9 % (42.0-52.0); Hemoglobin 13.2 g/dl (14.0-18.0); Immature Granulocytes % (auto) 0.8 %; Lymphocytes # (auto) 0.94 K/uL (1.20-3.40); Lymphocytes % (auto) 7.6 %; Mean Corpuscular Hemoglobin 30.6 pg (25.0-34.0); Mean Corpuscular Hgb Conc 33.9 g/dL (32.0-36.0); Mean Corpuscular Volume 90.3 fL (80.0-100.0); Mean Platelet Volume 11.9 fL (9.4-12.4); Monocytes # (auto) 0.49 K/uL (0.11-0.59); Neutrophils % (auto) 87.5 %; Platelet Count 115 K/uL (130-400); RDW Coefficient of Variation 15.8 % (11.5-14.5); RDW Standard Deviation 51.8 fL (36.4-46.3); Red Blood Count 4.31 M/uL (4.70-6.10); White Blood Count 12.34 K/ul (4.8-10.8)
[2023-04-27 08:22] LABS: BUN Creatinine Ratio 31.5 (10-20); Calcium 8.6 mg/dl (8.6-10.3); Creatinine Clr Calc Pharmacy 41.9 ml/min; Est GFR (Non-African American) 43.1 ml/min; Potassium 4.7 mmol/L (3.5-5.1)
[2023-04-27] MEDS: APIXABAN 5 MG TABLET PO SCH (08:59)
[2023-04-27] MEDS: SPIRONOLACTONE 25 MG TAB PO SCH (08:59)
[2023-04-27] MEDS: METOPROLOL TARTRATE 50 MG TAB PO SCH (08:59)
--- NOTE | 2023-04-27 10:22 | Discharge Summary ---
Date of Service April 27, 2023 Admission HPI Per Admitting Provider Stephen is an 88 year old male with a PMH significant for newly diagnosed afib (Now on Elqiuis), newly diagnosed Cirrhosis, hyperkalemia, thrombocytopenia, previous TIA, HTN, HLD, who presented to the [facility] [place] ED via EMS from [facility] due to an acute episode of SOB and lightheadedness while eating lunch today. Per the ED staff, the patient was noted to be initially placed on 3L NC by staff and was found to be stable on RA on arrival. He was otherwise stable. Labs were significant for a sodium of 131 (up from 129 as of 04/19), total bili of 1.1 (down from 1.6 as of 04/19), stable ALT, AST of 53, alk phos of 181, initial high sen trop of 38 with 2 hour repeat of 37, BNP of 420 (up from 338 as of 04/12), and covid 19 negative. Chest xray was read as "No acute cardiopulmonary findings. No significant change in appearance of the chest.". ECG showed afib without acute ST segment or T-wave changes compared to previous. Prior to admission he was given 40 mg IV lasix. At the time of the exam the patient was sitting in bed in no acute distress with two friends sitting bedside, history was obtained from all. He states that he has been having ongoing issues with intermittent SOB, increased PRINCE, and generalized weakness since his admission earlier this month. He states that he is still getting SOB with exertion, but slightly improved compared to last admission. He states he had another "spell" of increased SOB with some lightheadedness this afternoon, which is why EMS was called. He states that he is currently feeling improved compared to ED arrival but still generally weak. He denies recent fever, chills, cough, chest pain/palpitations, abd pain, nausea, vomiting, diarrhea, dysuria, hematuria, melena, and recent trauma. He fells his LE's are getting more swollen than when he was discharged. He is still a DNR/DNI and would want his children to make medical decisions for him if he cannot make them himself. I called and spoke with nursing staff at [facility] to obtain further history. They state that over the weekend the patient has been having progressive PRINCE, LE swelling, and generalized weakness. They confirm that he has been taking his 20 mg PO lasix daily and is currently on a low sodium diet. Please refer to Dr. Luciano's attestation for any changes to the treatment plan Principal Diagnosis Asthmatic bronchitis, dyspnea Discharge Exam General-alert and oriented x3, no fevers, no chills HEENT-head atraumatic and normocephalic, pupils equal and reactive to light, extraocular muscles intact Neck-no lymphadenopathy or thyromegaly, trachea midline Chest-midline rhonchi audible with forced cough only. Bilateral end expiratory wheezes have resolved. No inspiratory rales. Cardiac-regular rate and rhythm, normal S1 and S2 Abdomen-normal bowel sounds, nontender, no hepatosplenomegaly. Distended but no fluid wave Extremities-no cyanosis, clubbing, or edema Neuro-cranial nerves II through XII intact, motor and sensory function within normal limits, strength symmetrical, no focal deficits Psych-normal affect, normal mood Discharge Data Allergies Allergy/AdvReac Type Severity Reaction Status Date / Time No Known Allergies Allergy Verified 04/24/23 17:30 Consultations 04/24/23 16:52 ED Decision to Admit Stat Ordered Studies 04/24/23 18:03 abdomen ltd ascites Routine Hospital Course (1) Shortness of breath: Appeared to be due to acute asthmatic bronchitis on admission. Now resolved. No significant abdominal ascites seen on abdominal ultrasound. Treated while hospitalized with parenteral steroid therapy and scheduled DuoNebs. He is currently stable on room air. He will be discharged on a prednisone tapering dose (2) Cirrhosis: Newly diagnosed last admission earlier this month . Ascitic fluid accumulation is minimal. Spironolactone was started this admission but will be stopped to prevent complications. (3) Elevated troponin: Mild elevation. No chest pain. No acute EKG changes. Probably supply/demand mismatch. (4) Hyponatremia: Mild. No symptoms. No intervention necessary at this time (5) A-fib: Chronic. Currently rate controlled. Continue metoprolol and Eliquis. Telemetry. (6) Chronic kidney disease, stage III (moderate): Stable. Monitor intake and output. Serial labs (7) (HFpEF) heart failure with preserved ejection fraction: Stable. No exacerbation. Monitor intake and output. (8) HTN (hypertension): Stable . Continue metoprolol Plan Home today, April 27, on prednisone taper Total Time Total Time Spent Total Time Spent (In Minutes): 45 minutes Discharge Plan Discharge Items Patient Disposition: Home - Self-Care Reason For Visit: SOB, LIGHTHEADEDNESS Discharge Diagnosis: Asthmatic bronchitis, dyspnea Activity: Resume your previous activity Non-emergency contact: Primary Care Provider Call non-emergency contact if: you have any medication questions and your symptoms worsen Follow-up/Referrals: Thomas Ware, PA-C [Primary Care Provider] - Diet: Regular Addtl Attending Provider Instructions: Take prednisone in a tapering dose fashion as directed Stand-Alone Forms: My Digg, Smoking Cessation Medications and DC Order Prescriptions: New prednisone 10 mg tablet See Rx Instructions .ROUTE .COMPLEX Qty: 12 0RF Rx Instructions: 10 mg orally 3 times a day for 2 days, then 10 mg twice a day for 2 days, then 10 mg once a day for 2 days, then stop Continued atorvastatin 80 mg tablet 80 mg PO QPM tamsulosin 0.4 mg capsule 0.8 mg PO HS metoprolol tartrate 50 mg tablet 50 mg PO BID Eliquis 5 mg Tablet 5 mg PO BID Qty: 60 0RF furosemide 20 mg Tablet 20 mg PO QAM Qty: 30 0RF mirtazapine 15 mg tablet 15 mg PO HS Qty: 30 0RF acetaminophen [Tylenol] 325 mg Tablet 650 mg PO Q6 PRN (Reason: Fever Or Pain) loperamide [Imodium A-D] 2 mg Tablet 2 mg PO .Q2HRS PRN (Reason: Diarrhea) Rx Instructions: FOR 1 WEEK, STARING 04/21/2023 bisacodyl [Dulcolax (bisacodyl)] 10 mg Suppository 0 mg TX DIRECTED PRN (Reason: Constipation) Rx Instructions: As per bowel protocol Discharge Orders: Discharge Order (Routine); Ordered 04/27/23 Ordered By: Rene Russo Admission Data Admit Date/Time: 04/24/23 17:33 Attending Provider: Rene Russo Admit Provider: Dorian Luciano Primary Care Provider: Thomas Ware Other Providers: Dorian Luciano; [place],Care Coding Level of Care Code 45469 INP/OBS DISCH >30 MIN Diagnoses Shortness of breath R06.02 Cirrhosis K74.60 Elevated troponin R79.89 Hyponatremia E87.1 A-fib I48.91 Atrial fibrillation type: unspecified Chronic kidney disease, stage III (moderate) N18.30 (HFpEF) heart failure with preserved ejection fraction I50.30 HTN (hypertension) I10
== END 2023-04-27 11:19 | disposition home health service (06) | DRG 202 ==
LOC: ED 14:07 → EDINP 17:33 → SUATTDRO 17:33 → 2N 04-25 12:58

== ENCOUNTER 2023-06-24 18:03 | Inpatient (IN) ==
[2023-06-24 18:37] LABS: Basophils # (auto) 0.04 K/uL (0.00-0.20); Basophils % (auto) 0.6 %; Eosinophils # (auto) 0.09 K/uL (0.00-0.50); Eosinophils % (auto) 1.4 %; Hematocrit (blood only) 35.8 % (42.0-52.0); Hemoglobin 12.4 g/dl (14.0-18.0); Immature Granulocytes # (auto) 0.03 K/uL (0.01-0.20); Immature Granulocytes % (auto) 0.5 %; Lymphocytes # (auto) 1.42 K/uL (1.20-3.40); Lymphocytes % (auto) 22.2 %; Mean Corpuscular Hemoglobin 29.7 pg (25.0-34.0); Mean Corpuscular Hgb Conc 34.6 g/dL (32.0-36.0); Mean Corpuscular Volume 85.9 fL (80.0-100.0); Mean Platelet Volume 12.4 fL (9.4-12.4); Monocytes # (auto) 0.61 K/uL (0.11-0.59); Monocytes % (auto) 9.5 %; Neutrophils % (auto) 65.8 %; Platelet Count 113 K/uL (130-400); RDW Coefficient of Variation 14.6 % (11.5-14.5); RDW Standard Deviation 45.2 fL (36.4-46.3); Red Blood Count 4.17 M/uL (4.70-6.10); White Blood Count 6.39 K/ul (4.8-10.8)
--- NOTE | 2023-06-24 18:50 | XRay Report ---
SINGLE VIEW CHEST CLINICAL HISTORY: Atypical chest pain FINDINGS: A PA chest radiograph is compared to study dated 04/24/2023. Correlation is made with chest CT dated 04/12/2023. The heart is enlarged and noting atherosclerotic calcification of the thoracic aorta. The pulmonary vasculature is noncongested. There is a small right pleural effusion with right basilar atelectasis. The left lung appears clear. No pneumothorax is seen. The skeletal structures ar e osteopenic. Compression deformity are again seen in the mid to lower thoracic region. Arthritic carole nge is noted in the shoulders and spine. IMPRESSION: 1. Cardiomegaly without radiographic evidence of congestive failure. 2. A small right pleural effusion is new from previous.. ACT 112: Negative or not required by law. Electronically signed by: Toby Vega M.D. 06/24/2023 6:49 PM
[2023-06-24 18:56] LABS: Alanine Aminotransferase 28 U/L (7-52); Albumin Globulin Ratio 1.3 (0.9-2); Albumin Level 3.7 gm/dl (3.4-5.0); Alkaline Phosphatase 255 U/L (34-104); Anion Gap 8 (3-11); Aspartate Aminotransferase 38 U/L (13-39); BUN Creatinine Ratio 20.7 (10-20); Bilirubin,Total 1.5 mg/dl (0.2-1.0); Blood Urea Nitrogen 25 mg/dl (6-23); Calcium 8.6 mg/dl (8.6-10.3); Carbon Dioxide 24 mmol/L (21-32); Chloride 91 mmol/L (98-107); Est GFR (African American) 61.1 ml/min; Est GFR (Non-African American) 52.8 ml/min; Globulin 2.8 gm/dl (2.5-4.0); Glucose 110 mg/dl (70-99(Fasting)); Potassium 4.1 mmol/L (3.5-5.1); Sodium 123 mmol/L (136-145); Total Protein 6.5 gm/dl (6.0-8.3)
[2023-06-24 19:02] LABS: Troponin I High Sensitivity 18.3 pg/ml (0-20)
[2023-06-24 19:05] LABS: INR 1.7 (0.9-1.1); Partial Thromboplastin Ratio 1.3; Partial Thromboplastin Time 36 Seconds (21-31)
--- NOTE | 2023-06-24 19:43 | Emergency Department Note ---
Impression & Plan Generalized weakness, Ambulatory dysfunction, Acute hyponatremia, Elevated brain natriuretic peptide (BNP) level ED Provider Note HISTORY OF PRESENT ILLNESS: Patient is an 88-year-old male presenting with generalized weakness. Patient reports he has been having progressively worsening weakness for the last 2 months. He states he has been into the emergency department multiple times for this. He reports feeling shortness of breath with exertion. He denies any chest pain. Denies any abdominal pain, nausea or vomiting. Denies any recent fevers. He currently just started taking Ativan recently. No other changes in medication. He is not on any anticoagulation. Denies any recent falls or head injury. ROS: as above PHYSICAL EXAM: Constitutional: Patient appears in no acute distress. HENT: Head: Normocephalic and atraumatic. Eyes: EOMI, PERRL Mouth/Throat: Mucous membranes moist. Neck: Trachea midline. Neck supple. Cardiovascular: Irregular rhythm. No murmurs, rubs or gallops. Intact distal pulses. Pulmonary/Chest: No respiratory distress. Breath sounds clear and equal bilaterally. No wheezes or rales. Abdominal: Abdomen soft, no tenderness, rebound or guarding. Musculoskeletal: No tenderness or deformity noted. +1 edema of bilateral lower extremities extending to mid-shins. Skin: Warm and dry. No rash, erythema, pallor or cyanosis Psychiatric: Appropriate mood and affect for situation. Neurological: Alert and keenly responsive. CN II-XII grossly intact, moving all extremities equally and fully. MDM: - Vitals signs stable. - History obtained via patient. Patient presents with generalized weakness. Patient reportedly has been having progressively worsening weakness in the last 2 months. He states that he also feels short of breath with exertion. Denies any chest pain. Denies any recent fevers. Denies any head injury or recent falls. He lives home alone. - Chronic conditions affecting care: HTN; HLD; CKD; CHF; COPD; Afib - Differential diagnoses include, but are not limited to: UTI; pneumonia; ACS; CVA; intracranial hemorrhage - Order placed for continuous cardiac monitoring. At this time, monitor showed rate of 74 bpm with irregular rhythm, per my interpretation. - External medical records reviewed. Discharge summary dated 04/27/2023 was reviewed. Patient had been admitted at that time for acute shortness of breath and lightheadedness. He was admitted for asthmatic bronchitis and dyspnea. - EKG interpreted by myself showed atrial fibrillation. Rate 70 bpm. QTc 420. No acute ischemic changes. - Laboratory workup interpreted by myself showed normal WBC; hyponatremia (Na 123); normal troponin; elevated BNP (578) - CXR negaitve for pneumonia, per my interpretation. Radiology notes a small right pleural effusion which is new from previous. - CT head wo contrast negative for acute intracranial pathology. - Patient does live home alone and reports that his children are currently living with and helping him to get around at home. He is agreeable to admission for potential rehab placement. - Discussion was had with tire care manager about patient's case and need for admission - Hospitalist consulted for admission - [facility] ASSESSMENT AND PLAN: Diagnosis: Generalized weakness; ambulatory dysfunction; elevated BNP; hyponatremia Plan: admit Past Med/Surg History Medical History (Updated 06/24/23 @ 20:14 by Krista Krueger MD) Mitral regurgitation Fairly severe Cardiomyopathy BPH (benign prostatic hyperplasia) Anxiety no longer on meds Non-ST elevated myocardial infarction pt unaware A-fib Newly dx'ed- Apr 2023 [facility] COPD (chronic obstructive pulmonary disease) D.O.E per pt CHF (congestive heart failure) DENZEL (obstructive sleep apnea) no device Cirrhosis Newly diagnosed per [facility] admission Apr 2023 no issues at present Chronic kidney disease, stage III (moderate) TIA (transient ischemic attack) over 5 yrs ago > no residual effects HLD (hyperlipidemia) HTN (hypertension) Surgical History Hx of knee surgery bilat Hx of shoulder surgery bilat History of colonoscopy S/P carotid endarterectomy shortly after TIA Social History Smoking Status: Never smoker Second Hand Exposure: No; Do You Dip or Chew Tobacco: No; Hx Alcohol Use: Yes Alcohol type: beer Hx Substance Use: No Preferred Language: Nicaraguan Communication Ability: Effective Preschool Adviser Required: No Beliefs That Will Affect Care: None Current Living Situation: Spouse Feels Safe at Home: Yes Assistive Devices: Hearing Aid - Bilateral Allergies Allergies Allergy/AdvReac Type Severity Reaction Status Date / Time No Known Allergies Allergy Verified 06/14/23 12:43 Home Meds Home Medications Medication Instructions Recorded Confirmed atorvastatin 80 mg tablet 80 mg PO QPM 04/12/23 06/14/23 tamsulosin 0.4 mg capsule 0.8 mg PO HS 04/12/23 06/14/23 ipratropium 0.5 mg-albuterol 3 mg 3 ml inhalation Q6H PRN Wheezing 05/03/23 06/14/23 (2.5 mg base)/3 mL nebulization soln lorazepam 0.5 mg tablet 0.5 - 1 mg PO DAILY PRN SEVERE 06/13/23 06/14/23 ANXIETY triamcinolone acetonide 0.1 % 1 applic topical BID PRN Skin 06/13/23 06/14/23 topical cream Irritation Previous Rx's Medication Instructions Recorded apixaban 5 mg tablet (Eliquis) 5 mg PO BID #60 tabs 04/19/23 furosemide 20 mg tablet 20 mg PO QAM #30 tabs 04/19/23 metoprolol succinate 50 mg 50 mg PO DAILY #90 tabs 06/14/23 tablet,extended release 24 hr Results & Data (ED) Vital Signs Vital Signs - 24 hr 06/24/23 18:06 06/24/23 18:56 Temperature 36.9 C Temperature Source Temporal Artery Scan Pulse Rate 71 74 Respiratory Rate 22 Respiratory Effort / Characteristics Non-Labored Spontaneous Respiratory Depth Normal Blood Pressure 114/78 Blood Pressure Mean 90 Pulse Oximetry 96 Oxygen Delivery Method Room Air Sepsis Recent Fever Within 48 Hours No Sepsis New/Unexplained Change in Mental Status No Sepsis Action Taken by Nursing No Action Required Laboratory Data 06/24/23 18:19 06/24/23 18:19 Lab Results 06/24/23 Range/Units 18:19 WBC 6.39 (4.8-10.8) K/ul RBC 4.17 L (4.70-6.10) M/uL Hgb 12.4 L (14.0-18.0) g/dl Hct 35.8 L (42.0-52.0) % MCV 85.9 (80.0-100.0) fL MCH 29.7 (25.0-34.0) pg MCHC 34.6 (32.0-36.0) g/dL RDW Std Deviation 45.2 (36.4-46.3) fL RDW Coeff of Fernando 14.6 H (11.5-14.5) % Plt Count 113 L (130-400) K/uL MPV 12.4 (9.4-12.4) fL Immature Gran % (Auto) 0.5 % Neut % (Auto) 65.8 % Lymph % (Auto) 22.2 % [place] % (Auto) 9.5 % Eos % (Auto) 1.4 % Baso % (Auto) 0.6 % Neut # (Auto) 4.20 (1.40-6.50) K/uL Lymph # (Auto) 1.42 (1.20-3.40) K/uL [place] # (Auto) 0.61 H (0.11-0.59) K/uL Eos # (Auto) 0.09 (0.00-0.50) K/uL Baso # (Auto) 0.04 (0.00-0.20) K/uL Immature Gran # (Auto) 0.03 (0.01-0.20) K/uL PT 18.0 H (9.0-12.0) Seconds INR 1.7 H (0.9-1.1) APTT 36 H (21-31) Seconds PTT Ratio 1.3 Sodium 123 L (136-145) mmol/L Potassium 4.1 (3.5-5.1) mmol/L Chloride 91 L (98-107) mmol/L Carbon Dioxide 24 (21-32) mmol/L Anion Gap 8 (3-11) BUN 25 H (6-23) mg/dl Creatinine 1.21 (0.6-1.4) mg/dl Est Cr Clr Drug Dosing Not Reportable Est GFR ( Amer) 61.1 ml/min Est GFR (Non-Af Amer) 52.8 ml/min BUN/Creatinine Ratio 20.7 H (10-20) Glucose 110 H (70-99(Fasting)) mg/dl Calcium 8.6 (8.6-10.3) mg/dl Total Bilirubin 1.5 H (0.2-1.0) mg/dl AST 38 (13-39) U/L ALT 28 (7-52) U/L Alkaline Phosphatase 255 H (34-104) U/L Troponin I High Sens 18.3 (0-20) pg/ml B-Natriuretic Peptide 578 H (0-100) pg/ml Total Protein 6.5 (6.0-8.3) gm/dl Albumin 3.7 (3.4-5.0) gm/dl Globulin 2.8 (2.5-4.0) gm/dl Albumin/Globulin Ratio 1.3 (0.9-2) Imaging Data Radiologist's Impression: Chest X-Ray 06/24/23 18:13 SINGLE VIEW CHEST CLINICAL HISTORY: Atypical chest pain FINDINGS: A PA chest radiograph is compared to study dated 04/24/2023. Correlation is made with chest CT dated 04/12/2023. The heart is enlarged and noting atherosclerotic calcification of the thoracic aorta. The pulmonary vasculature is noncongested. There is a small right pleural effusion with right basilar atelectasis. The left lung appears clear. No pneumothorax is seen. The skeletal structures are osteopenic. Compression deformity are again seen in the mid to lower thoracic region. Arthritic change is noted in the shoulders and spine. IMPRESSION: 1. Cardiomegaly without radiographic evidence of congestive failure. 2. A small right pleural effusion is new from previous.. ACT 112: Negative or not required by law. Electronically signed by: Toby Vega M.D. 06/24/2023 6:[address] 06/24/23 19:37 Exam(s): CT HEAD Without Contrast EXAM: CT Head Without Intravenous Contrast CLINICAL HISTORY: weakness. TECHNIQUE: Axial computed tomography images of the head/brain without intravenous contrast. CTDI is 35.65 mGy and DLP is 624.41 mGy-cm. Automated exposure control was utilized for the study. A dose lowering technique was utilized adhering to the principles of ALARA. COMPARISON: CT head without contrast 06/13/2023 FINDINGS: Brain: There are a few areas of decreased attenuation in the deep cerebral white matter consistent with mild small vessel ischemic/degenerative changes. The cerebral and cerebellar sulci are mildly prominent consistent with mild brain atrophy. No hemorrhage. No mass-effect. No cortical infarct. Ventricles: No midline shift. No ventriculomegaly. Bones/joints: Unremarkable. No acute fracture. Soft tissues: Unremarkable. 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 Sinuses: Unremarkable as visualized. No acute sinusitis. Mastoid air cells: Unremarkable as visualized. No mastoid effusion. IMPRESSION: No acute intracranial process or significant alteration from the prior examination. Electronically signed by: Foster Romero MD 06/24/23 20:22 PM Discharge Plan Visit Data Chief Complaint: Syncope (Near Syncope) Stated Complaint: SOB, FEELING OF PASSING OUT ED Provider: Kritsa Krueger Discharge Problem: Generalized weakness, Ambulatory dysfunction, Acute hyponatremia, Elevated brain natriuretic peptide (BNP) level Forms Stand Alone Forms: [facility] [employer] Prescriptions Prescriptions: No Action metoprolol succinate 50 mg tablet extended release 24 hr 50 mg PO DAILY Qty: 90 3RF ipratropium-albuterol 0.5 mg-3 mg(2.5 mg base)/3 mL solution for nebulization 3 ml inhalation Q6H PRN (Reason: Wheezing) atorvastatin 80 mg tablet 80 mg PO QPM tamsulosin 0.4 mg capsule 0.8 mg PO HS Eliquis 5 mg Tablet 5 mg PO BID Qty: 60 0RF furosemide 20 mg Tablet 20 mg PO QAM Qty: 30 0RF triamcinolone acetonide 0.1 % cream 1 applic TOPICAL BID PRN (Reason: Skin Irritation) lorazepam 0.5 mg tablet 0.5 - 1 mg PO DAILY PRN (Reason: SEVERE ANXIETY) Referrals Referrals: Thomas Ware PA-C [Primary Care Provider] -
--- NOTE | 2023-06-24 20:25 | History & Physical Report ---
Date of Service June 24, 2023 Assessment & Plan (1) Generalized weakness: Plan: -Admit to the PCU on tele and pulse oximetry -Currently hemodynamically stable and stable on RA -Patient presented to the ED today with 1-2 months of progressive generalized weakness -His appetite has been poor and he was too weak to get out of bed today -At this time his generalized weakness is likely multifactorial including deconditioning, non-compliance with HS CPAP causing poor sleep, and his chronic liver disease and heart failure -No signs of infection on labs/imaging thus far -CT of the head/brain was negative for acute findings, neuro exam is non-focal -Patient is in agreement with need for inpatient rehab on discharge >PT/OT consults ordered -Fall/aspiration precautions -BL ELIUD's for DVT PPX -AM CBC, CMP, mag, PT/INR (2) Acute hyponatremia: Plan: -Sodium today is 123 -Likely multifactorial at this time including poor oral intake, cirrhosis, and CHF -Will obtain serum/urine osmolality, and urine sodium for further evaluation before we start treating -Will order 1800 mL fluid restriction -Communication placed in diet and separate communication placed for no free water; can have liquids with electrolytes -Monitor am sodium level (3) Dizziness: Plan: -Likely multifactorial at this time as he likely has some component of orthostatic hypotension -However, some of his symptoms, including some chest pressure with the episodes at rest are concerning for underlying arrhythmia -He has a hx of afib and is in afib today -Continue to monitor on tele, fall precautions -We will obtain orthostatic vitals tomorrow -Will consult cardiology as he follows with Dr. Young who had mentioned possible Mitral Valve replacement (4) DENZEL (obstructive sleep apnea): Plan: -Patient has been non-compliant per family due to being unable to tolerate the mask -For now we will monitor his HS SpO2 and order prn O2 to keep SpO2 between 92- 94% -Would recommend patient be evaluated for the nasal pillow mask option for his home CPAP (5) Shortness of breath: Plan: -Likely due to his hx of cardiomyopathy and mitral valve disease -No significant fluid noted on CXR today -Will obtain US of the abd/RUQ to monitor for ascites causing low lung volumes -Full respiratory biofire is negative (6) Cirrhosis: Plan: -MELD-Na score of 25 = 14-15% estimated 90 day mortality -Has not yet followed with GI or hepatology since last discharge -ALT and AST are WNL, no signs of hepatic encephalopathy -Is on lasix outpatient, will have to be cautious if considering starting Spironolactone -Could consider GI consult while admitted -Monitor am CMP (7) HTN (hypertension): Plan: -Stable -Monitor closely moving forward if IV diuresis is started Plan The patient was discussed with Dr. Kang at the time of the admission History of Present Illness Chief Complaint: Weakness, SOB, dizziness Primary Care Provider: Thomas Del Real Chaz Mitchell is an 88 year old male with a PMH significant for newly afib [facility] Cirrhosis, hyperkalemia, thrombocytopenia, previous TIA, HTN, HLD who presented to the [facility] ED on 06/24/23 with complaints of ongoing dizziness, weakness, and SOB. He remained stable in the ED. Labs were significant for a thrombocytopenia of 113, INR of 1.7, sodium of 123, total bili of 1.5 (up from 1.3 as of 06/13/23), BNP of 578 (highest in our system compared to previous), and full respiratory biofire in process. Chest xray was read as "1. Cardiomegaly without radiographic evidence of congestive failure. 2. A small right pleural effusion is new". from previous..CT of the head/brain wo can was read as "No acute intracranial process or significant alteration from the prior examination.". At the time of the exam the patient was sitting in bed in no acute distress with his son and daughter sitting bedside, history was obtained from all. They state that the patient has been experiencing progressive generalized weakness, intermittent SOB, and dizziness. When asked, he states that the dizziness occurs with positional changes and walking, it does not occur at rest. His SOB is unpredictable, it will occur both at rest and with exertion and he also notes mild substernal chest pressure when this occurs. He states that these episodes usually last for 10-15 seconds. He has become so weak that his children had to start living with him to try and prevent falls. His oral intake has been poor but he has still been taking his medications as prescribed. He denies recent fever, chills, cough, abd pain, nausea, vomiting, diarrhea, dysuria, hematuria, melena, worsening LE swelling, and recent falls/trauma. He is interested in inpatient rehab on discharge. He is a DNR/DNI. Allergies Allergy/AdvReac Type Severity Reaction Status Date / Time No Known Allergies Allergy Verified 06/24/23 20:49 Home Medications Medication Instructions Recorded Confirmed Type atorvastatin 80 mg tablet 80 mg PO QPM 04/12/23 06/24/23 History tamsulosin 0.4 mg capsule 0.4 mg PO HS 04/12/23 06/24/23 History apixaban 5 mg tablet (Eliquis) 5 mg PO BID #60 tabs 04/19/23 06/24/23 Rx ipratropium 0.5 mg-albuterol 3 mg 3 ml inhalation BID PRN cough and 05/03/23 06/24/23 History (2.5 mg base)/3 mL nebulization wheezing soln lorazepam 0.5 mg tablet 0.5 - 1 mg PO DAILY PRN SEVERE 06/13/23 06/24/23 History ANXIETY triamcinolone acetonide 0.1 % 1 applic topical BID PRN Skin 06/13/23 06/24/23 History topical cream Irritation metoprolol succinate 50 mg 50 mg PO DAILY #90 tabs 06/14/23 06/24/23 Rx tablet,extended release 24 hr furosemide 20 mg tablet 20 mg PO .AM & AFTERNOON 06/24/23 06/24/23 History Past Med/Surg History Medical History (Updated 06/25/23 @ 12:44 by Amauri Pierce DO) Mitral regurgitation Fairly severe Cardiomyopathy BPH (benign prostatic hyperplasia) Anxiety no longer on meds Non-ST elevated myocardial infarction pt unaware A-fib Newly dx'ed- Apr 2023 [facility] COPD (chronic obstructive pulmonary disease) D.O.E per pt CHF (congestive heart failure) DENZEL (obstructive sleep apnea) no device Cirrhosis Newly diagnosed per [facility] admission Apr 2023 no issues at present Chronic kidney disease, stage III (moderate) TIA (transient ischemic attack) over 5 yrs ago > no residual effects HLD (hyperlipidemia) HTN (hypertension) Surgical History Hx of knee surgery bilat Hx of shoulder surgery bilat History of colonoscopy S/P carotid endarterectomy shortly after TIA Social History Smoking Status: Never smoker Second Hand Exposure: No; Do You Dip or Chew Tobacco: No; Hx Alcohol Use: No Hx Substance Use: No Preferred Language: Egyptian Communication Ability: Effective Water Resource Project Manager Required: No Beliefs That Will Affect Care: None Current Living Situation: Alone Other Information That Helps Us Care for You: No Feels Safe at Home: Yes Safety Concerns: Feels Safe At This Time Assistive Devices: Hearing Aid - Bilateral Physical Exam Physical Exam: Physical Exam: General: In no acute distress, stated age, chronically ill appearing but non-toxic HEENT: Normocephalic, atraumatic, no scleral icterus, pupils around round, symmetrical, and reactive to light, dry mucus membranes, trachea midline, no thyromegaly Chest/Pulm: No respiratory distress, symmetrical chest expansion, decreased breath sounds in the LLL but otherwise CTA Cardiac: irregular rate and rhythm, systolic murmur noted Abdomen: Distended abdomen without signs of bruisin, normoactive bowel sounds, firm, non-tender to palpation throughout Musculoskeletal: Symmetrical and without signs of acute trauma, upper and lower extremities with full ROM, no atrophy, spasticity, or flaccidity Extremities: Radial, dorsalis pedis, and posterior tibial pulses are intact and symmetrical, 1+ pitting edema noted in the BL LE's Skin: Warm, dry, no rashes , lesions, or scars noted Neuro: Alert and oriented to person, place, month, year, and president, no focal defects, CN II-XII tested and intact, no tremors noted Psych: No acute distress, calm and cooperative during the exam Results & Data Results & Data Vital Signs (Past 12 Hours) Vital Signs Temp Pulse Resp BP Pulse Ox O2 Del Method 06/24/23 18:56 74 06/24/23 18:06 36.9 C 71 22 114/78 96 Room Air Laboratory Results Abnormal lab results 06/24/23 Range/Units 18:19 RBC 4.17 L (4.70-6.10) M/uL Hgb 12.4 L (14.0-18.0) g/dl Hct 35.8 L (42.0-52.0) % RDW Coeff of Fernando 14.6 H (11.5-14.5) % Plt Count 113 L (130-400) K/uL [place] # (Auto) 0.61 H (0.11-0.59) K/uL PT 18.0 H (9.0-12.0) Seconds INR 1.7 H (0.9-1.1) APTT 36 H (21-31) Seconds Sodium 123 L (136-145) mmol/L Chloride 91 L (98-107) mmol/L BUN 25 H (6-23) mg/dl BUN/Creatinine Ratio 20.7 H (10-20) Glucose 110 H (70-99(Fasting)) mg/dl Osmolality 262 L (280-300) mOsm/kg Total Bilirubin 1.5 H (0.2-1.0) mg/dl Alkaline Phosphatase 255 H (34-104) U/L B-Natriuretic Peptide 578 H (0-100) pg/ml Diagnostic Findings Chest X-Ray 06/24/23 18:13 SINGLE VIEW CHEST CLINICAL HISTORY: Atypical chest pain FINDINGS: A PA chest radiograph is compared to study dated 04/24/2023. Correlation is made with chest CT dated 04/12/2023. The heart is enlarged and noting atherosclerotic calcification of the thoracic aorta. The pulmonary vasculature is noncongested. There is a small right pleural effusion with right basilar atelectasis. The left lung appears clear. No pneumothorax is seen. The skeletal structures are osteopenic. Compression deformity are again seen in the mid to lower thoracic region. Arthritic change is noted in the shoulders and spine. IMPRESSION: 1. Cardiomegaly without radiographic evidence of congestive failure. 2. A small right pleural effusion is new from previous.. ACT 112: Negative or not required by law. Electronically signed by: Toby Vega M.D. 06/24/2023 6:[address] 06/24/23 19:37 Exam(s): CT HEAD Without Contrast EXAM: CT Head Without Intravenous Contrast CLINICAL HISTORY: weakness. TECHNIQUE: Axial computed tomography images of the head/brain without intravenous contrast. CTDI is 35.65 mGy and DLP is 624.41 mGy-cm. Automated exposure control was utilized for the study. A dose lowering technique was utilized adhering to the principles of ALARA. COMPARISON: CT head without contrast 06/13/2023 FINDINGS: Brain: There are a few areas of decreased attenuation in the deep cerebral white matter consistent with mild small vessel ischemic/degenerative changes. The cerebral and cerebellar sulci are mildly prominent consistent with mild brain atrophy. No hemorrhage. No mass-effect. No cortical infarct. Ventricles: No midline shift. No ventriculomegaly. Bones/joints: Unremarkable. No acute fracture. Soft tissues: Unremarkable. 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 Sinuses: Unremarkable as visualized. No acute sinusitis. Mastoid air cells: Unremarkable as visualized. No mastoid effusion. IMPRESSION: No acute intracranial process or significant alteration from the prior examination. Electronically signed by: Foster Romero MD 06/24/23 20:22 PM ECG Additional Comments: Atrial fibrillation with premature ventricular or aberrantly conducted complexes Left axis deviation Low voltage QRS Cannot rule out Anterior infarct , age undetermined Abnormal ECG When compared with ECG of 13-JUN-2023 16:37, Minimal criteria for Anterior infarct are now Present Nonspecific T wave abnormality no longer evident in Lateral leads Code Status & VTE Plan Code Status DNR/DNI VTE Prophylaxis Plan VTE Prophylaxis will be ordered: Yes Supervising Physician Co-Signing Physician Notes Attending addendum: I have physically seen this patient, have supervised the BEATRICE's activities, and agree with the H&P unless as otherwise noted. Assessment and Plan: Generalized weakness- Progressive symptoms over the past 1 to 2 months Decreased oral intake during that interval Patient was too weak to get out of bed today, so was brought to the ED for assessment CT head and brain negative for acute findings Differential including but not limited to: Acute hyponatremia, worsening of generalized deconditioning, pulmonary, urinary issues, polydipsia, SIADH Acute hyponatremia- Sodium 123 Serum osmolality 262, urine osmolality pending History of cirrhosis, CHF, and more recently poor oral intake Fluid restrict 1800 mL Start sodium chloride tablets 1 g p.o. twice daily Holding hypertonic saline for now Follow serial laboratories Remaining orders and notations as noted PG Care Time/CCT Total # of Minutes Spent Total Time Spent with Patient: Total time spent is greater than 50% in coordination of care (as documented) at patient's floor/unit and/or counseling patient: C[place] [address] INT INP/OBS CARE 3/75MIN Patient Type Established Medical Decision Making High Complexity Diagnoses Generalized weakness R53.1 Acute hyponatremia E87.1 Dizziness R42 DENZEL (obstructive sleep apnea) G47.33 Shortness of breath R06.02 Cirrhosis K74.60 HTN (hypertension) I10
[2023-06-24 20:43] LABS: Adenovirus PCR Not Detected (NotDetected); Bordetella parapertussis PCR Not Detected (NotDetected); Bordetella pertussis PCR Not Detected (NotDetected); Chlamydia pneumoniae PCR Not Detected (NotDetected); Coronavirus 229E PCR Not Detected (NotDetected); Coronavirus CoV-2 (COVID19)PCR Not Detected (NotDetected); Coronavirus HKU1 PCR Not Detected (NotDetected); Coronavirus NL63 PCR Not Detected (NotDetected); Coronavirus OC43PCR Not Detected (NotDetected); Human Metapneumovirus PCR Not Detected (NotDetected); Influenza A PCR Not Detected (NotDetected); Influenza B PCR Not Detected (NotDetected); Mycoplasma pneumoniae PCR Not Detected (NotDetected); Parainfluenza Virus 1 PCR Not Detected (NotDetected); Parainfluenza Virus 2 PCR Not Detected (NotDetected); Parainfluenza Virus 3 PCR Not Detected (NotDetected); Parainfluenza Virus 4 PCR Not Detected (NotDetected); Respiratory Syncytial VirusPCR Not Detected (NotDetected); Rhinovirus/Enterovirus PCR Not Detected (NotDetected)
[2023-06-24 21:02] LABS: Magnesium 1.9 mg/dl (1.7-2.4)
[2023-06-24] MEDS: ATORVASTATIN 40 MG TAB PO SCH (22:38)
[2023-06-24] MEDS: TAMSULOSIN HCL 0.4 MG CAP PO SCH (22:38)
[2023-06-24] MEDS: APIXABAN 5 MG TABLET PO SCH (22:38)
--- NOTE | 2023-06-25 01:22 | Ultrasound Report ---
Exam(s): US LIVER EXAM: US Abdomen Limited CLINICAL HISTORY: cirrhosis. TECHNIQUE: Real-time ultrasound of the abdomen with image documentation. COMPARISON: Limited abdominal ultrasound 04/24/2023 FINDINGS: Liver: The liver is enlarged measuring 17.7 cm in length and remains hyperechoic with irregular lobular contours, similar to the previous examination. No definite focal abnormality noted. Moderate perihepatic fluid. The portal vein is patent with bidirectional flow, predominantly noted directed towards the liver. Gallbladder: No cholelithiasis. The gallbladder wall measures 4.1 mm. Common bile duct: The common bile duct measures 3 mm. Pancreas: The pancreas is predominantly obscured by bowel gas. Kidneys: The right kidney measures 10.3 cm. IMPRESSION: 1. Hepatomegaly with irregular contours consistent with cirrhosis, as noted on the previous examination. 2. Interval increase in perihepatic ascites. 3. No cholelithiasis. The gallbladder wall is prominent; however, the specificity of this finding is diminished in the setting of low plasma proteins or cirrhosis. No biliary dilatation. Electronically signed by: Foster Romero MD 06/25/23 01:21 AM
--- NOTE | 2023-06-25 01:23 | Ultrasound Report ---
Exam(s): US ABDOMEN LIMITED EXAM: US Abdomen Limited CLINICAL HISTORY: hx cirrhosis, generalized swelling. TECHNIQUE: Real-time ultrasound of the abdomen with image documentation. COMPARISON: No relevant prior studies available. FINDINGS: Free fluid: Moderate ascites noted in all four quadrants. No loculation. IMPRESSION: Moderate ascites. Electronically signed by: Foster Romero MD 06/25/23 01:21 AM
[2023-06-25 01:38] LABS: Appearance Urine Cloudy (Clear); Bacteria Urine Automated Negative (Negative); Bilirubin Urine Negative (Negative); Blood Urine Negative (Negative); Color Urine Dark Yellow; Epithelial Cell Urine Auto 20-30 /lpf (0-5); Glucose Urine UA Negative (Negative); Ketones Urine Negative (Negative); Leukocyte Esterase Urine 1+ (Negative); Nitrite Urine Negative (Negative); Protein Urine Trace (Negative); Urobilinogen Urine Negative (Negative); pH Urine 5.5 (4.5-7.5)
[2023-06-25 01:48] LABS: Calcium Oxalate Crystals Urine Present (None Prsent); RBC Urine Automated 0-4 /hpf (0-4)
[2023-06-25 05:08] LABS: Hematocrit (blood only) 32.4 % (42.0-52.0); Hemoglobin 11.3 g/dl (14.0-18.0); Mean Corpuscular Hemoglobin 29.6 pg (25.0-34.0); Mean Corpuscular Hgb Conc 34.9 g/dL (32.0-36.0); Mean Corpuscular Volume 84.8 fL (80.0-100.0); Mean Platelet Volume 12.8 fL (9.4-12.4); Platelet Count 85 K/uL (130-400); RDW Coefficient of Variation 14.1 % (11.5-14.5); RDW Standard Deviation 43.5 fL (36.4-46.3); Red Blood Count 3.82 M/uL (4.70-6.10); White Blood Count 6.16 K/ul (4.8-10.8)
[2023-06-25 05:26] LABS: Albumin Globulin Ratio 1.5 (0.9-2); Albumin Level 3.4 gm/dl (3.4-5.0); BUN Creatinine Ratio 22.2 (10-20); Bilirubin,Total 1.6 mg/dl (0.2-1.0); Calcium 8.3 mg/dl (8.6-10.3); Creatinine Clr Calc Pharmacy 53.5 ml/min; Est GFR (African American) 70.2 ml/min; Est GFR (Non-African American) 60.5 ml/min; Globulin 2.3 gm/dl (2.5-4.0); Magnesium 1.9 mg/dl (1.7-2.4); Potassium 3.9 mmol/L (3.5-5.1); Total Protein 5.7 gm/dl (6.0-8.3)
[2023-06-25 05:34] LABS: INR 1.9 (0.9-1.1); Prothrombin Time 19.8 Seconds (9.0-12.0)
--- NOTE | 2023-06-25 07:12 | Electrocardiogram Report ---
Test Reason : Blood Pressure : / mmHG Vent. Rate : 070 BPM Atrial Rate : 000 BPM P-R Int : 000 ms QRS Dur : 108 ms QT Int : 420 ms P-R-T Axes : 000 -45 051 degrees QTc Int : 453 ms Atrial fibrillation with premature ventricular or aberrantly conducted complexes Left axis deviation Low voltage QRS Abnormal ECG When compared with ECG of 13-JUN-2023 16:37, Minimal criteria for Anterior infarct are now Present Nonspecific T wave abnormality no longer evident in Lateral leads Confirmed by Alber Young ([id number]) on 06/25/2023 7:12:22 AM Referred By: REFERRED SELF Confirmed By:Simon Young
[2023-06-25] MEDS: METOPROLOL SUCC 50MG EXT REL TAB PO SCH (08:19)
[2023-06-25] MEDS: FUROSEMIDE INJ 20 MG/2 ML VIAL IV ONE (09:41)
[2023-06-25 09:46] LABS: BUN Creatinine Ratio 23.6 (10-20); Calcium 8.5 mg/dl (8.6-10.3); Creatinine Clr Calc Pharmacy 54.5 ml/min; Est GFR (African American) 71.8 ml/min; Est GFR (Non-African American) 61.9 ml/min; Potassium 3.9 mmol/L (3.5-5.1)
--- NOTE | 2023-06-25 11:01 | XCELERA ---
[id number]
--- NOTE | 2023-06-25 11:03 | Cardiology Consultation ---
Date of Consultation June 25, 2023 Assessment & Plan (1) Generalized weakness: (2) Cardiomyopathy: (3) A-fib: (4) Valvular heart disease: Plan 1. Weakness: He has generalized weakness. This is likely multifactorial. He has an element of lassitude and fatigue dating back several months. He sleeps poorly. He appears anxious and depressed as well. Recently started on Ativan for some of the symptoms. It is possible and hyponatremia plays a role as well although his sodium level has been better in the past. Likely deconditioned. 2. Right ventricular dysfunction: He was noted in March of last year to have significant enlargement of the right ventricle reduced RV systolic function. Possibly related to his valvular heart disease, diastolic dysfunction and chronic untreated sleep apnea. He is noted to have significant ascites, but does not have significant peripheral edema. Noninvasive pulmonary pressures appear reasonable. Treatment of his sleep apnea, addressing his valvular heart disease, maintaining good blood pressure and monitoring his volume status will be the treatment moving forward. 3. Atrial fibrillation: Permanent. He did undergo a cardioversion in April of 2023. This is of unclear duration and did not improve symptoms. He has affectively rate controlled and on appropriate systemic anticoagulation. 4. Valvular heart disease: He has at least moderate if not severe mitral regurgitation. This could certainly cause some symptoms of dyspnea at times. He has an element of mild aortic regurgitation as well. At this point, volume management is the best option. Depending on his clinical course and other comorbidities he may require an evaluation for mitral valve disease in the future. 5. Hyponatremia: Likely a combination of heart failure and cirrhosis. Diuretics currently being held which I think is reasonable. While he clearly has an element of volume overload manifest primarily by ascites, his lung examination is clear and he does not appear to have orthopnea. It seems reasonable to continue fluid restriction and limiting diuretics at least temporarily. History of Present Illness Reason for Consultation: Shortness of breath, atrial fibrillation Requesting Physician: Abisai Attending Physician: Olivia Barone MD History of Present Illness The patient is an 88-year-old gentleman initially admitted late last year with symptoms of decompensated heart failure. At that time he was discovered to have significant mitral valve regurgitation, atrial fibrillation and right ventricular dysfunction. He has been struggling at home recently with symptoms consistent with depression, anxiety and lassitude. He has also had significant weakness. He has been brought to the emergency room yesterday by his family for worsening weakness and failure to thrive. The patient has some difficulty ambulating around his house due to generalized weakness and lassitude. He does report an element of dyspnea at times with activity. Some dyspnea at rest as well. The symptoms appear to be fairly random when at rest. No overt orthopnea. He does describe a sense of dizziness when initially getting up out of bed. No presyncope or syncope. No sense of palpitation. He has not noticed any lower extremity edema, but has had increasing abdominal girth. His appetite has been poor. He claims to eat poorly. He also sleeps poorly. He is very tired. Allergies Allergy/AdvReac Type Severity Reaction Status Date / Time No Known Allergies Allergy Verified 06/24/23 20:49 Home Medications Medication Instructions Recorded Confirmed Type atorvastatin 80 mg tablet 80 mg PO QPM 04/12/23 06/24/23 History tamsulosin 0.4 mg capsule 0.4 mg PO HS 04/12/23 06/24/23 History apixaban 5 mg tablet (Eliquis) 5 mg PO BID #60 tabs 04/19/23 06/24/23 Rx ipratropium 0.5 mg-albuterol 3 mg 3 ml inhalation BID PRN cough and 05/03/23 06/24/23 History (2.5 mg base)/3 mL nebulization wheezing soln lorazepam 0.5 mg tablet 0.5 - 1 mg PO DAILY PRN SEVERE 06/13/23 06/24/23 History ANXIETY triamcinolone acetonide 0.1 % 1 applic topical BID PRN Skin 06/13/23 06/24/23 History topical cream Irritation metoprolol succinate 50 mg 50 mg PO DAILY #90 tabs 06/14/23 06/24/23 Rx tablet,extended release 24 hr furosemide 20 mg tablet 20 mg PO .AM & AFTERNOON 06/24/23 06/24/23 History Patient History Medical History (Updated 06/25/23 @ 10:59 by Alber Young MD) Mitral regurgitation Fairly severe Cardiomyopathy BPH (benign prostatic hyperplasia) Anxiety no longer on meds Non-ST elevated myocardial infarction pt unaware A-fib Newly dx'ed- Apr 2023 [facility] COPD (chronic obstructive pulmonary disease) D.O.E per pt CHF (congestive heart failure) DENZEL (obstructive sleep apnea) no device Cirrhosis Newly diagnosed per [facility] admission Apr 2023 no issues at present Chronic kidney disease, stage III (moderate) TIA (transient ischemic attack) over 5 yrs ago > no residual effects HLD (hyperlipidemia) HTN (hypertension) Surgical History Hx of knee surgery bilat Hx of shoulder surgery bilat History of colonoscopy S/P carotid endarterectomy shortly after TIA Social History Smoking Status: Never smoker Second Hand Exposure: No; Do You Dip or Chew Tobacco: No; Hx Alcohol Use: No Hx Substance Use: No Preferred Language: Congolese Communication Ability: Effective [employer] Required: No Beliefs That Will Affect Care: None Current Living Situation: Alone Other Information That Helps Us Care for You: No Feels Safe at Home: Yes Safety Concerns: Feels Safe At This Time Assistive Devices: Hearing Aid - Bilateral Review of Systems Review of Systems: Per HPI. He did not report any specific pain. He did not report generalized body aches. He did not report subjective fevers or chills. No difficulty eating but some generalized nausea and abdominal discomfort. Physical Exam Physical Exam: The patient is alert and oriented. Mood and affect appeared normal. He answered all questions appropriately. HEENT: Pupils are equal and reactive to light and accommodation. Extraocular movements are intact. The sclerae are anicteric. Neuro: Cranial nerves intact Neck: Patient's neck is supple. He has palpable carotid pulses bilaterally without bruits on auscultation. There is no evidence of jugular venous distention. The thyroid is not enlarged. Lungs: Clear to auscultation bilaterally. He has good air movement without use of accessory muscles. No rales wheezes or rhonchi. Cardiac: Heart demonstrates an irregular rhythm. Normal S1 and S2. Soft holosystolic murmur of variable intensity. Abdomen: Distended but nontender. Pulses: The patient has palpable radial pulses bilaterally that are equal in intensity Extremities: There was no evidence of hypoperfusion. There is no cyanosis or clubbing. There is no edema. Skin: I did not appreciate any rashes on examination today. Results & Data Vital Signs (Past 12 Hours) Vital Signs Temp Pulse Resp BP Pulse Ox O2 Del Method 06/25/23 07:50 36.3 C L 76 19 130/78 97 Room Air 06/25/23 02:42 36.6 C 72 18 104/70 97 Room Air Laboratory Results Abnormal Lab Results 06/24/23 06/24/23 06/25/23 18:19 19:45 01:14 WBC 6.39 RBC 4.17 L Hgb 12.4 L Hct 35.8 L MCV 85.9 MCH 29.7 MCHC 34.6 RDW Std Deviation 45.2 RDW Coeff of Fernando 14.6 H Plt Count 113 L MPV 12.4 Immature Gran % (Auto) 0.5 Neut % (Auto) 65.8 Lymph % (Auto) 22.2 Cavalier % (Auto) 9.5 Eos % (Auto) 1.4 Baso % (Auto) 0.6 Neut # (Auto) 4.20 Lymph # (Auto) 1.42 Cavalier # (Auto) 0.61 H Eos # (Auto) 0.09 Baso # (Auto) 0.04 Immature Gran # (Auto) 0.03 PT 18.0 H INR 1.7 H APTT 36 H PTT Ratio 1.3 Sodium 123 L Potassium 4.1 Chloride 91 L Carbon Dioxide 24 Anion Gap 8 BUN 25 H Creatinine 1.21 Est Cr Clr Drug Dosing Not Reportable Est GFR ( Amer) 61.1 Est GFR (Non-Af Amer) 52.8 BUN/Creatinine Ratio 20.7 H Glucose 110 H Osmolality 262 L Calcium 8.6 Magnesium 1.9 Total Bilirubin 1.5 H AST 38 ALT 28 Alkaline Phosphatase 255 H Troponin I High Sens 18.3 B-Natriuretic Peptide 578 H Total Protein 6.5 Albumin 3.7 Globulin 2.8 Albumin/Globulin Ratio 1.3 Urine Color Urine Appearance Urine pH Ur Specific [place] Urine Protein Urine Glucose (UA) Urine Ketones Urine Blood Urine Nitrite Urine Bilirubin Urine Urobilinogen Ur Leukocyte Esterase Urine WBC (Auto) Urine RBC (Auto) U Hyaline Cast (Auto) U Epithel Cells (Auto) Urine Bacteria (Auto) Urine Crystals Calcium Oxalate Crystal Urine Osmolality 490 L Ur Random Sodium Adenovirus (PCR) Not Detected B. pertussis DNA (PCR) Not Detected B.parapertussis DNA PCR Not Detected C. pneumoniae DNA (PCR) Not Detected Coronavirus OC43 (PCR) Not Detected Coronavirus HKU1 (PCR) Not Detected Coronavirus 229E (PCR) Not Detected SARS-CoV-2 (PCR) Not Detected Coronavirus NL63 (PCR) Not Detected Human Metapneumovir PCR Not Detected Influenza Type A (PCR) Not Detected Influenza Type B (PCR) Not Detected M. pneumoniae (PCR) Not Detected Parainfluenza 1 (PCR) Not Detected Parainfluenza 2 (PCR) Not Detected Parainfluenza 3 (PCR) Not Detected Parainfluenza 4 (PCR) Not Detected RSV (PCR) Not Detected Entero/Rhino (PCR) Not Detected 06/25/23 06/25/23 06/25/23 01:26 03:58 09:09 WBC 6.16 RBC 3.82 L Hgb 11.3 L Hct 32.4 L MCV 84.8 MCH 29.6 MCHC 34.9 RDW Std Deviation 43.5 RDW Coeff of Fernando 14.1 Plt Count 85 L MPV 12.8 H Immature Gran % (Auto) Neut % (Auto) Lymph % (Auto) Cavalier % (Auto) Eos % (Auto) Baso % (Auto) Neut # (Auto) Lymph # (Auto) Cavalier # (Auto) Eos # (Auto) Baso # (Auto) Immature Gran # (Auto) PT 19.8 H INR 1.9 H APTT PTT Ratio Sodium 122 L 123 L Potassium 3.9 3.9 Chloride 92 L 92 L Carbon Dioxide 21 23 Anion Gap 9 8 BUN 24 H 25 H Creatinine 1.08 1.06 Est Cr Clr Drug Dosing 53.5 54.5 Est GFR ( Amer) 70.2 71.8 Est GFR (Non-Af Amer) 60.5 61.9 BUN/Creatinine Ratio 22.2 H 23.6 H Glucose 81 96 Osmolality Calcium 8.3 L 8.5 L Magnesium 1.9 Total Bilirubin 1.6 H AST 34 ALT 24 Alkaline Phosphatase 208 H Troponin I High Sens B-Natriuretic Peptide Total Protein 5.7 L Albumin 3.4 Globulin 2.3 L Albumin/Globulin Ratio 1.5 Urine Color Dark Yellow Urine Appearance Cloudy A Urine pH 5.5 Ur Specific [place] 1.020 Urine Protein Trace H Urine Glucose (UA) Negative Urine Ketones Negative Urine Blood Negative Urine Nitrite Negative Urine Bilirubin Negative Urine Urobilinogen Negative Ur Leukocyte Esterase 1+ H Urine WBC (Auto) 5-10 H Urine RBC (Auto) 0-4 U Hyaline Cast (Auto) 1-5 U Epithel Cells (Auto) 20-30 H Urine Bacteria (Auto) Negative Urine Crystals Not Reportable Calcium Oxalate Crystal Present A Urine Osmolality Ur Random Sodium < 10 Adenovirus (PCR) B. pertussis DNA (PCR) B.parapertussis DNA PCR C. pneumoniae DNA (PCR) Coronavirus OC43 (PCR) Coronavirus HKU1 (PCR) Coronavirus 229E (PCR) SARS-CoV-2 (PCR) Coronavirus NL63 (PCR) Human Metapneumovir PCR Influenza Type A (PCR) Influenza Type B (PCR) M. pneumoniae (PCR) Parainfluenza 1 (PCR) Parainfluenza 2 (PCR) Parainfluenza 3 (PCR) Parainfluenza 4 (PCR) RSV (PCR) Entero/Rhino (PCR) Diagnostic Findings Echocardiogram obtained 06/15/2023: Ejection fraction around 50%. Moderately dilated right ventricle with reduced right ventricular function. Biatrial dilation. Moderate to severe mitral regurgitation. Mild aortic regurgitation. Elevated pulmonary pressures with dilated inferior vena cava. Obtained the time admission revealed cardiomegaly without evidence of congestive heart failure. Small right pleural effusion. Abdominal ultrasound demonstrated cirrhotic liver with intra-abdominal ascites. ECG Additional Comments: EKG obtained admission revealed atrial fibrillation with controlled ventricular rate. Occasional aberrant conduction. PG Care Time/CCT Total # of Minutes Spent Total Time Spent with Patient: Total time spent is greater than 50% in coordination of care (as documented) at patient's floor/unit and/or counseling patient: Coding Level of Care Code 77190 INT INP/OBS CARE 3/75MIN Diagnoses Generalized weakness R53.1 Cardiomyopathy I42.9 A-fib I48.91 Atrial fibrillation type: unspecified Valvular heart disease I38 (3) A-fib Atrial fibrillation type: unspecified Qualified Code(s): I48.91 - Unspecified atrial fibrillation
[2023-06-25] MEDS ORDERED: STAT IV/IM STA ×3 (11:55→23:40)
--- NOTE | 2023-06-25 12:36 | Nephrology Consultation ---
Date of Consultation June 25, 2023 Assessment & Plan (1) Hyponatremia: Chronic. Symptoms include fatigue and poor appetite. Some noted fluid retention in legs with noted ascites. Exam thankfully does not demonstrate decompensated left heart failure. Presentation consistent with increased TBW but decreased EAV consistent with advanced liver disease and cardiorenal syndrome. Urine sodium is markedly low suggestive of CRS or HRS. Diuretics unlikely to be effective. MRA may be considered but I would hold pending improved solute intake. Solute replacement will be necessary. Hypertonic saline boluses have been ordered and should be continued as needed based on follow up labs. 150 ml of 3% saline will be provided now. I would hold triple therapy (midodrine, octreotide, and IV albumin) for now -- stable creatinine, normal serum albumin, reasonable urine output, and normal blood pressure. Appreciate cardiology consultation. Ultimately, in the setting of underlying advanced valvular heart disease and cirrhosis, serum sodium is a prognostic marker reflecting the severity of illness. (2) Cirrhosis: MELD-Na 25. Consider paracentesis for ascites. (3) (HFpEF) heart failure with preserved ejection fraction: Appreciate cardiology consultation. Findings not consistent with left heart failure. TTE reviewd. Document strict I/O's. Continue 1.8 L daily fluid restriction. Encourage even fluid balance. (4) Valvular heart disease: History of Present Illness Reason for Consultation: hyponatremia Requesting Physician: Olivia Barone MD Attending Physician: Olivia Barone MD History of Present Illness Mr. Stephen Franks is an 88-year-old male with a history of cirrhosis, HFrEF, mitral valve regurgitation, right heart failure, DENZEL, atrial fibrillation, hypertension, and history of TIA. He presented to [facility] yesterday with progressive weakness and poor appetite. Stephen was seen and evaluated with his family at the bedside this AM. Nephrology consultation requested for hyponatremia. Stephen denies notable fluid retention or edema. His ROS is notable for recent orthostatic lightheadedness and dizziness. He is not eating well. Serum sodium 123 mmol/L, potassium 3.9 mmol/L, and creatinine 1.0 mg/dL. TSH in May 17.46. Serum Osm is 262 mOsm/L. Urine sodium <10. Urine osmolality is 490. Stephen is non-oliguric. He has received furosemide 20 mg x 1 dose. Recent history also includes progressive ascites. Allergies Allergy/AdvReac Type Severity Reaction Status Date / Time No Known Allergies Allergy Verified 06/24/23 20:49 Home Medications Medication Instructions Recorded Confirmed Type atorvastatin 80 mg tablet 80 mg PO QPM 04/12/23 06/24/23 History tamsulosin 0.4 mg capsule 0.4 mg PO HS 04/12/23 06/24/23 History apixaban 5 mg tablet (Eliquis) 5 mg PO BID #60 tabs 04/19/23 06/24/23 Rx ipratropium 0.5 mg-albuterol 3 mg 3 ml inhalation BID PRN cough and 05/03/23 06/24/23 History (2.5 mg base)/3 mL nebulization wheezing soln lorazepam 0.5 mg tablet 0.5 - 1 mg PO DAILY PRN SEVERE 06/13/23 06/24/23 History ANXIETY triamcinolone acetonide 0.1 % 1 applic topical BID PRN Skin 06/13/23 06/24/23 History topical cream Irritation metoprolol succinate 50 mg 50 mg PO DAILY #90 tabs 06/14/23 06/24/23 Rx tablet,extended release 24 hr furosemide 20 mg tablet 20 mg PO .AM & AFTERNOON 06/24/23 06/24/23 History Patient History Medical History (Updated 06/25/23 @ 12:44 by Amauri Pierce DO) Mitral regurgitation Fairly severe Cardiomyopathy BPH (benign prostatic hyperplasia) Anxiety no longer on meds Non-ST elevated myocardial infarction pt unaware A-fib Newly dx'- Apr 2023 [facility] COPD (chronic obstructive pulmonary disease) D.O.E per pt CHF (congestive heart failure) DENZEL (obstructive sleep apnea) no device Cirrhosis Newly diagnosed per [facility] admission Apr 2023 no issues at present Chronic kidney disease, stage III (moderate) TIA (transient ischemic attack) over 5 yrs ago > no residual effects HLD (hyperlipidemia) HTN (hypertension) Surgical History Hx of knee surgery bilat Hx of shoulder surgery bilat History of colonoscopy S/P carotid endarterectomy shortly after TIA Social History Smoking Status: Never smoker Second Hand Exposure: No; Do You Dip or Chew Tobacco: No; Hx Alcohol Use: No Hx Substance Use: No Preferred Language: Romanian Communication Ability: Effective 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 Beliefs That Will Affect Care: None Current Living Situation: Alone Other Information That Helps Us Care for You: No Feels Safe at Home: Yes Safety Concerns: Feels Safe At This Time Assistive Devices: Hearing Aid - Bilateral Review of Systems Review of Systems: All systems reviewed & are unremarkable except as noted in HPI & below Constitutional: + fatigue, + weakness and + anorexia; no weight loss and no weight gain Respiratory: + dyspnea Cardiovascular: no chest pain, no palpitations and no edema Gastrointestinal: + bloating; no abdominal pain, no nausea , no constipation and no diarrhea/loose stools Genitourinary: no difficulty urinating, no urinary frequency or no urinary hesitancy Physical Exam Constitutional: well developed and + frail appearing; no acute distress Eyes: no scleral abnormality and no corneal abnormality ENMT: Mouth: no oral mucosal abnormality and oral mucous membranes not dry Neck: normal visual inspection and trachea midline Respiratory: normal respiratory effort Auscultation: lungs clear to auscultation bilaterally Cardiovascular: Rate/Rhythm: regular rate Heart Sounds: normal S1 and normal S2 Extremities: no edema Musculoskeletal: Extremities: no cyanosis and no clubbing Skin: normal turgor; no lesions Neurologic: Motor/Sensory: no tremor and no asterixis Psychiatric: Orientation: alert and oriented x 3 Results & Data Vital Signs (Past 12 Hours) Vital Signs Temp Pulse Resp BP Pulse Ox O2 Del Method 06/25/23 07:50 36.3 C L 76 19 130/78 97 Room Air 06/25/23 02:42 36.6 C 72 18 104/70 97 Room Air Laboratory Results Laboratory Results - last 24 hr 06/24/23 06/24/23 06/25/23 18:19 19:45 01:14 WBC 6.39 RBC 4.17 L Hgb 12.4 L Hct 35.8 L MCV 85.9 MCH 29.7 MCHC 34.6 RDW Std Deviation 45.2 RDW Coeff of Fernando 14.6 H Plt Count 113 L MPV 12.4 Immature Gran % (Auto) 0.5 Neut % (Auto) 65.8 Lymph % (Auto) 22.2 Cobb % (Auto) 9.5 Eos % (Auto) 1.4 Baso % (Auto) 0.6 Neut # (Auto) 4.20 Lymph # (Auto) 1.42 Cobb # (Auto) 0.61 H Eos # (Auto) 0.09 Baso # (Auto) 0.04 Immature Gran # (Auto) 0.03 PT 18.0 H INR 1.7 H APTT 36 H PTT Ratio 1.3 Sodium 123 L Potassium 4.1 Chloride 91 L Carbon Dioxide 24 Anion Gap 8 BUN 25 H Creatinine 1.21 Est Cr Clr Drug Dosing Not Reportable Est GFR ( Amer) 61.1 Est GFR (Non-Af Amer) 52.8 BUN/Creatinine Ratio 20.7 H Glucose 110 H Osmolality 262 L Calcium 8.6 Magnesium 1.9 Total Bilirubin 1.5 H AST 38 ALT 28 Alkaline Phosphatase 255 H Troponin I High Sens 18.3 B-Natriuretic Peptide 578 H Total Protein 6.5 Albumin 3.7 Globulin 2.8 Albumin/Globulin Ratio 1.3 Urine Color Urine Appearance Urine pH Ur Specific [place] Urine Protein Urine Glucose (UA) Urine Ketones Urine Blood Urine Nitrite Urine Bilirubin Urine Urobilinogen Ur Leukocyte Esterase Urine WBC (Auto) Urine RBC (Auto) U Hyaline Cast (Auto) U Epithel Cells (Auto) Urine Bacteria (Auto) Urine Crystals Calcium Oxalate Crystal Urine Osmolality 490 L Ur Random Sodium Adenovirus (PCR) Not Detected B. pertussis DNA (PCR) Not Detected B.parapertussis DNA PCR Not Detected C. pneumoniae DNA (PCR) Not Detected Coronavirus OC43 (PCR) Not Detected Coronavirus HKU1 (PCR) Not Detected Coronavirus 229E (PCR) Not Detected SARS-CoV-2 (PCR) Not Detected Coronavirus NL63 (PCR) Not Detected Human Metapneumovir PCR Not Detected Influenza Type A (PCR) Not Detected Influenza Type B (PCR) Not Detected M. pneumoniae (PCR) Not Detected Parainfluenza 1 (PCR) Not Detected Parainfluenza 2 (PCR) Not Detected Parainfluenza 3 (PCR) Not Detected Parainfluenza 4 (PCR) Not Detected RSV (PCR) Not Detected Entero/Rhino (PCR) Not Detected 06/25/23 06/25/23 06/25/23 01:26 03:58 09:09 WBC 6.16 RBC 3.82 L Hgb 11.3 L Hct 32.4 L MCV 84.8 MCH 29.6 MCHC 34.9 RDW Std Deviation 43.5 RDW Coeff of Fernando 14.1 Plt Count 85 L MPV 12.8 H Immature Gran % (Auto) Neut % (Auto) Lymph % (Auto) Cobb % (Auto) Eos % (Auto) Baso % (Auto) Neut # (Auto) Lymph # (Auto) Cobb # (Auto) Eos # (Auto) Baso # (Auto) Immature Gran # (Auto) PT 19.8 H INR 1.9 H APTT PTT Ratio Sodium 122 L 123 L Potassium 3.9 3.9 Chloride 92 L 92 L Carbon Dioxide 21 23 Anion Gap 9 8 BUN 24 H 25 H Creatinine 1.08 1.06 Est Cr Clr Drug Dosing 53.5 54.5 Est GFR ( Amer) 70.2 71.8 Est GFR (Non-Af Amer) 60.5 61.9 BUN/Creatinine Ratio 22.2 H 23.6 H Glucose 81 96 Osmolality Calcium 8.3 L 8.5 L Magnesium 1.9 Total Bilirubin 1.6 H AST 34 ALT 24 Alkaline Phosphatase 208 H Troponin I High Sens B-Natriuretic Peptide Total Protein 5.7 L Albumin 3.4 Globulin 2.3 L Albumin/Globulin Ratio 1.5 Urine Color Dark Yellow Urine Appearance Cloudy A Urine pH 5.5 Ur Specific [place] 1.020 Urine Protein Trace H Urine Glucose (UA) Negative Urine Ketones Negative Urine Blood Negative Urine Nitrite Negative Urine Bilirubin Negative Urine Urobilinogen Negative Ur Leukocyte Esterase 1+ H Urine WBC (Auto) 5-10 H Urine RBC (Auto) 0-4 U Hyaline Cast (Auto) 1-5 U Epithel Cells (Auto) 20-30 H Urine Bacteria (Auto) Negative Urine Crystals Not Reportable Calcium Oxalate Crystal Present A Urine Osmolality Ur Random Sodium < 10 Adenovirus (PCR) B. pertussis DNA (PCR) B.parapertussis DNA PCR C. pneumoniae DNA (PCR) Coronavirus OC43 (PCR) Coronavirus HKU1 (PCR) Coronavirus 229E (PCR) SARS-CoV-2 (PCR) Coronavirus NL63 (PCR) Human Metapneumovir PCR Influenza Type A (PCR) Influenza Type B (PCR) M. pneumoniae (PCR) Parainfluenza 1 (PCR) Parainfluenza 2 (PCR) Parainfluenza 3 (PCR) Parainfluenza 4 (PCR) RSV (PCR) Entero/Rhino (PCR) Diagnostic Findings US LIVER CLINICAL HISTORY: cirrhosis. TECHNIQUE: Real-time ultrasound of the abdomen with image documentation. COMPARISON: Limited abdominal ultrasound 04/24/2023 FINDINGS: Liver: The liver is enlarged measuring 17.7 cm in length and remains hyperechoic with irregular lobular contours, similar to the previous examination. No definite focal abnormality noted. Moderate perihepatic fluid. The portal vein is patent with bidirectional flow, predominantly noted directed towards the liver. Gallbladder: No cholelithiasis. The gallbladder wall measures 4.1 mm. Common bile duct: The common bile duct measures 3 mm. Pancreas: The pancreas is predominantly obscured by bowel gas. Kidneys: The right kidney measures 10.3 cm. IMPRESSION: 1. Hepatomegaly with irregular contours consistent with cirrhosis, as noted on the previous examination. 2. Interval increase in perihepatic ascites. 3. No cholelithiasis. The gallbladder wall is prominent; however, the specificity of this finding is diminished in the setting of low plasma proteins or cirrhosis. No biliary dilatation. PG Care Time/CCT Total # of Minutes Spent Total Time Spent with Patient: Total time spent is greater than 50% in coordination of care (as documented) at patient's floor/unit and/or counseling patient: Coding Level of Care Code 67222 IN/OBS CONSULT LVL 5,80M Diagnoses Hyponatremia E87.1 Cirrhosis K74.60 (HFpEF) heart failure with preserved ejection fraction I50.30 Valvular heart disease I38
[2023-06-25] MEDS: SODIUM CHLORIDE 3 % 150 ML IV ONE ×2 (12:40→20:06)
[2023-06-25] MEDS: SPIRONOLACTONE 25 MG TAB PO ONE (13:05)
[2023-06-25 13:40] LABS: BUN Creatinine Ratio 21.8 (10-20); Calcium 8.3 mg/dl (8.6-10.3); Creatinine Clr Calc Pharmacy 52.5 ml/min; Est GFR (African American) 68.6 ml/min; Est GFR (Non-African American) 59.2 ml/min
--- NOTE | 2023-06-25 15:54 | Hospitalist Progress Note ---
Date of Service June 25, 2023 Assessment & Plan (1) Generalized weakness: Plan: -Admit to the PCU on tele and pulse oximetry -Currently hemodynamically stable and stable on RA -Patient presented to the ED today with 1-2 months of progressive generalized weakness -His appetite has been poor and he was too weak to get out of bed today -At this time his generalized weakness is likely multifactorial including deconditioning, non-compliance with HS CPAP causing poor sleep, and his chronic liver disease and heart failure -No signs of infection on labs/imaging thus far -CT of the head/brain was negative for acute findings, neuro exam is non-focal -Patient is in agreement with need for inpatient rehab on discharge >PT/OT consults ordered -Fall/aspiration precautions -BL ELIUD's for DVT PPX -AM CBC, CMP, mag, PT/INR (2) Acute hyponatremia: Plan: -Sodium today is 123 -Likely multifactorial at this time including poor oral intake, cirrhosis, and CHF -Will obtain serum/urine osmolality, and urine sodium for further evaluation before we start treating -Will order 1800 mL fluid restriction -Communication placed in diet and separate communication placed for no free water; can have liquids with electrolytes -Monitor am sodium level 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 Young who had mentioned possible Mitral Valve replacement (4) DENZEL (obstructive sleep apnea): Plan: -Patient has been non-compliant per family due to being unable to tolerate the mask -For now we will monitor his HS SpO2 and order prn O2 to keep SpO2 between 92- 94% -Would recommend patient be evaluated for the nasal pillow mask option for his home CPAP (5) Shortness of breath: Plan: -Likely due to his hx of cardiomyopathy and mitral valve disease -No significant fluid noted on CXR today -Will obtain US of the abd/RUQ to monitor for ascites causing low lung volumes -Full respiratory biofire is negative Patient has a significant ascites Lasix, spironolactone Consider paracentesis (6) Cirrhosis: Plan: -MELD-Na score of 25 = 14-15% estimated 90 day mortality -Has not yet followed with GI or hepatology since last discharge -ALT and AST are WNL, no signs of hepatic encephalopathy -Is on lasix outpatient, will have to be cautious if considering starting Spironolactone -Could consider GI consult while admitted -Monitor am CMP # Significant ascites on abdominal US Needs Lasix, spironolactone (7) HTN (hypertension): Plan: -Stable -Monitor closely moving forward if IV diuresis is started Plan Admission and Anticipated Discharge Date Admission Date: June 24, 2023 Subjective appears comfortable , no SOB, has abdominal distention Review of Systems Review of Systems: generalized weakness, SOB, abdominal distention Physical Exam Physical Exam: head is atraumatic normocephalic Neck supple Lungs clear to auscultation bilaterally Heart sounds regular, no murmurs gallops rubs Abdomen distended, nontender Extremities 1+ pitting edema Results & Data Results & Data Vital Signs (Past 12 Hours) Vital Signs Temp Pulse Resp BP Pulse Ox O2 Del Method 06/25/23 11:00 36.4 C L 80 18 123/79 95 Room Air 06/25/23 07:50 36.3 C L 76 19 130/78 97 Room Air PG Care Time/CCT Total # of Minutes Spent Total Time Spent with Patient: Total time spent is greater than 50% in coordination of care (as documented) at patient's floor/unit and/or counseling patient: Coding Level of Care Code 08248 SUB INP/OBS CARE 2/35MIN Diagnoses Generalized weakness R53.1 Acute hyponatremia E87.1 Dizziness R42 DENZEL (obstructive sleep apnea) G47.33 Shortness of breath R06.02 Cirrhosis K74.60 HTN (hypertension) I10
[2023-06-25 18:07] LABS: BUN Creatinine Ratio 22.3 (10-20); Calcium 8.6 mg/dl (8.6-10.3); Creatinine Clr Calc Pharmacy 51.6 ml/min; Est GFR (African American) 67.1 ml/min; Est GFR (Non-African American) 57.9 ml/min; Potassium 4.3 mmol/L (3.5-5.1)
[2023-06-25] MEDS: FUROSEMIDE INJ 20 MG/2 ML VIAL IV SCH (20:13)
[2023-06-26] MEDS: SODIUM CHLORIDE 3 % 150 ML IV ONE ×2 (00:24→09:27)
[2023-06-26 04:56] LABS: Hematocrit (blood only) 32.6 % (42.0-52.0); Hemoglobin 11.2 g/dl (14.0-18.0); Mean Corpuscular Hemoglobin 29.3 pg (25.0-34.0); Mean Corpuscular Hgb Conc 34.4 g/dL (32.0-36.0); Mean Corpuscular Volume 85.3 fL (80.0-100.0); Mean Platelet Volume 12.4 fL (9.4-12.4); Platelet Count 84 K/uL (130-400); RDW Coefficient of Variation 14.3 % (11.5-14.5); Red Blood Count 3.82 M/uL (4.70-6.10); White Blood Count 5.65 K/ul (4.8-10.8)
[2023-06-26 05:14] LABS: Albumin Globulin Ratio 1.4 (0.9-2); Albumin Level 3.3 gm/dl (3.4-5.0); BUN Creatinine Ratio 24.5 (10-20); Bilirubin,Total 1.6 mg/dl (0.2-1.0); Calcium 8.2 mg/dl (8.6-10.3); Creatinine Clr Calc Pharmacy 58.9 ml/min; Est GFR (African American) 78.9 ml/min; Est GFR (Non-African American) 68.1 ml/min; Globulin 2.4 gm/dl (2.5-4.0); Magnesium 1.9 mg/dl (1.7-2.4); Potassium 4.1 mmol/L (3.5-5.1); Total Protein 5.7 gm/dl (6.0-8.3)
[2023-06-26 05:30] LABS: INR 1.7 (0.9-1.1); Prothrombin Time 18.1 Seconds (9.0-12.0)
[2023-06-26] MEDS ORDERED: STAT IV/IM STA (08:56)
[2023-06-26] MEDS: SPIRONOLACTONE 25 MG TAB PO SCH (09:30)
[2023-06-26] MEDS: METOPROLOL SUCC 25MG EXT REL TAB PO SCH (09:30)
--- NOTE | 2023-06-26 10:12 | Nephrology Progress Note ---
Date of Service June 26, 2023 Assessment & Plan (1) Hyponatremia: Plan: Chronic. Improving acceptably. Additional 150 ml of 3% saline provided this AM. Repeat urine studies pending. I have ordered repeat urine studies. Presentation consistent with increased TBW but decreased EAV consistent with advanced liver disease and cardiorenal syndrome. Repeat serum sodium ordered for 1300. Document strict I/O's. (2) Cirrhosis: Plan: MELD-Na 25. Consider paracentesis for ascites. (3) Valvular heart disease: Plan: Cardiology following. TTE reviewd. Document strict I/O's. Continue 1.8 L daily fluid restriction. Diuretics per cardiology and hospitalist. Admission and Anticipated Discharge Date Admission Date: June 24, 2023 Subjective No acute events overnight. Stephen was sitting comfortably in his bedside chair. He reports some mild improvement. Denies notable dyspnea. Abdominal distention persists. Appetite poor. Review of Systems Review of Systems: All systems reviewed & are unremarkable except as noted in HPI & below Physical Exam Constitutional: well developed and + frail appearing; no acute distress Eyes: no scleral abnormality and no corneal abnormality ENMT: Mouth: no oral mucosal abnormality and oral mucous membranes not dry Neck: normal visual inspection and trachea midline Respiratory: normal respiratory effort Auscultation: lungs clear to auscultation bilaterally Cardiovascular: Rate/Rhythm: regular rate Heart Sounds: normal S1, normal S2 and + murmur Extremities: + pedal edema Musculoskeletal: Extremities: no cyanosis and no clubbing Skin: normal turgor; no lesions Neurologic: Motor/Sensory: no tremor and no asterixis Psychiatric: Orientation: alert and oriented x 3 Results & Data Vital Signs (Past 12 Hours) Vital Signs Temp Pulse Pulse Resp BP Pulse Ox O2 Del Method 06/26/23 08:34 36.5 C 78 18 124/78 96 Room Air 06/26/23 03:05 36.4 C L 73 20 119/78 95 Room Air 06/25/23 23:22 68 06/25/23 22:30 36.3 C L 74 20 94/65 L 97 Room Air Laboratory Results Laboratory Results - last 24 hr 06/25/23 06/25/23 06/25/23 12:53 16:41 22:22 WBC RBC Hgb Hct MCV MCH MCHC RDW Std Deviation RDW Coeff of Fernando Plt Count MPV PT INR Sodium 123 L 124 L 125 L Potassium 4.0 4.3 Chloride 92 L 91 L Carbon Dioxide 23 25 Anion Gap 8 8 BUN 24 H 25 H Creatinine 1.10 1.12 Est Cr Clr Drug Dosing 52.5 51.6 Est GFR ( Amer) 68.6 67.1 Est GFR (Non-Af Amer) 59.2 57.9 BUN/Creatinine Ratio 21.8 H 22.3 H Glucose 97 80 Calcium 8.3 L 8.6 Magnesium Total Bilirubin AST ALT Alkaline Phosphatase Total Protein Albumin Globulin Albumin/Globulin Ratio 06/26/23 04:36 WBC 5.65 RBC 3.82 L Hgb 11.2 L Hct 32.6 L MCV 85.3 MCH 29.3 MCHC 34.4 RDW Std Deviation 44.0 RDW Coeff of Fernando 14.3 Plt Count 84 L MPV 12.4 PT 18.1 H INR 1.7 H Sodium 127 L Potassium 4.1 Chloride 97 L Carbon Dioxide 22 Anion Gap 8 BUN 24 H Creatinine 0.98 Est Cr Clr Drug Dosing 58.9 Est GFR ( Amer) 78.9 Est GFR (Non-Af Amer) 68.1 BUN/Creatinine Ratio 24.5 H Glucose 75 Calcium 8.2 L Magnesium 1.9 Total Bilirubin 1.6 H AST 40 H ALT 28 Alkaline Phosphatase 209 H Total Protein 5.7 L Albumin 3.3 L Globulin 2.4 L Albumin/Globulin Ratio 1.4 PG Care Time/CCT Total # of Minutes Spent Total Time Spent with Patient: Total time spent is greater than 50% in coordination of care (as documented) at patient's floor/unit and/or counseling patient: Coding Level of Care Code 41310 SUB INP/OBS CARE 3/50MIN Diagnoses Hyponatremia E87.1 Cirrhosis K74.60 Valvular heart disease I38
--- NOTE | 2023-06-26 11:59 | Hospitalist Progress Note ---
Date of Service June 26, 2023 Assessment & Plan (1) Generalized weakness: Plan: -Some improvement following physical therapy -Patient presented to the ED today with 1-2 months of progressive generalized weakness -His appetite has been poor and he was too weak to get out of bed today -At this time his generalized weakness is likely multifactorial including deconditioning, non-compliance with HS CPAP causing poor sleep, and his chronic liver disease and heart failure -No signs of infection on labs/imaging thus far -CT of the head/brain was negative for acute findings, neuro exam is non-focal -Patient is in agreement with need for inpatient rehab on discharg -PT/OT consults ordered -Fall/aspiration precautions -BL ELIUD's for DVT PPX -AM CBC, CMP, mag, PT/INR (2) Acute hyponatremia: Plan: -Sodium is improving following hypertonic saline 3% -Likely multifactorial at this time including poor oral intake, cirrhosis, and CHF -Appreciate nephrology recommendations. (3) Dizziness: Plan: -Likely multifactorial at this time as he likely has some component of orthostatic hypotension -However, some of his symptoms, including some chest pressure with the episodes at rest are concerning for underlying arrhythmia -He has a hx of afib and is in afib -Continue to monitor on tele, fall precautions -Will consult cardiology as he follows with Dr. Young who had mentioned possible Mitral Valve replacement (4) DENZEL (obstructive sleep apnea): Plan: -Patient has been non-compliant per family due to being unable to tolerate the mask -For now we will monitor his HS SpO2 and order prn O2 to keep SpO2 between 92- 94% -Would recommend patient be evaluated for the nasal pillow mask option for his home CPAP (5) Shortness of breath: Plan: -Likely due to his hx of cardiomyopathy and mitral valve disease -No significant fluid noted on CXR today -Will obtain US of the abd/RUQ to monitor for ascites causing low lung volumes -Full respiratory biofire is negative (6) Cirrhosis: Plan: -Cirrhosis with moderate ascites -MELD-Na score of 25 = 14-15% estimated 90 day mortality -Has not yet followed with GI or hepatology since last discharge -ALT and AST are WNL, no signs of hepatic encephalopathy -Is on lasix outpatient, will have to be cautious if considering starting Spironolactone -Family is considering IR consult for paracentesis (7) HTN (hypertension): Plan: -Stable -Monitor closely moving forward if IV diuresis is started Plan Patient is awaiting rehab Admission and Anticipated Discharge Date Admission Date: June 24, 2023 Subjective Patient seen and examined, sitting up in the chair, daughter and in-law by the bedside patient complains of constipation Review of Systems Review of Systems: All systems reviewed are negative, apart from the ones contained in the history. Physical Exam Physical Exam: The patient is awake, alert and oriented 3, well developed and well nourished, normocephalic and atraumatic, lying in bed and in no acute distress. HEENT--PERRL, EOMI, mucous membranes and oropharynx mildly dry Neck--supple. No JVD. No bruits. Thyroid normal, trachea midline, no adenopathy. Heart--normal S1 and S2. No murmurs, rubs or gallops. Lungs--clear bilaterally, no respiratory distress, no accessory muscle use. Abdomen--mildly distended Extremities--no cyanosis or clubbing. No edema. Dermatologic--normal skin turgor, normal color, no abnormal lymph nodes, no rash. Neurologic--cranial nerves II through XII grossly intact. Rheumatologic--normal range of motion. Psychiatric--normal affect. Results & Data Results & Data Vital Signs (Past 12 Hours) Vital Signs Temp Pulse Resp BP Pulse Ox O2 Del Method 06/26/23 08:34 97.7 F 78 18 124/78 96 Room Air 06/26/23 03:05 97.5 F L 73 20 119/78 95 Room Air PG Care Time/CCT Total # of Minutes Spent Total Time Spent with Patient: Total time spent is greater than 50% in coordination of care (as documented) at patient's floor/unit and/or counseling patient: Coding Level of Care Code 20154 SUB INP/OBS CARE 2/35MIN Diagnoses Generalized weakness R53.1 Acute hyponatremia E87.1 Dizziness R42 DENZEL (obstructive sleep apnea) G47.33 Shortness of breath R06.02 Cirrhosis K74.60 HTN (hypertension) I10 Time Spent (min) 35
[2023-06-26] MEDS: POLYETHYLENE (MIRALAX) 17 GM PACK PO SCH (12:04)
[2023-06-26] MEDS: SODIUM CHLORIDE 1 GM TABLET PO SCH (18:08)
[2023-06-27 06:44] LABS: Hematocrit (blood only) 32.9 % (42.0-52.0); Hemoglobin 11.1 g/dl (14.0-18.0); Mean Corpuscular Hemoglobin 29.4 pg (25.0-34.0); Mean Corpuscular Hgb Conc 33.7 g/dL (32.0-36.0); Mean Platelet Volume 12.1 fL (9.4-12.4); Platelet Count 81 K/uL (130-400); RDW Standard Deviation 47.5 fL (36.4-46.3); Red Blood Count 3.78 M/uL (4.70-6.10); White Blood Count 5.13 K/ul (4.8-10.8)
[2023-06-27 07:02] LABS: INR 1.7 (0.9-1.1); Prothrombin Time 17.7 Seconds (9.0-12.0)
[2023-06-27 07:15] LABS: Albumin Globulin Ratio 1.4 (0.9-2); Albumin Level 3.3 gm/dl (3.4-5.0); BUN Creatinine Ratio 19.8 (10-20); Bilirubin,Total 1.5 mg/dl (0.2-1.0); Calcium 8.2 mg/dl (8.6-10.3); Creatinine Clr Calc Pharmacy 50.3 ml/min; Est GFR (African American) 71.8 ml/min; Est GFR (Non-African American) 61.9 ml/min; Globulin 2.3 gm/dl (2.5-4.0); Magnesium 1.9 mg/dl (1.7-2.4); Potassium 3.7 mmol/L (3.5-5.1); Total Protein 5.6 gm/dl (6.0-8.3)
--- NOTE | 2023-06-27 10:18 | Nephrology Progress Note ---
Date of Service June 27, 2023 Assessment & Plan (1) Hyponatremia: Plan: Chronic. Improved to baseline. Zuri + K improved on follow up testing suggesting less sodium avidity vs improved response to medications. Oral NaCl provided last evening and this AM. Presentation consistent with increased TBW but decreased EAV consistent with advanced liver disease and cardiorenal syndrome. Repeat serum sodium ordered for this evening. Document strict I/O's. Maintain fluid restriction. Encourage oral solute intake. (2) Cirrhosis: Plan: MELD-Na 21. Remains on Aldactone 25 mg daily. (3) Valvular heart disease: Plan: Cardiology following. TTE reviewd. Document strict I/O's. Continue 1.8 L daily fluid restriction. Diuretics per cardiology and hospitalist. Remains on furosemide 20 mg IV BID and spironolactone 25 mg daily. Admission and Anticipated Discharge Date Admission Date: June 24, 2023 Subjective No acute events overnight. Stephen was resting in bed this morning. He states t hat he is feeling better. He is breathing comfortably at rest. He denies any fluid retention or edema. Appetite remains poor. Review of Systems Review of Systems: All systems reviewed & are unremarkable except as noted in HPI & below Physical Exam Constitutional: well developed and + frail appearing; no acute distress Eyes: no scleral abnormality and no corneal abnormality ENMT: Mouth: no oral mucosal abnormality and oral mucous membranes not dry Neck: normal visual inspection and trachea midline Respiratory: normal respiratory effort Auscultation: lungs clear to auscultation bilaterally Cardiovascular: Rate/Rhythm: regular rate Heart Sounds: normal S1, normal S2 and + murmur Extremities: + pedal edema Musculoskeletal: Extremities: no cyanosis and no clubbing Skin: normal turgor; no lesions Neurologic: Motor/Sensory: no tremor and no asterixis Psychiatric: Orientation: alert and oriented x 3 Results & Data Vital Signs (Past 12 Hours) Vital Signs Temp Pulse Resp BP Pulse Ox O2 Del Method 06/27/23 08:00 Room Air 06/27/23 06:59 36.4 C L 72 19 111/77 97 Room Air 06/27/23 03:33 36.8 C 68 18 118/78 96 Room Air 06/26/23 22:45 37.5 C 77 20 122/83 95 Room Air Laboratory Results Laboratory Results - last 24 hr 06/26/23 06/26/23 06/27/23 12:49 16:25 06:11 WBC 5.13 RBC 3.78 L Hgb 11.1 L Hct 32.9 L MCV 87.0 MCH 29.4 MCHC 33.7 RDW Std Deviation 47.5 H RDW Coeff of Fernando 15.0 H Plt Count 81 L MPV 12.1 PT 17.7 H INR 1.7 H Sodium 129 L 130 L Potassium 3.7 Chloride 98 Carbon Dioxide 22 Anion Gap 10 BUN 21 Creatinine 1.06 Est Cr Clr Drug Dosing 50.3 Est GFR ( Amer) 71.8 Est GFR (Non-Af Amer) 61.9 BUN/Creatinine Ratio 19.8 Glucose 77 Calcium 8.2 L Magnesium 1.9 Total Bilirubin 1.5 H AST 46 H ALT 34 Alkaline Phosphatase 203 H Total Protein 5.6 L Albumin 3.3 L Globulin 2.3 L Albumin/Globulin Ratio 1.4 Urine Osmolality 431 L Ur Random Sodium 42 Ur Random Potassium 52.0 PG Care Time/CCT Total # of Minutes Spent Total Time Spent with Patient: Total time spent is greater than 50% in coordination of care (as documented) at patient's floor/unit and/or counseling patient: Coding Level of Care Code 29566 SUB INP/OBS CARE 3/50MIN Diagnoses Hyponatremia E87.1 Cirrhosis K74.60 Valvular heart disease I38
--- NOTE | 2023-06-27 11:33 | Hospitalist Progress Note ---
Date of Service June 27, 2023 Assessment & Plan (1) Generalized weakness: Plan: -Some improvement following physical therapy -His weakness was probably multifactorial including deconditioning, chronic liver disease and heart failure -Physical therapy has evaluated and said he needs short rehab, we are waiting for approval (2) Acute hyponatremia: Plan: -Sodium is probably at baseline around 130s -Likely multifactorial at this time including poor oral intake, cirrhosis, and CHF -Appreciate nephrology recommendations. (3) Dizziness: Plan: -Likely multifactorial at this time as he likely has some component of orthostatic hypotension -However, some of his symptoms, including some chest pressure with the episodes at rest are concerning for underlying arrhythmia -He has a hx of afib and is in afib -Continue to monitor on tele, fall precautions (4) DENZEL (obstructive sleep apnea): Plan: -Patient has been non-compliant per family due to being unable to tolerate the mask -For now we will monitor his HS SpO2 and order prn O2 to keep SpO2 between 92-94% -Would recommend patient be evaluated for the nasal pillow mask option for his home CPAP (5) Shortness of breath: Plan: -Likely due to his hx of cardiomyopathy and mitral valve disease -No significant fluid noted on CXR today -Will obtain US of the abd/RUQ to monitor for ascites causing low lung volumes -Full respiratory biofire is negative (6) Cirrhosis: Plan: -Cirrhosis with moderate ascites -MELD-Na score of 25 = 14-15% estimated 90 day mortality -Has not yet followed with GI or hepatology since last discharge -ALT and AST are WNL, no signs of hepatic encephalopathy -Is on lasix outpatient, will have to be cautious if considering starting Spironolactone -Family is considering IR consult for paracentesis (7) HTN (hypertension): Plan: -Stable -Monitor closely moving forward if IV diuresis is started Plan Patient is awaiting rehab Admission and Anticipated Discharge Date Admission Date: June 24, 2023 Subjective Patient seen and examined, sitting up in the chair breathing better Review of Systems Review of Systems: All systems reviewed are negative, apart from the ones contained in the history. Physical Exam Physical Exam: The patient is awake, alert and oriented 3, well developed and well nourished, normocephalic and atraumatic, lying in bed and in no acute distress. HEENT--PERRL, EOMI, mucous membranes and oropharynx mildly dry Neck--supple. No JVD. No bruits. Thyroid normal, trachea midline, no adenopathy. Heart--normal S1 and S2. No murmurs, rubs or gallops. Lungs--clear bilaterally, no respiratory distress, no accessory muscle use. Abdomen--mildly distended Extremities--no cyanosis or clubbing. No edema. Dermatologic--normal skin turgor, normal color, no abnormal lymph nodes, no rash. Neurologic--cranial nerves II through XII grossly intact. Rheumatologic--normal range of motion. Psychiatric--normal affect. Results & Data Results & Data Vital Signs (Past 12 Hours) Vital Signs Temp Pulse Resp BP Pulse Ox O2 Del Method 06/27/23 08:00 Room Air 06/27/23 06:59 97.5 F L 72 19 111/77 97 Room Air 06/27/23 03:33 98.2 F 68 18 118/78 96 Room Air PG Care Time/CCT Total # of Minutes Spent Total Time Spent with Patient: Total time spent is greater than 50% in coordination of care (as documented) at patient's floor/unit and/or counseling patient: Coding Level of Care Code 62707 SUB INP/OBS CARE 2/35MIN Diagnoses Generalized weakness R53.1 Acute hyponatremia E87.1 Dizziness R42 DENZEL (obstructive sleep apnea) G47.33 Shortness of breath R06.02 Cirrhosis K74.60 HTN (hypertension) I10 Time Spent (min) 35
[2023-06-28 06:00] LABS: Albumin Level 3.3 gm/dl (3.4-5.0); BUN Creatinine Ratio 15.9 (10-20); Calcium 8.3 mg/dl (8.6-10.3); Creatinine Clr Calc Pharmacy 47.2 ml/min; Est GFR (African American) 66.4 ml/min; Est GFR (Non-African American) 57.3 ml/min; Phosphorus 3.8 mg/dl (2.5-4.9); Potassium 4.2 mmol/L (3.5-5.1)
[2023-06-28] MEDS: SODIUM CHLORIDE 1 GM TABLET PO SCH (09:14)
--- NOTE | 2023-06-28 10:43 | Nephrology Progress Note ---
Date of Service June 28, 2023 Assessment & Plan (1) Hyponatremia: Plan: Chronic. Improved to baseline. Zuri + K improved on follow up testing. Stop oral NaCl. Presentation consistent with increased TBW but decreased EAV consistent with advanced liver disease and cardiorenal syndrome. Maintain fluid restriction. Encourage oral solute intake. Check follow up serum sodium within 1 week. Follow up in the [facility] nephrology clinic within 2 weeks of discharge. (2) Cirrhosis: Plan: MELD-Na 21. Aldactone added this admission. Tolerating medication well. Paracentesis scheduled for today. (3) Valvular heart disease: Plan: Cardiology following. Continue 1.8 L daily fluid restriction. Diuretics per cardiolog. Remains on furosemide 20 mg IV BID and spironolactone 25 mg daily. Admission and Anticipated Discharge Date Admission Date: June 24, 2023 Subjective No acute events overnight. Stephen feels well this AM. He will be having a paracentesis. He was seen and evaluated with family at the bedside. Review of Systems Review of Systems: All systems reviewed & are unremarkable except as noted in HPI & below Physical Exam Constitutional: well developed and + frail appearing; no acute distress Eyes: no scleral abnormality and no corneal abnormality ENMT: Mouth: no oral mucosal abnormality and oral mucous membranes not dry Neck: normal visual inspection and trachea midline Respiratory: normal respiratory effort Auscultation: lungs clear to auscult ation bilaterally Cardiovascular: Rate/Rhythm: regular rate Heart Sounds: normal S1, normal S2 and + murmur Extremities: + pedal edema; no edema Musculoskeletal: Extremities: no cyanosis and no clubbing Skin: normal turgor; no lesions Neurologic: Motor/Sensory: no tremor and no asterixis Psychiatric: Orientation: alert and oriented x 3 Results & Data Vital Signs (Past 12 Hours) Vital Signs Temp Pulse Resp BP Pulse Ox O2 Del Method 06/28/23 07:08 36.4 C L 73 18 122/76 94 Room Air 06/28/23 03:33 36.6 C 77 18 109/58 L 95 Room Air Laboratory Results Laboratory Results - last 24 hr 06/28/23 05:23 Sodium 132 L Potassium 4.2 Chloride 100 Carbon Dioxide 25 Anion Gap 7 BUN 18 Creatinine 1.13 Est Cr Clr Drug Dosing 47.2 Est GFR ( Amer) 66.4 Est GFR (Non-Af Amer) 57.3 BUN/Creatinine Ratio 15.9 Glucose 73 Calcium 8.3 L Phosphorus 3.8 Albumin 3.3 L PG Care Time/CCT Total # of Minutes Spent Total Time Spent with Patient: Total time spent is greater than 50% in coordination of care (as documented) at patient's floor/unit and/or counseling patient: Coding Level of Care Code 88879 SUB INP/OBS CARE 3/50MIN Diagnoses Hyponatremia E87.1 Cirrhosis K74.60 Valvular heart disease I38
--- NOTE | 2023-06-28 11:43 | Hospitalist Progress Note ---
Date of Service June 28, 2023 Assessment & Plan (1) Generalized weakness: Plan: -Some improvement following physical therapy -His weakness was probably multifactorial including deconditioning, chronic liver disease and heart failure -Physical therapy has evaluated and said he needs short rehab, we are waiting for approval (2) Acute hyponatremia: Plan: -Sodium is probably at baseline around 130s -Likely multifactorial at this time including poor oral intake, cirrhosis, and CHF -Appreciate nephrology recommendations. (3) Dizziness: Plan: -Likely multifactorial at this time as he likely has some component of orthostatic hypotension -However, some of his symptoms, including some chest pressure with the episodes at rest are concerning for underlying arrhythmia -He has a hx of afib and is in afib -Continue to monitor on tele, fall precautions (4) DENZEL (obstructive sleep apnea): Plan: -Patient has been non-compliant per family due to being unable to tolerate the mask -For now we will monitor his HS SpO2 and order prn O2 to keep SpO2 between 92-94% -Would recommend patient be evaluated for the nasal pillow mask option for his home CPAP (5) Shortness of breath: Plan: -Likely due to his hx of cardiomyopathy and mitral valve disease -No significant fluid noted on CXR today -Will obtain US of the abd/RUQ to monitor for ascites causing low lung volumes -Full respiratory biofire is negative (6) Cirrhosis: Plan: -Cirrhosis with moderate ascites -MELD-Na score of 25 = 14-15% estimated 90 day mortality -Has not yet followed with GI or hepatology since last discharge -ALT and AST are WNL, no signs of hepatic encephalopathy -Is on lasix outpatient, will have to be cautious if considering starting Spironolactone -Scheduled for paracentesis today (7) HTN (hypertension): Plan: -Stable -Monitor closely moving forward if IV diuresis is started Plan Patient is awaiting rehab, pending preauth Admission and Anticipated Discharge Date Admission Date: June 24, 2023 Subjective Patient seen and examined, family by the bedside, scheduled for paracentesis today. Review of Systems Review of Systems: All systems reviewed are negative, apart from the ones contained in the history. Physical Exam Physical Exam: The patient is awake, alert and oriented 3, well developed and well nourished, normocephalic and atraumatic, lying in bed and in no acute distress. HEENT--PERRL, EOMI, mucous membranes and oropharynx mildly dry Neck--supple. No JVD. No bruits. Thyroid normal, trachea midline, no adenopathy. Heart--normal S1 and S2. No murmurs, rubs or gallops. Lungs--clear bilaterally, no respiratory distress, no accessory muscle use. Abdomen--mildly distended Extremities--no cyanosis or clubbing. No edema. Dermatologic--normal skin turgor, normal color, no abnormal lymph nodes, no rash. Neurologic--cranial nerves II through XII grossly intact. Rheumatologic--normal range of motion. Psychiatric--normal affect. Results & Data Results & Data Vital Signs (Past 12 Hours) Vital Signs Temp Pulse Pulse Resp BP Pulse Ox O2 Del Method 06/28/23 11:26 Room Air 06/28/23 08:00 65 06/28/23 07:08 97.5 F L 73 18 122/76 94 Room Air 06/28/23 03:33 97.9 F 77 18 109/58 L 95 Room Air PG Care Time/CCT Total # of Minutes Spent Total Time Spent with Patient: Total time spent is greater than 50% in coordination of care (as documented) at patient's floor/unit and/or counseling patient: Coding Level of Care Code 71615 SUB INP/OBS CARE 2/35MIN Diagnoses Generalized weakness R53.1 Acute hyponatremia E87.1 Dizziness R42 DENZEL (obstructive sleep apnea) G47.33 Shortness of breath R06.02 Cirrhosis K74.60 HTN (hypertension) I10 Time Spent (min) 35
--- NOTE | 2023-06-28 14:39 | Ultrasound Report ---
Ultrasound-guided paracentesis INDICATION: Ascites PROCEDURE: Procedure and risks were explained. Informed consent was obtained. A final timeout was com pleted. The abdomen was prepped and draped in sterile fashion. 1% buffered lidocaine was utilized for skin anesthesia. Utilizing ultrasound guidance, a 5 [place] safety centesis catheter was advanced into the left lower q uadrant pocket of ascites. Ultrasound images were obtained. 1.5 L of tressa-colored ascites fluid was removed and sent to lab for analysis. The catheter was removed and Band-Aid applied. The patient tole rated the procedure well. Vital signs will be monitored postprocedure. IMPRESSION: Ultrasound-guided paracentesis as above. Performed, dictated, and signed by Foster Barrera PA-C; to be co-signed by Dr. Mike Faye. Electronically signed by: Mike Faye M.D. 06/28/2023 3:01 PM
[2023-06-29 10:00] LABS: Albumin Globulin Ratio 1.4 (0.9-2); Albumin Level 3.3 gm/dl (3.4-5.0); BUN Creatinine Ratio 14.7 (10-20); Bilirubin,Total 1.9 mg/dl (0.2-1.0); Calcium 8.2 mg/dl (8.6-10.3); Creatinine Clr Calc Pharmacy 48.9 ml/min; Est GFR (African American) 69.4 ml/min; Est GFR (Non-African American) 59.9 ml/min; Globulin 2.4 gm/dl (2.5-4.0); Potassium 3.6 mmol/L (3.5-5.1); Total Protein 5.7 gm/dl (6.0-8.3)
--- NOTE | 2023-06-29 10:38 | Cardiology Progress Note ---
Date of Service June 29, 2023 Assessment & Plan (1) Generalized weakness: (2) Cardiomyopathy: (3) A-fib: (4) Valvular heart disease: Plan 1. Weakness: He seems improved somewhat. He continues to complain of weakness which is likely due to an element of deconditioning and possibly depression. Certainly some chronic illnesses as well. Scheduled for outpatient rehab. 2. Right ventricular dysfunction: Hemodynamically stable. Possibly contributing to his cirrhosis and ascites although minimal lower extremity edema. 3. Atrial fibrillation: Permanent. Adequate rate control. 4. Valvular heart disease: He has at least moderate if not severe mitral regurgitation. Will re-evaluate on an outpatient basis if his clinical condition improves and his competing comorbidities (i.e. cirrhosis) are not too severe. 5. Hyponatremia: Improving. He was on sodium supplementation and continued diuretics. It seems as if his sodium is back to baseline. It will be reasonable continue his current dose of diuretic and increase solute intake monitoring his sodium over time. I think his diuretics could also be reduced to 20 mg daily if the sodium continues to drop. He has not affected much in the way of a diuresis over the past few days based on his charted I&Os. However, he has not developed significant pulmonary edema or worsening lower extremity edema. This would speak against decompensated heart failure as the cause for many of his symptoms. As noted above, I think would be reasonable to continue his current dose of diuretic monitoring his electrolytes and volume status closely. Admission and Anticipated Discharge Date Admission Date: June 24, 2023 Subjective This morning the patient claimed he feeling somewhat better overall. He seems to feel as if a lot of pressure has been released from his abdomen after the paracentesis yesterday. He continues to sleep poorly, but this is a chronic problem. Breathing perhaps improved slightly. He was ambulatory around his room yesterday with minimal dizziness. He continues to feel weak and has an element of lassitude. No worse. Review of Systems Review of Systems: Per HPI. Appetite improving. Physical Exam Physical Exam: The patient is alert and oriented. Mood and affect appeared normal. He answered all questions appropriately. HEENT: Pupils are equal and reactive to light and accommodation. Extraocular movements are intact. The sclerae are anicteric. Neuro: Cranial nerves intact Neck: Patient's neck is supple. He has palpable carotid pulses bilaterally wit hout bruits on auscultation. There is no evidence of jugular venous distention. The thyroid is not enlarged. Lungs: Clear to auscultation bilaterally. He has good air movement without use of accessory muscles. No rales wheezes or rhonchi. Cardiac: Heart demonstrates an irregular rhythm. Normal S1 and S2. Soft holosystolic murmur of variable intensity. Abdomen: Soft. Nontender. Pulses: The patient has palpable radial pulses bilaterally that are equal in intensity Extremities: There was no evidence of hypoperfusion. There is no cyanosis or clubbing. Very mild lower extremity edema bilaterally. Skin: I did not appreciate any rashes on examination today. Results & Data Vital Signs (Past 12 Hours) Vital Signs Temp Pulse Pulse Resp BP BP Pulse Ox 06/29/23 07:42 60 06/29/23 07:15 36.3 C L 80 19 126/75 93 06/29/23 03:00 36.3 C L 86 21 118/67 96 06/29/23 00:35 82 06/28/23 22:46 36.5 C 70 20 122/78 95 O2 Del Method 06/29/23 07:42 06/29/23 07:15 Room Air 06/29/23 03:00 Room Air 06/29/23 00:35 06/28/23 22:46 Room Air Laboratory Results Abnormal Lab Results 06/29/23 09:14 Sodium 132 L Potassium 3.6 Chloride 99 Carbon Dioxide 26 Anion Gap 7 BUN 16 Creatinine 1.09 Est Cr Clr Drug Dosing 48.9 Est GFR ( Amer) 69.4 Est GFR (Non-Af Amer) 59.9 BUN/Creatinine Ratio 14.7 Glucose 79 Calcium 8.2 L Total Bilirubin 1.9 H AST 72 H ALT 64 H Alkaline Phosphatase 239 H Total Protein 5.7 L Albumin 3.3 L Globulin 2.4 L Albumin/Globulin Ratio 1.4 PG Care Time/CCT Total # of Minutes Spent Total Time Spent with Patient: Total time spent is greater than 50% in coordination of care (as documented) at patient's floor/unit and/or counseling patient: Coding Level of Care Code 87741 SUB INP/OBS CARE 2/35MIN Diagnoses Generalized weakness R53.1 Cardiomyopathy I42.9 A-fib I48.91 Atrial fibrillation type: unspecified Valvular heart disease I38 (3) A-fib Atrial fibrillation type: unspecified Qualified Code(s): I48.91 - Unspecified atrial fibrillation
--- NOTE | 2023-06-29 11:01 | Nephrology Progress Note ---
Date of Service June 29, 2023 Assessment & Plan (1) Hyponatremia: Plan: Chronic. Improved to baseline. Presentation consistent with increased TBW but decreased EAV consistent with advanced liver disease and cardiorenal syndrome. Maintain fluid restriction. Encourage oral solute intake. Check follow up serum sodium within 1 week. Follow up in the [facility] [place] within 2 weeks of discharge. (2) Cirrhosis: Plan: MELD-Na 21. Aldactone added this admission. Tolerating medication well. Paracentesis completed yesterday. (3) Valvular heart disease: Plan: Cardiology following. Continue 1.8 L daily fluid restriction. Diuretics per cardiology. Remains on furosemide 20 mg IV BID and spironolactone 25 mg daily. Admission and Anticipated Discharge Date Admission Date: June 24, 2023 Subjective No acute events overnight. Breathing improved following paracentesis. Overall, Stephen feels well. He continues to endorse fatigue and some generalized weakness. Appetite remains decreased. He hopes to be discharged to [facility] for rehab. Review of Systems Review of Systems: All systems reviewed & are unremarkable except as noted in HPI & below Physical Exam Constitutional: well developed and + frail appearing; no acute distress Eyes: no scleral abnormality and no corneal abnormality ENMT: Mouth: no oral mucosal abnormality and oral mucous membranes not dry Neck: normal visual inspection and trachea midline Respiratory: normal respiratory effort Auscultation: lungs clear to auscultation bilaterally Cardiovascular: Rate/Rhythm: regular rate Heart Sounds: normal S1, normal S2 and + murmur Extremities: + pedal edema; no edema Musculoskeletal: Extremities: no cyanosis and no clubbing Skin: normal turgor; no lesions Neurologic: Motor/Sensory: no tremor and no asterixis Psychiatric: Orientation: alert and oriented x 3 Results & Data Vital Signs (Past 12 Hours) Vital Signs Temp Pulse Pulse Resp BP BP Pulse Ox 06/29/23 07:42 60 06/29/23 07:15 36.3 C L 80 19 126/75 93 06/29/23 03:00 36.3 C L 86 21 118/67 96 06/29/23 00:35 82 O2 Del Method 06/29/23 07:42 06/29/23 07:15 Room Air 06/29/23 03:00 Room Air 06/29/23 00:35 Laboratory Results Laboratory Results - last 24 hr 06/29/23 09:14 Sodium 132 L Potassium 3.6 Chloride 99 Carbon Dioxide 26 Anion Gap 7 BUN 16 Creatinine 1.09 Est Cr Clr Drug Dosing 48.9 Est GFR ( Amer) 69.4 Est GFR (Non-Af Amer) 59.9 BUN/Creatinine Ratio 14.7 Glucose 79 Calcium 8.2 L Total Bilirubin 1.9 H AST 72 H ALT 64 H Alkaline Phosphatase 239 H Total Protein 5.7 L Albumin 3.3 L Globulin 2.4 L Albumin/Globulin Ratio 1.4 PG Care Time/CCT Total # of Minutes Spent Total Time Spent with Patient: Total time spent is greater than 50% in coordination of care (as documented) at patient's floor/unit and/or counseling patient: Coding Level of Care Code 69981 SUB INP/OBS CARE 3/50MIN Diagnoses Hyponatremia E87.1 Cirrhosis K74.60 Valvular heart disease I38
--- NOTE | 2023-06-29 13:18 | Hospitalist Progress Note ---
Date of Service June 29, 2023 Assessment & Plan (1) Generalized weakness: Plan: -Some improvement following physical therapy -His weakness was probably multifactorial including deconditioning, chronic liver disease and heart failure -Physical therapy has evaluated and said he needs short rehab, we are waiting for approval (2) Acute hyponatremia: Plan: -Sodium is probably at baseline around 130s -Likely multifactorial at this time including poor oral intake, cirrhosis, and CHF -Appreciate nephrology recommendations. -Continue salt supplements, continue fluid restriction (3) Dizziness: Plan: -Likely multifactorial at this time as he likely has some component of orthostatic hypotension -However, some of his symptoms, including some chest pressure with the episodes at rest are concerning for underlying arrhythmia -He has a hx of afib and is in afib -Continue to monitor on tele, fall precautions (4) DENZEL (obstructive sleep apnea): Plan: -Patient has been non-compliant per family due to being unable to tolerate the mask -For now we will monitor his HS SpO2 and order prn O2 to keep SpO2 between 92- 94% -Would recommend patient be evaluated for the nasal pillow mask option for his home CPAP (5) Shortness of breath: Plan: -Likely due to his hx of cardiomyopathy and mitral valve disease -No significant fluid noted on CXR today (6) Cirrhosis: Plan: -Cirrhosis with moderate ascites -MELD-Na score of 25 = 14-15% estimated 90 day mortality -Has not yet followed with GI or hepatology since last discharge -ALT and AST are WNL, no signs of hepatic encephalopathy -Is on lasix outpatient, will have to be cautious if considering starting Spironolactone -He is now status post paracentesis with removal of about 1.8 L of fluid (7) HTN (hypertension): Plan: -Stable -Monitor closely moving forward if IV diuresis is started Plan Patient is awaiting rehab, pending preauth Admission and Anticipated Discharge Date Admission Date: June 24, 2023 Subjective Patient seen and examined, his strength is improving day by day, now status post paracentesis. Review of Systems Review of Systems: All systems reviewed are negative, apart from the ones contained in the history. Physical Exam Physical Exam: The patient is awake, alert and oriented 3, well developed and well nourished, normocephalic and atraumatic, lying in bed and in no acute distress. HEENT--PERRL, EOMI, mucous membranes and oropharynx mildly dry Neck--supple. No JVD. No bruits. Thyroid normal, trachea midline, no adenopathy. Heart--normal S1 and S2. No murmurs, rubs or gallops. Lungs--clear bilaterally, no respiratory distress, no accessory muscle use. Abdomen--mildly distended Extremities--no cyanosis or clubbing. No edema. Dermatologic--normal skin turgor, normal color, no abnormal lymph nodes, no rash. Neurologic--cranial nerves II through XII grossly intact. Rheumatologic--normal range of motion. Psychiatric--normal affect. Results & Data Results & Data Vital Signs (Past 12 Hours) Vital Signs Temp Pulse Pulse Resp BP BP Pulse Ox 06/29/23 12:17 97.3 F L 56 L 19 117/64 96 06/29/23 07:42 60 06/29/23 07:30 06/29/23 07:15 97.3 F L 80 19 126/75 93 06/29/23 03:00 97.3 F L 86 21 118/67 96 O2 Del Method 06/29/23 12:17 Room Air 06/29/23 07:42 06/29/23 07:30 Room Air 06/29/23 07:15 Room Air 06/29/23 03:00 Room Air PG Care Time/CCT Total # of Minutes Spent Total Time Spent with Patient: Total time spent is greater than 50% in coordination of care (as documented) at patient's floor/unit and/or counseling patient: Coding Level of Care Code 89003 SUB INP/OBS CARE 2/35MIN Diagnoses Generalized weakness R53.1 Acute hyponatremia E87.1 Dizziness R42 DENZEL (obstructive sleep apnea) G47.33 Shortness of breath R06.02 Cirrhosis K74.60 HTN (hypertension) I10 Time Spent (min) 35
[2023-06-30] MEDS: MELATONIN 3 MG TAB PO PRN (00:59)
--- NOTE | 2023-06-30 09:41 | Discharge Summary ---
Date of Service June 30, 2023 Admission HPI Per Admitting Provider Stephen is an 88 year old male with a PMH significant for newly afib S/P cardioversion with Dr. Young on 05/11/23 (on [facility]), Cirrhosis, hyperkalemia, thrombocytopenia, previous TIA, HTN, HLD who presented to the [facility] ED on 06/24/23 with complaints of ongoing dizziness, weakness, and SOB. He remained stable in the ED. Labs were significant for a thrombocytopenia of 113, INR of 1.7, sodium of 123, total bili of 1.5 (up from 1.3 as of 06/13/23), BNP of 578 (highest in our system compared to previous), and full respiratory biofire in process. Chest xray was read as "1. Cardiomegaly without radiographic evidence of congestive failure. 2. A small right pleural effusion is new". from previous..CT of the head/brain wo can was read as "No acute intracranial process or significant alteration from the prior examination.". At the time of the exam the patient was sitting in bed in no acute distress with his son and daughter sitting bedside, history was obtained from all. They state that the patient has been experiencing progressive generalized weakness, intermittent SOB, and dizziness. When asked, he states that the dizziness occurs with positional changes and walking, it does not occur at rest. His SOB is unpredictable, it will occur both at rest and with exertion and he also notes mild substernal chest pressure when this occurs. He states that these episodes usually last for 10-15 seconds. He has become so weak that his children had to start living with him to try and prevent falls. His oral intake has been poor but he has still been taking his medications as prescribed. He denies recent fever, chills, cough, abd pain, nausea, vomiting, diarrhea, dysuria, hematuria, melena, worsening LE swelling, and recent falls/trauma. He is interested in inpatient rehab on discharge. He is a DNR/DNI. Principal Diagnosis Congestive heart failure, cirrhosis, ascites Discharge Exam The patient is awake, alert and oriented 3, well developed and well nourished, normocephalic and atraumatic, lying in bed and in no acute distress. HEENT--PERRL, EOMI, mucous membranes and oropharynx mildly dry Neck--supple. No JVD. No bruits. Thyroid normal, trachea midline, no adenopathy. Heart--normal S1 and S2. No murmurs, rubs or gallops. Lungs--clear bilaterally, no respiratory distress, no accessory muscle use. Abdomen--mildly distended Extremities--no cyanosis or clubbing. No edema. Dermatologic--normal skin turgor, normal color, no abnormal lymph nodes, no rash. Neurologic--cranial nerves II through XII grossly intact. Rheumatologic--normal range of motion. Psychiatric--normal affect. Discharge Data Allergies Allergy/AdvReac Type Severity Reaction Status Date / Time No Known Allergies Allergy Verified 06/24/23 20:49 Consultations 06/24/23 20:10 ED Decision to Admit Stat 06/24/23 22:03 Consult Cardiology Routine 06/25/23 08:13 Consult Nephrology Routine Ordered Studies 06/24/23 19:37 CT head/brain wo con Stat 06/25/23 20:53 US abdomen ltd ascites Urgent US liver Urgent 06/28/23 08:09 IR paracentesis abd w/img US Routine Hospital Course (1) Generalized weakness: -Some improvement following physical therapy -His weakness was probably multifactorial including deconditioning, chronic liver disease and heart failure -Physical therapy has evaluated and said he needs short rehab, we are waiting for approval (2) Acute hyponatremia: -Sodium is probably at baseline around 130s -Likely multifactorial at this time including poor oral intake, cirrhosis, and CHF -Appreciate nephrology recommendations. -Continue salt supplements, continue fluid restriction (3) Dizziness: -Likely multifactorial at this time as he likely has some component of orthostatic hypotension -However, some of his symptoms, including some chest pressure with the episodes at rest are concerning for underlying arrhythmia -He has a hx of afib and is in afib -Continue to monitor on tele, fall precautions (4) DENZEL (obstructive sleep apnea): -Patient has been non-compliant per family due to being unable to tolerate the mask -For now we will monitor his HS SpO2 and order prn O2 to keep SpO2 between 92- 94% -Would recommend patient be evaluated for the nasal pillow mask option for his home CPAP (5) Shortness of breath: -Likely due to his hx of cardiomyopathy and mitral valve disease -No significant fluid noted on CXR today (6) Cirrhosis: -Cirrhosis with moderate ascites -MELD-Na score of 25 = 14-15% estimated 90 day mortality -Has not yet followed with GI or hepatology since last discharge -ALT and AST are WNL, no signs of hepatic encephalopathy -Is on lasix outpatient, will have to be cautious if considering starting Spironolactone -He is now status post paracentesis with removal of about 1.8 L of fluid (7) HTN (hypertension): -Stable -Monitor closely moving forward if IV diuresis is started Plan Discharge to rehab Total Time Total Time Spent Total Time Spent (In Minutes): 35 Discharge Plan Discharge Items Patient Disposition: [facility] Reason For Visit: WEAKNESS, HYPONATREMIA, CIRRHOSIS, DIZZINESS Discharge Diagnosis: weakness, cirrhosis, hyponatremia Activity: Resume your previous activity Non-emergency contact: Primary Care Provider Call non-emergency contact if: you have any medication questions Follow-up/Referrals: Thomas Ware PA-C [Primary Care Provider] - Diet: Regular Addtl Attending Provider Instructions: please follow up with your regular PCP Pending Studies at Discharge: No Stand-Alone Forms: My [facility] Skilled Items Patient informed of condition?: Yes DNR: Yes Discharge Level of Care: Skilled Communicable Disease: No Discharge Prognosis: Improving Lines: None Urinary Catheter: No Medications and DC Order Prescriptions: New spironolactone 25 mg Tablet 25 mg PO QAM 30 Days Qty: 30 0RF furosemide [Lasix] 20 mg tablet 20 mg PO DAILY 30 Days Qty: 30 0RF Continued metoprolol succinate 50 mg tablet extended release 24 hr 50 mg PO DAILY Qty: 90 3RF ipratropium-albuterol 0.5 mg-3 mg(2.5 mg base)/3 mL solution for nebulization 3 ml inhalation BID PRN (Reason: cough and wheezing) atorvastatin 80 mg tablet 80 mg PO QPM tamsulosin 0.4 mg capsule 0.4 mg PO HS Eliquis 5 mg Tablet 5 mg PO BID Qty: 60 0RF triamcinolone acetonide 0.1 % cream 1 applic TOPICAL BID PRN (Reason: Skin Irritation) Rx Instructions: use when flaring lorazepam 0.5 mg tablet 0.5 - 1 mg PO DAILY PRN (Reason: SEVERE ANXIETY) Discontinued furosemide 20 mg tablet 20 mg PO .AM & AFTERNOON Discharge Orders: Discharge Order (Routine); Ordered 06/30/23 Ordered By: Hyacinth Coffman Admission Data Admit Date/Time: 06/24/23 20:52 Attending Provider: Hyacinth Coffman Admit Provider: Oh Kang Primary Care Provider: Thomas Ware Other Providers: Oh Kang; Alber Young; Monica Alexis; [place],[facility]; [place],[facility] Coding Level of Care Code 58412 INP/OBS DISCH >30 MIN Diagnoses Generalized weakness R53.1 Acute hyponatremia E87.1 Dizziness R42 DENZEL (obstructive sleep apnea) G47.33 Shortness of breath R06.02 Cirrhosis K74.60 HTN (hypertension) I10 Time Spent (min) 35
== END 2023-06-30 10:18 | DRG 433 ==
LOC: ED 18:03 → SUATTDRO 20:52 → 4W 20:52